=== PATIENT | female | born 1950 | race Caucasian/White ===

== ENCOUNTER 2016-11-24 18:06 | Inpatient (IN) | payer MEDICARE, BC ==
[2016-11-24] MEDS ORDERED: ACETAMINOPHEN IV (For NPO) 1,000 MG in EMPTY BAG 1 BAG IVPB STA (18:59)
[2016-11-24] MEDS ORDERED: IPRATROPIUM-ALBUTEROL 3 ML NEB INHALATION STA (18:59)
--- NOTE | 2016-11-24 19:15 | ED ---
Pediatric SOB HPI - General Source: patient, RN notes reviewed Mode of arrival: wheelchair Limitations: no limitations <Mere Saleem - Last Filed: 11/24/16 22:29> <Holden Gonzalez - Last Filed: 11/24/16 23:02> - General Chief Complaint: Shortness of Breath Stated Complaint: SOB/chest pain/cough Time Seen by Provider: 11/24/16 18:48 - History of Present Illness Initial Comments: Patient is a 66-year-old female since emergency room for evaluation of shortness of breath. Patient has a history of CHF and is currently being treated for CML. Patient states she's had a "cold" for the past 4 days. Patient states she was on her way to urgent care when she suddenly began feeling short of breath so she came to the emergency room instead. Patient states last time she came here for shortness of breath she was diagnosed with CHF. Patient denies chest pain. Patient denies nausea, vomiting, abdominal pain, ear pain, throat pain. Patient does admit having a slight headache. ( Mere Saleem) - Related Data Home Medications Medication Instructions Recorded Confirmed ALPRAZolam [Xanax] 0.25 mg PO BID PRN 10/12/15 11/24/16 Aspirin [Adult Low Dose Aspirin EC] 162 mg PO HS 10/12/15 11/24/16 Calcium Carbonate [Calcium] 600 mg PO DAILY 10/12/15 11/24/16 Cranberry Conc/C/Bacill Coag 1 tab PO DAILY 10/12/15 11/24/16 [Cranberry Tablet] Lisinopril [Zestril] 10 mg PO DAILY 10/12/15 11/24/16 Metoprolol Tartrate [Lopressor] 50 mg PO BID 10/12/15 11/24/16 Multivit with Calcium,Iron,Min 1 tab PO DAILY 10/12/15 11/24/16 [Women's Daily Multivitamin] [place]-3 Fatty Acids/Fish Oil [Fish 1 cap PO DAILY 10/12/15 11/24/16 Oil 1,000 mg Softgel] Oxybutynin Chloride [Ditropan XL] 15 mg PO DAILY 10/12/15 11/24/16 Potassium Chloride [Klor-Con] 20 meq PO Q48H 10/12/15 11/24/16 Zolpidem [Ambien] 10 mg PO HS PRN 10/12/15 11/24/16 amLODIPine [Norvasc] 2.5 mg PO HS 10/12/15 11/24/16 metFORMIN HCL [Glucophage] 1,000 mg PO DAILY 10/12/15 11/24/16 metFORMIN HCL [Glucophage] 500 mg PO HS 10/12/15 11/24/16 Simvastatin [Zocor] 40 mg PO QAM 12/12/15 11/24/16 Citalopram Hydrobromide [CeleXA] 40 mg PO HS 11/24/16 11/24/16 Imatinib Mesylate [Gleevec] 400 mg PO DAILY 11/24/16 11/24/16 Previous Rx's Medication Instructions Recorded Furosemide [Lasix] 40 mg PO DAILY #30 tab 09/08/16 Allergies Allergy/AdvReac Type Severity Reaction Status Date / Time adhesive tape AdvReac Unknown Red , Verified 11/24/16 19:20 Irritated skin Review of Systems ROS Other: All systems not noted in ROS Statement are negative. <Mere Saleem - Last Filed: 11/24/16 22:29> ROS Other: All systems not noted in ROS Statement are negative. <Holden Gonzalez - Last Filed: 11/24/16 23:02> ROS Statement: Those systems with pertinent positive or pertinent negative responses have been documented in the HPI. Past Medical History Past Medical History: Chest Pain / Angina, Diabetes Mellitus, GERD/Reflux, Hyperlipidemia, Hypertension, Myocardial Infarction (non Q-wave) Additional Past Medical History / Comment(s): [place] X4 (LAST 2008), BACK PAIN, URINE INCONTINENCE. leukemia- treated with oral chemo diagnosed around April 2016 Last Myocardial Infarction Date:: 2008 History of Any Multi-Drug Resistant Organisms: None Reported Past Surgical History: Coronary Bypass/CABG, Heart Catheterization With Stent, Hysterectomy Additional Past Surgical History / Comment(s): CATARACT RIGHT EYE ,OVARY TUMOR, ACHILLES TENDON REPAIR. CABG-TRIPLE BYPASS WITH REPAIR OF HOLE IN HEART AND HEART VALVE(2008). Lens implants Past Anesthesia/Blood Transfusion Reactions: No Reported Reaction Date of Last Stent Placement:: 2007 Past Psychological History: Anxiety, Depression Smoking Status: Former smoker Past Alcohol Use History: Occasional Additional Past Alcohol Use History / Comment(s): SMOKED APPROX 1 PPD. SMOKED SINCE AGE 11, APPROX 48 YRS. Past Drug Use History: None Reported - Past Family History Mother Family Medical History: Cancer Additional Family Medical History / Comment(s): colon cancer Father Family Medical History: Congestive Heart Failure (CHF) Brother(s) Family Medical History: Congestive Heart Failure (CHF), Diabetes Mellitus <Mere Saleem L - Last Filed: 11/24/16 22:29> General Exam Limitations: no limitations General appearance: alert, in no apparent distress Head exam: Present: atraumatic, normocephalic, normal inspection Eye exam: Present: normal appearance ENT exam: Present: normal exam Neck exam: Present: normal inspection Respiratory exam: Present: wheezes. Absent: respiratory distress Cardiovascular Exam: Present: regular rate, normal rhythm, normal heart sounds Extremities exam: Present: normal inspection, normal capillary refill Back exam: Present: normal inspection Neurological exam: Present: alert, oriented X3, CN II-XII intact, normal gait Psychiatric exam: Present: normal affect, normal mood Skin exam: Present: warm, dry, intact, normal color. Absent: rash <Mere Saleem L - Last Filed: 11/24/16 22:29> General appearance: alert, in no apparent distress, anxious Head exam: Present: atraumatic, normocephalic, normal inspection Eye exam: Present: normal appearance, PERRL, EOMI. Absent: scleral icterus, conjunctival injection, periorbital swelling ENT exam: Present: normal exam, mucous membranes moist Neck exam: Present: normal inspection. Absent: tenderness, meningismus, lymphadenopathy Respiratory exam: Present: normal lung sounds bilaterally, wheezes, rhonchi, decreased breath sounds, prolonged expiratory. Absent: respiratory distress, rales, stridor Cardiovascular Exam: Present: regular rate, normal rhythm, normal heart sounds. Absent: systolic murmur, diastolic murmur, rubs, gallop, clicks GI/Abdominal exam: Present: soft, normal bowel sounds. Absent: distended, tenderness, guarding, rebound, rigid Extremities exam: Present: normal inspection, full ROM, normal capillary refill. Absent: tenderness, pedal edema, joint swelling, calf tenderness Back exam: Present: normal inspection Neurological exam: Present: alert, oriented X3, CN II-XII intact Psychiatric exam: Present: normal affect, normal mood Skin exam: Present: warm, dry, intact, normal color. Absent: rash <Holden Gonzalez - Last Filed: 11/24/16 23:02> - General Exam Comments Initial Comments: Laying in exam room, in no acute distress. (Mere Saleem) Course <Mere Saleem - Last Filed: 11/24/16 22:29> <Holden Gonzalez - Last Filed: 11/24/16 23:02> Vital Signs 11/24/16 11/24/16 11/24/16 18:08 19:43 20:12 Temperature 98.1 F Pulse Rate 73 65 68 Respiratory 20 18 Rate Blood Pressure 140/63 109/68 O2 Sat by Pulse 98 96 Oximetry 11/24/16 11/24/16 20:30 22:20 Temperature Pulse Rate 72 70 Respiratory 18 Rate Blood Pressure O2 Sat by Pulse 99 Oximetry - Reevaluation(s) Reevaluation #1: 11/24/16 23:02 Patient does have mild improvement with breathing treatments, simple control ( Holden Gonzalez) Medical Decision Making - Lab Data Result diagrams: 11/24/16 19:40 11/24/16 19:40 <Mere Saleem - Last Filed: 11/24/16 22:29> - Lab Data Result diagrams: 11/24/16 19:40 11/24/16 19:40 <Holden Gonzalez - Last Filed: 11/24/16 23:02> - Medical Decision Making 66 female with history of cancer coming in with shortness medical congestion, positive pneumonia, CT negative for PE although elevated d-dimer, patient will be admitted for IV antibiotics and prevention (Holden Gonzalez) - Lab Data Lab Results 11/24/16 11/24/16 11/24/16 Range/Units 19:40 19:40 19:40 WBC 5.1 (3.8-10.6) k/uL RBC 3.74 L (3.80-5.40) m/uL Hgb 11.1 L (11.4-16.0) gm/dL Hct 35.5 (34.0-46.0) % MCV 94.9 (80.0-100.0) fL MCH 29.8 (25.0-35.0) pg MCHC 31.4 (31.0-37.0) g/dL RDW 16.2 H (11.5-15.5) % Plt Count 294 (150-450) k/uL Neutrophils % 62 % Lymphocytes % 21 % Monocytes % 10 % Eosinophils % 4 % Basophils % 1 % Neutrophils # 3.1 (1.3-7.7) k/uL Lymphocytes # 1.1 (1.0-4.8) k/uL Monocytes # 0.5 (0-1.0) k/uL Eosinophils # 0.2 (0-0.7) k/uL Basophils # 0.0 (0-0.2) k/uL Anisocytosis Slight PT (9.0-12.0) sec INR (<1.1) APTT (22.0-30.0) sec D-Dimer (<0.60) mg/L FEU Sodium 139 (137-145) mmol/L Potassium 4.7 (3.5-5.1) mmol/L Chloride 101 (98-107) mmol/L Carbon Dioxide 30 (22-30) mmol/L Anion Gap 8 mmol/L BUN 12 (7-17) mg/dL Creatinine 1.01 (0.52-1.04) mg/dL Est GFR (MDRD) Af Amer >60 (>60 ml/min/1.73 sqM) Est GFR (MDRD) Non-Af 55 (>60 ml/min/1.73 sqM) Glucose 114 H (74-99) mg/dL Calcium 8.8 (8.4-10.2) mg/dL Total Bilirubin 0.5 (0.2-1.3) mg/dL AST 36 (14-36) U/L ALT 35 (9-52) U/L Alkaline Phosphatase 92 (38-126) U/L Total Creatine Kinase 47 (30-135) U/L CK-MB (CK-2) 0.7 (0.0-2.4) ng/mL CK-MB (CK-2) Rel Index 1.5 Troponin I <0.012 (0.000-0.034) ng/mL NT-Pro-B Natriuret Pep pg/mL Total Protein 6.3 (6.3-8.2) g/dL Albumin 3.5 (3.5-5.0) g/dL 11/24/16 11/24/16 Range/Units 19:40 19:40 WBC (3.8-10.6) k/uL RBC (3.80-5.40) m/uL Hgb (11.4-16.0) gm/dL Hct (34.0-46.0) % MCV (80.0-100.0) fL MCH (25.0-35.0) pg MCHC (31.0-37.0) g/dL RDW (11.5-15.5) % Plt Count (150-450) k/uL Neutrophils % % Lymphocytes % % Monocytes % % Eosinophils % % Basophils % % Neutrophils # (1.3-7.7) k/uL Lymphocytes # (1.0-4.8) k/uL Monocytes # (0-1.0) k/uL Eosinophils # (0-0.7) k/uL Basophils # (0-0.2) k/uL Anisocytosis PT 10.0 (9.0-12.0) sec INR 1.0 (<1.1) APTT 24.3 (22.0-30.0) sec D-Dimer 1.03 H (<0.60) mg/L FEU Sodium (137-145) mmol/L Potassium (3.5-5.1) mmol/L Chloride (98-107) mmol/L Carbon Dioxide (22-30) mmol/L Anion Gap mmol/L BUN (7-17) mg/dL Creatinine (0.52-1.04) mg/dL Est GFR (MDRD) Af Amer (>60 ml/min/1.73 sqM) Est GFR (MDRD) Non-Af (>60 ml/min/1.73 sqM) Glucose (74-99) mg/dL Calcium (8.4-10.2) mg/dL Total Bilirubin (0.2-1.3) mg/dL AST (14-36) U/L ALT (9-52) U/L Alkaline Phosphatase (38-126) U/L Total Creatine Kinase (30-135) U/L CK-MB (CK-2) (0.0-2.4) ng/mL CK-MB (CK-2) Rel Index Troponin I (0.000-0.034) ng/mL NT-Pro-B Natriuret Pep 1490 pg/mL Total Protein (6.3-8.2) g/dL Albumin (3.5-5.0) g/dL Disposition Decision Date: 11/24/16 <Mere Saleem - Last Filed: 11/24/16 22:29> <Holden Gonzalez - Last Filed: 11/24/16 23:02> Clinical Impression: Right lower lobe pneumonia Disposition: ADMITTED IP TO THIS HOSP Condition: Stable Referrals: Cristopher Pierre DO [Primary Care Provider] - 1-2 days
[2016-11-24 19:45] VITALS: RESP 18
--- NOTE | 2016-11-24 20:06 | XR ---
EXAMINATION TYPE: XR chest 2V DATE OF EXAM: 11/24/2016 7:58 PM COMPARISON: 09/05/2016 HISTORY: Short of breath TECHNIQUE: Frontal and lateral views of the chest are obtained. FINDINGS: There is no heart failure nor confluent pneumonic infiltrate. There are sternal wires. The re are chest leads. Costophrenic angles are fairly clear. There is very slight blunting on the right side. Bony thorax is intact. IMPRESSION: Minimal pleural reaction at the lateral right lung base. No acute lung disease. No flannery e.
[2016-11-24 20:12] LABS: Anisocytosis Slight; Basophils % (A) 1 %; CH 31.7; CHCM 33.6; Eosinophils # (A) 0.2 k/uL (0-0.7); Eosinophils % (A) 4 %; HCT 35.5 % (34.0-46.0); HDW 2.97; HGB 11.1 gm/dL (11.4-16.0); Luc # (Auto) 0.13; Luc % (Auto) 3; Lymphocytes # (A) 1.1 k/uL (1.0-4.8); Lymphocytes % (A) 21 %; MCH 29.8 pg (25.0-35.0); MCHC 31.4 g/dL (31.0-37.0); MCV 94.9 fL (80.0-100.0); Mean Platelet Volume 7.5; Monocytes # (A) 0.5 k/uL (0-1.0); Monocytes % (A) 10 %; Neutrophils # (A) 3.1 k/uL (1.3-7.7); Neutrophils % (A) 62 %; RBC 3.74 m/uL (3.80-5.40); RDW 16.2 % (11.5-15.5); WBC 5.1 k/uL (3.8-10.6)
[2016-11-24 20:24] LABS: ALT 35 U/L (9-52); AST 36 U/L (14-36); Alkaline Phosphatase 92 U/L (38-126); Anion Gap 8 mmol/L; Blood Urea Nitrogen 12 mg/dL (7-17); Calcium 8.8 mg/dL (8.4-10.2); Carbon Dioxide 30 mmol/L (22-30); Chloride 101 mmol/L (98-107); Glucose 114 mg/dL (74-99); Non-African American GFR(MDRD) 55 (>60 ml/min/1.73 sqM); Potassium 4.7 mmol/L (3.5-5.1); Sodium 139 mmol/L (137-145); Total Bilirubin 0.5 mg/dL (0.2-1.3); Total Protein 6.3 g/dL (6.3-8.2)
[2016-11-24 20:28] LABS: Partial Thromboplastin Time 24.3 sec (22.0-30.0)
[2016-11-24 20:38] LABS: Creatine Kinase 47 U/L (30-135)
[2016-11-24 20:52] LABS: Creatine Kinase MB 0.7 ng/mL (0.0-2.4); Troponin I <0.012 ng/mL (0.000-0.034)
[2016-11-24] MEDS ORDERED: RX INFO: IV CONTRAST WAS GIVEN 1 EACH MISC MISCELLANE PRN (20:59)
--- NOTE | 2016-11-24 22:03 | CT ---
EXAMINATION TYPE: CT angio chest DATE OF EXAM: 11/24/2016 9:44 PM COMPARISON: NONE HISTORY: Chest discomfort and Shortness of breath CT DLP: 354.2 mGycm Automated exposure control for dose reduction was used. CONTRAST: CTA scan of the thorax is performed with IV Contrast, patient injected with 80 mL of Visipaque 320, p ulmonary embolism protocol. . FINDINGS: There is some mild pulmonary emphysema. There is mild groundglass type interstitial density in both l ungs. There is a right pleural effusion with right basilar infiltrate and atelectasis. Heart is enlar ged. Thoracic aorta is atheromatous. I see no filling defect in the pulmonary arteries. There is no e vidence of aortic dissection or aneurysm. There are no hilar masses. There is no mediastinal adenopat hy. There is a small hiatal hernia. IMPRESSION: NO EVIDENCE OF PULMONARY EMBOLISM. RIGHT PLEURAL EFFUSION AND RIGHT LOWER LOBE PNEUMONIC PATCHY CONSO LIDATION AND ATELECTASIS. HIATAL HERNIA. CARDIOMEGALY. EMPHYSEMA AND MILD INTERSTITIAL PULMONARY INFI LTRATES.
[2016-11-24] MEDS ORDERED: PNEUMONIA PROTOCOL UTILIZED 1 EACH MISC PO PRN (22:29)
[2016-11-24] MEDS ORDERED: IPRATROPIUM-ALBUTEROL 3 ML NEB INHALATION PRN (22:29)
[2016-11-24] MEDS ORDERED: SODIUM CHLORIDE 0.9% 1,000 ML IV SCH (22:30)
[2016-11-25 00:50] VITALS: BMI 32.2
[2016-11-25] MEDS: PIPERACILLIN-TAZOBACTAM 3.375 GM in DEXTROSE/WATER 1 50ML.BAG IVPB SCH ×2 (01:31→07:45)
[2016-11-25] MEDS ORDERED: ZOLPIDEM 5 MG TAB PO SCH (02:00)
[2016-11-25 07:01] LABS: Glucose,Whole Blood 136 mg/dL (75-99)
[2016-11-25 08:14] VITALS: BP 136/63; TEMP 98.1
--- NOTE | 2016-11-25 08:41 | XR ---
EXAMINATION TYPE: XR chest 2V DATE OF EXAM: 11/25/2016 7:22 AM COMPARISON: November 24, 2016 chest radiograph and CTA chest. HISTORY: Cough, congestion, and follow-up for pneumonia with history of cardiac surgery. TECHNIQUE: Frontal and lateral views of the chest are obtained. FINDINGS: There is progression of the right lower lobe patchy opacity seen on the CTA chest of [email or web address]. The remainder the lungs are clear. The heart is stable in size. Postsurgical changes ar e seen of the sternum and mediastinum with cardiac valvular replacement. The osseous structures are i ntact. No pleural effusions are seen on this examination. IMPRESSION: 1. Right lower lobe patchy opacity is seen on the prior CTA of 11/24/2016, most likely representing pn eumonia and basilar atelectasis. Previously seen right pleural effusion is not evident on this examin ation.
[2016-11-25 09:00] VITALS: PULSE 66
[2016-11-25] MEDS ORDERED: FUROSEMIDE 10 MG/ML 4 ML VIAL IV STA (10:06)
[2016-11-25] MEDS ORDERED: ZOLPIDEM 10 MG TAB PO PRN (10:06)
[2016-11-25] MEDS ORDERED: ALPRAZolam 0.25 MG TAB PO PRN (10:06)
[2016-11-25] MEDS ORDERED: predniSONE 20 MG TAB PO SCH (11:00)
[2016-11-25] MEDS ORDERED: POTASSIUM CHLORIDE ER 20 MEQ TAB.ER PO SCH (11:00)
--- NOTE | 2016-11-25 11:14 | HP ---
DATE OF ADMISSION: 11/24/2016 HISTORY AND PHYSICAL EXAMINATION/DISCHARGE SUMMARY: Patient is a 66-year-old with leukemia. Patient is on Gleevec. The patient does have a history of congestive heart failure ejection fraction of around 30 to 35%. Came in with complaints of shortness of breath and denied any orthopnea, PND. Patient has flulike symptoms about 3 days ago followed by an episode of bad cough, because of which the patient ( ) and then came to the ER. Patient had a CT angiogram of the chest which was read as that may be a pneumonic process infiltrate in the right lower lobe. I reviewed the CT. The patient has minimal atelectasis in that area and some bilateral pleural effusions and some diffuse interstitial infiltrate, can be either congestive heart failure or atypical pneumonia. Although patient respiratory status and clinically does not look good, patient breath sounds and rhonchus, I will give a dose of Lasix now, ambulate in the hallway and if patient is doing clinically doing well and comfortable, patient will be discharged with levofloxacin as I cannot completely rule out atypical pneumonic process or walking pneumonia at this point of time. Patient denied any fever, chills. Patient does not have any leukocytosis. The patient does not even have clear evidence of clear-cut biochemical symptomatic or radiologically evidence of lobar pneumonia at this point of time, although I cannot rule out from the CT I cannot rule out interstitial pneumonic process or walking pneumonia. ROS: All other systems were reviewed and were negative Home medications include: 1. Xanax. 2. Aspirin. 3. Calcium carbonate. 4. Cranberry juice. 5. Lisinopril. 6. Metoprolol. 7. [place]-3. 8. Fatty acids. 9. Oxybutynin. 10. Potassium chloride. 11. Zolpidem. 12. Amlodipine. 13. Metformin. 14. Simvastatin. 15. Citalopram. 16. ( ). 17. Lasix 40 mg oral daily. ALLERGIES: ALLERGIC TO TAPE. PAST MEDICAL HISTORY: Congestive heart failure, chronic systolic dysfunction; ejection fraction of around 30 to 35%, diabetes mellitus type 2, GERD, hyperlipidemia, hypertension, myocardial infarction and leukemia. Patient had coronary artery bypass grafting and stent placement in the past, hysterectomy, ( ) anxiety, depression. SOCIAL HISTORY: Former smoker, used to smoke 1 pack per day. Quit smoking years ago. Denied any alcohol abuse or any drug abuse. FAMILY HISTORY: Mother had colon cancer and father had congestive heart failure. Brother had congestive heart failure, diabetes mellitus. PHYSICAL EXAMINATION: Temperature 98.1, pulse of 66, respiratory rate of 18, blood pressure is 136/63, saturating at 94% on room air. GENERAL: The patient is alert and oriented x3, not in any acute distress. Well developed, well nourished. HEENT: Pupils are round and equally reacting to light. EOMI. No scleral icterus. No conjunctival pallor. Normocephalic, atraumatic. No pharyngeal erythema. No thyromegaly. CARDIOVASCULAR: Patient has S3 present. Sinus rhythm. Patient has minimally elevated JVD about 2 cm above the clavicle. Patient does not have any pedal edema. Lung examination: Rhonchus breath sounds bilaterally. Fairly good air entry into bilateral lung [place]. No wheezing was appreciated. ABDOMEN: Soft, nontender, nondistended, normoactive bowel sounds. No palpable organomegaly. MUSCULOSKELETAL: No joint swelling or deformity. EXTREMITIES: No cyanosis, clubbing, or pedal edema. NEUROLOGICAL: Gross neurological examination did not reveal any focal deficits. SKIN: No rashes. LABORATORY DATA: CBC, CMP essentially within normal limits patient has minimally elevated BNP of 14,090. ASSESSMENT AND PLAN: 1. Shortness of breath appears to be multifactorial. Patient may have minimal exacerbation of chronic obstructive pulmonary disease, chronic systolic dysfunction with acute exacerbation or atypical pneumonia or bronchitis may be contributing to her symptoms. Patient does have cough with yellowish sputum production. I do not believe patient has any lobar pneumonia. 2. Possible atypical pneumonia versus bronchitis for which patient will be discharged on levofloxacin. 3. Congestive heart failure, chronic systolic dysfunction with acute exacerbation, ejection fraction of 30% to 35% for which I will give her a dose of IV Lasix. 4. Type 2 diabetes mellitus. 5. Hypertension. 6. Hyperlipidemia. 7. 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 8. Chronic obstructive pulmonary disease without any significant exacerbation, but I do suspect because of her bronchitis I believe she will benefit from systemic steroids. Her blood sugars are expected to be higher because of that. 9. The patient will need gastrointestinal prophylaxis because of systemic steroids. DISCHARGE DIET: Cardiac and ADA 1800 calorie diet. Follow with Dr. Cristopher Pierre in 3 days. Follow-up with oncology as scheduled. [facility]
[2016-11-25 11:47] LABS: Glucose,Whole Blood 210 mg/dL (75-99)
[2016-11-25] MEDS ORDERED: METOPROLOL TARTRATE 50 MG TAB PO SCH (21:00)
[2016-11-25] MEDS ORDERED: LEVOFLOXACIN 750MG-D5W PMX 750 MG in DEXTROSE/WATER 1 150ML.BAG IVPB SCH ×2 (21:00→22:30)
[2016-11-25] MEDS ORDERED: metFORMIN 500 MG TAB PO SCH (21:00)
[2016-11-25] MEDS ORDERED: CITALOPRAM HYDROBROMIDE 20 MG TAB PO SCH (21:00)
[2016-11-25] MEDS ORDERED: ASPIRIN 81 MG CHEW PO SCH (21:00)
[2016-11-26] MEDS ORDERED: ATORVASTATIN 20 MG TAB PO SCH (09:00)
[2016-11-26] MEDS ORDERED: LISINOPRIL 10 MG TAB PO SCH (09:00)
[2016-11-26] MEDS ORDERED: metFORMIN 500 MG TAB PO SCH (09:00)
[2016-11-26] MEDS ORDERED: NON-FORMULARY DRUG (Imatinib Mesylate [Gleevec] 400 MG) PO SCH (09:00)
[2016-11-26] MEDS ORDERED: OXYBUTYNIN 15 MG TAB.ER.24 PO SCH (09:00)
[2016-11-26] MEDS ORDERED: MULTIVITAMINS, THERA 1 EACH TAB PO SCH (12:00)
== END 2016-11-25 12:49 | disposition home or self-care (01) | DRG 291 ==
LOC: EC 18:06 → 5ONC 22:29
PROVIDERS: ADMIT Internal Medicine; ATTEND Internal Medicine
DX: I11.0 Hypertensive heart disease with heart failure (principal); J18.9 Pneumonia, unspecified organism; C92.10 Chronic myeloid leukemia, BCR/ABL-positive, not having achieved remission; J44.0 Chronic obstructive pulmonary disease with (acute) lower respiratory infection; J44.1 Chronic obstructive pulmonary disease with (acute) exacerbation; I50.23 Acute on chronic systolic (congestive) heart failure; J40 Bronchitis, not specified as acute or chronic; E11.9 Type 2 diabetes mellitus without complications; E78.5 Hyperlipidemia, unspecified; I25.2 Old myocardial infarction; K21.9 Gastro-esophageal reflux disease without esophagitis; Z79.82 Long term (current) use of aspirin; Z82.49 Family history of ischemic heart disease and other diseases of the circulatory system; Z87.891 Personal history of nicotine dependence; Z95.1 Presence of aortocoronary bypass graft; Z96.1 Presence of intraocular lens; Z79.899 Other long term (current) drug therapy
CPT/HCPCS: 36415; 71020; 71275; 80053; 82550; 82553; 83880; 84484; 85025; 85379; 85610; 85730; 87040; 87070; 87205; 93005; 94640; 96365; 96366; 96367; 99285

== ENCOUNTER 2017-01-29 20:02 | Inpatient (IN) | payer MEDICARE, BC ==
--- NOTE | 2017-01-29 22:14 | ED ---
SOB HPI <Srinath Currie - Last Filed: 01/29/17 23:56> - General Source: patient, RN notes reviewed Mode of arrival: wheelchair Limitations: no limitations <Mere Saleem - Last Filed: 01/30/17 01:58> - General Chief Complaint: Shortness of Breath Stated Complaint: HEIDY Time Seen by Provider: 01/29/17 21:59 - History of Present Illness Initial Comments: Patient is 66-year-old female presents to the emergency room for evaluation of shortness of breath. Patient has a history of CHF, COPD and CML. Patient states that about a month ago she went to her primary care provider for increased cough and shortness of breath. Patient states she was placed on 3 L of nasal cannula at home. Patient states that improved her symptoms. Patient states since Saturday she noticed every time she gets up and moves around she becomes easily winded. Patient states when she is sitting down she feels fine. Patient does state that she has noticed increased swelling in her bilateral legs over the past few days. Patient denies any current cough. Patient denies headache or dizziness. Patient states having slight left-sided chest pain. Patient denies any chest pressure. Patient denies currently smoking. Patient denies fevers or chills. Patient states she is up to date on her immunizations besides influenza vaccine. Patient states she is currently on Gleevec for CML. (Mere Saleem) - Related Data Home Medications Medication Instructions Recorded Confirmed ALPRAZolam [Xanax] 0.25 mg PO BID PRN 10/12/15 01/29/17 Aspirin [Adult Low Dose Aspirin EC] 162 mg PO HS 10/12/15 01/29/17 Calcium Carbonate [Calcium] 600 mg PO DAILY 10/12/15 01/29/17 Cranberry Conc/C/Bacill Coag 1 tab PO DAILY 10/12/15 01/29/17 [Cranberry Tablet] Lisinopril [Zestril] 10 mg PO DAILY 10/12/15 01/29/17 Metoprolol Tartrate [Lopressor] 50 mg PO BID 10/12/15 01/29/17 Multivit with Calcium,Iron,Min 1 tab PO DAILY 10/12/15 01/29/17 [Women's Daily Multivitamin] [place]-3 Fatty Acids/Fish Oil [Fish 1 cap PO DAILY 10/12/15 01/29/17 Oil 1,000 mg Softgel] Oxybutynin Chloride [Ditropan XL] 15 mg PO DAILY 10/12/15 01/29/17 Potassium Chloride [Klor-Con] 20 meq PO Q48H 10/12/15 01/29/17 Zolpidem [Ambien] 10 mg PO HS PRN 10/12/15 01/29/17 amLODIPine [Norvasc] 2.5 mg PO HS 10/12/15 01/29/17 metFORMIN HCL [Glucophage] 1,000 mg PO DAILY 10/12/15 01/29/17 metFORMIN HCL [Glucophage] 500 mg PO HS 10/12/15 01/29/17 Simvastatin [Zocor] 40 mg PO QAM 12/12/15 01/29/17 Citalopram Hydrobromide [CeleXA] 40 mg PO HS 11/24/16 01/29/17 Imatinib Mesylate [Gleevec] 400 mg PO DAILY 11/24/16 01/29/17 Albuterol Nebulized [Ventolin 2.5 mg INHALATION RT-TID 01/29/17 01/29/17 Nebulized] Previous Rx's Medication Instructions Recorded Furosemide [Lasix] 40 mg PO DAILY #30 tab 09/08/16 Allergies Allergy/AdvReac Type Severity Reaction Status Date / Time adhesive tape AdvReac Unknown Red , Verified 01/29/17 21:54 Irritated skin Review of Systems ROS Other: All systems not noted in ROS Statement are negative. <Srinath Currie - Last Filed: 01/29/17 23:56> ROS Other: All systems not noted in ROS Statement are negative. <Mere Saleem - Last Filed: 01/30/17 01:58> ROS Statement: Those systems with pertinent positive or pertinent negative responses have been documented in the HPI. Past Medical History Past Medical History: Chest Pain / Angina, Diabetes Mellitus, GERD/Reflux, Hyperlipidemia, Hypertension, Myocardial Infarction (non Q-wave) Additional Past Medical History / Comment(s): IN X4 (LAST 2008), BACK PAIN, URINE INCONTINENCE. leukemia- treated with oral chemo diagnosed around April 2016 Last Myocardial Infarction Date:: 2008 History of Any Multi-Drug Resistant Organisms: None Reported Past Surgical History: Coronary Bypass/CABG, Heart Catheterization With Stent, Hysterectomy Additional Past Surgical History / Comment(s): CATARACT RIGHT EYE ,OVARY TUMOR, ACHILLES TENDON REPAIR. CABG-TRIPLE BYPASS WITH REPAIR OF HOLE IN HEART AND HEART VALVE(2008). Lens implants Past Anesthesia/Blood Transfusion Reactions: No Reported Reaction Date of Last Stent Placement:: 2007 Past Psychological History: Anxiety, Depression Smoking Status: Former smoker Past Alcohol Use History: Occasional Additional Past Alcohol Use History / Comment(s): SMOKED APPROX 1 PPD. SMOKED SINCE AGE 11, APPROX 48 YRS. Past Drug Use History: None Reported - Past Family History Mother Family Medical History: Cancer Additional Family Medical History / Comment(s): colon cancer Father Family Medical History: Congestive Heart Failure (CHF) Brother(s) Family Medical History: Congestive Heart Failure (CHF), Diabetes Mellitus <Mere Saleem - Last Filed: 01/30/17 01:58> General Exam <Srinath Currie - Last Filed: 01/29/17 23:56> Limitations: no limitations General appearance: alert, in no apparent distress Head exam: Present: atraumatic, normocephalic, normal inspection Eye exam: Present: normal appearance ENT exam: Present: normal exam Neck exam: Present: normal inspection Respiratory exam: Present: decreased breath sounds. Absent: respiratory distress Cardiovascular Exam: Present: regular rate, normal rhythm, normal heart sounds Extremities exam: Present: pedal edema (bilateral mild pitting edema) Back exam: Present: normal inspection Neurological exam: Present: alert, oriented X3, CN II-XII intact, normal gait Psychiatric exam: Present: normal affect, normal mood Skin exam: Present: warm, dry, intact, normal color. Absent: rash <Mere Saleem - Last Filed: 01/30/17 01:58> - General Exam Comments Initial Comments: Sitting in exam room, no acute distress. (Mere Saleem) Medical Decision Making - Lab Data Result diagrams: 01/29/17 22:28 01/29/17 22:28 <Srinath Currie - Last Filed: 01/29/17 23:56> - Lab Data Result diagrams: 01/29/17 22:28 01/29/17 22:28 - Radiology Data Radiology results: report reviewed, image reviewed <Mere Saleem - Last Filed: 01/30/17 01:58> - Medical Decision Making Medical decision-making. The patient's white count 6 hemoglobin 10 hematocrit of 30. INR 1.1 the d-dimer 2.04, potassium is 4.1 BUN 14 creatinine 1.03 to GFR 57. Glucose 114. Pulse ox 94% on 3 L. BNP is 2770. Chest x-ray shows CHF with cardiomegaly etc. Reviewed by radiologistDr. Vizcarra. I examined the patient has decrease air entry both lower lung [place]. Some crepitant rales. Patient is on O2. She is on daily Lasix. The case discussed with Dr. Scott patient be admitted to his service. He requests cardiology consultation. Patient will have a VQ scan to rule out PE. She will be placed on heparin until results return. Dr. Currie (Srinath Currie) Patient is a 66-year-old female presents emergency room for evaluation of shortness of breath. Chest x-ray significant for CHF with cardiomegaly. Case discussed with Dr. Currie. Dr. Currie discussed case with Dr. Scott who agreed to admit patient for CHF exacerbation. D-dimer elevated. Heparin ordered for patient. Patient sent for CTA. CTA: No evidence of pulmonary embolus. Small to moderate-sized bilateral pleural effusions. Moderate underlying pulmonary emphysema. Mother underlying atherosclerotic disease. Prior CABG surgery. Heparin was canceled due to negative PE. (Mere Saleem) - Lab Data Lab Results 01/29/17 01/29/17 01/29/17 Range/Units 22:28 22:28 22:28 WBC 6.0 (3.8-10.6) k/uL RBC 2.98 L (3.80-5.40) m/uL Hgb 10.2 L (11.4-16.0) gm/dL Hct 31.4 L (34.0-46.0) % MCV 105.4 H D (80.0-100.0) fL MCH 34.2 (25.0-35.0) pg MCHC 32.4 (31.0-37.0) g/dL RDW 16.4 H (11.5-15.5) % Plt Count 259 (150-450) k/uL Neutrophils % 77 % Lymphocytes % 13 % Monocytes % 6 % Eosinophils % 2 % Basophils % 0 % Neutrophils # 4.6 (1.3-7.7) k/uL Lymphocytes # 0.8 L (1.0-4.8) k/uL Monocytes # 0.4 (0-1.0) k/uL Eosinophils # 0.1 (0-0.7) k/uL Basophils # 0.0 (0-0.2) k/uL Anisocytosis Slight Macrocytosis Moderate PT (9.0-12.0) sec INR (<1.1) APTT (22.0-30.0) sec D-Dimer (<0.60) mg/L FEU Sodium 139 (137-145) mmol/L Potassium 4.1 (3.5-5.1) mmol/L Chloride 96 L (98-107) mmol/L Carbon Dioxide 34 H (22-30) mmol/L Anion Gap 9 mmol/L BUN 14 (7-17) mg/dL Creatinine 1.03 (0.52-1.04) mg/dL Est GFR (MDRD) Af Amer >60 (>60 ml/min/1.73 sqM) Est GFR (MDRD) Non-Af 53 (>60 ml/min/1.73 sqM) Glucose 114 H (74-99) mg/dL Calcium 9.2 (8.4-10.2) mg/dL Total Bilirubin 1.0 (0.2-1.3) mg/dL AST 42 H (14-36) U/L ALT 41 (9-52) U/L Alkaline Phosphatase 61 (38-126) U/L Total Creatine Kinase 77 (30-135) U/L CK-MB (CK-2) 1.6 (0.0-2.4) ng/mL CK-MB (CK-2) Rel Index 2.1 Troponin I <0.012 (0.000-0.034) ng/mL NT-Pro-B Natriuret Pep pg/mL Total Protein 6.8 (6.3-8.2) g/dL Albumin 4.0 (3.5-5.0) g/dL Influenza Type A RNA (Not Detectd) Influenza Type B (PCR) (Not Detectd) 01/29/17 01/29/17 01/29/17 Range/Units 22:28 22:28 22:44 WBC (3.8-10.6) k/uL RBC (3.80-5.40) m/uL Hgb (11.4-16.0) gm/dL Hct (34.0-46.0) % MCV (80.0-100.0) fL MCH (25.0-35.0) pg MCHC (31.0-37.0) g/dL RDW (11.5-15.5) % Plt Count (150-450) k/uL Neutrophils % % Lymphocytes % % Monocytes % % Eosinophils % % Basophils % % Neutrophils # (1.3-7.7) k/uL Lymphocytes # (1.0-4.8) k/uL Monocytes # (0-1.0) k/uL Eosinophils # (0-0.7) k/uL Basophils # (0-0.2) k/uL Anisocytosis Macrocytosis PT 10.7 (9.0-12.0) sec INR 1.1 (<1.1) APTT 24.9 (22.0-30.0) sec D-Dimer 2.04 H (<0.60) mg/L FEU Sodium (137-145) mmol/L Potassium (3.5-5.1) mmol/L Chloride (98-107) mmol/L Carbon Dioxide (22-30) mmol/L Anion Gap mmol/L BUN (7-17) mg/dL Creatinine (0.52-1.04) mg/dL Est GFR (MDRD) Af Amer (>60 ml/min/1.73 sqM) Est GFR (MDRD) Non-Af (>60 ml/min/1.73 sqM) Glucose (74-99) mg/dL Calcium (8.4-10.2) mg/dL Total Bilirubin (0.2-1.3) mg/dL AST (14-36) U/L ALT (9-52) U/L Alkaline Phosphatase (38-126) U/L Total Creatine Kinase (30-135) U/L CK-MB (CK-2) (0.0-2.4) ng/mL CK-MB (CK-2) Rel Index Troponin I (0.000-0.034) ng/mL NT-Pro-B Natriuret Pep 2780 pg/mL Total Protein (6.3-8.2) g/dL Albumin (3.5-5.0) g/dL Influenza Type A RNA Not Detected (Not Detectd) Influenza Type B (PCR) Not Detected (Not Detectd) 01/29/17 23:41 Sinus rhythm with short WI, ventricular rate 73 bpm, WI interval 108 ms, QRS duration 86, QT/QTC 388/427 ms (Mere Saleem) Disposition <Srinath Currie - Last Filed: 01/29/17 23:56> Decision Date: 01/29/17 <Mere Saleem - Last Filed: 01/30/17 01:58> Clinical Impression: CHF exacerbation Disposition: ADMITTED IP TO THIS HOSP Condition: Stable
[2017-01-29 22:41] LABS: Anisocytosis Slight; Basophils % (A) 0 %; CH 33.9; CHCM 32.4; Eosinophils # (A) 0.1 k/uL (0-0.7); Eosinophils % (A) 2 %; HCT 31.4 % (34.0-46.0); HDW 2.92; HGB 10.2 gm/dL (11.4-16.0); Luc # (Auto) 0.09; Luc % (Auto) 2; Lymphocytes # (A) 0.8 k/uL (1.0-4.8); Lymphocytes % (A) 13 %; MCH 34.2 pg (25.0-35.0); MCHC 32.4 g/dL (31.0-37.0); Macrocytosis Moderate; Mean Platelet Volume 7.9; Monocytes # (A) 0.4 k/uL (0-1.0); Monocytes % (A) 6 %; Neutrophils # (A) 4.6 k/uL (1.3-7.7); Neutrophils % (A) 77 %; RBC 2.98 m/uL (3.80-5.40); RDW 16.4 % (11.5-15.5)
[2017-01-29 22:44] LABS: MCV 105.4 fL (80.0-100.0)
--- NOTE | 2017-01-29 22:45 | XR ---
EXAMINATION TYPE: XR chest 2V DATE OF EXAM: 01/29/2017 10:38 PM COMPARISON: 11/25/2016 HISTORY: Chest pain. Short of breath TECHNIQUE: Frontal and lateral views of the chest are obtained. FINDINGS: There is blunting of costophrenic angles. There is pulmonary vascular congestion. Heart is probably enlarged. There are sternal wires. There are chest leads. IMPRESSION: There is a new congestive heart failure with pleural effusions compared to last exam.
[2017-01-29 22:49] LABS: ALT 41 U/L (9-52); AST 42 U/L (14-36); Alkaline Phosphatase 61 U/L (38-126); Anion Gap 9 mmol/L; Blood Urea Nitrogen 14 mg/dL (7-17); Calcium 9.2 mg/dL (8.4-10.2); Carbon Dioxide 34 mmol/L (22-30); Chloride 96 mmol/L (98-107); Glucose 114 mg/dL (74-99); Non-African American GFR(MDRD) 53 (>60 ml/min/1.73 sqM); Potassium 4.1 mmol/L (3.5-5.1); Sodium 139 mmol/L (137-145); Total Protein 6.8 g/dL (6.3-8.2)
[2017-01-29 22:57] LABS: Creatine Kinase 77 U/L (30-135); INR 1.1 (<1.1); Partial Thromboplastin Time 24.9 sec (22.0-30.0); Prothrombin Time 10.7 sec (9.0-12.0)
[2017-01-29 23:10] LABS: Creatine Kinase MB 1.6 ng/mL (0.0-2.4); Troponin I <0.012 ng/mL (0.000-0.034)
[2017-01-29] MEDS ORDERED: FUROSEMIDE 10 MG/ML 10 ML VIAL IV STA (23:13)
[2017-01-29] MEDS ORDERED: NITROGLYCERIN OINT 1 INCH/GM PACKET TOPICAL STA (23:52)
[2017-01-29] MEDS ORDERED: MORPHINE SULFATE 4 MG/ML SYRINGE IV PRN (23:53)
[2017-01-29] MEDS ORDERED: NALOXONE 0.4 MG/ML 1 ML VIAL IV PRN (23:53)
[2017-01-29] MEDS ORDERED: IPRATROPIUM-ALBUTEROL 3 ML NEB INHALATION STA (23:56)
[2017-01-30] MEDS ORDERED: RX INFO: IV CONTRAST WAS GIVEN 1 EACH MISC MISCELLANE PRN (00:09)
[2017-01-30] MEDS ORDERED: HEPARIN SODIUM,PORCINE/D5W PMX 25,000 UNIT in DEXTROSE/WATER 1 500ML.BAG IV SCH (00:15)
--- NOTE | 2017-01-30 00:50 | CT ---
EXAM: CT Angiography Chest With Intravenous Contrast. CLINICAL HISTORY: Reason: Chest pain short, shortness of breath, elevated d- TECHNIQUE: Axial computed tomographic angiography images of the chest with intravenous contrast using pulmonary embolism protocol. CTDI is 8.9 mGy and DLP is 322.10 mGy-cm This CT exam was performed using one or more of the following dose reduction techniques: automated exposure control, adjustment of the mA and/or kV according to patient size, and/or use of iterative reconstruction technique. MIP reconstructed images were created and reviewed. Coronal and sagittal reformatted images were created and reviewed. COMPARISON: 11/24/16 FINDINGS: Pulmonary arteries: Unremarkable. No pulmonary embolism. Aorta: Moderate underlying atherosclerotic disease. No thoracic aortic aneurysm. Lungs: Bilateral lower lobe dependent atelectasis. Moderate underlying bilateral centrilobular pulmonary emphysema. No mass. Pleural spaces: Small to moderate size bilateral pleural effusions. The left pleural effusion is new from prior study. The right pleural effusion has increased in size. No pneumothorax. Heart: Mild cardiomegaly. Postoperative changes of prior CABG surgery. No significant pericardial effusion. No evidence of RV dysfunction. Bones: Unremarkable. No acute fracture. Lymph nodes: Unremarkable. No enlarged lymph nodes. IMPRESSION: 1. No evidence of pulmonary embolus. 2. Small to moderate size bilateral pleural effusions. 3. Moderate underlying pulmonary emphysema. 4. Moderate underlying atherosclerotic disease. Prior CABG surgery.
[2017-01-30] MEDS ORDERED: ZOLPIDEM 10 MG TAB PO STA (02:04)
[2017-01-30 02:10] LABS: Glucose,Whole Blood 138 mg/dL (75-99)
[2017-01-30 06:36] LABS: Glucose,Whole Blood 149 mg/dL (75-99)
[2017-01-30] MEDS: FUROSEMIDE 10 MG/ML 10 ML VIAL IV SCH ×3 (09:24→22:30)
[2017-01-30] MEDS ORDERED: Potassium Replacement Protocol 1 EACH MISC MISCELLANE PRN (09:33)
[2017-01-30] MEDS ORDERED: ALPRAZolam 0.25 MG TAB PO PRN (11:02)
[2017-01-30] MEDS ORDERED: IPRATROPIUM-ALBUTEROL 3 ML NEB INHALATION PRN (11:04)
[2017-01-30] MEDS ORDERED: ACETAMINOPHEN TAB 500 MG TAB PO PRN (11:56)
[2017-01-30 12:06] LABS: Glucose,Whole Blood 174 mg/dL (75-99)
[2017-01-30] MEDS: metFORMIN 500 MG TAB PO SCH (12:15)
[2017-01-30] MEDS: CALCIUM CARBONATE 500 MG CHEWABLE PO SCH (12:16)
[2017-01-30] MEDS: ATORVASTATIN 20 MG TAB PO SCH (12:16)
[2017-01-30] MEDS: LISINOPRIL 10 MG TAB PO SCH (12:16)
[2017-01-30] MEDS: METOPROLOL TARTRATE 50 MG TAB PO SCH ×2 (12:17→22:26)
[2017-01-30] MEDS: MULTIVITAMINS, THERA 1 EACH TAB PO SCH (12:17)
[2017-01-30] MEDS: INSULIN LISPRO (humaLOG) 300 UNIT/3 ML VIAL SQ SCH ×3 (12:17→21:49)
[2017-01-30] MEDS: OXYBUTYNIN 15 MG TAB.ER.24 PO SCH (12:17)
[2017-01-30] MEDS: IPRATROPIUM-ALBUTEROL 3 ML NEB INHALATION SCH ×3 (12:25→20:29)
[2017-01-30 16:00] LABS: Hemoglobin A1C 5.1 % (4.2-6.1)
[2017-01-30 17:28] LABS: Glucose,Whole Blood 97 mg/dL (75-99)
--- NOTE | 2017-01-30 17:45 | CONS ---
DATE OF CONSULTATION: Patient was admitted to the hospital with increasing shortness of breath. Patient follows with my associate, Dr. Florez, who saw her 2 weeks ago. Patient is known to have atherosclerotic heart disease. Patient is known to have congestive heart failure, COPD, chronic myeloid leukemia, status post aortocoronary bypass x3 done in 2008. Patient has been having increasing shortness of breath with minimal exertion and feeling winded and also having some bilateral leg swelling. Chest x-ray shows moderate congestion and BNP levels 2700, consistent with congestive heart failure. Patient is probably not being helped with CML, either. Patient's medications prior to admission include: 1. Alprazolam 0.25 mg b.i.d. p.r.n. 2. Aspirin 162 mg p.o. daily. 3. Calcium 600 mg p.o. daily. 4. Cranberry 1 tablet daily. 5. Lisinopril 10 mg p.o. daily. 6. Metoprolol 50 mg p.o. b.i.d. 7. [place]-3 fatty acids. 8. Ditropan XL 15 mg p.o. daily. 9. Potassium 20 mEq p.o. q.48 hours. 10. Zolpidem 10 mg p.o. at bedtime. 11. Amlodipine 2.5 p.o. daily. 12. Metformin 1000 mg p.o. daily and 500 mg p.o. at bedtime. 13. Simvastatin 40 mg p.o. daily. 14. Gleevec 400 mg p.o. daily. 15. Celexa 40 mg p.o. daily. 16. Albuterol inhaler p.o. t.i.d. Patient used to be on Lasix 40 mg daily and now she is on IVs. ALLERGIES: ADHESIVE TAPE. PATIENT'S PAST HISTORY AND REVIEW OF SYSTEMS: Patient with diabetes ( ) previous bypass surgery, GERD syndrome. History of non-Q-wave myocardial infarction in the past and also history of urinary incontinence, leukemia treated with chemotherapy. History of hysterectomy, history of stents and bypass. Apparently she also had a heart valve repair, most likely mitral valve. Physical examination revealed a well-developed, well-nourished 66-year-old female not in acute distress, oriented x3 with a pulse rate of 89 beats per minute and regular, blood pressure of 144/70, respirations of 22. HEAD: Normocephalic. JVD is elevated 10 cm above the clavicle. CARDIAC EXAMINATION: S1 and S2. Short systolic murmur noted at the apex. Lungs reveal crackles at bases. Abdomen is soft. No organomegaly. Active bowel sounds. EXTREMITIES: Minimal pedal edema, 1+. Decreased pedal pulses. STAFF NURSE MIDWIFE examination is grossly within normal limits. ASSESSMENT: 1. Acute exacerbation of congestive heart failure, mostly systolic and diastolic. 2. Diabetes mellitus. 3. Hypertension. 4. Hyperlipidemia. 5. BNP levels are elevated. RECOMMENDATIONS: Concur with current therapy. Patient is on furosemide 60 mg IV push every 8 hours. Will continue that. Will add some spironolactone to it. Watch the potassium ( ) and will get an echocardiogram to assess LV function.
[2017-01-30] MEDS ORDERED: metFORMIN 500 MG TAB PO SCH (21:00)
[2017-01-30] MEDS ORDERED: ZOLPIDEM 10 MG TAB PO SCH (21:00)
[2017-01-30] MEDS: ONDANSETRON 4 MG TAB PO SCH (21:06)
[2017-01-30 21:07] LABS: Glucose,Whole Blood 129 mg/dL (75-99)
[2017-01-30] MEDS: Imatinib Mesylate [Gleevec] 400 MG PO SCH (21:48)
[2017-01-30] MEDS: amLODIPine 2.5 MG TAB PO SCH (22:26)
[2017-01-30] MEDS: ZOLPIDEM 10 MG TAB PO PRN (22:26)
[2017-01-30] MEDS: CITALOPRAM HYDROBROMIDE 20 MG TAB PO SCH (22:26)
[2017-01-30] MEDS: ASPIRIN 81 MG CHEW PO SCH (22:27)
[2017-01-31] MEDS: IPRATROPIUM-ALBUTEROL 3 ML NEB INHALATION SCH ×4 (07:10→18:49)
[2017-01-31 07:23] LABS: Glucose,Whole Blood 104 mg/dL (75-99)
--- NOTE | 2017-01-31 08:52 | HP ---
DATE OF ADMISSION: Chief complaint is difficulty breathing. HISTORY OF PRESENTING ILLNESS: Ms. Early is a 66-year-old female with history of pulmonary disease, with history of coronary artery bypass graft and CHF as well as COPD and CML. Came to the hospital with complaints of worsening of short of breath. Apparently, patient has been having this short of breath and has seen her primary care physician and also she was ( ) the home oxygen as well since for about a month. Almost for about a month her symptoms have not been resolved and not back to her baseline. Patient came to the hospital for further evaluation. Patient also will follow with the public accountant as well. Patient, otherwise denied any cough or sputum production and no chest pain. The patient has been having worsening short of breath and bilateral lower extremity swelling. Patient is also getting worse. Denied any headache or dizziness. Currently on Gleevec for CML. Otherwise, no recent illnesses. Her CT angiogram showed no evidence of pulmonary embolism, small to moderate bilateral pleural effusions and moderate underlying pulmonary emphysema. Patient does have previous history of smoking. REVIEW OF SYSTEMS: CONSTITUTIONAL: No fever. No chills with no weakness, malaise, fatigue and no cough or sputum production. Patient does have short of breath. CARDIOVASCULAR: No chest pain, patient has short of breath and leg swelling. ABDOMEN: No nausea, vomiting. GENITOURINARY: Negative. ENDOCRINE: Negative. PSYCHIATRY: Negative. NEUROLOGICAL: Negative. All other 14-point review of systems negative except as above. PAST MEDICAL HISTORY: Diabetes mellitus, GERD, hyperlipidemia, hypertension, history of [place] x4, chronic back pain, urinary incontinence, leukemia treated with oral chemo diagnosed around April 2016. PAST SURGICAL HISTORY: Coronary artery bypass graft, cardiac catheterization stent placement, hysterectomy, cataract right eye, ovary tumor resection, Achilles tendon repair, triple bypass graft, lens implant and valve repair. PSYCHOSOCIAL HISTORY: Anxiety and depression. SOCIAL HISTORY: Patient is a former smoker, smoked approximately 1 pack per day, smoker since age 11 for approximately 48 years. Occasional alcohol use. Denied any drugs or IVDU. FAMILY HISTORY: Mother had colon cancer and father has congestive heart failure, brother has congestive heart failure and diabetes mellitus. Home medication include: 1. Xanax. 2. Aspirin. 3. Calcium. 4. Cranberry tablet. 5. Lisinopril. 6. Lopressor. 7. Multivitamins. 8. [place]-3 fatty acids. 9. Oxybutynin. 10. Ambien. 11. Norvasc. 12. Glucophage. 13. Simvastatin. 14. Citalopram. 15. Gleevec. 16. Ventolin. 17. Lasix. ( ). PHYSICAL EXAMINATION: A 66-year-old female, lying in the bed comfortably, awake, alert, oriented x3. VITALS: Blood pressure is 109/56, pulse is 71, respirations 22, temperature afebrile, pulse ox 92% on 3 L nasal cannula. HEENT: Atraumatic, normocephalic. Neck is supple. No JVD. CVS EXAM: S1, S2 heard. No murmurs, no gallop. LUNGS: Bilateral air entry is present, decreased breath sounds basally and minimal crackles positive. Nonlabored breathing. Abdomen is soft, nontender. Bowel sounds are present. INTERNAL AFFAIRS INVESTIGATOR: Awake, alert, oriented x3. No focal deficit. EXTREMITIES: Bilateral lower extremity 2+ edema, pulses palpable bilaterally. No clubbing or cyanosis. PSYCHIATRIC: Cooperative. LABORATORY DATA: WBC is 6.3, hemoglobin 10.2, platelets 259, the MCV 105.4. INR 1.1. D-dimer is 2.04, sodium 139, potassium 4.1, chloride 96, bicarb is 24. BUN 14, creatinine 1.03. BMP 5.1. AST is 42, ALT is 41. Troponin x1 negative, NT-proBNP is 2780, influenza A and B PCR negative. Chest x-ray, there is new congestive heart failure with pleural effusions, multifactorial last exam. IMPRESSION: 1. Acute on chronic congestive heart failure with a systolic and diastolic dysfunction possible. Today ( ) to assess LV function again, continued on IV diuresis Lasix q.8 hourly. 2. History of coronary artery disease, status post was coronary work-up and cardiac catheterization and stent placement. 3. Hypertension. 4. Diabetes mellitus type 2, [id number]. 5. Chronic myeloid leukemia, currently on Gleevec. 6. Anxiety. 7. Hypertension. 8. Hyperlipidemia. 9. Urinary incontinence. DISCUSSION AND PLAN: Patient will be continued IV diuresis with Lasix and spironolactone has been added. Continue with the current home medications including aspirin and Lipitor as well as Zestril and metoprolol. Cardiology is following this patient. Continue the current management and further recommendations based on clinical course. MTDD
[2017-01-31] MEDS: INSULIN LISPRO (humaLOG) 300 UNIT/3 ML VIAL SQ SCH ×4 (09:04→20:45)
[2017-01-31] MEDS: METOPROLOL TARTRATE 50 MG TAB PO SCH ×2 (09:07→23:46)
[2017-01-31] MEDS: FUROSEMIDE 10 MG/ML 10 ML VIAL IV SCH ×3 (09:07→23:45)
[2017-01-31] MEDS: SPIRONOLACTONE 25 MG TAB PO SCH (09:08)
[2017-01-31] MEDS: OXYBUTYNIN 15 MG TAB.ER.24 PO SCH (09:08)
[2017-01-31] MEDS: metFORMIN 500 MG TAB PO SCH (09:08)
[2017-01-31] MEDS: LISINOPRIL 10 MG TAB PO SCH (09:08)
[2017-01-31] MEDS: MULTIVITAMINS, THERA 1 EACH TAB PO SCH (09:08)
[2017-01-31] MEDS: CALCIUM CARBONATE 500 MG CHEWABLE PO SCH (09:08)
[2017-01-31] MEDS: ATORVASTATIN 20 MG TAB PO SCH (09:08)
[2017-01-31 09:21] LABS: Calcium 8.2 mg/dL (8.4-10.2); Magnesium 1.6 mg/dL (1.6-2.3); Potassium 3.2 mmol/L (3.5-5.1)
[2017-01-31 09:38] LABS: Anisocytosis Slight; Basophils % (A) 0 %; CH 34.5; CHCM 33.4; Eosinophils # (A) 0.1 k/uL (0-0.7); Eosinophils % (A) 4 %; HCT 27.4 % (34.0-46.0); HDW 3.11; HGB 9.1 gm/dL (11.4-16.0); Luc # (Auto) 0.07; Luc % (Auto) 2; Lymphocytes # (A) 0.7 k/uL (1.0-4.8); Lymphocytes % (A) 21 %; MCH 34.7 pg (25.0-35.0); MCHC 33.4 g/dL (31.0-37.0); MCV 103.9 fL (80.0-100.0); Macrocytosis Moderate; Monocytes # (A) 0.2 k/uL (0-1.0); Monocytes % (A) 6 %; Neutrophils # (A) 2.1 k/uL (1.3-7.7); Neutrophils % (A) 66 %; RBC 2.64 m/uL (3.80-5.40); RDW 16.1 % (11.5-15.5); WBC 3.2 k/uL (3.8-10.6); WBC (Perox) 3.24
--- NOTE | 2017-01-31 09:45 | ECHOF ---
Referral Reason:lv function MEASUREMENTS -------- HEIGHT: 157.5 cm WEIGHT: 76.7 kg BP: 144/70 RVIDd: 3.1 cm (< 3.3) IVSd: 1.1 cm (0.6 - 1.1) LVIDd: 4.4 cm (3.9 - 5.3) LVPWd: 1.0 cm (0.6 - 1.1) IVSs: 1.7 cm LVIDs: 2.7 cm LVPWs: 1.3 cm LA Diam: 4.3 cm (2.7 - 3.8) LAESV Index (A-L): 44.90 ml/m Ao Diam: 2.7 cm (2.0 - 3.7) AV Cusp: 1.7 cm (1.5 - 2.6) MV EXCURSION: 17.310 mm (> 18.000) MV EF SLOPE: 39 mm/s (70 - 150) EPSS: 0.6 cm MV E Elmo: 2.16 m/s MV DecT: 425 ms MV A Elmo: 0.79 m/s MV E/A Ratio: 2.72 AV maxP.39 mmHg AV meanP.92 mmHg AR PHT: 271 ms RAP: 5.00 mmHg RVSP: 41.36 mmHg FINDINGS -------- Sinus rhythm. This was a technically good study. The left ventricular size is normal. There is borderline concentric left ventricular hypertrophy. Overall left ventricular systolic function is normal with, an EF between 60 - 65 %. The right ventricle is normal in size. LA is severely dilated >40 ml/m2 The right atrium is normal in size. Aortic valve is trileaflet and is mildly thickened. There is mild aortic valve sclerosis. There is moderate aortic regurgitation. The aortic pressure half-time by doppler is 271ms. There is mild aortic stenosis present. Peak/mean gradient across the Aortic Valve is 20.39mmHg / 7.92mmHg. Moderate mitral annular calcification present. Mild mitral regurgitation is present. The peak and mean MV gradients are 25.61mmHg 8.37mmHg as measured by doppler. MV Repair. Moderate tricuspid regurgitation present. There is mild pulmonary hypertension. The right ventricular systolic pressure, as measured by Doppler, is 41.36mmHg. The pulmonic valve was not well visualized. The aortic root size is normal. Normal inferior vena cava with normal inspiratory collapse consistent with estimated right atrial pressure of 5 mmHg. There is no pericardial effusion. Small Pleural Effusion. CONCLUSIONS -------- 1. Sinus rhythm. 2. There is mild aortic valve sclerosis. 3. There is moderate aortic regurgitation. 4. The aortic pressure half-time by doppler is 271ms. 5. There is mild aortic stenosis present. 6. Peak/mean gradient across the Aortic Valve is 20.39mmHg / 7.92mmHg. 7. Moderate mitral annular calcification present. 8. Mild mitral regurgitation is present. 9. The peak and mean MV gradients are 25.61mmHg 8.37mmHg as measured by doppler. 10. MV Repair. 11. Moderate tricuspid regurgitation present. 12. This was a technically good study. 13. There is mild pulmonary hypertension. 14. The right ventricular systolic pressure, as measured by Doppler, is 41.36mmHg. 15. The pulmonic valve was not well visualized. 16. The aortic root size is normal. 17. Normal inferior vena cava with normal inspiratory collapse consistent with estimated right atrial pressure of 5 mmHg. 18. There is no pericardial effusion. 19. Small Pleural Effusion. 20. The left ventricular size is normal. 21. There is borderline concentric left ventricular hypertrophy. 22. Overall left ventricular systolic function is normal with, an EF between 60 - 65 %. 23. The right ventricle is normal in size. 24. LA is severely dilated >40 ml/m2 25. The right atrium is normal in size. 26. Aortic valve is trileaflet and is mildly thickened. CEMENT PRODUCTION PLANT OPERATOR: Ambika Pittman RDCS
[2017-01-31 10:49] VITALS: BMI 29.5
[2017-01-31] MEDS ORDERED: Magnesium Replacement Protocol 1 EACH MISC MISCELLANE PRN (11:19)
[2017-01-31] MEDS ORDERED: Potassium Replacement Protocol 1 EACH MISC MISCELLANE PRN (11:20)
[2017-01-31] MEDS: MAGNESIUM SULFATE-D5W PMX 1 GM in DEXTROSE/WATER 1 100ML.BAG IVPB SCH ×2 (12:08→15:15)
[2017-01-31] MEDS: POTASSIUM CHLORIDE ER 20 MEQ TAB.ER PO SCH ×2 (12:08→15:15)
[2017-01-31 12:20] LABS: Glucose,Whole Blood 107 mg/dL (75-99)
[2017-01-31 16:46] LABS: Glucose,Whole Blood 117 mg/dL (75-99)
[2017-01-31 20:45] LABS: Glucose,Whole Blood 137 mg/dL (75-99)
[2017-01-31] MEDS: ONDANSETRON 4 MG TAB PO SCH (20:53)
[2017-01-31] MEDS: Imatinib Mesylate [Gleevec] 400 MG PO SCH (21:51)
[2017-01-31] MEDS: ASPIRIN 81 MG CHEW PO SCH (22:27)
[2017-01-31] MEDS: amLODIPine 2.5 MG TAB PO SCH (22:28)
[2017-01-31] MEDS: CITALOPRAM HYDROBROMIDE 20 MG TAB PO SCH (22:28)
[2017-01-31] MEDS: HEPARIN SODIUM,PORCINE 5,000 UNIT/ML 1 ML VIAL SQ SCH (23:45)
[2017-01-31] MEDS: ZOLPIDEM 10 MG TAB PO PRN (23:46)
[2017-02-01] MEDS: IPRATROPIUM-ALBUTEROL 3 ML NEB INHALATION SCH ×4 (07:28→20:46)
[2017-02-01 07:30] LABS: Glucose,Whole Blood 114 mg/dL (75-99)
[2017-02-01 08:53] LABS: Glucose,Whole Blood 204 mg/dL (75-99)
[2017-02-01] MEDS: HEPARIN SODIUM,PORCINE 5,000 UNIT/ML 1 ML VIAL SQ SCH ×2 (09:13→17:37)
[2017-02-01] MEDS: ATORVASTATIN 20 MG TAB PO SCH (09:13)
[2017-02-01] MEDS: SPIRONOLACTONE 25 MG TAB PO SCH (09:14)
[2017-02-01] MEDS: FUROSEMIDE 10 MG/ML 10 ML VIAL IV SCH (09:14)
[2017-02-01] MEDS: INSULIN LISPRO (humaLOG) 300 UNIT/3 ML VIAL SQ SCH ×4 (09:14→23:37)
[2017-02-01] MEDS: LISINOPRIL 10 MG TAB PO SCH (09:14)
[2017-02-01] MEDS: OXYBUTYNIN 15 MG TAB.ER.24 PO SCH (09:14)
[2017-02-01] MEDS: METOPROLOL TARTRATE 50 MG TAB PO SCH ×2 (09:14→23:37)
[2017-02-01] MEDS: CALCIUM CARBONATE 500 MG CHEWABLE PO SCH (09:14)
[2017-02-01] MEDS: MULTIVITAMINS, THERA 1 EACH TAB PO SCH (09:15)
[2017-02-01 09:17] LABS: Anisocytosis Slight; Basophils % (A) 1 %; CH 34.3; CHCM 33.2; Eosinophils # (A) 0.1 k/uL (0-0.7); Eosinophils % (A) 3 %; HCT 26.5 % (34.0-46.0); HDW 3.09; HGB 8.8 gm/dL (11.4-16.0); Luc # (Auto) 0.09; Luc % (Auto) 3; Lymphocytes # (A) 0.5 k/uL (1.0-4.8); Lymphocytes % (A) 17 %; MCH 34.6 pg (25.0-35.0); MCHC 33.3 g/dL (31.0-37.0); MCV 103.9 fL (80.0-100.0); Macrocytosis Moderate; Mean Platelet Volume 7.3; Monocytes # (A) 0.2 k/uL (0-1.0); Monocytes % (A) 8 %; Neutrophils % (A) 68 %; RBC 2.55 m/uL (3.80-5.40); WBC 2.9 k/uL (3.8-10.6); WBC (Perox) 2.96
[2017-02-01 09:27] LABS: Anion Gap 8 mmol/L; Blood Urea Nitrogen 14 mg/dL (7-17); Carbon Dioxide 31 mmol/L (22-30); Chloride 98 mmol/L (98-107); Glucose 176 mg/dL (74-99); Magnesium 1.9 mg/dL (1.6-2.3); Non-African American GFR(MDRD) 53 (>60 ml/min/1.73 sqM); Potassium 3.4 mmol/L (3.5-5.1); Sodium 137 mmol/L (137-145)
--- NOTE | 2017-02-01 10:27 | PN ---
DATE OF SERVICE: 01/31/2017 INTERVAL HISTORY: Ms. Early is a 66-year-old female with a known history of COPD, coronary artery bypass graft and CHF and CML, currently on Gleevec, admitted to the hospital with worsening short of breath. CT of the chest showed moderate bilateral pleural effusion and moderate underlying pulmonary emphysema. Patient is currently being diuresed with IV Lasix. Patient says that her breathing is better today but she complains of short of breath with walking. A 2-D showed normal ejection fraction and moderate tricuspid and aortic regurgitation. Patient says that she is symptomatically improving now. Otherwise, patient denied any fever or chills. No chronic chest pain. No worsening short of breath. No acute overnight issues. Able to tolerate p.o. diet. Review of systems negative except above. CURRENT MEDICATIONS: Reviewed. PHYSICAL EXAMINATION: A 66-year-old female lying in the bed. Awake, alert, oriented x3, appears to be in no apparent distress. VITALS: Blood pressure is 97/48, pulse is 81, respirations 12, temperature afebrile, pulse ox 96% on 3 L nasal cannula. HEENT: Atraumatic, normocephalic. Neck is supple. No JVD. CVS EXAM: S1, S2 heard. No murmurs, no gallop. LUNGS: Bilateral air entry is present. Right basilar crackles positive. Nonlabored breathing. Abdomen is soft, nontender. Bowel sounds are present. CASING GRADER: Awake, alert, oriented x3. No focal deficit. EXTREMITIES: No edema. Pulses palpable bilaterally, no clubbing or cyanosis. PSYCHIATRIC: Cooperative. EXTREMITIES: Bilateral lower extremity edema. LABORATORY DATA: WBC is 3.2, hemoglobin 9.1, platelets 242, MCV 103.9, sodium 138, potassium 3.2, chloride 98, bicarb 32, BUN 15, creatinine 1.1, blood sugar is 155, magnesium 1.6. IMPRESSION: 1. Acute on chronic congestive heart failure with possible diastolic dysfunction, today showed normal ejection fraction, continue with IV diuresis. 2. History of coronary artery disease, status post coronary artery bypass graft and history of stent placement. 3. Macrocytic anemia. 4. Diabetes type 2, insulin-dependent. 5. Chronic myeloid leukemia, currently on Gleevec. 6. Anxiety. 7. Hypertension. 8. Hyperlipidemia. 9. Urinary incontinence. DISCUSSION AND PLAN: Patient is currently on Lasix and monitor renal function. Continue with current management and follow up closely. Cardiology is on board. Further recommendations based on the clinical course. Will monitor renal function.
[2017-02-01] MEDS ORDERED: Potassium Replacement Protocol 1 EACH MISC MISCELLANE PRN (11:32)
[2017-02-01] MEDS ORDERED: Magnesium Replacement Protocol 1 EACH MISC MISCELLANE PRN (11:32)
[2017-02-01 12:04] LABS: Glucose,Whole Blood 149 mg/dL (75-99)
[2017-02-01 12:29] LABS: Vitamin B12 318 pg/mL
[2017-02-01] MEDS: POTASSIUM CHLORIDE ER 20 MEQ TAB.ER PO SCH ×2 (13:43→15:56)
[2017-02-01] MEDS: MAGNESIUM SULFATE-D5W PMX 1 GM in DEXTROSE/WATER 1 100ML.BAG IVPB SCH ×2 (13:43→15:56)
[2017-02-01 17:01] LABS: Glucose,Whole Blood 182 mg/dL (75-99)
--- NOTE | 2017-02-01 18:16 | XR ---
EXAMINATION TYPE: XR chest 2V DATE OF EXAM: 02/01/2017 5:26 PM COMPARISON: 01/29/2017 HISTORY: Heart failure. Short of breath TECHNIQUE: Frontal and lateral views of the chest are obtained. FINDINGS: There is blunting of both costophrenic angles. Heart appears enlarged. There is mild pulmo nary vascular congestion. There are sternal wires. There are chest leads. IMPRESSION: Congestive heart failure with pleural effusions. No significant change compared to last exam.
[2017-02-01 20:40] LABS: Glucose,Whole Blood 133 mg/dL (75-99)
[2017-02-01] MEDS ORDERED: FUROSEMIDE 10 MG/ML 10 ML VIAL IV SCH (21:00)
[2017-02-01] MEDS: ONDANSETRON 4 MG TAB PO SCH (21:00)
[2017-02-01] MEDS: FUROSEMIDE 10 MG/ML 2 ML VIAL IV SCH (21:41)
[2017-02-01] MEDS: Imatinib Mesylate [Gleevec] 400 MG PO SCH (21:50)
[2017-02-01] MEDS: amLODIPine 2.5 MG TAB PO SCH (23:35)
[2017-02-01] MEDS: ASPIRIN 81 MG CHEW PO SCH (23:35)
[2017-02-01] MEDS: CITALOPRAM HYDROBROMIDE 20 MG TAB PO SCH (23:36)
[2017-02-01] MEDS: ZOLPIDEM 10 MG TAB PO PRN (23:43)
[2017-02-02] MEDS: HEPARIN SODIUM,PORCINE 5,000 UNIT/ML 1 ML VIAL SQ SCH ×2 (01:58→08:07)
[2017-02-02 07:08] LABS: Glucose,Whole Blood 137 mg/dL (75-99)
[2017-02-02 07:26] VITALS: TEMP 98.2
[2017-02-02] MEDS: MULTIVITAMINS, THERA 1 EACH TAB PO SCH (08:06)
[2017-02-02] MEDS: METOPROLOL TARTRATE 50 MG TAB PO SCH (08:06)
[2017-02-02] MEDS: FUROSEMIDE 10 MG/ML 2 ML VIAL IV SCH (08:07)
[2017-02-02] MEDS: LISINOPRIL 10 MG TAB PO SCH (08:07)
[2017-02-02] MEDS: ATORVASTATIN 20 MG TAB PO SCH (08:07)
[2017-02-02] MEDS: SPIRONOLACTONE 25 MG TAB PO SCH (08:07)
[2017-02-02] MEDS: OXYBUTYNIN 15 MG TAB.ER.24 PO SCH (08:07)
[2017-02-02] MEDS: CALCIUM CARBONATE 500 MG CHEWABLE PO SCH (08:07)
[2017-02-02] MEDS: INSULIN LISPRO (humaLOG) 300 UNIT/3 ML VIAL SQ SCH ×2 (08:08→12:49)
[2017-02-02] MEDS: IPRATROPIUM-ALBUTEROL 3 ML NEB INHALATION SCH ×3 (08:45→17:18)
[2017-02-02 08:57] LABS: Anisocytosis Slight; Basophils % (A) 1 %; CH 34.1; CHCM 32.7; Eosinophils # (A) 0.2 k/uL (0-0.7); Eosinophils % (A) 6 %; HCT 29.6 % (34.0-46.0); HDW 3.14; HGB 9.8 gm/dL (11.4-16.0); Luc # (Auto) 0.08; Luc % (Auto) 2; Lymphocytes # (A) 0.7 k/uL (1.0-4.8); Lymphocytes % (A) 21 %; MCH 34.7 pg (25.0-35.0); MCV 105.2 fL (80.0-100.0); Macrocytosis Moderate; Mean Platelet Volume 6.9; Monocytes # (A) 0.3 k/uL (0-1.0); Monocytes % (A) 8 %; Neutrophils # (A) 2.1 k/uL (1.3-7.7); Neutrophils % (A) 62 %; RBC 2.81 m/uL (3.80-5.40); RDW 16.1 % (11.5-15.5); WBC 3.4 k/uL (3.8-10.6); WBC (Perox) 3.37
[2017-02-02 08:58] LABS: Anion Gap 6 mmol/L; Blood Urea Nitrogen 12 mg/dL (7-17); Calcium 8.5 mg/dL (8.4-10.2); Carbon Dioxide 34 mmol/L (22-30); Chloride 100 mmol/L (98-107); Glucose 126 mg/dL (74-99); Magnesium 2.2 mg/dL (1.6-2.3); Non-African American GFR(MDRD) 58 (>60 ml/min/1.73 sqM); Potassium 4.2 mmol/L (3.5-5.1); Sodium 140 mmol/L (137-145)
--- NOTE | 2017-02-02 11:38 | PN ---
DATE OF SERVICE: 02/01/2107 INTERVAL HISTORY: Ms. Early is a 66-year-old female with known history of COPD and coronary artery disease with bypass graft and CHF and CML currently on Gleevec, admitted to the hospital with worsening short of breath. CT of the chest showed moderate pleural effusion and underlying pulmonary emphysema, currently being diuresed with IV Lasix. Patient says that her is breathing is much better now and otherwise patient was tachycardic at this time and beta george dose has been increased and patient had a repeat chest x-ray done today, showed no significant improvement in pleural effusions. Otherwise, patient is symptomatically much improved now. No fever. No chills. No acute overnight issues. Able to walk to the bathroom, still having short of breath with ambulation. REVIEW OF SYSTEMS: CONSTITUTIONAL: No fever. No chills. RESPIRATORY: No cough or sputum production. CARDIOVASCULAR: No chest pain. No worsening short of breath. Leg swelling is present. NEUROLOGIC: Negative. ENDOCRINE: Negative. PSYCHIATRY: Negative. All other 14-point review of systems negative except as above. CURRENT MEDICATIONS: Reviewed. PHYSICAL EXAMINATION: A 66-year-old female sitting on the bed comfortably, awake, alert, oriented x3, appears to be in no apparent distress. VITALS: Blood pressure is 107/56, pulse is 82, respirations 16, temperature afebrile, pulse ox is 93% on 3 L nasal cannula. HEENT: Atraumatic, normocephalic. Neck is supple. No JVD. CVS EXAM: S1, S2 heard. No murmurs, no gallop. LUNGS: Basilar crackles positive. Nonlabored breathing, no wheezing. Abdomen is soft, nontender. Bowel sounds are present. GLASS ETCHER HELPER: Awake, alert, oriented, x3. No focal deficits. EXTREMITIES: No edema. Pulses palpable bilaterally. No clubbing or cyanosis. PSYCHIATRIC: Cooperative. LABORATORY DATA: WBC 2.9, hemoglobin 8.8, MCV is 103.9, platelets 218, sodium 137, potassium 3.4, chloride 98, bicarb is 31, BUN 14, creatinine 1.03, blood sugar is 204, and vitamin B12 level is 318. IMPRESSION: 1. Acute on chronic congestive heart failure with possible diastolic dysfunction, ejection fraction is normal during the admission. Continue with IV diuresis and decrease it to 20 mg b.i.d. 2. History of coronary artery disease, status post coronary artery bypass graft and history of stent placement. 3. Macrocytic anemia with low normal vitamin B12 level. 4. Diabetes mellitus type, insulin dependent. 5. Chronic myeloid leukemia, currently on Gleevec. 6. Anxiety. 7. Hypertension. 8. Hyperlipidemia. 9. Urinary incontinence. DISCUSSION AND PLAN: Patient will continue on Lasix, dose has been decreased and continue with the telemonitoring and follow the renal function. Further recommendations based on the clinical course.
[2017-02-02] MEDS ORDERED: CYANOCOBALAMIN 500 MCG TAB PO SCH (12:00)
[2017-02-02 12:18] LABS: Glucose,Whole Blood 133 mg/dL (75-99)
[2017-02-02 14:49] VITALS: BP 104/44; PULSE 78; RESP 18
--- NOTE | 2017-02-05 12:50 | DS ---
DATE OF ADMISSION: 01/30/2017 DATE OF DISCHARGE: 02/02/2017 DISCHARGE DIAGNOSES: 1. Acute on chronic congestive heart failure with possible diastolic dysfunction, ejection fraction is normal during this admission. Patient was continued on IV diuresis with 60 mg q.8 hourly initially and had changed it to 20 mg p.o. b.i.d. now. Patient did improve symptomatically with short of breath. 2. History of coronary artery disease, status post coronary artery bypass graft and history of stent placement. 3. Macrocytic anemia with low normal vitamin B12 level. 4. Diabetes type 2 insulin dependent. 5. Chronic myeloid leukemia, currently on Gleevec. 6. Anxiety. 7. Hypertension. 8. Hyperlipidemia. 9. Urinary incontinence. 10. Pleural effusion moderate size. HOSPITAL COURSE: Mrs. Early is a 66-year-old female with known history of multiple medical problems including CML currently on treatment with Gleevec admitted to the hospital with complaints of worsening short of breath and unable to ambulate without short of breath. A CT of the chest showed moderate pleural effusion and pulmonary emphysema. Patient was treated with IV Lasix and changed to p.o. now. Patient also a home oxygen requirement for her underlying emphysema. Otherwise, the patient was found to be tachycardic and beta george dose has been increased. Repeat chest x-ray showed CHF without significant change, but patient is symptomatically much improved now. Able to ambulate to the bathroom ( ) support. Otherwise, the patient is anxious to be discharged home. Patient is cleared by cardiology and will be discharged home in stable condition and follow up with the primary care physician and cardiology as an outpatient. DISCHARGE PHYSICAL EXAMINATION: A 66-year-old female, lying in bed comfortably, awake, alert, oriented x3. Appears to be in no apparent distress. VITALS: Blood pressure 104/44, pulse is 78, respiration 18, temperature afebrile, pulse ox 96% on 3 L nasal cannula. Laboratory data reviewed. Discharge physical examination done. DISCHARGE PHYSICAL EXAMINATION: A 66-year-old female, lying in bed, comfortably, awake, alert, oriented x3. Appears to be in no apparent distress. HEENT: Atraumatic, normocephalic. Neck is supple. No JVD. CVS EXAM: S1, S2 heard. No murmurs or gallop. LUNGS: Bilateral air entry is present. Decreased breath sounds basally, minimal crackles at the bases. Nonlabored breathing. ABDOMEN: Soft, nontender. Bowel sounds present. SALES AND MARKETING VICE PRESIDENT: Awake, alert, oriented x3. No focal deficits. LABORATORY DATA: WBC 3.4, hemoglobin 9.8, platelets 278. Sodium 140, potassium 4.2, chloride 100, bicarb is 34. BUN 12, creatinine 0.95. Magnesium is 2.2. Discharge medications include: 1. Xanax 0.25 mg p.o. b.i.d. p.r.n. for anxiety. 2. Aspirin 162 mg p.o. at bedtime. 3. Calcium carbonate 600 mg p.o. daily. 4. Cranberry tablet 1 tablet p.o. daily. 5. Zestril 10 mg p.o. daily. 6. Multivitamin with calcium, iron. Women's daily, 1 tablet p.o. daily. 7. Ryan 3 fatty acids 1000 mg softgel 1 capsule p.o. daily. 8. Oxybutynin, Ditropan XL, 15 mg p.o. daily. 9. Potassium chloride 20 mEq p.o. q.48 hours. 10. Zolpidem 10 mg p.o. at bedtime. 11. Amlodipine 2.5 mg. 12. Metformin 1000 mg p.o. daily. 13. Metformin 500 mg at bedtime. 14. Zocor 40 mg p.o. q.a.m. 15. Citalopram 40 mg p.o. at bedtime. 16. Gleevec 400 mg p.o. daily. 17. Ventolin nebulization 2.5 mg inhalation RT t.i.d. as needed. 18. Cyanocobalamin 1000 mcg p.o. daily. 19. Lasix 20 mg p.o. b.i.d. 20. Metoprolol tartrate 75 mg p.o. b.i.d. 21. Spironolactone 25 mg p.o. daily. Patient will be discharged home in stable condition. Activity as tolerated. Heart healthy diet. Follow with Dr. Cristopher Pierre in 3 days. Home with self care. Time taken more than 35 minute including 18 minutes counseling the patient and coordinating care.
== END 2017-02-02 17:37 | disposition home or self-care (01) | DRG 292 ==
LOC: EC 20:02 → 6SEL 01-30 00:07 → 4MS4W 01-30 10:29
PROVIDERS: ADMIT Hospitalist; ATTEND Hospitalist
DX: I11.0 Hypertensive heart disease with heart failure (principal); C92.10 Chronic myeloid leukemia, BCR/ABL-positive, not having achieved remission; Z99.81 Dependence on supplemental oxygen; D53.9 Nutritional anemia, unspecified; E11.9 Type 2 diabetes mellitus without complications; F32.9 Major depressive disorder, single episode, unspecified; J44.9 Chronic obstructive pulmonary disease, unspecified; E78.5 Hyperlipidemia, unspecified; Z79.82 Long term (current) use of aspirin; I50.43 Acute on chronic combined systolic (congestive) and diastolic (congestive) heart failure; Z79.84 Long term (current) use of oral hypoglycemic drugs; Z79.899 Other long term (current) drug therapy; F41.9 Anxiety disorder, unspecified; I25.10 Atherosclerotic heart disease of native coronary artery without angina pectoris; I25.2 Old myocardial infarction; I35.1 Nonrheumatic aortic (valve) insufficiency; K21.9 Gastro-esophageal reflux disease without esophagitis; R32 Unspecified urinary incontinence; Z79.4 Long term (current) use of insulin; Z80.0 Family history of malignant neoplasm of digestive organs; Z82.49 Family history of ischemic heart disease and other diseases of the circulatory system; Z87.891 Personal history of nicotine dependence; Z95.1 Presence of aortocoronary bypass graft; Z95.5 Presence of coronary angioplasty implant and graft; Z96.1 Presence of intraocular lens
CPT/HCPCS: 36415; 71020; 71275; 80048; 80053; 82550; 82553; 82607; 82747; 83036; 83735; 83880; 84484; 85025; 85379; 85610; 85730; 87502; 93005; 93306; 94640; 94760; 96374; 99285

== ENCOUNTER 2017-02-21 11:05 | Inpatient (IN) | payer MEDICARE, BC ==
[2017-02-21] MEDS ORDERED: DEXTROSE 50%-WATER 50 ML SYRINGE IVP STA (11:15)
[2017-02-21] MEDS ORDERED: ONDANSETRON 4 MG/2 ML VIAL IVP STA (11:35)
[2017-02-21] MEDS ORDERED: SODIUM CHLORIDE 0.9% 1,000 ML IV STA (11:35)
[2017-02-21 11:57] LABS: Basophils % (A) 1 %; CH 34.7; CHCM 32.6; Eosinophils % (A) 1 %; HCT 31.9 % (34.0-46.0); HDW 2.64; HGB 10.4 gm/dL (11.4-16.0); Luc # (Auto) 0.14; Luc % (Auto) 2; Lymphocytes % (A) 16 %; MCH 34.9 pg (25.0-35.0); MCHC 32.7 g/dL (31.0-37.0); MCV 106.9 fL (80.0-100.0); Macrocytosis Moderate; Mean Platelet Volume 7.4; Monocytes # (A) 0.3 k/uL (0-1.0); Monocytes % (A) 5 %; Neutrophils # (A) 4.8 k/uL (1.3-7.7); Neutrophils % (A) 77 %; RBC 2.98 m/uL (3.80-5.40); RDW 14.8 % (11.5-15.5); WBC 6.3 k/uL (3.8-10.6)
[2017-02-21 12:05] LABS: Calcium 8.6 mg/dL (8.4-10.2); Total Bilirubin 0.8 mg/dL (0.2-1.3); Total Protein 6.1 g/dL (6.3-8.2)
--- NOTE | 2017-02-21 12:08 | XR ---
EXAMINATION TYPE: XR chest 2V DATE OF EXAM: 02/21/2017 11:59 AM COMPARISON: 02/01/2017 HISTORY: Shortness of breath TECHNIQUE: Frontal and lateral views of the chest are obtained. FINDINGS: Scattered senescent parenchymal changes noted. Hyperinflation compatible with COPD. Mild pulmonary venous congestion. Persistent but smaller right-sided pleural effusion. Much smaller l eft-sided effusion. Improved aeration at the lung bases. Mild cardiomegaly. Sternotomy wires mediasti nal clips are in place. Mediastinal structures are stable and grossly unremarkable. No evidence for hilar prominence. Degenerative changes dorsal spine. IMPRESSION: 1. Mild pulmonary venous congestion. Persistent but smaller pleural effusions and improved basilar ae ration.
--- NOTE | 2017-02-21 12:09 | XR ---
EXAMINATION TYPE: XR KUB DATE OF EXAM: 02/21/2017 11:59 AM COMPARISON: NONE HISTORY: Pain TECHNIQUE: Single supine KUB image of the abdomen is obtained FINDINGS: Small bowel demonstrates no evidence for dilatation or air fluid levels. Gas and fecal material is seen in non-distended colon. No convincing evidence for pneumoperitoneum. Radiopaque densities overlying the kidneys may reflect intraluminal bowel content versus nephrolithia sis. The lung bases are clear. The osseous structures are intact. IMPRESSION: 1. Overall nonobstructive bowel gas pattern.
[2017-02-21 12:12] LABS: Potassium 6.2 mmol/L (3.5-5.1)
--- NOTE | 2017-02-21 12:19 | CT ---
EXAMINATION TYPE: CT brain wo con DATE OF EXAM: 02/21/2017 12:14 PM COMPARISON: NONE HISTORY: Weakness, dizziness and faical swelling CT DLP: [address] of the brain was performed. The ventricles, basal cisterns and sulci overlying the cerebral convexities demonstrate mild enlargem ent. There is no evidence for intracranial hemorrhage or sulcal effacement. There is decreased attenuation about the periventricular white matter and deep white matter of both c erebral hemispheres, compatible with chronic small vessel ischemia. Differential diagnosis does inclu de demyelination. No mass effects are seen.No midline shift. Osseous calvarium is intact. If symptoms persist consider MRI. IMPRESSION: 1. Age related atrophic and chronic small vessel ischemic change without acute intracranial process s een at this time.
[2017-02-21 12:37] LABS: Glucose,Whole Blood 127 mg/dL (75-99)
[2017-02-21 13:28] LABS: Glucose,Whole Blood 57 mg/dL (75-99)
--- NOTE | 2017-02-21 13:42 | ED ---
Nausea/Vomiting/Diarrhea HPI - General Chief complaint: Nausea/Vomiting/Diarrhea Stated complaint: Hypoglycemia Time Seen by Provider: 02/21/17 11:28 Source: patient Mode of arrival: EMS Limitations: no limitations - History of Present Illness Initial comments: preseteded with the nausea, is ongoing for about 4 days now she feels weak and shaky loss of appetite does complain about some headache and some unsteady gait at times. Denies any chest pain or shortness of breath no abdominal pain no pleuritic chest pain no abdominal pain no frequency urgency dysuria no sinus symptoms of CVA at this point - Related Data Home Medications Medication Instructions Recorded Confirmed ALPRAZolam [Xanax] 0.25 mg PO BID PRN 10/12/15 02/21/17 Aspirin [Adult Low Dose Aspirin EC] 162 mg PO HS 10/12/15 02/21/17 Calcium Carbonate [Calcium] 600 mg PO DAILY 10/12/15 02/21/17 Cranberry Conc/C/Bacill Coag 1 tab PO DAILY 10/12/15 02/21/17 [Cranberry Tablet] Lisinopril [Zestril] 10 mg PO DAILY 10/12/15 02/21/17 Multivit with Calcium,Iron,Min 1 tab PO DAILY 10/12/15 02/21/17 [Women's Daily Multivitamin] [place]-3 Fatty Acids/Fish Oil [Fish 1 cap PO DAILY 10/12/15 02/21/17 Oil 1,000 mg Softgel] Oxybutynin Chloride [Ditropan XL] 15 mg PO DAILY 10/12/15 02/21/17 Potassium Chloride [Klor-Con] 20 meq PO Q48H 10/12/15 02/21/17 Zolpidem [Ambien] 10 mg PO HS PRN 10/12/15 02/21/17 amLODIPine [Norvasc] 2.5 mg PO HS 10/12/15 02/21/17 metFORMIN HCL [Glucophage] 1,000 mg PO DAILY 10/12/15 02/21/17 metFORMIN HCL [Glucophage] 500 mg PO HS 10/12/15 02/21/17 Simvastatin [Zocor] 40 mg PO QAM 12/12/15 02/21/17 Citalopram Hydrobromide [CeleXA] 40 mg PO HS 11/24/16 02/21/17 Imatinib Mesylate [Gleevec] 400 mg PO DAILY 11/24/16 02/21/17 Albuterol Nebulized [Ventolin 2.5 mg INHALATION RT-TID 01/29/17 02/21/17 Nebulized] Previous Rx's Medication Instructions Recorded Cyanocobalamin [Vitamin B-12] 1,000 mcg PO DAILY@1200 #30 tab 02/02/17 Furosemide [Lasix] 20 mg PO BID #60 tab 02/02/17 Metoprolol Tartrate [Lopressor] 75 mg PO BID #60 tab 02/02/17 Spironolactone [Aldactone] 25 mg PO DAILY #30 tab 02/02/17 Allergies Allergy/AdvReac Type Severity Reaction Status Date / Time adhesive tape AdvReac Unknown Red , Verified 02/21/17 11:31 Irritated skin Review of Systems ROS Statement: Those systems with pertinent positive or pertinent negative responses have been documented in the HPI. ROS Other: All systems not noted in ROS Statement are negative. Past Medical History Past Medical History: Chest Pain / Angina, Diabetes Mellitus, GERD/Reflux, Hyperlipidemia, Hypertension, Myocardial Infarction (non Q-wave) Additional Past Medical History / Comment(s): MS X4 (LAST 2008), BACK PAIN, URINE INCONTINENCE. leukemia- treated with oral chemo diagnosed around April 2016 Last Myocardial Infarction Date:: 2008 History of Any Multi-Drug Resistant Organisms: None Reported Past Surgical History: Coronary Bypass/CABG, Heart Catheterization With Stent, Hysterectomy Additional Past Surgical History / Comment(s): CATARACT RIGHT EYE ,OVARY TUMOR, ACHILLES TENDON REPAIR. CABG-TRIPLE BYPASS WITH REPAIR OF HOLE IN HEART AND HEART VALVE(2008). Lens implants Past Anesthesia/Blood Transfusion Reactions: No Reported Reaction Date of Last Stent Placement:: 2007 Past Psychological History: Anxiety, Depression Smoking Status: Former smoker Past Alcohol Use History: Occasional Additional Past Alcohol Use History / Comment(s): SMOKED APPROX 1 PPD. SMOKED SINCE AGE 11, APPROX 48 YRS. Past Drug Use History: None Reported - Past Family History Mother Family Medical History: Cancer Additional Family Medical History / Comment(s): colon cancer Father Family Medical History: Congestive Heart Failure (CHF) Brother(s) Family Medical History: Congestive Heart Failure (CHF), Diabetes Mellitus General Exam - General Exam Comments Initial Comments: General: The patient is awake and alert, in no distress, does look pale and tired Skin: Skin is warm and dry and no rashes or lesions are noted. Eye: Pupils are equal, round and reactive to light, extra-ocular movements are intact; there is normal conjunctiva bilaterally. Ears, nose, mouth and throat: There are moist mucous membranes and no oral lesions. Neck: The neck is supple, there is no tenderness or JVD. Cardiovascular: There is a regular rate and rhythm. No murmur, rub or gallop is appreciated. Respiratory: To auscultation bilateral, no wheezing no rhonchi no distress respiratory shah noticed Gastrointestinal: Soft, non-distended, non-tender abdomen without masses or organomegaly noted. There is no rebound or guarding present. Bowel sounds are unremarkable. Back: There is no tenderness to palpation in the midline. There is no obvious deformity. Musculoskeletal: Normal ROM, no tenderness, There is no pedal edema. There is no calf tenderness or swelling. No cords were appreciated. Neurological: CN II-XII intact, Cranial nerves III through XII are intact. There are no obvious motor or sensory deficits. Coordination appears grossly intact. Speech is normal. Psychiatric: Cooperative, appropriate mood & affect, normal judgment. Limitations: no limitations Course Vital Signs 02/21/17 02/21/17 02/21/17 11:10 12:45 13:15 Temperature 97.0 F L 97.2 F L 98.2 F Pulse Rate 69 68 66 Respiratory 18 16 16 Rate Blood Pressure 143/75 122/56 161/68 O2 Sat by Pulse 100 93 L Oximetry EKG is normal sinus rhythm with ventricular rate is 66 SD interval is 126 QRS duration is 84 QT/QTc is 454/475 of this EKG shows some flattening of the T- wave noticed some T-wave inversion in lead V2 no ST elevation or ST depression noticed this EKG Medical Decision Making - Medical Decision Making , And labs are reviewed noticed some deep preliminary potassium is bit up he was 6.2 was repeated a repeat was a 5.6 CBC is unremarkable she does have an anemia most significant finding is a creatinine of 3.25, creatinine was normal 0.[address] was normal abdominal and chest x-rays are normal his acute renal failure explains her nausea and vomiting she'll be admitted under Dr. Scott service and Dr. Akhtar be consulted - Lab Data Result diagrams: 02/21/17 11:05 02/21/17 12:35 Lab Results 02/21/17 02/21/17 02/21/17 Range/Units 11:05 11:05 11:05 WBC 6.3 (3.8-10.6) k/uL RBC 2.98 L (3.80-5.40) m/uL Hgb 10.4 L (11.4-16.0) gm/dL Hct 31.9 L (34.0-46.0) % MCV 106.9 H (80.0-100.0) fL MCH 34.9 (25.0-35.0) pg MCHC 32.7 (31.0-37.0) g/dL RDW 14.8 (11.5-15.5) % Plt Count 309 (150-450) k/uL Neutrophils % 77 % Lymphocytes % 16 % Monocytes % 5 % Eosinophils % 1 % Basophils % 1 % Neutrophils # 4.8 (1.3-7.7) k/uL Lymphocytes # 1.0 (1.0-4.8) k/uL Monocytes # 0.3 (0-1.0) k/uL Eosinophils # 0.0 (0-0.7) k/uL Basophils # 0.0 (0-0.2) k/uL Macrocytosis Moderate Sodium 138 (137-145) mmol/L Potassium 6.2 H* (3.5-5.1) mmol/L Chloride 100 (98-107) mmol/L Carbon Dioxide 21 L (22-30) mmol/L Anion Gap 17 mmol/L BUN 55 H (7-17) mg/dL Creatinine 3.25 H (0.52-1.04) mg/dL Est GFR (MDRD) Af Amer 17 (>60 ml/min/1.73 sqM) Est GFR (MDRD) Non-Af 14 (>60 ml/min/1.73 sqM) Glucose 55 L (74-99) mg/dL POC Glucose (mg/dL) (75-99) mg/dL POC Glu Farmworker Poultry ID Calcium 8.6 (8.4-10.2) mg/dL Total Bilirubin 0.8 (0.2-1.3) mg/dL AST 69 H (14-36) U/L ALT 51 (9-52) U/L Alkaline Phosphatase 48 (38-126) U/L Troponin I <0.012 (0.000-0.034) ng/mL Total Protein 6.1 L (6.3-8.2) g/dL Albumin 3.8 (3.5-5.0) g/dL Amylase 42 (30-110) U/L Lipase 120 (23-300) U/L 02/21/17 02/21/17 02/21/17 Range/Units 11:09 12:35 12:36 WBC (3.8-10.6) k/uL RBC (3.80-5.40) m/uL Hgb (11.4-16.0) gm/dL Hct (34.0-46.0) % MCV (80.0-100.0) fL MCH (25.0-35.0) pg MCHC (31.0-37.0) g/dL RDW (11.5-15.5) % Plt Count (150-450) k/uL Neutrophils % % Lymphocytes % % Monocytes % % Eosinophils % % Basophils % % Neutrophils # (1.3-7.7) k/uL Lymphocytes # (1.0-4.8) k/uL Monocytes # (0-1.0) k/uL Eosinophils # (0-0.7) k/uL Basophils # (0-0.2) k/uL Macrocytosis Sodium (137-145) mmol/L Potassium 5.6 H (3.5-5.1) mmol/L Chloride (98-107) mmol/L Carbon Dioxide (22-30) mmol/L Anion Gap mmol/L BUN (7-17) mg/dL Creatinine (0.52-1.04) mg/dL Est GFR (MDRD) Af Amer (>60 ml/min/1.73 sqM) Est GFR (MDRD) Non-Af (>60 ml/min/1.73 sqM) Glucose (74-99) mg/dL POC Glucose (mg/dL) 57 L 127 H (75-99) mg/dL POC Glu Farmworker Poultry ID Christie, Deacon Shaun, Lesley Calcium (8.4-10.2) mg/dL Total Bilirubin (0.2-1.3) mg/dL AST (14-36) U/L ALT (9-52) U/L Alkaline Phosphatase (38-126) U/L Troponin I (0.000-0.034) ng/mL Total Protein (6.3-8.2) g/dL Albumin (3.5-5.0) g/dL Amylase (30-110) U/L Lipase (23-300) U/L Disposition Clinical Impression: Hyperkalemia, Acute renal failure, Intractable nausea and vomiting Disposition: ADMITTED IP TO THIS HOSP
[2017-02-21] MEDS ORDERED: ONDANSETRON 4 MG/2 ML VIAL IVP PRN (13:43)
[2017-02-21] MEDS ORDERED: NALOXONE 0.4 MG/ML 1 ML VIAL IV PRN (13:43)
[2017-02-21] MEDS ORDERED: ALPRAZolam 0.25 MG TAB PO PRN (13:51)
[2017-02-21] MEDS ORDERED: SODIUM POLYSTYRENE SULFONATE 15 GM/60 ML BOTTLE PO ONE (16:51)
[2017-02-21 17:01] LABS: Glucose,Whole Blood 73 mg/dL (75-99)
[2017-02-21] MEDS ORDERED: HYDROcodone/APAP 5-325MG 1 EACH TAB PO PRN (17:13)
[2017-02-21] MEDS ORDERED: TEMAZEPAM 15 MG CAP PO PRN (17:13)
--- NOTE | 2017-02-21 20:32 | HP ---
DATE OF ADMISSION: 02/21/2017 CHIEF COMPLAINT: Intractable nausea, vomiting, weakness. HISTORY OF PRESENT ILLNESS: This 66-year-old woman with a past medical history of multiple medical problems, including chest pain, history of diabetes mellitus, type 2, history of GERD, hypertension, hyperlipidemia, history of myocardial infarction, history of back pain, history of chronic hypoxic respiratory failure, history of anxiety, depression not otherwise specified, being followed by Dr. Pierre in the outpatient setting, was complaining of incessant vomiting for the last 4 or 5 days; patient unable to keep anything down. The patient complained of tiredness and weakness. She came to [facility] today, and the patient was found to have a creatinine of 3.25 and hyperkalemia with potassium of 6.2. Patient was admitted for further evaluation. Blood sugars are also low. The creatinine was found to have 0.95 on February 02 and 1.20 on February 06. There is no history of any fever, rigor, or chills. No history of any headache, loss of consciousness, seizures at this time. PAST MEDICAL HISTORY: 1. History of diabetes mellitus. 2. GERD. 3. Hypertension. 4. Hyperlipidemia. 5. History of myocardial infarction. 6. History of CAD, CABG, stent. 7. History of anxiety, depression not otherwise specified. HOME MEDICATIONS: 1. Glucophage 500 mg at bedtime. 2. Norvasc 2.5 mg at bedtime. 3. Zocor 40 mg each morning. 4. Ditropan XL 15 mg p.o. daily. 5. Lasix 20 mg p.o. b.i.d. 6. Xanax 0.25 b.i.d. p.r.n. 7. Glucophage 1000 mg daily. 8. Ambien 10 mg at bedtime p.r.n. 9. Aldactone 25 mg p.o. daily. 10. Klor-Con 20 mEq p.o. q.48 hours. 11. Fish oil 1 p.o. daily. 12. Women's Multivitamins 1 p.o. daily. 13. Lopressor 75 mg p.o. b.i.d. 14. Zestril 10 mg p.o. daily. 15. Gleevec 400 mg p.o. daily. 16. Vitamin B12 1000 mcg p.o. daily. 17. Cranberry 1 tablet p.o. daily. 18. Celexa 40 mg at bedtime. 19. Calcium 600 mg p.o. daily. 20. Ecotrin 160 mg p.o. at bedtime. 21. Ventolin 2.5 t.i.d. ALLERGIES: ADHESIVE TAPES. FAMILY HISTORY: History of colon cancer. SOCIAL HISTORY: Previous history of smoking. Occasional alcohol intake. REVIEW OF SYSTEMS: ENT: No diminished hearing. No diminished vision. CARDIOVASCULAR SYSTEM: No angina, palpitations. RESPIRATORY SYSTEM: No cough, hemoptysis. GI: As mentioned earlier. : As mentioned earlier. NERVOUS SYSTEM: No numbness, weakness. ALLERGY/IMMUNOLOGY: No asthma, hayfever. MUSCULOSKELETAL: As mentioned earlier. HEMATOLOGY/ONCOLOGY: No history of anemia. ENDOCRINE: Diabetes mellitus. CONSTITUTIONAL: As mentioned earlier. DERMATOLOGY: Negative. RHEUMATOLOGY: Negative. PSYCHIATRY: As mentioned earlier. PHYSICAL EXAMINATION: Patient is alert and oriented x3. Pulse is 68, blood pressure 108/49, respiration 16, temperature 98.2, pulse ox 94% on 3 L. HEENT: Conjunctivae normal. Oral mucosa moist. NECK: No jugular venous distention. No carotid bruit. No lymph node enlargement. CARDIOVASCULAR SYSTEM: S1, S2 muffled. No S3. No S4. RESPIRATORY SYSTEM: Breath sounds diminished at the bases. A few scattered rhonchi. No crackles. ABDOMEN: Soft, nontender. No mass palpable. Minimal discomfort in the epigastrium. LEGS: No edema. No swelling. NERVOUS SYSTEM: Higher functions as mentioned earlier. Moves all 4 limbs. No focal motor or sensory deficit. Cranial nerves 2 to 12 grossly intact. SKIN: No ulcer, rash, bleeding. Minimal facial puffiness present. LYMPHATICS: No lymph node palpable in neck, axillae or groin. JOINTS: No active deforming arthropathy. LAB INVESTIGATIONS: WBC 6.3, hemoglobin 10.5, MCV 106.9. Potassium 6.2. Creatinine is 3.25. Accu-Cheks are 57, 127, 73. AST 69. Total protein 6.1. ASSESSMENT: 1. Acute renal failure, possibly secondary to acute tubular necrosis with prerenal factors from dehydration. 2. Severe hyperkalemia secondary to acute renal failure. 3. Hypoglycemia and diabetes mellitus, type 2, fluctuating. 4. Anemia, macrocytic. 5. Increased AST. 6. History of gastroesophageal reflux disease. 7. Hypertension, essential. 8. Hyperlipidemia. 9. History of myocardial infarction. 10. History of urinary incontinence. 11. History of chronic myeloid leukemia, on Gleevec. 12. Chronic hypoxic respiratory failure, on home oxygen at 3 liters nasal cannula. 13. History of pleural effusions. 14. History of coronary artery disease, coronary artery bypass grafting and stent. 15. History of hysterectomy. 16. History of cataracts. 17. History of anxiety, depression not otherwise specified. 18. Remote history of nicotine dependence. 19. History of congestive heart failure with chronic diastolic dysfunction. 20. Normal vitamin B12 levels. 21. History of anxiety not otherwise specified. 22. FULL CODE. RECOMMENDATIONS AND DISCUSSION: In this 66-year-old woman who presented with multiple complex medical issues, we will monitor the patient closely, continue the current medications, continue symptomatic treatment. I would recommend holding the diuretics and IV hydration. I also recommend nephrology consultation and evaluation. The patient has received a treatment for hyperkalemia. Patient improved to 5.6. I recommend repeat Kayexalate. Otherwise, continue to monitor. Monitor blood pressure closely. Monitor blood sugars also closely. Will hold metformin. Continue with insulin scale. Further recommendations to follow. A copy of this dictation is being forwarded to Dr. Pierre, who is the primary physician.
[2017-02-21] MEDS: ALBUTEROL NEBULIZED 2.5 MG/3 ML INHALATION SCH (20:58)
[2017-02-21] MEDS ORDERED: ASPIRIN 81 MG CHEW PO SCH (21:00)
[2017-02-21] MEDS ORDERED: amLODIPine 2.5 MG TAB PO SCH (21:00)
[2017-02-21 21:36] LABS: Glucose,Whole Blood 95 mg/dL (75-99)
[2017-02-21] MEDS: METOPROLOL TARTRATE 50 MG TAB PO SCH (21:52)
[2017-02-21] MEDS: PANTOPRAZOLE 40 MG/10 ML VIAL IVP SCH (21:53)
[2017-02-21] MEDS: HEPARIN SODIUM,PORCINE 5,000 UNIT/ML 1 ML VIAL SQ SCH (21:54)
[2017-02-21] MEDS: ZOLPIDEM 10 MG TAB PO PRN (22:29)
[2017-02-21] MEDS: CITALOPRAM HYDROBROMIDE 20 MG TAB PO SCH (22:29)
[2017-02-22 05:12] LABS: Glucose,Whole Blood 92 mg/dL (75-99)
[2017-02-22 08:16] LABS: Basophils % (A) 1 %; CHCM 33.2; Calcium 7.3 mg/dL (8.4-10.2); Eosinophils # (A) 0.1 k/uL (0-0.7); Eosinophils % (A) 2 %; HCT 24.5 % (34.0-46.0); HDW 2.58; Luc # (Auto) 0.11; Luc % (Auto) 3; Lymphocytes # (A) 0.8 k/uL (1.0-4.8); Lymphocytes % (A) 21 %; MCH 35.3 pg (25.0-35.0); MCHC 33.3 g/dL (31.0-37.0); Macrocytosis Moderate; Mean Platelet Volume 7.2; Monocytes # (A) 0.3 k/uL (0-1.0); Monocytes % (A) 6 %; Neutrophils # (A) 2.6 k/uL (1.3-7.7); Neutrophils % (A) 68 %; Potassium 4.6 mmol/L (3.5-5.1); RBC 2.31 m/uL (3.80-5.40); RDW 14.4 % (11.5-15.5); WBC 3.9 k/uL (3.8-10.6); WBC (Perox) 3.85
[2017-02-22 08:19] LABS: HGB 8.1 gm/dL (11.4-16.0)
[2017-02-22] MEDS ORDERED: metFORMIN 500 MG TAB PO SCH (09:00)
[2017-02-22] MEDS ORDERED: NON-FORMULARY DRUG (Omega-3 Fatty Acids/Fish Oil [Fish Oil 1,000 Mg Softgel] 1 CAP) PO SCH (09:00)
[2017-02-22] MEDS ORDERED: ATORVASTATIN 20 MG TAB PO SCH (09:00)
[2017-02-22] MEDS ORDERED: NON-FORMULARY DRUG (Cranberry Conc/C/Bacill Coag [Cranberry Tablet] 1 TAB) PO SCH (09:00)
[2017-02-22] MEDS ORDERED: NON-FORMULARY DRUG (Imatinib Mesylate [Gleevec] 400 MG) PO SCH (09:00)
[2017-02-22] MEDS: ALBUTEROL NEBULIZED 2.5 MG/3 ML INHALATION SCH ×3 (09:22→20:58)
[2017-02-22] MEDS: HEPARIN SODIUM,PORCINE 5,000 UNIT/ML 1 ML VIAL SQ SCH ×2 (09:23→20:41)
[2017-02-22] MEDS: CALCIUM CARBONATE 500 MG CHEWABLE PO SCH (09:23)
[2017-02-22] MEDS: OXYBUTYNIN 15 MG TAB.ER.24 PO SCH (09:24)
[2017-02-22] MEDS: METOPROLOL TARTRATE 50 MG TAB PO SCH ×2 (09:24→20:40)
[2017-02-22] MEDS: ALPRAZolam 0.25 MG TAB PO PRN (09:36)
[2017-02-22] MEDS: PANTOPRAZOLE 40 MG/10 ML VIAL IVP SCH ×2 (10:54→20:42)
[2017-02-22 11:58] LABS: Glucose,Whole Blood 131 mg/dL (75-99)
[2017-02-22] MEDS: SODIUM CHLORIDE 0.9% 1,000 ML IV SCH ×2 (12:31→20:45)
[2017-02-22] MEDS: MULTIVITAMINS, THERA 1 EACH TAB PO SCH (12:32)
[2017-02-22] MEDS: FOLIC ACID 1 MG TAB PO SCH (12:32)
[2017-02-22] MEDS: CYANOCOBALAMIN 500 MCG TAB PO SCH (12:32)
[2017-02-22] MEDS: THIAMINE 100 MG TAB PO SCH (13:05)
[2017-02-22 17:21] LABS: Glucose,Whole Blood 182 mg/dL (75-99)
--- NOTE | 2017-02-22 17:46 | PN ---
DATE OF SERVICE: 02/22/2017 This 66-year-old woman was admitted with acute intractable nausea and vomiting and weakness. She also had features of acute renal failure and hyperkalemia. The patient is being closely monitored at this time. Patient is on IV fluids. Creatinine is 2.89. Potassium is 4.6. Hemoglobin is 8.1. Past medical history reviewed. REVIEW OF SYSTEMS: CARDIOVASCULAR SYSTEM: No angina, palpitations. RESPIRATORY SYSTEM: As mentioned earlier. GI: As mentioned earlier. : As mentioned earlier. NERVOUS SYSTEM: No numbness or weakness. Current medications are reviewed and include: 1. Tylenol 650 q.6 p.r.n. 2. [place] 5 mg q.6 p.r.n. 3. Ventolin 2.5 t.i.d. 4. Xanax 0.25 t.i.d. 5. Norvasc 2.5 mg at bedtime. 6. Calcium carbonate. 7. Celexa 40 mg at bedtime. 8. Vitamin B12 1000 mcg p.o. daily. 9. Folic acid 1 mg daily. 10. Heparin 5000 units subcutaneously b.i.d. 11. Lopressor 75 mg p.o. b.i.d. 12. Multivitamins 1 p.o. daily. 13. Narcan 0.2 q.2 p.r.n. 14. Zofran q.8 p.r.n. 15. Ditropan 15 mg p.o. daily. 16. Protonix 40 mg b.i.d. 17. Ambien 10 mg p.o. at bedtime p.r.n. PHYSICAL EXAMINATION: Patient is alert and oriented x3. Pulse 71, blood pressure 102/42, respiration 20, temperature 97.8, pulse ox 99% on 3 L. HEENT: Conjunctivae normal. NECK: No jugular venous distention. CARDIOVASCULAR SYSTEM: S1, S2 muffled. RESPIRATORY SYSTEM: Breath sounds diminished at the bases. A few scattered rhonchi and crackles. ABDOMEN: Soft, non-tender. No mass palpable. LEGS: No edema. No swelling. NERVOUS SYSTEM: Higher functions as mentioned earlier. Moves all 4 limbs. No focal motor or sensory deficit. LYMPHATICS: No lymph node palpable in neck, axillae or groin. SKIN: No ulcer, rash, bleeding. LABS: WBC 3.9, hemoglobin 8.1, MCV 106. Creatinine is 2.89. ASSESSMENT: 1. Acute renal failure, possibly secondary to acute tubular necrosis from dehydration with prerenal factors. 2. Severe hyperkalemia secondary to acute renal failure. 3. Hypoglycemia and diabetes mellitus, type 2, fluctuating because of the renal failure. 4. Anemia, macrocytic. 5. Increased AST. 6. History of gastroesophageal reflux disease. 7. Hypertension, essential. 8. Hyperlipidemia. 9. History of myocardial infarction. 10. Urinary incontinence. 11. History of chronic myeloid leukemia, on Gleevec. 12. Chronic hypoxic respiratory failure, on home oxygen at 3 liters nasal cannula. 13. History of pleural effusions. 14. History of coronary artery disease, coronary artery bypass grafting and stents. 15. History of hysterectomy. 16. History of cataracts. 17. History of anxiety, depression not otherwise specified. 18. Remote history of nicotine dependence. 19. History of congestive heart failure with chronic diastolic dysfunction. 20. History of anxiety not otherwise specified. 21. Normal vitamin B12 levels previously. 22. FULL CODE. RECOMMENDATIONS AND DISCUSSION: I recommend to continue with the current medications, continue with IV fluids. Monitor creatinine closely. Avoid JESSICA inhibitors, ARBs, and monitor potassium closely. Repeat labs. Hemoglobin is 8.1. Guarded prognosis because of multiple complex medical issues. Further recommendations to follow.
--- NOTE | 2017-02-22 18:17 | P.CONS ---
History of Present Illness - Reason for Consult Consult date: 02/22/17 On treatment for CML - Chief Complaint Intractable Nausea and vomiting - History of Present Illness Danica is a very pleasant female patient of Dr. Montanez's who was first seen by him in early 2015. The patient had a slightly elevated white blood cell count since at least November 2014. In July 2015 she had some urinary tract infections but no other chronic infections so the persistently elevated white blood cell count was concerning and she was referred to Dr. Montanez for evaluation. 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 Patient was started on Gleevec in December 2015. Patient did have some difficulties with swelling in the face in the ankles, medication was held, her symptoms resolved and she was rechallenged but her symptoms returned so this was discontinued February 2016. Patient was started on to Tasigna. Patient was able to stay on to Tasigna for about 5 months, did require 2 dose interruptions due to bronchitis and rash. It was decided to change to Sprycel in Aug 2016 because of recurrent rash. Patient was having some mild nausea but, otherwise tolerating Sprycel well. Patient had an episode of congestive heart failure in September 2016, echo showed increased right-sided pressures so, Sprycel was discontinued. Patient decided to try Gleevec again and was resumed on it October 2016, she did well, with an episode of congestive heart failure in January 2017 that was treated with all of her symptoms resolved. Pt was seen in the office about 2-3 weeks ago-I do not have the results of her Providence chromosome- her hemoglobin was 9.5, platelets 319,000 and white blood cell count was 4.4 with a normal differential. Patient was told to continue on Gleevec. Patient states that for about the last week she has progressively felt unwell, she was having intractable vomiting, she admits that she was not eating or drinking, she states that on reflection she was not urinating much. Patient denied having any fevers or chills, sore throat , congested cough or shortness of breath, dysuria or hematuria, diarrhea or constipation. Patient came to the hospital. She was found to be in acute renal failure. When seen today the patient states feeling better than on admission, she had some mild nausea last night but has not vomited since admission, no nausea or vomiting today, she did eat a really big lunch. Review of Systems All systems: negative Constitutional: Reports as per HPI Past Medical History Past Medical History: Chest Pain / Angina, Diabetes Mellitus, GERD/Reflux, Hyperlipidemia, Hypertension, Myocardial Infarction (non Q-wave) Additional Past Medical History / Comment(s): ID [id number] (LAST 2008), BACK PAIN, URINE INCONTINENCE. leukemia- treated with oral chemo GLEEVAC diagnosed around April 2016, HOME 02 3 LITERS N/C, PLEURL EFFUSIONS. Last Myocardial Infarction Date:: 2008 History of Any Multi-Drug Resistant Organisms: None Reported Past Surgical History: Coronary Bypass/CABG, Heart Catheterization With Stent, Hysterectomy Additional Past Surgical History / Comment(s): CONNOR CATARACT SX -LENS IMPLANTS , OVARY TUMOR, ACHILLES TENDON REPAIR. CABG-TRIPLE BYPASS WITH REPAIR OF HOLE IN HEART AND HEART VALVE(2008). Past Anesthesia/Blood Transfusion Reactions: No Reported Reaction Date of Last Stent Placement:: 2007 Past Psychological History: Anxiety, Depression Additional Psychological History / Comment(s): PT IS A . LIVES IN A HOME THAT HAS 2 STEPS TO ENTER HOME. 1 PET DOG. HAS HOME 02, NEBULIZER. NO OUTSIDE SERVICES RECEIVED. Smoking Status: Former smoker Past Alcohol Use History: Occasional Additional Past Alcohol Use History / Comment(s): SMOKED APPROX 1 PPD. SMOKED SINCE AGE 11,( 1960) SMOKED 1 PPD, QUIT 2008 Past Drug Use History: None Reported - Past Family History Mother Family Medical History: Cancer Additional Family Medical History / Comment(s): colon cancer Father Family Medical History: Congestive Heart Failure (CHF) Brother(s) Family Medical History: Congestive Heart Failure (CHF), Diabetes Mellitus Medications and Allergies Home Medications Medication Instructions Recorded Confirmed Type ALPRAZolam [Xanax] 0.25 mg PO BID PRN 10/12/15 02/21/17 History Aspirin [Adult Low Dose Aspirin EC] 162 mg PO HS 10/12/15 02/21/17 History Calcium Carbonate [Calcium] 600 mg PO DAILY 10/12/15 02/21/17 History Cranberry Conc/C/Bacill Coag 1 tab PO DAILY 10/12/15 02/21/17 History [Cranberry Tablet] Lisinopril [Zestril] 10 mg PO DAILY 10/12/15 02/21/17 History Multivit with Calcium,Iron,Min 1 tab PO DAILY 10/12/15 02/21/17 History [Women's Daily Multivitamin] [place]-3 Fatty Acids/Fish Oil [Fish 1 cap PO DAILY 10/12/15 02/21/17 History Oil 1,000 mg Softgel] Oxybutynin Chloride [Ditropan XL] 15 mg PO DAILY 10/12/15 02/21/17 History Potassium Chloride [Klor-Con] 20 meq PO Q48H 10/12/15 02/21/17 History Zolpidem [Ambien] 10 mg PO HS PRN 10/12/15 02/21/17 History amLODIPine [Norvasc] 2.5 mg PO HS 10/12/15 02/21/17 History metFORMIN HCL [Glucophage] 1,000 mg PO DAILY 10/12/15 02/21/17 History metFORMIN HCL [Glucophage] 500 mg PO HS 10/12/15 02/21/17 History Simvastatin [Zocor] 40 mg PO QAM 12/12/15 02/21/17 History Citalopram Hydrobromide [CeleXA] 40 mg PO HS 11/24/16 02/21/17 History Imatinib Mesylate [Gleevec] 400 mg PO DAILY 11/24/16 02/21/17 History Albuterol Nebulized [Ventolin 2.5 mg INHALATION RT-TID 01/29/17 02/21/17 History Nebulized] Allergies Allergy/AdvReac Type Severity Reaction Status Date / Time adhesive tape AdvReac Unknown Red , Verified 02/21/17 11:31 Irritated skin Physical Exam Vitals: Vital Signs Temp Pulse Pulse Resp BP Pulse Ox 02/22/17 15:00 98.2 F 67 20 101/54 97 02/22/17 14:11 60 02/22/17 14:00 64 02/22/17 09:37 88 02/22/17 09:22 88 02/22/17 07:00 97.8 F 71 20 102/42 99 02/21/17 23:00 98.2 F 70 16 112/46 98 02/21/17 21:51 76 112/46 Intake and Output 02/22/17 02/22/17 02/22/17 06:59 14:59 22:59 Intake Total 500 Balance 500 Intake: IV 500 Sodium Chloride 0.9% 1, 500 000 ml @ 100 mls/hr IV . Q10H STA Rx#:[id number] - Constitutional General appearance: average body habitus, cooperative, no acute distress - EENT Eyes: anicteric sclerae, EOMI, PERRLA, normal appearance ENT: hearing grossly normal, normal oropharynx - Neck Neck: no lymphadenopathy - Respiratory Respiratory: bilateral: diminished (LLL), rales (scattered, soft) - Cardiovascular Rhythm: regular Heart sounds: normal: S1, S2 Abnormal Heart Sounds: no systolic murmur, no diastolic murmur, no rub, no S3 Gallop, no S4 Gallop, no click, no other leg Peripheral Edema: bilateral: None - Gastrointestinal General gastrointestinal: no absent bowel sounds, no decreased bowel sounds, no distended, no hepatomegaly, no hyperactive bowel sounds, normal bowel sounds, no organomegaly, no rigid, no scaphoid, soft, no splenomegaly, no tenderness, no umbilical hernia, no ventral hernia - Integumentary Integumentary: normal - Neurologic Neurologic: CNII-XII intact - Musculoskeletal Musculoskeletal: strength equal bilaterally - Psychiatric Psychiatric: A&O x's 3, appropriate affect, intact judgment & insight Results CBC & Chem 7: 02/22/17 07:43 02/22/17 07:43 Labs: Abnormal Lab Results - Last 24 Hours (Table) 02/21/17 02/22/17 02/22/17 Range/Units 16:47 07:43 07:43 RBC 2.31 L (3.80-5.40) m/uL Hgb 8.1 L D (11.4-16.0) gm/dL Hct 24.5 L (34.0-46.0) % MCV 106.0 H (80.0-100.0) fL MCH 35.3 H (25.0-35.0) pg Lymphocytes # 0.8 L (1.0-4.8) k/uL BUN 64 H (7-17) mg/dL Creatinine 2.89 H (0.52-1.04) mg/dL POC Glucose (mg/dL) 73 L (75-99) mg/dL Calcium 7.3 L (8.4-10.2) mg/dL 02/22/17 Range/Units 11:53 RBC (3.80-5.40) m/uL Hgb (11.4-16.0) gm/dL Hct (34.0-46.0) % MCV (80.0-100.0) fL MCH (25.0-35.0) pg Lymphocytes # (1.0-4.8) k/uL BUN (7-17) mg/dL Creatinine (0.52-1.04) mg/dL POC Glucose (mg/dL) 131 H (75-99) mg/dL Calcium (8.4-10.2) mg/dL Microbiology - Last 24 Hours (Table) 02/21/17 16:30 Urine Culture - Preliminary Urine,Voided Chest x-ray: report reviewed Abdominal x-ray: report reviewed CT Scan - head: report reviewed Assessment and Plan (1) Anemia aplastic aregenerative Narrative/Plan: Patient Baseline is typically between 9 and 10, need for blood transfusion at this time, CBC will be monitored, Anemia workup ordered. Status: Chronic (2) CML (chronic myelocytic leukemia) Narrative/Plan: Gleevec will be on hold right now. Dr. Montanez does want patient to continue to hold Gleevec until she is reevaluated by him in the office. Status: Chronic
[2017-02-22 19:08] LABS: % Iron Saturation 27.9 % (20-50)
[2017-02-22 19:16] LABS: Reticulocyte % 1.6 % (0.5-2.0)
--- NOTE | 2017-02-22 19:33 | CONS ---
DATE OF CONSULTATION: REASON FOR CONSULTATION: Renal failure. HISTORY OF PRESENT ILLNESS: Patient is a 66-year-old female who was admitted to the hospital with complaints of nausea, vomiting and diarrhea which had been going on for about 4 to 5 days prior to admission. Patient also felt weak. She denies any prior history of kidney diseases. Patient was maintained on JESSIAC inhibitors at the time of admission. She was not significantly hypotensive. Serum creatinine was 3.25 mg/dL on initial admission. It is down to 2.89 now. Previous creatinine was 1.2 on 02/06/2017. Currently patient is maintained on IV fluids with saline at 100 mL/hour. PAST MEDICAL HISTORY: 1. Hypertension. 2. Type 2 diabetes. 3. Hyperlipidemia. 4. History of IA. 5. Coronary artery disease. 6. Gastroesophageal reflux disease. 7. Chronic back pain. 8. History of leukemia. PAST SURGICAL HISTORY: 1. Coronary artery bypass surgery. 2. Hysterectomy. 3. Cardiac catheterization. 4. Cataract surgery. 5. Surgery for an ovarian tumor. SOCIAL HISTORY: Patient is an ex-smoker. No history of drug abuse or alcohol abuse. Medications prior to admission included: 1. Xanax. 2. Calcium. 3. Zestril. 4. Multivitamins. 5. Potassium. 6. Ditropan. 7. Ambien. 8. Norvasc. 9. Glucophage. 10. Zocor. 11. Celexa. 12. Gleevec. 13. Lasix. 14. Lopressor. 15. Aldactone ALLERGIES include TAPE. On examination, patient is comfortable, awake, alert, oriented x3, not in any acute distress. Blood pressure was 101/54, heart rate 67 per minute. Patient is afebrile. EXAMINATION OF THE HEART: S1 and S2. EXAMINATION OF THE LUNGS: Bilateral breath sounds are heard. ABDOMEN: Soft, nontender. Examination of lower extremities shows no evidence of edema. BL[employer] exam is grossly intact. Patient is moving all 4 extremities. Labs show sodium 137, potassium 4.6, chloride 105; hemoglobin 8.1; serum creatinine 2.89. Calcium 7.3. Urine culture is in progress. I do not see a UA. ASSESSMENT: 1. Acute kidney injury, most likely prerenal associated with hypovolemia. Continue with IV fluids. Continue to hold off on JESSICA inhibitors. Check urinalysis. Renal function has been improving. Previous creatinine was 1.1 mg/dL. 2. Anemia with no active bleeding noted. Check iron studies if not done recently. 3. Hypertension. Blood pressure is currently controlled, and in fact on the lower side. Will discontinue the Norvasc. Metoprolol will likely need to be decreased. Current heart rate is ranging between 60 and 80 beats per minute. PLAN: Continue IV fluids. Discontinue Norvasc. Decrease metoprolol. Repeat labs in a.m. Check urinalysis. Continue off of JESSICA inhibitors. Thank you for this consultation. Will continue to follow the patient with you during her hospitalization.
[2017-02-22] MEDS: CITALOPRAM HYDROBROMIDE 20 MG TAB PO SCH (20:41)
[2017-02-22] MEDS ORDERED: Imatinib Mesylate [Gleevec] 400 MG PO SCH (22:00)
[2017-02-22] MEDS: ZOLPIDEM 10 MG TAB PO PRN (22:24)
[2017-02-23 00:02] LABS: Glucose,Whole Blood 229 mg/dL (75-99)
[2017-02-23] MEDS: SODIUM CHLORIDE 0.9% 1,000 ML IV SCH (06:13)
[2017-02-23 06:16] LABS: Glucose,Whole Blood 190 mg/dL (75-99)
[2017-02-23 07:38] LABS: Basophils % (A) 0 %; CH 34.8; CHCM 32.5; Eosinophils # (A) 0.1 k/uL (0-0.7); Eosinophils % (A) 2 %; HCT 23.6 % (34.0-46.0); HDW 2.61; HGB 7.7 gm/dL (11.4-16.0); Luc # (Auto) 0.07; Luc % (Auto) 2; Lymphocytes # (A) 0.6 k/uL (1.0-4.8); Lymphocytes % (A) 14 %; MCH 35.1 pg (25.0-35.0); MCHC 32.6 g/dL (31.0-37.0); MCV 107.5 fL (80.0-100.0); Macrocytosis Moderate; Mean Platelet Volume 7.6; Monocytes # (A) 0.3 k/uL (0-1.0); Monocytes % (A) 6 %; Neutrophils # (A) 3.3 k/uL (1.3-7.7); Neutrophils % (A) 76 %; RBC 2.19 m/uL (3.80-5.40); RDW 14.5 % (11.5-15.5); WBC 4.4 k/uL (3.8-10.6); WBC (Perox) 4.39
[2017-02-23 07:40] LABS: Calcium 7.4 mg/dL (8.4-10.2); Potassium 4.2 mmol/L (3.5-5.1)
[2017-02-23] MEDS: ALPRAZolam 0.25 MG TAB PO PRN ×2 (08:47→15:46)
[2017-02-23] MEDS: HEPARIN SODIUM,PORCINE 5,000 UNIT/ML 1 ML VIAL SQ SCH ×2 (08:52→20:39)
[2017-02-23] MEDS: PANTOPRAZOLE 40 MG/10 ML VIAL IVP SCH ×2 (08:52→20:38)
[2017-02-23] MEDS: CALCIUM CARBONATE 500 MG CHEWABLE PO SCH (08:52)
[2017-02-23] MEDS: METOPROLOL TARTRATE 50 MG TAB PO SCH (08:52)
[2017-02-23] MEDS: OXYBUTYNIN 15 MG TAB.ER.24 PO SCH (08:52)
--- NOTE | 2017-02-23 09:22 | XR ---
EXAMINATION TYPE: XR chest 1V portable DATE OF EXAM: 02/23/2017 9:13 AM HISTORY: Shortness of breath. COMPARISON: 02/21/2017 TECHNIQUE: Single view of the chest is submitted. FINDINGS: Demonstrated are scattered senescent parenchymal change. Small right greater than left pleural effusions. Suspect right basilar atelectasis or infiltrate. The heart is stable. Pulmonary venous congestion is slightly improved. Hilar and mediastinal structures are within normal limits. Degenerative changes are seen of the dorsal spine. IMPRESSION: 1. Small right greater than left pleural effusions. Suspect right basilar atelectasis or infiltrate.
[2017-02-23] MEDS: ALBUTEROL NEBULIZED 2.5 MG/3 ML INHALATION SCH ×3 (10:00→18:44)
[2017-02-23] MEDS ORDERED: FUROSEMIDE 10 MG/ML 4 ML VIAL IV STA (10:54)
[2017-02-23] MEDS: MULTIVITAMINS, THERA 1 EACH TAB PO SCH (11:33)
[2017-02-23] MEDS: FOLIC ACID 1 MG TAB PO SCH (11:33)
[2017-02-23] MEDS: CYANOCOBALAMIN 500 MCG TAB PO SCH (11:33)
[2017-02-23] MEDS: THIAMINE 100 MG TAB PO SCH (11:33)
[2017-02-23 12:15] LABS: Glucose,Whole Blood 198 mg/dL (75-99)
--- NOTE | 2017-02-23 15:27 | PN ---
The patient is seen for follow-up for acute kidney injury. Patient was admitted to the hospital with complaints of nausea, vomiting, diarrhea, and not feeling well. She was on JESSICA inhibitors prior to admission. Her serum creatinine has been slowly improving and it is down to 2.4 from 3.25 mg/dL on initial admission. She is complaining of some shortness of breath. IV fluids have been discontinued. Patient states she is voiding fairly well. Blood pressure has been slightly on the lower side. Systolic was at 113/58, heart rate 80 per minute. The patient is afebrile. Examination of the heart: S1 and S2. Examination of the lungs: Bilateral breath sounds are heard and bilateral crackles are heard in the bases as well. Abdomen is soft, nontender. Examination of the lower extremities shows no evidence of edema. Labs show serum creatinine 2.4, sodium 140, potassium 4.2. Hemoglobin 7.7 g/dL. ASSESSMENT: 1. Acute kidney injury, most likely acute tubular necrosis associated with hypovolemia as well status post IV fluids. IV fluids have been discontinued as the patient is mildly hypervolemic. I will order a urinalysis. She also received one dose of IV Lasix. 2. Nausea and vomiting, currently improved. Tolerating oral intake. 3. CML being followed by Heme/Onc, fairly stable currently. Gleevec is on hold. 4. Coronary artery disease with history of [id number] myocardial infarction. 5. Type 2 diabetes. 6. Gastroesophageal reflux disease. 7. Hypertension. Blood pressure is currently low. PLAN: Continue off of IV fluids. Encourage increased oral intake. Decrease Lopressor to 25 mg b.i.d. Repeat labs in a.m. and check urinalysis.
[2017-02-23 16:45] LABS: Glucose,Whole Blood 203 mg/dL (75-99)
[2017-02-23] MEDS: INSULIN LISPRO (humaLOG) 300 UNIT/3 ML VIAL SQ SCH ×2 (17:53→20:39)
[2017-02-23 18:15] LABS: Appearance,Urine Clear (Clear); Bacteria,Urine Rare /hpf; Bilirubin,Urine Negative (Negative); Glucose,Urine (UA) Negative (Negative); Ketones,Urine Negative (Negative); Leukocyte Esterase,Urine Trace (Negative); Mucus,Urine Rare /hpf; Nitrite,Urine Negative (Negative); PH, Urine 5.5 (5.0-8.0); Particle Count 1547; Protein,Urine Negative (Negative); RBC,Urine 1 /hpf (0-5); Specific Gravity,Urine 1.008 (1.001-1.035); Squamous Epithelial Cell,Urine <1 /hpf (0-4); UA Billing (MACRO vs. MICRO) MICRO; Urobilinogen,Urine <2.0 mg/dL (<2.0); WBC,Urine 8 /hpf (0-5)
[2017-02-23 20:09] LABS: Glucose,Whole Blood 228 mg/dL (75-99)
[2017-02-23] MEDS: CITALOPRAM HYDROBROMIDE 20 MG TAB PO SCH (20:38)
[2017-02-23] MEDS ORDERED: ALPRAZolam 0.25 MG TAB ONE (20:47)
[2017-02-23] MEDS ORDERED: METOPROLOL TARTRATE 25 MG TAB ONE (20:47)
[2017-02-24] MEDS ORDERED: ZOLPIDEM 10 MG TAB ONE (01:30)
[2017-02-24 07:16] LABS: Glucose,Whole Blood 166 mg/dL (75-99)
[2017-02-24 07:38] LABS: Basophils % (A) 0 %; CH 34.9; CHCM 33.2; Eosinophils # (A) 0.2 k/uL (0-0.7); Eosinophils % (A) 6 %; HCT 23.3 % (34.0-46.0); HDW 2.72; HGB 7.7 gm/dL (11.4-16.0); Luc # (Auto) 0.08; Luc % (Auto) 2; Lymphocytes # (A) 0.6 k/uL (1.0-4.8); Lymphocytes % (A) 15 %; MCH 35.1 pg (25.0-35.0); MCHC 33.2 g/dL (31.0-37.0); MCV 105.7 fL (80.0-100.0); Macrocytosis Moderate; Monocytes # (A) 0.4 k/uL (0-1.0); Monocytes % (A) 9 %; Neutrophils # (A) 2.7 k/uL (1.3-7.7); Neutrophils % (A) 68 %; RDW 14.6 % (11.5-15.5); WBC 3.9 k/uL (3.8-10.6); WBC (Perox) 3.98
[2017-02-24] MEDS: METOPROLOL TARTRATE 25 MG TAB PO SCH ×3 (08:20→20:09)
[2017-02-24] MEDS: ALPRAZolam 0.25 MG TAB PO PRN ×2 (08:31→20:18)
[2017-02-24] MEDS: ALBUTEROL NEBULIZED 2.5 MG/3 ML INHALATION SCH ×3 (08:32→22:40)
[2017-02-24] MEDS: PANTOPRAZOLE 40 MG/10 ML VIAL IVP SCH ×2 (08:34→20:10)
[2017-02-24 08:35] LABS: Calcium 7.8 mg/dL (8.4-10.2); Potassium 3.6 mmol/L (3.5-5.1)
[2017-02-24] MEDS: OXYBUTYNIN 15 MG TAB.ER.24 PO SCH (08:35)
[2017-02-24] MEDS: CALCIUM CARBONATE 500 MG CHEWABLE PO SCH (08:36)
[2017-02-24] MEDS: HEPARIN SODIUM,PORCINE 5,000 UNIT/ML 1 ML VIAL SQ SCH ×2 (08:37→20:10)
[2017-02-24] MEDS: INSULIN LISPRO (humaLOG) 300 UNIT/3 ML VIAL SQ SCH ×4 (08:37→22:16)
[2017-02-24] MEDS ORDERED: FUROSEMIDE 10 MG/ML 2 ML VIAL IV SCH (11:30)
[2017-02-24 12:03] LABS: Glucose,Whole Blood 180 mg/dL (75-99)
[2017-02-24] MEDS: MULTIVITAMINS, THERA 1 EACH TAB PO SCH (12:11)
[2017-02-24] MEDS: FOLIC ACID 1 MG TAB PO SCH (12:11)
[2017-02-24] MEDS: THIAMINE 100 MG TAB PO SCH (12:11)
[2017-02-24] MEDS: CYANOCOBALAMIN 500 MCG TAB PO SCH (12:11)
--- NOTE | 2017-02-24 13:21 | PN ---
DATE OF SERVICE: 02/23/2017 This 66-year-old woman was admitted with significant vomiting, prerenal and acute tubular necrosis, has been closely monitored. Patient has received IV fluids. The creatinine improved to 2.4. Currently the patient is complaining of shortness of breath and some wheezing also. The patient has been closely monitored. The chest x-ray done today showed right-sided pleural effusion as well as bilateral pulmonary congestion. IV fluids were stopped. Patient is on Lasix at this time. Dr. Akhtar is following the patient closely. PAST MEDICAL HISTORY: Reviewed. REVIEW OF SYSTEMS: CARDIOVASCULAR: No angina. RESPIRATORY: As mentioned earlier. GI: As mentioned earlier. : No dysuria. NERVOUS SYSTEM: No numbness or weakness. Current medications are reviewed and include: 1. Tylenol 650 q.8. 2. [place] 5 mg. 3. Ventolin inhaler. 4. TUMs. 5. Celexa. 6. Vitamin B 7. Folic acid 1 mg 8. Heparin 5000 subcu b.i.d. 9. Lopressor 25 mg p.o. b.i.d. 10. Multivitamins 1 p.o. daily. 11. Narcan 0.2 q.2 p.r.n. 12. Zofran. 13. Ditropan. 14. Protonix 40 mg daily. 15. Vitamin B 100 mg p.o. b.i.d. 16. Ambien at bedtime p.r.n. PHYSICAL EXAMINATION: Patient is alert and oriented x3. Pulse 79, blood pressure 106/67, respirations 16, temperature 97.8, pulse ox 90% on 3-L. HEENT: Conjunctivae normal. NECK: No jugular venous distention. CARDIOVASCULAR: S1 and S2, muffled. RESPIRATORY: Breath sounds diminished at the bases. Bilateral scattered rhonchi and crackles. Expiratory wheezing also present. ABDOMEN: Soft, nontender. No mass palpable. LEGS: No edema, no swelling. NERVOUS SYSTEM: Higher function as mentioned. Moves all four limbs. No focal motor deficits. LYMPHATIC: No lymphadenopathy in the neck, axillae or groin. SKIN: No ulcer, rash or bleeding. LABS: WBC 4.5, hemoglobin 11.6, sodium 140, potassium 4.2, glucose 169. Calcium 7.4. ASSESSMENT: 1. Acute renal failure, possibly secondary to acute tubular necrosis with dehydration and prerenal factors. 2. Severe hyperkalemia secondary to acute renal failure, present on admission. 3. Hypoglycemia and diabetes mellitus type 2 because of renal failure. 4. Congestive heart failure acute exacerbation, with acute on chronic diastolic dysfunction. 5. Right pleural effusion. 6. Anemia, macrocytic. 7. Increased AST. 8. History of gastroesophageal reflux disease. 9. Hypertension, essential. 10. Hyperlipidemia. 11. History of myocardial infarction. 12. Urinary incontinence. 13. History of chronic myeloid leukemia on Gleevec. 14. Chronic hypoxic respiratory failure on home oxygen 3 liters nasal cannula. 15. History of pleural effusions. 16. History of coronary artery disease, coronary artery bypass grafting and stent. 17. History of hysterectomy. 18. History of cataracts. 19. Anxiety, depression, not otherwise specified. 20. Remote history of nicotine dependence. 21. History of congestive heart failure with chronic diastolic dysfunction. 22. History of anxiety, not otherwise specified. 23. Normal Vitamin B12 perviously. 24. FULL CODE. RECOMMENDATIONS AND DISCUSSION: In this 66-year-old woman who presented with multiple complex medical issues, will monitor the patient closely. Continue the current medications, symptomatic treatment. I agree with the diuretics. Stop IV fluids. I also recommend consult with Dr. Mcadams for the right pleural effusion. Continue to monitor. Continue the rest of the medications. Guarded prognosis. Further recommendations to follow. MTDD
[2017-02-24 17:45] LABS: Glucose,Whole Blood 223 mg/dL (75-99)
--- NOTE | 2017-02-24 18:03 | PN ---
Danica Early patient is seen for follow-up for acute kidney injury. Her renal function has improved; however, she has been volume overloaded. I did give her a dose of Lasix yesterday; however, she states she is still short of breath. On examination, blood pressure is 96/56, heart rate 80 per minute. The patient is afebrile. HEART: S1 and S2. LUNGS: Bilateral breath sounds are heard. Decreased breath sounds in bases with basal crackles heard bilaterally. ABDOMEN: Soft, nontender. Lower extremities showed no significant edema. MANDREL PULLER: Grossly intact. Labs show sodium 141, potassium 3.6, serum creatinine 1.45, BUN 29. Hemoglobin 7.7 g/dL. ASSESSMENT: 1. Acute kidney injury, currently improved, mostly acute tubular necrosis. Patient was hypovolemic initially; however, she received IV fluids. Currently she hypervolemic and is being diuresed. 2. Volume overload. Increase Lasix to 40 IV q.12h. for at least 24 hours. 3. Nausea and vomiting, currently improved. 4. Chronic myelogenous leukemia being followed by Hematology/Oncology. Gleevec is on hold. 5. Coronary artery disease with history of myocardial infarction. 6. Type 2 diabetes. PLAN: Increased diuresis. Repeat labs in the a.m. Continue to avoid nephrotoxic agents.
[2017-02-24] MEDS: CITALOPRAM HYDROBROMIDE 20 MG TAB PO SCH (20:11)
[2017-02-24] MEDS: ACETAMINOPHEN TAB 325 MG TAB PO PRN (20:18)
[2017-02-24 20:54] LABS: Glucose,Whole Blood 222 mg/dL (75-99)
[2017-02-24] MEDS: ZOLPIDEM 10 MG TAB PO PRN (22:14)
[2017-02-24] MEDS: FUROSEMIDE 10 MG/ML 4 ML VIAL IV SCH (22:15)
[2017-02-25 00:38] LABS: Hemoglobin A1C 4.9 % (4.2-6.1)
[2017-02-25] MEDS: ALPRAZolam 0.25 MG TAB PO PRN ×2 (02:35→21:46)
--- NOTE | 2017-02-25 03:14 | XR ---
EXAM: XR Chest, 1 View CLINICAL HISTORY: new onset left sided chest pain, posterior and side TECHNIQUE: Frontal view of the chest. COMPARISON: Chest x-ray 02/23/17 FINDINGS: Lungs: Similar right basilar atelectasis or infiltrate. Similar mild left lung base atelectasis. Pleural space: Similar appearance of bilateral pleural effusion, right greater than left. No pneumothorax. Heart: Stable cardiomegaly. Mediastinum: Unremarkable. Bones/joints: Median sternotomy. Vasculature: Slight increased vascular congestion. IMPRESSION: Slight increased vascular congestion. Similar bilateral pleural effusions and right basilar atelectasis/infiltrate.
--- NOTE | 2017-02-25 05:57 | CONS ---
DATE OF CONSULTATION: This is a 66-year-old female who is admitted on February 21. I am asked to see her today. She apparently presented with nausea for about 4 days as well as weakness and shaking sensation. She had decreased appetite and had some headache and she was unsteady on her feet. She apparently denied any chest pain or shortness of breath. I believe I was asked to see her for pleural effusion. Anyway, the patient states that she is feeling a bit short of breath and was prescribed oxygen by her primary doctor, Dr. Pierre in [place]. Does not use it all the time. Does not think she needs to use it. The patient denies any cough. No phlegm production. No fever, no chills. No nausea, vomiting, or diarrhea. Her home medications include Xanax low dose aspirin, calcium, cranberry tablets, lisinopril, multiple vitamins, omega-3 fatty acids, oxybutynin, which is Ditropan, potassium chloride, Ambien, Norvasc, Glucophage, Zocor, Celexa, Gleevec and albuterol updrafts. She also previously was on B12, Lasix, metoprolol and Aldactone. Allergies are ADHESIVE TAPE. Medical history includes angina pectoris, diabetes mellitus, GERD, hyperlipidemia, hypertension, myocardial infarction, aplastic anemia, chronic myelocytic leukemia, [place] x4, chronic back pain, urinary incontinence, bypass grafting, heart catheterization with stent, hysterectomy, right eye cataract Achilles tendon repair, heart valve replacement and lens implants. Social history is positive for previous tobacco use. Does not smoke currently. Smoked about 48 years at 1 pack a day. Denies any illicit drug use. No alcohol use. Family history is positive for cancer and heart failure and diabetes. She currently is feeling reasonably well. REVIEW OF SYSTEMS: CONSTITUTIONAL: Weakness. NEUROLOGIC: Negative. HEENT: Negative. CARDIOVASCULAR: Negative. PULMONARY: Mild shortness of breath. GI: Nausea, vomiting. : Negative. RHEUMATOLOGICAL/IMMUNOLOGIC: Negative. ENDOCRINOLOGIC: Negative. Current vital signs include a temperature 98, heart rate 75, respiratory rate 16, blood pressure 93/52, mean 65, three liter saturation 97%. Appears in no acute distress. HEENT examination is grossly unremarkable. Mucous membranes are moist. No oral lesions. Neck is supple. Full range of motion. No adenopathy or thyromegaly. Cardiovascular examination reveals regular rhythm and rate. S1, S2 normal. No S3, S4 or murmur. Lungs revealed dullness at the right lung base. No crackles. No wheezes. Breath sounds are equal bilaterally. ABDOMEN: Soft. Bowel sounds are heard. Extremities are intact. Minimal edema. Skin is without rash. Neurological examination is nonfocal. Chest x-ray shows bilateral pleural effusions with the right-sided effusion larger than the left. Labs are reviewed. White count 3.9, hemoglobin 7.7, hematocrit 23.3, platelet count 144,000. Sodium 141, potassium 3.6, chloride 109, CO2 of 25, BUN and creatinine were 29 and 1.45. Medications are reviewed. The patient is on some Lasix at 20 mg IV push daily. I will order a chest x-ray for tomorrow and ultrasound of the right chest for tomorrow. ASSESSMENT: 1. Right pleural effusion which causes some shortness of breath in this patient with multiple medical problems. 2. History of aplastic anemia. 3. History of chronic myelocytic leukemia. 4. History of multiple medical problems as listed above. PLAN: A chest x-ray and ultrasound will be ordered for tomorrow. Will continue to follow. She may benefit from a thoracentesis, but the right-sided pleural effusion is relatively small.
[2017-02-25 07:15] LABS: Glucose,Whole Blood 147 mg/dL (75-99)
[2017-02-25] MEDS: PANTOPRAZOLE 40 MG/10 ML VIAL IVP SCH (07:23)
[2017-02-25] MEDS: CALCIUM CARBONATE 500 MG CHEWABLE PO SCH (07:23)
[2017-02-25] MEDS: HEPARIN SODIUM,PORCINE 5,000 UNIT/ML 1 ML VIAL SQ SCH ×2 (07:23→20:02)
[2017-02-25] MEDS: FUROSEMIDE 10 MG/ML 4 ML VIAL IV SCH ×2 (07:23→20:02)
[2017-02-25] MEDS: METOPROLOL TARTRATE 25 MG TAB PO SCH ×2 (07:24→20:05)
[2017-02-25] MEDS: OXYBUTYNIN 15 MG TAB.ER.24 PO SCH (07:24)
[2017-02-25] MEDS: INSULIN LISPRO (humaLOG) 300 UNIT/3 ML VIAL SQ SCH ×4 (07:25→21:45)
[2017-02-25] MEDS: ALBUTEROL NEBULIZED 2.5 MG/3 ML INHALATION SCH ×3 (08:26→20:20)
[2017-02-25 08:38] LABS: Basophils % (A) 0 %; CH 34.9; CHCM 32.8; Eosinophils # (A) 0.2 k/uL (0-0.7); Eosinophils % (A) 5 %; HDW 2.73; HGB 7.9 gm/dL (11.4-16.0); Luc # (Auto) 0.05; Luc % (Auto) 2; Lymphocytes # (A) 0.6 k/uL (1.0-4.8); Lymphocytes % (A) 16 %; MCH 35.1 pg (25.0-35.0); MCHC 32.9 g/dL (31.0-37.0); MCV 106.9 fL (80.0-100.0); Macrocytosis Moderate; Mean Platelet Volume 7.6; Monocytes # (A) 0.3 k/uL (0-1.0); Monocytes % (A) 7 %; Neutrophils # (A) 2.4 k/uL (1.3-7.7); Neutrophils % (A) 69 %; RBC 2.24 m/uL (3.80-5.40); RDW 14.4 % (11.5-15.5); WBC 3.4 k/uL (3.8-10.6); WBC (Perox) 3.57
[2017-02-25 09:15] LABS: Calcium 8.1 mg/dL (8.4-10.2); Potassium 3.8 mmol/L (3.5-5.1)
--- NOTE | 2017-02-25 11:34 | PN ---
66-year-old woman who was admitted with acute renal failure, possible acute tubular necrosis being closely monitored and creatinine is improving and stabilized. No chest pain or palpitation. No fever. On exam, alert and oriented times three . Pulse is 131, blood pressure 95/56, respiratory rate 16. Temperature 97.8. Pulse ox 97% on 3 liters. HEENT: Conjunctivae normal. Oral mucosa moist. NECK: No jugular venous distention. No carotid bruit. No lymph node enlargement. CARDIOVASCULAR: S1, S2 muffled. RESPIRATORY: Breath sounds diminished at the bases. ABDOMEN: Soft. Nontender. Nervous system: No focal deficits. LEGS: No edema. No swelling. LABS: WBC 3.3, hemoglobin 7.7 and creatinine is 1.45. Accu-Cheks are noted. Calcium 7.8. ASSESSMENT: 1. Acute renal failure, possibly secondary to acute tubular necrosis with dehydration and prerenal factors. 2. Severe hyperkalemia secondary to acute renal failure, present on admission, improving. 3. Hypoglycemic with diabetes type 2 because of renal failure. 4. Congestive heart failure acute exacerbation, with acute on chronic diastolic dysfunction. 5. Tachycardia, rule out atrial fibrillation. 6. Right pleural effusion. 7. Anemia, macrocytic. 8. Increased AST. 9. History of gastroesophageal reflux disease. 10. Hypertension, essential. 11. Hyperlipidemia. 12. History of myocardial infarction. 13. History of urinary incontinence. 14. History of chronic mild leukemia on Gleevec. 15. Chronic, hypoxic respiratory failure on home oxygen 3 liters nasal cannula. 16. History of pleural effusion. 17. History of coronary artery disease, coronary artery bypass grafting and stent. 18. History of hysterectomy. 19. History of cataracts. 20. Anxiety, depression, not otherwise specified. 21. Remote history of nicotine dependence. 22. History of congestive heart failure with chronic diastolic dysfunction. 23. History of anxiety, not otherwise specified. 24. Normal vitamin B12 previously. 25. FULL CODE. RECOMMENDATIONS AND DISCUSSION: In this 66-year-old woman who presented with multiple complex medical issues, we will monitor the patient closely. Continue the current medications. Continue symptomatic treatment. Continue a small dose of diuretics. Otherwise EKG. Cardiac evaluation. Further recommendations to follow.
[2017-02-25 11:40] LABS: Glucose,Whole Blood 153 mg/dL (75-99)
--- NOTE | 2017-02-25 11:45 | US ---
EXAMINATION TYPE: US chest DATE OF EXAM: 02/25/2017 10:03 AM COMPARISON: NONE CLINICAL HISTORY: Markings for thoracentesis by pulmonary staff. Pleural effusion EXAM MEASUREMENTS: Right Pleural Effusion fluid pocket: 11.0 cm Right skin to fluid thickness: 3.3 cm Left Pleural Effusion fluid pocket: 8.8 cm Left skin to fluid thickness: 3.1 cm Right side marked for possible thoracentesis outside the dept. Left side marked for possible thoracentesis outside the dept. Pulmonologists are able to review the images in the patient?s EMR. IMPRESSIONS: 1. Bilateral pleural effusions
[2017-02-25] MEDS: FOLIC ACID 1 MG TAB PO SCH (12:29)
[2017-02-25] MEDS: MULTIVITAMINS, THERA 1 EACH TAB PO SCH (12:29)
[2017-02-25] MEDS: THIAMINE 100 MG TAB PO SCH (12:29)
[2017-02-25] MEDS: CYANOCOBALAMIN 500 MCG TAB PO SCH (12:29)
--- NOTE | 2017-02-25 14:37 | PN ---
Patient is seen for followup for acute kidney injury. Patient was initially admitted to the hospital with complaints of nausea and vomiting and decreased intake for a few days prior to admission. She had been on JESSICA inhibitors which have now been on hold. Her serum creatinine was 3.25 mg/dL on admission. She improved with IV hydration. However, currently patient is volume overloaded. She is maintained on Lasix. She states she is feeling less short of breath, but had a hard time last night. There is evidence of pleural effusion and chest ultrasound was done, which shows right effusion pocket to be 11 cm, left about 8.8 cm. Her creatinine is down to 1.1 mg/dL today. On examination, blood pressure 112/56, heart rate 82 per minute. She is afebrile. Examination of the heart S1 and S2. Examination of the lungs bilateral breath sounds are heard, bilateral crackles are heard at the bases as well. Abdomen is soft, nontender. Examination of lower extremities shows no significant edema. Labs show sodium 142, potassium 3.8, BUN 18, serum creatinine 1.1. Hemoglobin of 7.9 g/dL. ASSESSMENT: 1. Acute kidney injury, acute tubular necrosis, currently significantly improved. 2. Volume overload, maintained on Lasix 40 mg q.12 hours, which was increased yesterday. Will continue current dose. 3. Anemia with no evidence of iron deficiency. Iron saturation was at 27.9%. There is no active bleeding noted. 4. Bilateral pleural effusions. 5. Hypertension, currently controlled. PLAN: Check RBC, folate and vitamin B12 levels. Continue current dose of Lasix and repeat labs in a.m.
--- NOTE | 2017-02-25 16:25 | P.PN ---
Subjective It [id number] female patient and I'm seeing this patient in follow-up regarding better pleural effusion. The patient was seen by my partner yesterday and ultrasound marking of the pleural effusion was done. The patient has an 11 cm pocket in the right lung. The patient is experiencing some degree of shortness of breath. No chest pain. No pleurisy. No hemoptysis. The pleural effusions are chronic and they date back to previous x-rays and CAT scan of the chest that was done on this patient. Note that the patient has history of coronary artery disease and he has undergone previous bypass surgery and she has undergone previous coronary intervention and stenting and valve replacement. The patient also has history of CML and she was receiving treatment through hematology oncology. She has history of diabetes mellitus and GE reflux. No aspiration. The echocardiogram from last month showed evidence of normal LV function with an ejection fraction of 60-65%. No pericardial effusion. No significant valvular abnormalities. The patient had mild to moderate mitral regurgitation and mild aortic stenosis and moderate regurgitation. Objective - Vital Signs Vital signs: Vital Signs Temp 97.9 F 02/25/17 07:00 Pulse 80 02/25/17 16:00 Resp 16 02/25/17 16:00 BP 112/56 02/25/17 07:00 Pulse Ox 97 02/25/17 07:00 Intake & Output 02/24/17 02/25/17 02/25/17 18:59 06:59 18:59 Intake Total 200 Output Total 1200 1600 1400 Balance -1200 -1400 -1400 Weight 71.668 kg Intake: Oral 200 Output: Urine 1200 1600 1400 Other: Voiding Method Toilet Toilet Toilet # Voids 3 - Exam The patient appeared well nourished and normally developed. Vital signs as documented. Head exam is unremarkable. No scleral icterus or corneal arcus noted. Neck is without jugular venous distension, thyromegaly, or carotid bruits. Carotid upstrokes are brisk bilaterally. Lungs sounds are diminished bilaterally especially in the lung bases and the patient has some dullness to percussion the right lung base. Ultrasound markings were done and the pleural effusion was marked.. Cardiac exam reveals the PMI to be normally sized and situated. Rhythm is regular. First and second heart sounds normal. No murmurs, rubs or gallops. Abdominal exam reveals normal bowel sounds, no masses, no organomegaly and no aortic enlargement. Extremities are nonedematous and both femoral and pedal pulses are normal. - Labs CBC & Chem 7: 02/25/17 08:20 02/25/17 08:20 Labs: Abnormal Lab Results - Last 24 Hours (Table) 02/24/17 02/24/17 02/25/17 Range/Units 17:07 20:50 07:13 WBC (3.8-10.6) k/uL RBC (3.80-5.40) m/uL Hgb (11.4-16.0) gm/dL Hct (34.0-46.0) % MCV (80.0-100.0) fL MCH (25.0-35.0) pg Plt Count (150-450) k/uL Lymphocytes # (1.0-4.8) k/uL BUN (7-17) mg/dL Creatinine (0.52-1.04) mg/dL Glucose (74-99) mg/dL POC Glucose (mg/dL) 223 H 222 H 147 H (75-99) mg/dL Calcium (8.4-10.2) mg/dL 02/25/17 02/25/17 02/25/17 Range/Units 08:20 08:20 11:37 WBC 3.4 L (3.8-10.6) k/uL RBC 2.24 L (3.80-5.40) m/uL Hgb 7.9 L (11.4-16.0) gm/dL Hct 24.0 L (34.0-46.0) % MCV 106.9 H (80.0-100.0) fL MCH 35.1 H (25.0-35.0) pg Plt Count 144 L (150-450) k/uL Lymphocytes # 0.6 L (1.0-4.8) k/uL BUN 18 H (7-17) mg/dL Creatinine 1.11 H (0.52-1.04) mg/dL Glucose 124 H (74-99) mg/dL POC Glucose (mg/dL) 153 H (75-99) mg/dL Calcium 8.1 L (8.4-10.2) mg/dL Assessment and Plan Plan: Assessment 1 chronic pleural effusion more so on the right 2 chronic dyspnea with some contribution from the pleural effusions. The patient is oxygen dependent at 3 L/m nasal cannula 3 valvular heart disease with moderate degree of aortic regurgitation and mild aortic stenosis, LV function is preserved 4 chronic myelogenous leukemia/CMML 5 chronic anemia 6 coronary artery disease with previous coronary intervention, stenting, coronary artery bypass surgery 7 hypertension 8 hyperlipidemia 9 diabetes mellitus Plan I had a length discussion with the patient. I think it's worthwhile to proceed with a diagnostic and therapeutic thoracentesis of the right lung. The thoracentesis should be able to narrow down as far as the causes of the pleural effusion and based on that'll may make further recommendations. The consent was signed and the procedure will be done either today or tomorrow. She was agreeable. We'll continue to follow.
[2017-02-25 16:53] LABS: Glucose,Whole Blood 183 mg/dL (75-99)
[2017-02-25] MEDS: PANTOPRAZOLE 40 MG TABLET PO SCH (18:12)
[2017-02-25] MEDS: ACETAMINOPHEN TAB 325 MG TAB PO PRN (19:53)
[2017-02-25] MEDS: CITALOPRAM HYDROBROMIDE 20 MG TAB PO SCH (20:03)
[2017-02-25 20:42] LABS: Glucose,Whole Blood 222 mg/dL (75-99)
[2017-02-25] MEDS: ZOLPIDEM 10 MG TAB PO PRN (23:38)
[2017-02-26] MEDS ORDERED: FUROSEMIDE 10 MG/ML 4 ML VIAL IV STA (01:21)
[2017-02-26] MEDS ORDERED: METOPROLOL TARTRATE 50 MG TAB PO STA (05:13)
--- NOTE | 2017-02-26 07:08 | PN ---
DATE OF SERVICE: 02/25/2017 This 66-year-old woman who was admitted with acute renal failure also had severe hyperkalemia. She also had features of fluid overload and as well as bilateral pleural effusion, right more than the left. Also, ultrasound has been done. Patient also has hemoglobin 7.9, dropped from 12 . No chest pain or palpitations. No fever. On exam, alert and oriented x3. Pulse 80, blood pressure 112/56, respirations 16, temperature 97.9, pulse ox 97% on 3 L. HEENT: Conjunctivae pale. NECK: No jugular venous distention. CARDIOVASCULAR: S1 and S2, muffled. RESPIRATORY: Breath sounds diminished at the bases. A few scattered rhonchi and crackles. ABDOMEN: Soft. LEGS: No edema, no swelling. NERVOUS SYSTEM: No focal deficits. Labs are 3.4, hemoglobin 7.9, MCV 106. Creatinine is 1.11. ASSESSMENT: 1. Acute renal failure, possibly secondary to acute tubular necrosis, dehydration, prerenal factors. 2. Severe hyperkalemia secondary to acute renal failure, present on admission, improving. 3. Hypoglycemia with diabetes type 2 because of renal failure. 4. Congestive heart failure acute exacerbation with acute on chronic diastolic dysfunction. 5. Tachycardia, rule out tachycardia sinus probably. 6. Bilateral pleural effusion, right more than left. 7. Anemia, macrocytic. 8. Increased AST. 9. History of gastroesophageal reflux disease. 10. Hypertension, essential. 11. Hyperlipidemia. 12. Symptomatic anemia. 13. History of myocardial infarction. 14. Urinary incontinence. 15. History of chronic myeloid leukemia on Gleevec. 16. Chronic hypoxic respiratory failure on home oxygen 3 L nasal cannula. 17. History of pleural effusion. 18. History of coronary artery disease, coronary artery bypass grafting and stent. 19. History of hysterectomy. 20. History of cataracts. 21. Anxiety and depression, not otherwise specified. 22. Remote history of nicotine dependence. 23. History of congestive heart failure with chronic diastolic dysfunction. 24. Anxiety, not otherwise specified. 25. Normal vitamin B12 previously. 26. FULL CODE. RECOMMENDATIONS AND DISCUSSION: Continue current medications, continue with monitoring and symptomatic treatment. Otherwise, at this I recommend continuing with fluid electrolyte balance. Will need transfusion for symptomatic anemia followed by [facility]. Monitor closely. Closely follow with Pulmonary for possible thoracocentesis. Prognosis guarded because of multiple complex medical issues. Further recommendations to follow. MTDD
[2017-02-26 07:30] LABS: Glucose,Whole Blood 146 mg/dL (75-99)
[2017-02-26] MEDS: INSULIN LISPRO (humaLOG) 300 UNIT/3 ML VIAL SQ SCH ×4 (07:41→22:11)
[2017-02-26] MEDS: PANTOPRAZOLE 40 MG TABLET PO SCH ×2 (07:41→16:58)
[2017-02-26] MEDS: CALCIUM CARBONATE 500 MG CHEWABLE PO SCH (07:43)
[2017-02-26] MEDS: FUROSEMIDE 10 MG/ML 4 ML VIAL IV SCH ×2 (07:45→22:03)
[2017-02-26] MEDS: OXYBUTYNIN 15 MG TAB.ER.24 PO SCH (07:45)
[2017-02-26] MEDS: HEPARIN SODIUM,PORCINE 5,000 UNIT/ML 1 ML VIAL SQ SCH (07:45)
[2017-02-26] MEDS: ALPRAZolam 0.25 MG TAB PO PRN ×3 (07:54→22:28)
[2017-02-26] MEDS: ALBUTEROL NEBULIZED 2.5 MG/3 ML INHALATION SCH ×3 (09:16→21:20)
[2017-02-26 09:17] LABS: Anion Gap 9 mmol/L; Blood Urea Nitrogen 14 mg/dL (7-17); Calcium 8.1 mg/dL (8.4-10.2); Carbon Dioxide 30 mmol/L (22-30); Chloride 101 mmol/L (98-107); Glucose 139 mg/dL (74-99); Non-African American GFR(MDRD) 54 (>60 ml/min/1.73 sqM); Potassium 3.7 mmol/L (3.5-5.1); Sodium 140 mmol/L (137-145)
[2017-02-26 09:32] LABS: Anisocytosis Slight; Basophils % (A) 1 %; CH 33.9; CHCM 32.9; Eosinophils # (A) 0.2 k/uL (0-0.7); Eosinophils % (A) 4 %; HCT 27.3 % (34.0-46.0); HDW 2.99; HGB 8.9 gm/dL (11.4-16.0); Luc # (Auto) 0.06; Luc % (Auto) 1; Lymphocytes # (A) 0.5 k/uL (1.0-4.8); Lymphocytes % (A) 12 %; MCH 33.9 pg (25.0-35.0); MCHC 32.6 g/dL (31.0-37.0); MCV 103.9 fL (80.0-100.0); Macrocytosis Moderate; Monocytes # (A) 0.3 k/uL (0-1.0); Monocytes % (A) 7 %; Neutrophils # (A) 3.2 k/uL (1.3-7.7); Neutrophils % (A) 75 %; RBC 2.63 m/uL (3.80-5.40); RDW 16.2 % (11.5-15.5); WBC 4.2 k/uL (3.8-10.6); WBC (Perox) 4.39
--- NOTE | 2017-02-26 10:30 | XR ---
EXAMINATION TYPE: XR chest 2V DATE OF EXAM: 02/26/2017 10:23 AM COMPARISON: 02/25/2017 TECHNIQUE: PA and lateral views submitted. HISTORY: Shortness of breath, FINDINGS: Diffuse interstitial pattern with bilateral pleural effusion and consolidation. Postoperative changes . Arthropathy of the shoulders. IMPRESSION: 1. CHF with bilateral effusions. The amount of pleural fluid on the right appears reduced from the pr evious exam..
--- NOTE | 2017-02-26 10:45 | P.PN ---
Subjective Patient is seen in follow-up for acute kidney injury. Her creatinine was 3.29 on admission and is down to 1.02 today. She is currently maintained on Lasix 40 mg IV twice daily and is diuresing well. Her dyspnea is improved. Denies chest pain. Appetite is fair. No vomiting or diarrhea. Vital signs are stable. General: The patient appeared well nourished and normally developed. HEENT: Head exam is unremarkable. Neck is without jugular venous distension. LUNGS: Lungs are clear to auscultation and percussion. Breath sounds decreased. HEART: Rate and Rhythm are regular. First and second heart sounds normal. No murmurs, rubs or gallops. ABDOMEN: Abdominal exam reveals normal bowel sounds. Non-tender and non- distended. No evidence of peritonitis. EXTREMITITES: No clubbing, cyanosis, or edema. Objective - Vital Signs Vital signs: Vital Signs Temp 98.0 F 02/26/17 07:00 Pulse 80 02/26/17 09:34 Resp 16 02/26/17 09:17 BP 103/51 02/26/17 07:00 Pulse Ox 98 02/26/17 07:00 Intake & Output 02/25/17 02/26/17 02/26/17 18:59 06:59 18:59 Intake Total 510 Output Total 1400 2900 Balance -1400 -2390 Weight 71.668 kg Intake: Oral 200 Blood Product 310 Rc As-1 Unit 310 [id number] Output: Urine 1400 2900 Other: Voiding Method Toilet Toilet # Voids 3 - Labs CBC & Chem 7: 02/26/17 08:23 02/26/17 08:23 Labs: Abnormal Lab Results - Last 24 Hours (Table) 02/22/17 02/25/17 02/25/17 Range/Units 07:30 11:37 16:51 RBC (3.80-5.40) m/uL Hgb (11.4-16.0) gm/dL Hct (34.0-46.0) % MCV (80.0-100.0) fL RDW (11.5-15.5) % Lymphocytes # (1.0-4.8) k/uL Glucose (74-99) mg/dL POC Glucose (mg/dL) 153 H 183 H (75-99) mg/dL Calcium (8.4-10.2) mg/dL RBC Folate 1,082 H (280 - 791) ng/mL Crossmatch 02/25/17 02/25/17 02/26/17 Range/Units 19:54 20:36 07:10 RBC (3.80-5.40) m/uL Hgb (11.4-16.0) gm/dL Hct (34.0-46.0) % MCV (80.0-100.0) fL RDW (11.5-15.5) % Lymphocytes # (1.0-4.8) k/uL Glucose (74-99) mg/dL POC Glucose (mg/dL) 222 H 146 H (75-99) mg/dL Calcium (8.4-10.2) mg/dL RBC Folate (280 - 791) ng/mL Crossmatch See Detail 02/26/17 02/26/17 Range/Units 08:23 08:23 RBC 2.63 L (3.80-5.40) m/uL Hgb 8.9 L (11.4-16.0) gm/dL Hct 27.3 L (34.0-46.0) % MCV 103.9 H (80.0-100.0) fL RDW 16.2 H (11.5-15.5) % Lymphocytes # 0.5 L (1.0-4.8) k/uL Glucose 139 H (74-99) mg/dL POC Glucose (mg/dL) (75-99) mg/dL Calcium 8.1 L (8.4-10.2) mg/dL RBC Folate (280 - 791) ng/mL Crossmatch Assessment and Plan Plan: Assessment: #1. Nonoliguric acute kidney injury mostly prerenal in nature. Improving. Creatinine down to 1.02 today. #2. Volume overload. Improving. #3. Right-sided pleural effusion. Improving. No plans for thoracentesis at this time per pulmonology. #4. Anemia. Hemoglobin 8.9 today. No evidence of iron deficiency. B12 and folate levels normal. #5. Diastolic CHF with moderate tricuspid regurgitation. Plan: Continue Lasix 40 mg IV twice daily. Avoid nephrotoxic agents. Repeat electrolytes in the morning.
--- NOTE | 2017-02-26 11:05 | P.PN ---
Subjective 66-year-old female patient and I'm seeing this patient in follow-up regarding better pleural effusion. The patient was seen by my partner yesterday and ultrasound marking of the pleural effusion was done. The patient has an 11 cm pocket in the right lung. The patient is experiencing some degree of shortness of breath. No chest pain. No pleurisy. No hemoptysis. The pleural effusions are chronic and they date back to previous x-rays and CAT scan of the chest that was done on this patient. Note that the patient has history of coronary artery disease and he has undergone previous bypass surgery and she has undergone previous coronary intervention and stenting and valve replacement. The patient also has history of CML and she was receiving treatment through hematology oncology. She has history of diabetes mellitus and GE reflux. No aspiration. The echocardiogram from last month showed evidence of normal LV function with an ejection fraction of 60-65%. No pericardial effusion. No significant valvular abnormalities. The patient had mild to moderate mitral regurgitation and mild aortic stenosis and moderate regurgitation. On 02/26/2017, the patient is being seen in follow-up. She is less short of breath compared to yesterday. The pleural effusions are smaller on physical examination of the chest x-ray also shows some interval improvement in the lateral pleural effusions. I was supposed to do a thoracentesis on this patient however I backed up on the procedure knowing that the patient is not having any significant shortness of breath and the pleural effusions on today's chest x-ray were rather small. I thought the procedure itself would be risky and subject this patient for pneumothorax. I recommended outpatient follow-up on this pleural effusions and thoracentesis later stage especially of the pleural fluid size gets worse. Objective - Vital Signs Vital signs: Vital Signs Temp 98.0 F 02/26/17 07:00 Pulse 80 02/26/17 09:34 Resp 16 02/26/17 09:17 BP 103/51 02/26/17 07:00 Pulse Ox 98 02/26/17 07:00 Intake & Output 02/25/17 02/26/17 02/26/17 18:59 06:59 18:59 Intake Total 510 Output Total 1400 2900 Balance -1400 -2390 Weight 71.668 kg Intake: Oral 200 Blood Product 310 Rc As-1 Unit 310 [id number] Output: Urine 1400 2900 Other: Voiding Method Toilet Toilet # Voids 3 - Exam The patient appeared well nourished and normally developed. Vital signs as documented. Head exam is unremarkable. No scleral icterus or corneal arcus noted. Neck is without jugular venous distension, thyromegaly, or carotid bruits. Carotid upstrokes are brisk bilaterally. Lungs sounds are diminished bilaterally especially in the lung bases and the patient has some dullness to percussion the right lung base. Ultrasound markings were done and the pleural effusion was marked.. Cardiac exam reveals the PMI to be normally sized and situated. Rhythm is regular. First and second heart sounds normal. No murmurs, rubs or gallops. Abdominal exam reveals normal bowel sounds, no masses, no organomegaly and no aortic enlargement. Extremities are nonedematous and both femoral and pedal pulses are normal. - Labs CBC & Chem 7: 02/26/17 08:23 02/26/17 08:23 Labs: Abnormal Lab Results - Last 24 Hours (Table) 02/22/17 02/25/17 02/25/17 Range/Units 07:30 11:37 16:51 RBC (3.80-5.40) m/uL Hgb (11.4-16.0) gm/dL Hct (34.0-46.0) % MCV (80.0-100.0) fL RDW (11.5-15.5) % Lymphocytes # (1.0-4.8) k/uL Glucose (74-99) mg/dL POC Glucose (mg/dL) 153 H 183 H (75-99) mg/dL Calcium (8.4-10.2) mg/dL RBC Folate 1,082 H (280 - 791) ng/mL Crossmatch 02/25/17 02/25/17 02/26/17 Range/Units 19:54 20:36 07:10 RBC (3.80-5.40) m/uL Hgb (11.4-16.0) gm/dL Hct (34.0-46.0) % MCV (80.0-100.0) fL RDW (11.5-15.5) % Lymphocytes # (1.0-4.8) k/uL Glucose (74-99) mg/dL POC Glucose (mg/dL) 222 H 146 H (75-99) mg/dL Calcium (8.4-10.2) mg/dL RBC Folate (280 - 791) ng/mL Crossmatch See Detail 02/26/17 02/26/17 Range/Units 08:23 08:23 RBC 2.63 L (3.80-5.40) m/uL Hgb 8.9 L (11.4-16.0) gm/dL Hct 27.3 L (34.0-46.0) % MCV 103.9 H (80.0-100.0) fL RDW 16.2 H (11.5-15.5) % Lymphocytes # 0.5 L (1.0-4.8) k/uL Glucose 139 H (74-99) mg/dL POC Glucose (mg/dL) (75-99) mg/dL Calcium 8.1 L (8.4-10.2) mg/dL RBC Folate (280 - 791) ng/mL Crossmatch Assessment and Plan Plan: Assessment 1 chronic pleural effusion more so on the right 2 chronic dyspnea with some contribution from the pleural effusions. The patient is oxygen dependent at 3 L/m nasal cannula 3 valvular heart disease with moderate degree of aortic regurgitation and mild aortic stenosis, LV function is preserved 4 chronic myelogenous leukemia/CMML 5 chronic anemia 6 coronary artery disease with previous coronary intervention, stenting, coronary artery bypass surgery 7 hypertension 8 hyperlipidemia 9 diabetes mellitus Plan I had a length discussion with the patient. The patient will be followed up on outpatient basis in regards to the pleural effusions. The effusions are small and does not causing much of symptoms for now and this most likely fill congestion heart failure. Consider a thoracentesis and there is increase in the size of the pleural effusions. On today's evaluation, the amount of fluid a small and performing thoracentesis we'll subject this patient to possible pneumothorax although her low-risk yet not sufficient enough to justify the procedure. Based on that, the patient was asked to be discharged to be followed up on outpatient basis regarding pleural effusion with a repeat chest x -ray.
[2017-02-26 11:23] LABS: Glucose,Whole Blood 150 mg/dL (75-99)
[2017-02-26] MEDS: CYANOCOBALAMIN 500 MCG TAB PO SCH (11:29)
[2017-02-26] MEDS: FOLIC ACID 1 MG TAB PO SCH (11:30)
[2017-02-26] MEDS: MULTIVITAMINS, THERA 1 EACH TAB PO SCH (11:31)
[2017-02-26] MEDS: THIAMINE 100 MG TAB PO SCH (11:33)
[2017-02-26] MEDS ORDERED: HEPARIN SODIUM,PORCINE 5,000 UNIT/ML 1 ML VIAL IV PRN (15:34)
[2017-02-26 15:55] LABS: Anisocytosis Slight; Basophils % (A) 0 %; CH 34.5; CHCM 33.1; Eosinophils # (A) 0.1 k/uL (0-0.7); Eosinophils % (A) 4 %; HCT 24.5 % (34.0-46.0); HDW 3.04; Luc # (Auto) 0.06; Luc % (Auto) 2; Lymphocytes # (A) 0.7 k/uL (1.0-4.8); Lymphocytes % (A) 21 %; MCH 34.1 pg (25.0-35.0); MCHC 32.5 g/dL (31.0-37.0); MCV 105.1 fL (80.0-100.0); Macrocytosis Moderate; Monocytes # (A) 0.3 k/uL (0-1.0); Monocytes % (A) 9 %; Neutrophils # (A) 2.2 k/uL (1.3-7.7); Neutrophils % (A) 65 %; RBC 2.34 m/uL (3.80-5.40); RDW 16.2 % (11.5-15.5); WBC 3.3 k/uL (3.8-10.6); WBC (Perox) 3.58
[2017-02-26] MEDS: HEPARIN SODIUM,PORCINE/D5W PMX 25,000 UNIT in DEXTROSE/WATER 1 500ML.BAG IV SCH (15:57)
[2017-02-26 16:05] LABS: Partial Thromboplastin Time 26.9 sec (22.0-30.0); Prothrombin Time 10.2 sec (9.0-12.0)
[2017-02-26 16:27] LABS: Glucose,Whole Blood 201 mg/dL (75-99)
[2017-02-26] MEDS: DILTIAZEM 125 MG in SODIUM CHLORIDE 0.9% 100 ML IV SCH (16:31)
[2017-02-26 18:42] LABS: Magnesium 1.4 mg/dL (1.6-2.3); Potassium 3.2 mmol/L (3.5-5.1)
--- NOTE | 2017-02-26 20:35 | PN ---
DATE OF SERVICE: 02/26/2017 This 66-year-old woman who was admitted with acute renal failure, possibly secondary to acute tubular necrosis and dehydration, is being closely monitored. The patient has improved significantly from the renal point of view; however, the patient developed atrial fibrillation with rapid ventricular rate and the patient is being transferred to Telemetry at this time. Cardiology has been consulted. No chest pain. No palpitation. Past medical history reviewed. REVIEW OF SYSTEMS: CARDIOVASCULAR SYSTEM: As mentioned earlier. RESPIRATORY SYSTEM: As mentioned earlier. GI: As mentioned earlier. : As mentioned earlier. NERVOUS SYSTEM: No numbness or weakness. Current medications are reviewed and include: 1. Tylenol 650 q.6 p.r.n. 2. [place] 5 mg q.6 p.r.n. 3. Ventolin 2.5 t.i.d. 4. Xanax 0.25. 5. Celexa. 6. Vitamin B12. 7. Folic acid. 8. Lasix. 9. Heparin. 10. Humalog. 11. Lopressor. 12. Narcan. 13. Zofran. 14. Ditropan. 15. Protonix. 16. Vitamin B1. 17. Ambien. PHYSICAL EXAMINATION: Patient is alert and oriented x3. Pulse is 135, regular. Blood pressure 139/60, respiration 17, temperature 96.8, pulse ox 96% on 3 L. HEENT: Conjunctivae normal. NECK: No jugular venous distention. CARDIOVASCULAR SYSTEM: S1, S2 muffled. Tachycardia. RESPIRATORY SYSTEM: Breath sounds diminished at the bases. A few scattered rhonchi. No crackles. ABDOMEN: Soft, non-tender. No mass palpable. LEGS: No edema. No swelling. NERVOUS SYSTEM: No focal deficit. Labs at this time show WBC 4.2, hemoglobin 8.9. Glucose 139. ASSESSMENT: 1. Acute renal failure, possibly secondary to acute tubular necrosis and dehydration, prerenal factor, present on admission, improved. 2. Severe hyperkalemia secondary to acute renal failure, present on admission, improved. 3. Atrial fibrillation, new onset, with fast ventricular rate. 4. Hypoglycemia with diabetes mellitus, type 2, because of the renal failure. 5. Congestive heart failure, acute exacerbation, with acute on chronic diastolic dysfunction. 6. Tachycardia. 7. Bilateral pleural effusions, right more than the left. 8. Anemia, macrocytic. 9. Increased AST. 10. History of gastroesophageal reflux disease. 11. Hypertension, essential. 12. Hyperlipidemia. 13. Symptomatic anemia. 14. History of myocardial infarction. 15. History of urinary incontinence. 16. History of chronic myeloid leukemia, on Gleevec. 17. History of chronic hypoxic respiratory failure, on home oxygen at 3 liters nasal cannula. 18. History of pleural effusion on the right, which is improving. 19. History of coronary artery disease, coronary artery bypass grafting and stent. 20. History of hysterectomy. 21. History of cataracts. 22. Anxiety, depression not otherwise specified. 23. History of nicotine dependence. 24. History of congestive heart failure with chronic diastolic dysfunction. 25. Anxiety not otherwise specified. 26. Normal vitamin B12 previously. 27. FULL CODE. RECOMMENDATIONS AND DISCUSSION: I recommend to continue with the current medications, continue with the monitoring, symptomatic treatment. I recommend Cardizem drip. Otherwise, follow closely with Cardiology. Continue the rest of the medications. Please note that the patient is back on diuretics. The renal function is significantly better. Monitor closely. Further recommendations to follow.
[2017-02-26 20:45] LABS: Glucose,Whole Blood 200 mg/dL (75-99)
[2017-02-26] MEDS ORDERED: Potassium Replacement Protocol 1 EACH MISC MISCELLANE PRN (21:42)
[2017-02-26] MEDS ORDERED: Magnesium Replacement Protocol 1 EACH MISC MISCELLANE PRN (21:42)
[2017-02-26] MEDS: CITALOPRAM HYDROBROMIDE 20 MG TAB PO SCH (22:04)
[2017-02-26] MEDS: POTASSIUM CHLORIDE ER 20 MEQ TAB.ER PO SCH ×2 (22:12→23:31)
[2017-02-26] MEDS: METOPROLOL TARTRATE 50 MG TAB PO SCH (22:13)
[2017-02-26] MEDS ORDERED: SPIRONOLACTONE 25 MG TAB PO STA (22:13)
[2017-02-26] MEDS: MAGNESIUM SULFATE-D5W PMX 1 GM in DEXTROSE/WATER 1 100ML.BAG IVPB SCH ×2 (22:30→23:35)
[2017-02-26] MEDS: ZOLPIDEM 10 MG TAB PO PRN (23:31)
[2017-02-27] MEDS: MAGNESIUM SULFATE-D5W PMX 1 GM in DEXTROSE/WATER 1 100ML.BAG IVPB SCH (01:00)
[2017-02-27] MEDS: DILTIAZEM 125 MG in SODIUM CHLORIDE 0.9% 100 ML IV SCH (01:00)
[2017-02-27 06:06] LABS: Basophils % (A) 0 %; CH 34.4; CHCM 33.8; Eosinophils # (A) 0.2 k/uL (0-0.7); Eosinophils % (A) 5 %; HCT 24.5 % (34.0-46.0); HDW 3.01; Luc # (Auto) 0.13; Luc % (Auto) 3; Lymphocytes # (A) 0.9 k/uL (1.0-4.8); Lymphocytes % (A) 22 %; MCH 33.6 pg (25.0-35.0); MCHC 32.8 g/dL (31.0-37.0); MCV 102.5 fL (80.0-100.0); Macrocytosis Slight; Mean Platelet Volume 7.5; Monocytes # (A) 0.4 k/uL (0-1.0); Monocytes % (A) 10 %; Neutrophils # (A) 2.5 k/uL (1.3-7.7); Neutrophils % (A) 60 %; RBC 2.39 m/uL (3.80-5.40); RDW 15.7 % (11.5-15.5); WBC 4.2 k/uL (3.8-10.6)
[2017-02-27 06:35] LABS: Glucose,Whole Blood 166 mg/dL (75-99)
[2017-02-27] MEDS: INSULIN LISPRO (humaLOG) 300 UNIT/3 ML VIAL SQ SCH ×4 (06:37→21:17)
[2017-02-27] MEDS: PANTOPRAZOLE 40 MG TABLET PO SCH ×2 (06:37→17:42)
[2017-02-27 07:10] LABS: Anion Gap 9 mmol/L; Blood Urea Nitrogen 15 mg/dL (7-17); Calcium 8.1 mg/dL (8.4-10.2); Carbon Dioxide 27 mmol/L (22-30); Chloride 103 mmol/L (98-107); Glucose 151 mg/dL (74-99); Magnesium 2.2 mg/dL (1.6-2.3); Non-African American GFR(MDRD) 53 (>60 ml/min/1.73 sqM); Potassium 3.7 mmol/L (3.5-5.1); Sodium 139 mmol/L (137-145)
[2017-02-27] MEDS: CALCIUM CARBONATE 500 MG CHEWABLE PO SCH (08:42)
[2017-02-27] MEDS: METOPROLOL TARTRATE 50 MG TAB PO SCH ×2 (08:42→21:15)
[2017-02-27] MEDS: OXYBUTYNIN 15 MG TAB.ER.24 PO SCH (08:42)
[2017-02-27] MEDS: FUROSEMIDE 10 MG/ML 4 ML VIAL IV SCH ×2 (08:42→21:16)
[2017-02-27] MEDS: ALBUTEROL NEBULIZED 2.5 MG/3 ML INHALATION SCH ×3 (09:05→21:53)
--- NOTE | 2017-02-27 10:09 | CONS ---
DATE OF CONSULTATION: 02/27/2017 Ms. Early is a known case of ischemic heart disease with previous bypass surgery and also mitral valve repair, who was in this hospital in August of 2016 with findings of congestive heart failure. At that time her echocardiogram showed an ejection fraction of 30% to 35%. However, in January of this year, patient had a repeat echocardiogram which showed an ejection fraction of 60% to 65% with moderate tricuspid regurgitation and mild gradient across the aortic valve, moderate mitral annular calcification and a peak gradient across the mitral valve of 25 with a mean of about 8.37. At this time the patient is admitted to the hospital with increasing weakness. Patient apparently has been treated with a different kind of medication for CML. The last medication was Gleevec. The patient came with complaints of intractable vomiting with not thinking properly. Patient was found to be in acute renal failure and is admitted to the hospital for further evaluation. Last night patient converted into atrial fibrillation. A cardiology consult is requested. Her creatinine was 3.25 on admission, which improved to 1.02 at this time. Her hemoglobin is only 8 grams. Her potassium level today is 3.2. The patient continued to be in atrial fibrillation with fast ventricular response. The patient was transferred to selective care from the fifth floor. The patient is being treated with IV Cardizem. Chest x-ray showed bilateral pleural effusions. Patient is getting IV Lasix also. She denied any chest pain. She does not seem to be in acute distress at this time. Past medical history is significant for CML for which she has been on treatment for more than one year. History of ischemic heart disease with previous bypass surgery. She had a cardiac catheterization in August of this year, which showed a patent bypass grafts with hypokinesis of the anteroapical wall. There was a lesion in the diagonal branch at that time. LV function seemed to be fluctuating. She has a history of GERD, hypertension, hyperlipidemia, previous myocardial infarction, and also mitral valve repair and anxiety. Her medications prior to admission include: 1. Glucophage. 2. Norvasc. 3. Zocor. 4. Ditropan. 5. Lasix. 6. Xanax. 7. Glucophage. 8. Aldactone. 9. Klor-Con. 10. Fish oil. 11. Lopressor. 12. Zestril. 13. Celexa. 14. Calcium. 15. Ecotrin. 16. Ventolin. The rest of the information is as per the chart. Physical examination at this time reveals a 66-year-old female who is alert, oriented, does not appear to be in acute distress. Blood pressure is 131/63, pulse rate is about 120 to 130. Pupils are equal. Neck is supple. Mild JVD. Heart, S1 and S2 heard. Systolic murmur heard in the aortic area. Lungs show diminished breath sounds. Abdomen is soft. Extremities have no significant edema. FINAL IMPRESSION: 1. Atrial fibrillation with rapid ventricular response. 2. Severe anemia. 3. Chronic myelogenous leukemia. 4. History of ischemic heart disease and previous myocardial infarction, status post aortocoronary bypass surgery. 5. History of stent placement. 6. Mitral valve repair. PLAN: At this point, we will continue with IV Cardizem and also beta george to control the heart rate. The patient will be considered for anticoagulation if she is cleared by hematology/oncology. Continue with the diuretics. She should be on Aldactone also. Other recommendations will depend upon the clinical course. May consider adding Lanoxin if necessary.
--- NOTE | 2017-02-27 10:31 | P.PN ---
Subjective Patient is seen in follow-up for acute kidney injury. Her creatinine was 3.29 on admission and is down to 1.03 today. She is currently maintained on Lasix 40 mg IV twice daily and is diuresing well. Her dyspnea is improved. Denies chest pain. Appetite is fair. No vomiting or diarrhea. Edema is improving. She did go into atrial fibrillation with RVR last night and is currently maintained on a Cardizem drip. Vital signs are stable. General: The patient appeared well nourished and normally developed. HEENT: Head exam is unremarkable. Neck is without jugular venous distension. LUNGS: Lungs are clear to auscultation and percussion. Breath sounds decreased. HEART: Rate and Rhythm are regular. First and second heart sounds normal. No murmurs, rubs or gallops. ABDOMEN: Abdominal exam reveals normal bowel sounds. Non-tender and non- distended. No evidence of peritonitis. EXTREMITITES: Trace edema. Objective - Vital Signs Vital signs: Vital Signs Temp 98.5 F 02/27/17 08:00 Pulse 70 02/27/17 09:16 Resp 18 02/27/17 08:00 BP 107/54 02/27/17 08:00 Pulse Ox 97 02/27/17 09:05 Intake & Output 02/26/17 02/27/17 02/27/17 18:59 06:59 18:59 Intake Total 360 711.688 120 Output Total 850 400 Balance -490 311.688 120 Weight 74.3 kg Intake: Intake, IV Titration 711.688 Amount Diltiazem 125 mg In 140.500 Sodium Chloride 0.9% 100 ml @ 10 MG/HR 10 mls/hr IV .[id number] ISAIAS Rx#: [id number] Heparin Sodium,Porcine/ 271.188 D5w Pmx 25,000 unit In Dextrose/Water 1 500ml. bag @ 12 UNITS/KG/HR 17.2 mls/hr IV .Q24H ISAIAS Rx#: [id number] Magnesium Sulfate-D5w Pmx 300 1 gm In Dextrose/Water 1 100ml.bag @ 100 mls/hr IVPB Q1H ISAIAS Rx#: [id number] Oral 360 120 Output: Urine 850 400 Other: Voiding Method Toilet Toilet # Voids 0 0 - Labs CBC & Chem 7: 02/27/17 05:22 02/27/17 05:22 Labs: Abnormal Lab Results - Last 24 Hours (Table) 02/26/17 02/26/17 02/26/17 Range/Units 11:18 15:43 15:43 WBC 3.3 L (3.8-10.6) k/uL RBC 2.34 L (3.80-5.40) m/uL Hgb 8.0 L (11.4-16.0) gm/dL Hct 24.5 L (34.0-46.0) % MCV 105.1 H (80.0-100.0) fL RDW 16.2 H (11.5-15.5) % Plt Count 130 L (150-450) k/uL Lymphocytes # 0.7 L (1.0-4.8) k/uL APTT (22.0-30.0) sec Potassium 3.2 L (3.5-5.1) mmol/L Glucose (74-99) mg/dL POC Glucose (mg/dL) 150 H (75-99) mg/dL Calcium (8.4-10.2) mg/dL Magnesium 1.4 L (1.6-2.3) mg/dL 02/26/17 02/26/17 02/26/17 Range/Units 16:25 20:41 22:21 WBC (3.8-10.6) k/uL RBC (3.80-5.40) m/uL Hgb (11.4-16.0) gm/dL Hct (34.0-46.0) % MCV (80.0-100.0) fL RDW (11.5-15.5) % Plt Count (150-450) k/uL Lymphocytes # (1.0-4.8) k/uL APTT 40.8 H (22.0-30.0) sec Potassium (3.5-5.1) mmol/L Glucose (74-99) mg/dL POC Glucose (mg/dL) 201 H 200 H (75-99) mg/dL Calcium (8.4-10.2) mg/dL Magnesium (1.6-2.3) mg/dL 02/27/17 02/27/17 02/27/17 Range/Units 05:22 05:22 05:22 WBC (3.8-10.6) k/uL RBC 2.39 L (3.80-5.40) m/uL Hgb 8.0 L (11.4-16.0) gm/dL Hct 24.5 L (34.0-46.0) % MCV 102.5 H (80.0-100.0) fL RDW 15.7 H (11.5-15.5) % Plt Count (150-450) k/uL Lymphocytes # 0.9 L (1.0-4.8) k/uL APTT 79.6 H (22.0-30.0) sec Potassium (3.5-5.1) mmol/L Glucose 151 H (74-99) mg/dL POC Glucose (mg/dL) (75-99) mg/dL Calcium 8.1 L (8.4-10.2) mg/dL Magnesium (1.6-2.3) mg/dL 02/27/17 Range/Units 06:24 WBC (3.8-10.6) k/uL RBC (3.80-5.40) m/uL Hgb (11.4-16.0) gm/dL Hct (34.0-46.0) % MCV (80.0-100.0) fL RDW (11.5-15.5) % Plt Count (150-450) k/uL Lymphocytes # (1.0-4.8) k/uL APTT (22.0-30.0) sec Potassium (3.5-5.1) mmol/L Glucose (74-99) mg/dL POC Glucose (mg/dL) 166 H (75-99) mg/dL Calcium (8.4-10.2) mg/dL Magnesium (1.6-2.3) mg/dL Assessment and Plan Plan: Assessment: #1. Nonoliguric acute kidney injury mostly prerenal in nature. Improving. Creatinine stable at 1.03 today. #2. Volume overload. Improving. #3. Right-sided pleural effusion. Improving. No plans for thoracentesis at this time per pulmonology. #4. Anemia. Hemoglobin 8.0 today. No evidence of iron deficiency. B12 and folate levels normal. #5. Diastolic CHF with moderate tricuspid regurgitation. #6. Atrial fibrillation with RVR pain on Cardizem as well as heparin drip. Plan: Continue Lasix 40 mg IV twice daily. Avoid nephrotoxic agents. Repeat electrolytes in the morning. Cardiology following.
[2017-02-27] MEDS: CYANOCOBALAMIN 500 MCG TAB PO SCH (11:44)
[2017-02-27] MEDS: FOLIC ACID 1 MG TAB PO SCH (11:44)
[2017-02-27] MEDS: MULTIVITAMINS, THERA 1 EACH TAB PO SCH (11:44)
[2017-02-27] MEDS: THIAMINE 100 MG TAB PO SCH (11:44)
[2017-02-27 12:13] LABS: Glucose,Whole Blood 170 mg/dL (75-99)
[2017-02-27 15:06] VITALS: BMI 29.9
[2017-02-27] MEDS: DILTIAZEM ORAL 60 MG TAB PO SCH ×2 (15:27→21:15)
--- NOTE | 2017-02-27 16:39 | P.PN ---
Subjective 66-year-old female patient and I'm seeing this patient in follow-up regarding better pleural effusion. The patient was seen by my partner yesterday and ultrasound marking of the pleural effusion was done. The patient has an 11 cm pocket in the right lung. The patient is experiencing some degree of shortness of breath. No chest pain. No pleurisy. No hemoptysis. The pleural effusions are chronic and they date back to previous x-rays and CAT scan of the chest that was done on this patient. Note that the patient has history of coronary artery disease and he has undergone previous bypass surgery and she has undergone previous coronary intervention and stenting and valve replacement. The patient also has history of CML and she was receiving treatment through hematology oncology. She has history of diabetes mellitus and GE reflux. No aspiration. The echocardiogram from last month showed evidence of normal LV function with an ejection fraction of 60-65%. No pericardial effusion. No significant valvular abnormalities. The patient had mild to moderate mitral regurgitation and mild aortic stenosis and moderate regurgitation. On 02/26/2017, the patient is being seen in follow-up. She is less short of breath compared to yesterday. The pleural effusions are smaller on physical examination of the chest x-ray also shows some interval improvement in the lateral pleural effusions. I was supposed to do a thoracentesis on this patient however I backed up on the procedure knowing that the patient is not having any significant shortness of breath and the pleural effusions on today's chest x-ray were rather small. I thought the procedure itself would be risky and subject this patient for pneumothorax. I recommended outpatient follow-up on this pleural effusions and thoracentesis later stage especially of the pleural fluid size gets worse. On 02/27/2017, the patient is being seen in follow-up. As mentioned earlier, I do not see a significant evaluation performing a thoracentesis on this patient. The patient was supposed to get discharged home. She developed a new onset atrial fibrillation with rapid ventricular response pH got moved to telemetry unit. She was raised on IV Cardizem and currently she is back to normal sinus rhythm. The patient is also on IV heparin. The patient is doing well. She is not having any significant shortness of breath. She is on IV Lasix 40 mg every 12 hours. Renal function is normalized. Note that her echocardiogram shows an ejection fraction of 30-35%. However in January of this year the patient that repeat echo cardiac on that showed an ejection fraction of 60-65% with moderate tricuspid regurgitation and mild aortic stenosis and moderate mitral annular calcification with a peak a across the valve of 25 mmHg. Objective - Vital Signs Vital signs: Vital Signs Temp 98.2 F 02/27/17 12:00 Pulse 76 02/27/17 13:28 Resp 18 02/27/17 12:00 BP 101/53 02/27/17 12:00 Pulse Ox 93 L 02/27/17 12:00 Intake & Output 02/26/17 02/27/17 02/27/17 18:59 06:59 18:59 Intake Total 360 711.688 240 Output Total 850 400 Balance -490 311.688 240 Weight 74.3 kg 74.3 kg Intake: Intake, IV Titration 711.688 Amount Diltiazem 125 mg In 140.500 Sodium Chloride 0.9% 100 ml @ 10 MG/HR 10 mls/hr IV .[id number] [facility]AIAS Rx#: [id number] Heparin Sodium,Porcine/ 271.188 D5w Pmx 25,000 unit In Dextrose/Water 1 500ml. bag @ 12 UNITS/KG/HR 17.2 mls/hr IV .Q24H ISAIAS Rx#: [id number] Magnesium Sulfate-D5w Pmx 300 1 gm In Dextrose/Water 1 100ml.bag @ 100 mls/hr IVPB Q1H ISAIAS Rx#: [id number] Oral 360 240 Output: Urine 850 400 Other: Voiding Method Toilet Toilet # Voids 0 1 - Exam The patient appeared well nourished and normally developed. Vital signs as documented. Head exam is unremarkable. No scleral icterus or corneal arcus noted. Neck is without jugular venous distension, thyromegaly, or carotid bruits. Carotid upstrokes are brisk bilaterally. Lungs sounds are diminished bilaterally especially in the lung bases and the patient has some dullness to percussion the right lung base. Ultrasound markings were done and the pleural effusion was marked.. Cardiac exam reveals the PMI to be normally sized and situated. Rhythm is regular. First and second heart sounds normal. No murmurs, rubs or gallops. Abdominal exam reveals normal bowel sounds, no masses, no organomegaly and no aortic enlargement. Extremities are nonedematous and both femoral and pedal pulses are normal. - Labs CBC & Chem 7: 02/27/17 05:22 02/27/17 05:22 Labs: Abnormal Lab Results - Last 24 Hours (Table) 02/26/17 02/26/17 02/26/17 Range/Units 15:43 20:41 22:21 RBC (3.80-5.40) m/uL Hgb (11.4-16.0) gm/dL Hct (34.0-46.0) % MCV (80.0-100.0) fL RDW (11.5-15.5) % Lymphocytes # (1.0-4.8) k/uL APTT 40.8 H (22.0-30.0) sec Potassium 3.2 L (3.5-5.1) mmol/L Glucose (74-99) mg/dL POC Glucose (mg/dL) 200 H (75-99) mg/dL Calcium (8.4-10.2) mg/dL Magnesium 1.4 L (1.6-2.3) mg/dL 02/27/17 02/27/17 02/27/17 Range/Units 05:22 05:22 05:22 RBC 2.39 L (3.80-5.40) m/uL Hgb 8.0 L (11.4-16.0) gm/dL Hct 24.5 L (34.0-46.0) % MCV 102.5 H (80.0-100.0) fL RDW 15.7 H (11.5-15.5) % Lymphocytes # 0.9 L (1.0-4.8) k/uL APTT 79.6 H (22.0-30.0) sec Potassium (3.5-5.1) mmol/L Glucose 151 H (74-99) mg/dL POC Glucose (mg/dL) (75-99) mg/dL Calcium 8.1 L (8.4-10.2) mg/dL Magnesium (1.6-2.3) mg/dL 02/27/17 02/27/17 02/27/17 Range/Units 06:24 11:43 12:11 RBC (3.80-5.40) m/uL Hgb (11.4-16.0) gm/dL Hct (34.0-46.0) % MCV (80.0-100.0) fL RDW (11.5-15.5) % Lymphocytes # (1.0-4.8) k/uL APTT 50.0 H (22.0-30.0) sec Potassium (3.5-5.1) mmol/L Glucose (74-99) mg/dL POC Glucose (mg/dL) 166 H 170 H (75-99) mg/dL Calcium (8.4-10.2) mg/dL Magnesium (1.6-2.3) mg/dL Assessment and Plan Plan: Assessment 1 chronic pleural effusion more so on the right, rule out secondary to congestion heart failure 2 chronic dyspnea with some contribution from the pleural effusions. The patient is oxygen dependent at 3 L/m nasal cannula 3 valvular heart disease with moderate degree of aortic regurgitation and mild aortic stenosis, LV function is preserved 4 chronic myelogenous leukemia/CMML 5 chronic anemia 6 coronary artery disease with previous coronary intervention, stenting, coronary artery bypass surgery 7 hypertension 8 hyperlipidemia 9 diabetes mellitus Plan Management of atrial fibrillation. The patient is back to normal sinus rhythm. The patient articulation with IV heparin and she would likely transition to long acting oral anticoagulation of director of recreation therapy choice. Meanwhile continue IV Lasix. Echocardiogram from January 2017 had shown reserved LV function with an ejection fraction of 60 percent. The patient is doing well. She is still on oxygen at 2 L per minute nasal cannula. She is ambulating. No significant respiratory distress. Repeat chest x-ray we'll obtain for tomorrow.
[2017-02-27 17:08] LABS: Glucose,Whole Blood 211 mg/dL (75-99)
--- NOTE | 2017-02-27 17:15 | P.PN ---
Subjective This is a 66-year-old female that is admitted to the hospital with an acute kidney injury. Patient was also noted to have a pleural effusion on the right side which appears to be chronic. Patient was noted to have an elevated creatinine of around 3.12 which is improved significantly. Patient was noted to have an ejection fraction of about 60-65%. Patient is improved over the last 3 days patient has been receiving diuretic therapy. Patient's renal functions improved up taken over care on 02/27/2017 Today patient appears to be doing well is on 3 L of supplemental oxygen denies having any chest pain dizziness nausea vomiting or diarrhea. 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 Objective - Vital Signs Vital signs: Vital Signs Temp 98 F 02/27/17 16:00 Pulse 73 02/27/17 16:00 Resp 18 02/27/17 16:00 BP 97/53 02/27/17 16:00 Pulse Ox 97 02/27/17 16:00 Intake & Output 02/26/17 02/27/17 02/27/17 18:59 06:59 18:59 Intake Total 360 711.688 240 Output Total 850 400 Balance -490 311.688 240 Weight 74.3 kg 74.3 kg Intake: Intake, IV Titration 711.688 Amount Diltiazem 125 mg In 140.500 Sodium Chloride 0.9% 100 ml @ 10 MG/HR 10 mls/hr IV .[id number] ISAIAS Rx#: [id number] Heparin Sodium,Porcine/ 271.188 D5w Pmx 25,000 unit In Dextrose/Water 1 500ml. bag @ 12 UNITS/KG/HR 17.2 mls/hr IV .Q24H ISAIAS Rx#: [id number] Magnesium Sulfate-D5w Pmx 300 1 gm In Dextrose/Water 1 100ml.bag @ 100 mls/hr IVPB Q1H ISAIAS Rx#: [id number] Oral 360 240 Output: Urine 850 400 Other: Voiding Method Toilet Toilet Toilet # Voids 0 1 - Exam Physical exam Gen. appearance oriented 3 in no distress Neck is supple no JVD Lungs air movement is appreciated crackles at the bases. Heart S1-S2 heard regular rate and rhythm no murmurs appreciated Abdomen is soft nontender no organomegaly bowel sounds are intact Neurologically cranial nerves II-12 grossly intact no focal motor or sensory deficits noted Skin no abnormalities appreciated - Labs CBC & Chem 7: 02/27/17 05:22 02/27/17 05:22 Labs: Abnormal Lab Results - Last 24 Hours (Table) 02/26/17 02/26/17 02/26/17 Range/Units 15:43 20:41 22:21 RBC (3.80-5.40) m/uL Hgb (11.4-16.0) gm/dL Hct (34.0-46.0) % MCV (80.0-100.0) fL RDW (11.5-15.5) % Lymphocytes # (1.0-4.8) k/uL APTT 40.8 H (22.0-30.0) sec Potassium 3.2 L (3.5-5.1) mmol/L Glucose (74-99) mg/dL POC Glucose (mg/dL) 200 H (75-99) mg/dL Calcium (8.4-10.2) mg/dL Magnesium 1.4 L (1.6-2.3) mg/dL 02/27/17 02/27/17 02/27/17 Range/Units 05:22 05:22 05:22 RBC 2.39 L (3.80-5.40) m/uL Hgb 8.0 L (11.4-16.0) gm/dL Hct 24.5 L (34.0-46.0) % MCV 102.5 H (80.0-100.0) fL RDW 15.7 H (11.5-15.5) % Lymphocytes # 0.9 L (1.0-4.8) k/uL APTT 79.6 H (22.0-30.0) sec Potassium (3.5-5.1) mmol/L Glucose 151 H (74-99) mg/dL POC Glucose (mg/dL) (75-99) mg/dL Calcium 8.1 L (8.4-10.2) mg/dL Magnesium (1.6-2.3) mg/dL 02/27/17 02/27/17 02/27/17 Range/Units 06:24 11:43 12:11 RBC (3.80-5.40) m/uL Hgb (11.4-16.0) gm/dL Hct (34.0-46.0) % MCV (80.0-100.0) fL RDW (11.5-15.5) % Lymphocytes # (1.0-4.8) k/uL APTT 50.0 H (22.0-30.0) sec Potassium (3.5-5.1) mmol/L Glucose (74-99) mg/dL POC Glucose (mg/dL) 166 H 170 H (75-99) mg/dL Calcium (8.4-10.2) mg/dL Magnesium (1.6-2.3) mg/dL 02/27/17 Range/Units 17:03 RBC (3.80-5.40) m/uL Hgb (11.4-16.0) gm/dL Hct (34.0-46.0) % MCV (80.0-100.0) fL RDW (11.5-15.5) % Lymphocytes # (1.0-4.8) k/uL APTT (22.0-30.0) sec Potassium (3.5-5.1) mmol/L Glucose (74-99) mg/dL POC Glucose (mg/dL) 211 H (75-99) mg/dL Calcium (8.4-10.2) mg/dL Magnesium (1.6-2.3) mg/dL Assessment and Plan Plan: #1 chronic hypoxic respiratory failure #2 atrial fibrillation with rapid ventricular rate currently in sinus rhythm #3 history of valve replacement #4 acute kidney injury due to hypovolemic state this could be diastolic in nature is status post improvement #5 CML #6 chronic anemia #7 CAD #8 diabetes mellitus #9 dyslipidemia #10 essential hypertension plan Patient is doing well. Patient is approved for a novel anticoagulant Continue with the current dose of Lasix will convert to an oral dose of Lasix and likely discharge the patient home in the next 24 hours and continue telemetry monitoring at this time.
[2017-02-27 20:39] LABS: Glucose,Whole Blood 174 mg/dL (75-99)
[2017-02-27] MEDS: ALPRAZolam 0.25 MG TAB PO PRN (21:15)
[2017-02-27] MEDS: CITALOPRAM HYDROBROMIDE 20 MG TAB PO SCH (21:16)
[2017-02-27] MEDS: HEPARIN SODIUM,PORCINE/D5W PMX 25,000 UNIT in DEXTROSE/WATER 1 500ML.BAG IV SCH (21:26)
[2017-02-27] MEDS: ZOLPIDEM 10 MG TAB PO PRN (23:24)
[2017-02-28 05:58] LABS: Glucose,Whole Blood 161 mg/dL (75-99)
[2017-02-28] MEDS: ALPRAZolam 0.25 MG TAB PO PRN (06:19)
[2017-02-28] MEDS: PANTOPRAZOLE 40 MG TABLET PO SCH (06:20)
[2017-02-28] MEDS: INSULIN LISPRO (humaLOG) 300 UNIT/3 ML VIAL SQ SCH ×2 (06:21→12:14)
[2017-02-28 06:26] LABS: Basophils % (A) 0 %; CHCM 33.7; Eosinophils # (A) 0.2 k/uL (0-0.7); Eosinophils % (A) 5 %; HCT 21.9 % (34.0-46.0); HDW 2.91; HGB 7.7 gm/dL (11.4-16.0); Luc # (Auto) 0.12; Luc % (Auto) 3; Lymphocytes # (A) 0.8 k/uL (1.0-4.8); Lymphocytes % (A) 17 %; MCH 35.6 pg (25.0-35.0); MCV 101.7 fL (80.0-100.0); Macrocytosis Slight; Mean Platelet Volume 8.7; Monocytes # (A) 0.4 k/uL (0-1.0); Monocytes % (A) 10 %; Neutrophils # (A) 2.9 k/uL (1.3-7.7); Neutrophils % (A) 65 %; RBC 2.15 m/uL (3.80-5.40); RDW 15.5 % (11.5-15.5); WBC 4.4 k/uL (3.8-10.6); WBC (Perox) 4.25
[2017-02-28 06:58] LABS: Anion Gap 9 mmol/L; Blood Urea Nitrogen 15 mg/dL (7-17); Calcium 8.4 mg/dL (8.4-10.2); Carbon Dioxide 27 mmol/L (22-30); Chloride 102 mmol/L (98-107); Glucose 149 mg/dL (74-99); Non-African American GFR(MDRD) >60 (>60 ml/min/1.73 sqM); Potassium 3.6 mmol/L (3.5-5.1); Sodium 138 mmol/L (137-145)
[2017-02-28 08:13] VITALS: RESP 16; TEMP 97.3
[2017-02-28] MEDS: ALBUTEROL NEBULIZED 2.5 MG/3 ML INHALATION SCH ×3 (08:13→12:54)
[2017-02-28] MEDS: MULTIVITAMINS, THERA 1 EACH TAB PO SCH (08:15)
[2017-02-28] MEDS: FOLIC ACID 1 MG TAB PO SCH (08:15)
[2017-02-28] MEDS: THIAMINE 100 MG TAB PO SCH (08:15)
[2017-02-28] MEDS: OXYBUTYNIN 15 MG TAB.ER.24 PO SCH (08:15)
[2017-02-28] MEDS: FUROSEMIDE 10 MG/ML 4 ML VIAL IV SCH (08:15)
[2017-02-28] MEDS: CALCIUM CARBONATE 500 MG CHEWABLE PO SCH (08:15)
[2017-02-28] MEDS: DILTIAZEM ORAL 60 MG TAB PO SCH (08:15)
[2017-02-28] MEDS: CYANOCOBALAMIN 500 MCG TAB PO SCH (08:16)
[2017-02-28] MEDS: METOPROLOL TARTRATE 50 MG TAB PO SCH (08:16)
[2017-02-28] MEDS ORDERED: POTASSIUM CHLORIDE ER 20 MEQ TAB.ER PO ONE (09:00)
--- NOTE | 2017-02-28 09:29 | XR ---
EXAMINATION TYPE: XR chest 2V DATE OF EXAM: 02/28/2017 6:31 AM COMPARISON: EXAMINATION TYPE: XR chest 2V DATE OF EXAM: 02/28/2017 6:31 AM COMPARISON: 02/26/2017 HISTORY: Shortness of breath FINDINGS: There are bilateral pleural effusions with cardiomegaly and bibasilar infiltrate. There is a diffuse interstitial pattern. Postoperative change noted. Heart size stable. Arthropathy of the shoulders. IMPRESSION: 1. Stable appearance of the chest most typical of CHF with bilateral infiltrate and small effusions. .
[2017-02-28 11:28] VITALS: BP 123/58; PULSE 66
[2017-02-28 11:30] LABS: Glucose,Whole Blood 150 mg/dL (75-99)
[2017-02-28] MEDS ORDERED: APIXABAN 5 MG TAB PO SCH (12:00)
[2017-02-28] MEDS ORDERED: FUROSEMIDE 10 MG/ML 4 ML VIAL IV STA (12:20)
--- NOTE | 2017-02-28 14:44 | P.PN ---
Subjective Principal diagnosis: N,V,D Pt seen today in follow up, she is anxious to go home, all of her presenting symptoms have resolved, she is tolerating diet and she has been ambulating. Objective - Vital Signs Vital signs: Vital Signs Temp 97.3 F L 02/28/17 08:00 Pulse 66 02/28/17 11:21 Resp 16 02/28/17 11:21 BP 123/58 02/28/17 11:21 Pulse Ox 99 02/28/17 11:21 Intake & Output 02/27/17 02/28/17 02/28/17 18:59 06:59 18:59 Intake Total 240 588.812 750.347 Balance 240 588.812 750.347 Weight 74.3 kg 74.3 kg Intake: IV 120 NS 120 Intake, IV Titration 228.812 190.347 Amount Heparin Sodium,Porcine/ 228.812 190.347 D5w Pmx 25,000 unit In Dextrose/Water 1 500ml. bag @ 12 UNITS/KG/HR 17.2 mls/hr IV .Q24H ISAIAS Rx#: [id number] Magnesium Sulfate-D5w Pmx 0 1 gm In Dextrose/Water 1 100ml.bag @ 100 mls/hr IVPB Q1H ISAIAS Rx#: [id number] Oral 240 240 560 Other: Voiding Method Toilet # Voids 1 1 # Bowel Movements 0 - Constitutional General appearance: Present: average body habitus, cooperative, no acute distress - EENT Eyes: Present: EOMI, PERRLA, normal appearance - Neck Neck: Absent: lymphadenopathy, normal ROM, other, rigidity, stridor, thyromegaly - Respiratory Respiratory: bilateral: CTA - Cardiovascular Heart sounds: normal: S1, S2 - Peripheral edema leg Peripheral Edema: bilateral: None - Gastrointestinal General gastrointestinal: Present: normal bowel sounds, soft - Integumentary Integumentary: Present: normal turgor, pale - Neurologic Neurologic: Present: CNII-XII intact - Musculoskeletal Musculoskeletal: Present: strength equal bilaterally - Psychiatric Psychiatric: Present: A&O x's 3, appropriate affect, intact judgment & insight - Labs CBC & Chem 7: 02/28/17 06:14 02/28/17 06:14 Labs: Abnormal Lab Results - Last 24 Hours (Table) 02/27/17 02/27/17 02/28/17 Range/Units 17:03 20:37 05:57 RBC (3.80-5.40) m/uL Hgb (11.4-16.0) gm/dL Hct (34.0-46.0) % MCV (80.0-100.0) fL MCH (25.0-35.0) pg Lymphocytes # (1.0-4.8) k/uL APTT (22.0-30.0) sec Glucose (74-99) mg/dL POC Glucose (mg/dL) 211 H 174 H 161 H (75-99) mg/dL 02/28/17 02/28/17 02/28/17 Range/Units 06:14 06:14 06:14 RBC 2.15 L (3.80-5.40) m/uL Hgb 7.7 L (11.4-16.0) gm/dL Hct 21.9 L (34.0-46.0) % MCV 101.7 H (80.0-100.0) fL MCH 35.6 H (25.0-35.0) pg Lymphocytes # 0.8 L (1.0-4.8) k/uL APTT 35.2 H (22.0-30.0) sec Glucose 149 H (74-99) mg/dL POC Glucose (mg/dL) (75-99) mg/dL 02/28/17 Range/Units 11:17 RBC (3.80-5.40) m/uL Hgb (11.4-16.0) gm/dL Hct (34.0-46.0) % MCV (80.0-100.0) fL MCH (25.0-35.0) pg Lymphocytes # (1.0-4.8) k/uL APTT (22.0-30.0) sec Glucose (74-99) mg/dL POC Glucose (mg/dL) 150 H (75-99) mg/dL Assessment and Plan (1) Anemia aplastic aregenerative Narrative/Plan: Iron studies reviewed, pt is not a candidate for parenteral iron at this time based on her iron saturation. No transfusion for now, her CBC will be monitored in the outpatient setting. Status: Chronic (2) CML (chronic myelocytic leukemia) Narrative/Plan: Pt is going to be referred to Dr. Arreguin for second opinion as pt has had numerous challenges/side effects with kinase inhibitor therapy for her CML. Pt will stop Gleevec. She is aware, she will be contacted with appt date and time by [facility]. Status: Chronic Plan: Pt is being started on eliquis for a-fib.
--- NOTE | 2017-02-28 15:35 | P.DS ---
Providers Date of admission: 02/21/17 13:43 Attending physician: Mickey Scott Consults: 02/21/17 13:43 Consult Physician Stat Consulting Provider: Estelle Akhtar Consult Reason/Comments: Acute renal failure Do you want consulting provider notified?: Yes 02/21/17 20:48 Consult Physician Routine Consulting Provider: Kal Montanez Consult Reason/Comments: leukemia Do you want consulting provider notified?: Yes, Notify in am 02/23/17 16:44 Consult Physician Routine Consulting Provider: Dusty Mcadams Consult Reason/Comments: rt pl effusion Do you want consulting provider notified?: Yes 02/26/17 05:15 Consult Physician Routine Consulting Provider: Festus Morris Consult Reason/Comments: new onset conversion from sinus rhythme to a fib. Do you want consulting provider notified?: Yes [facility] Course: This is a 66-year-old female that is admitted to the hospital with an acute kidney injury. Patient was also noted to have a pleural effusion on the right side which appears to be chronic. Patient was noted to have an elevated creatinine of around 3.12 which is improved significantly. Patient was noted to have an ejection fraction of about 60-65%. Patient is improved over the last 3 days patient has been receiving diuretic therapy. Patient's renal functions improved up taken over care on 02/27/2017 Today patient appears to be doing well is on 3 L of supplemental oxygen denies having any chest pain dizziness nausea vomiting or diarrhea. 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 02/28/17 ambulating well no overnight events continues to be in NSR - Exam Physical exam Gen. appearance oriented 3 in no distress Neck is supple no JVD Lungs air movement is appreciated crackles at the bases. Heart S1-S2 heard regular rate and rhythm no murmurs appreciated Abdomen is soft nontender no organomegaly bowel sounds are intact Neurologically cranial nerves II-12 grossly intact no focal motor or sensory deficits noted Skin no abnormalities appreciated Assessment and Plan Plan: #1 chronic hypoxic respiratory failure #2 atrial fibrillation with rapid ventricular rate currently in sinus rhythm and rate controlled dual rate control medications. #3 history of valve replacement #4 acute kidney injury due to hypervolemic state this could be diastolic in nature is status post improvement. lasix 40mg bid follow up with cardiology #5 CML #6 chronic anemia #7 CAD #8 diabetes mellitus #9 dyslipidemia #10 essential hypertension Acute exacerbation of HFpEF Plan - Discharge Summary New Discharge Prescriptions: Apixaban [Eliquis] 5 mg PO BID #60 tab Diltiazem Cd [Cardizem Cd] 180 mg PO DAILY #30 cap.er.24h Folic Acid 1 mg PO DAILY@1200 #30 tab Furosemide [Lasix] 40 mg PO BID #30 tablet Potassium Chloride ER [K-Dur 20] 20 meq PO DAILY #30 tab Thiamine [Vitamin B-1] 100 mg PO DAILY@1200 #30 tab Zolpidem [Ambien] 5 mg PO HS PRN #30 tab PRN Reason: Insomnia Discharge Medication List ALPRAZolam [Xanax] 0.25 mg PO BID PRN 10/12/15 [History] Aspirin [Adult Low Dose Aspirin EC] 162 mg PO HS 10/12/15 [History] Calcium Carbonate [Calcium] 600 mg PO DAILY 10/12/15 [History] Cranberry Conc/C/Bacill Coag [Cranberry Tablet] 1 tab PO DAILY 10/12/15 [History ] Multivit with Calcium,Iron,Min [Women's Daily Multivitamin] 1 tab PO DAILY 10/12 [History] [place]-3 Fatty Acids/Fish Oil [Fish Oil 1,000 mg Softgel] 1 cap PO DAILY [History] Oxybutynin Chloride [Ditropan XL] 15 mg PO DAILY 10/12/15 [History] Zolpidem [Ambien] 10 mg PO HS PRN 10/12/15 [History] Simvastatin [Zocor] 40 mg PO QAM 12/12/15 [History] Citalopram Hydrobromide [CeleXA] 40 mg PO HS 11/24/16 [History] Imatinib Mesylate [Gleevec] 400 mg PO DAILY 11/24/16 [History] Albuterol Nebulized [Ventolin Nebulized] 2.5 mg INHALATION RT-TID 01/29/17 [ History] Cyanocobalamin [Vitamin B-12] 1,000 mcg PO DAILY@1200 #30 tab 02/02/17 [Rx] Folic Acid 1 mg PO DAILY@1200 #30 tab 02/26/17 [Rx] Metoprolol Tartrate [Lopressor] 50 mg PO BID #60 tab 02/26/17 [Rx] Thiamine [Vitamin B-1] 100 mg PO DAILY@1200 #30 tab 02/26/17 [Rx] Apixaban [Eliquis] 5 mg PO BID #60 tab 02/28/17 [Rx] Diltiazem Cd [Cardizem Cd] 180 mg PO DAILY #30 cap.er.24h 02/28/17 [Rx] Furosemide [Lasix] 40 mg PO BID #30 tablet 02/28/17 [Rx] Potassium Chloride ER [K-Dur 20] 20 meq PO DAILY #30 tab 02/28/17 [Rx] Zolpidem [Ambien] 5 mg PO HS PRN #30 tab 02/28/17 [Rx] Follow up Appointment(s)/Referral(s): Kal Montanez MD [STAFF PHYSICIAN] - 03/13/17 2:00 pm (THIS APPT IS AT [address] [place] [address] [facility]ICE [facility]) Meaghan Aquino MD [STAFF PHYSICIAN] - 3 Days (please schedule prior to dc) Cristopher Pierre DO [Primary Care Provider] - 03/05/17 9:20 am Ambulatory/Diagnostic Orders: Basic Metabolic Panel [LAB.AMB] Time Frame: 3 Days, Location: Determined By Patient Patient Instructions/Handouts: Atrial Fibrillation (DC) Activity/Diet/Wound Care/Special Instructions: Please dont forget chemo medication patient takes from home it is in med box. HOLD GLEEVEC UNTIL SEEN BY DR. MONTANEZ Diet: COnsist. Carb Accu CHeks AChs, maintain log, take to F/U visit with PCP for further rec. Activity: l;imited TIll F/U Discharge Disposition: HOME SELF-CARE
== END 2017-02-28 14:38 | disposition home or self-care (01) | DRG 682 ==
LOC: EC 11:05 → 5MS5E 13:43 → 5ONC 14:57 → 6SEL 02-26 14:01
PROVIDERS: ADMIT Hospitalist; ATTEND Hospitalist
DX: N17.0 Acute kidney failure with tubular necrosis (principal); I50.33 Acute on chronic diastolic (congestive) heart failure; J96.11 Chronic respiratory failure with hypoxia; C92.10 Chronic myeloid leukemia, BCR/ABL-positive, not having achieved remission; E11.649 Type 2 diabetes mellitus with hypoglycemia without coma; I48.91 Unspecified atrial fibrillation; Z99.81 Dependence on supplemental oxygen; E87.5 Hyperkalemia; E86.1 Hypovolemia; F32.9 Major depressive disorder, single episode, unspecified; I08.3 Combined rheumatic disorders of mitral, aortic and tricuspid valves; I11.0 Hypertensive heart disease with heart failure; E78.5 Hyperlipidemia, unspecified; F41.9 Anxiety disorder, unspecified; I25.10 Atherosclerotic heart disease of native coronary artery without angina pectoris; I25.2 Old myocardial infarction; D53.9 Nutritional anemia, unspecified; K21.9 Gastro-esophageal reflux disease without esophagitis; R32 Unspecified urinary incontinence; Z79.82 Long term (current) use of aspirin; Z79.84 Long term (current) use of oral hypoglycemic drugs; Z79.899 Other long term (current) drug therapy; Z80.0 Family history of malignant neoplasm of digestive organs; Z82.49 Family history of ischemic heart disease and other diseases of the circulatory system; Z87.891 Personal history of nicotine dependence; Z95.1 Presence of aortocoronary bypass graft; Z95.2 Presence of prosthetic heart valve; Z95.5 Presence of coronary angioplasty implant and graft; Z96.1 Presence of intraocular lens
CPT/HCPCS: 36415; 70450; 71010; 71020; 74000; 76604; 80048; 80053; 81001; 82150; 82607; 82728; 82747; 83036; 83540; 83550; 83690; 83735; 84132; 84443; 84484; 85025; 85045; 85610; 85730; 86850; 86900; 86901; 86920; 87086; 93005; 94640; 94760

== ENCOUNTER 2017-04-27 03:29 | Inpatient (IN) | payer MEDICARE, BC ==
[2017-04-27] MEDS ORDERED: SODIUM CHLORIDE 0.9% 1,000 ML IV STA (04:02)
[2017-04-27] MEDS ORDERED: KETOROLAC 30 MG/ML 1 ML VIAL IVP STA (04:02)
[2017-04-27] MEDS ORDERED: HYDROmorphone 1 MG/ML 1 ML SYRINGE IVP STA (04:02)
[2017-04-27] MEDS ORDERED: ONDANSETRON 4 MG/2 ML VIAL IVP STA (04:02)
--- NOTE | 2017-04-27 04:07 | ED ---
General Adult HPI - General Chief complaint: Urogenital Stated complaint: Back Pain Time Seen by Provider: 04/27/17 03:54 Source: patient, EMS Mode of arrival: EMS - History of Present Illness Initial comments: This 66-year-old white female presents complaining of some right flank and right abdominal pain which started shortly prior to arrival. She states that she was sleeping when it woke her up from sleep. She rates the pain is very severe in nature. She received some fentanyl by EMS with significant improvement. She was nauseated and vomited. She states that she was previously diagnosed with a stone in her kidney upon her most recent hospitalization. She was not having any pain like this at that time however. She denies any frequency urgency dysuria or hematuria. No fevers or chills. No other complaints or modifying factors. - Related Data Home Medications Medication Instructions Recorded Confirmed ALPRAZolam [Xanax] 0.25 mg PO BID PRN 10/12/15 04/27/17 Aspirin [Adult Low Dose Aspirin EC] 162 mg PO HS 10/12/15 04/27/17 Calcium Carbonate [Calcium] 600 mg PO DAILY 10/12/15 04/27/17 Cranberry Conc/C/Bacill Coag 1 tab PO DAILY 10/12/15 04/27/17 [Cranberry Tablet] Multivit with Calcium,Iron,Min 1 tab PO DAILY 10/12/15 04/27/17 [Women's Daily Multivitamin] [place]-3 Fatty Acids/Fish Oil [Fish 1 cap PO DAILY 10/12/15 04/27/17 Oil 1,000 mg Softgel] Oxybutynin Chloride [Ditropan XL] 15 mg PO DAILY 10/12/15 04/27/17 Zolpidem [Ambien] 10 mg PO HS PRN 10/12/15 04/27/17 Simvastatin [Zocor] 40 mg PO QAM 12/12/15 04/27/17 Citalopram Hydrobromide [CeleXA] 40 mg PO HS 11/24/16 04/27/17 Imatinib Mesylate [Gleevec] 400 mg PO DAILY 11/24/16 04/27/17 Albuterol Nebulized [Ventolin 2.5 mg INHALATION RT-TID 01/29/17 04/27/17 Nebulized] Previous Rx's Medication Instructions Recorded Cyanocobalamin [Vitamin B-12] 1,000 mcg PO DAILY@1200 #30 tab 02/02/17 Folic Acid 1 mg PO DAILY@1200 #30 tab 02/26/17 Metoprolol Tartrate [Lopressor] 50 mg PO BID #60 tab 02/26/17 Thiamine [Vitamin B-1] 100 mg PO DAILY@1200 #30 tab 02/26/17 Apixaban [Eliquis] 5 mg PO BID #60 tab 02/28/17 Diltiazem Cd [Cardizem Cd] 180 mg PO DAILY #30 cap.er.24h 02/28/17 Furosemide [Lasix] 40 mg PO BID #30 tablet 02/28/17 Potassium Chloride ER [K-Dur 20] 20 meq PO DAILY #30 tab 02/28/17 Zolpidem [Ambien] 5 mg PO HS PRN #30 tab 02/28/17 Allergies Allergy/AdvReac Type Severity Reaction Status Date / Time adhesive tape AdvReac Unknown Red , Verified 04/27/17 03:42 Irritated skin Review of Systems ROS Statement: Those systems with pertinent positive or pertinent negative responses have been documented in the HPI. ROS Other: All systems not noted in ROS Statement are negative. Past Medical History Past Medical History: Chest Pain / Angina, Diabetes Mellitus, GERD/Reflux, Hyperlipidemia, Hypertension, Myocardial Infarction (non Q-wave) Additional Past Medical History / Comment(s): [place] X4 (LAST 2008), BACK PAIN, URINE INCONTINENCE. leukemia- treated with oral chemo GLEEVAC diagnosed around April 2016, HOME 02 3 LITERS N/C, PLEURL EFFUSIONS. Last Myocardial Infarction Date:: 2008 History of Any Multi-Drug Resistant Organisms: None Reported Past Surgical History: Coronary Bypass/CABG, Heart Catheterization With Stent, Hysterectomy Additional Past Surgical History / Comment(s): CONNOR CATARACT SX -LENS IMPLANTS , OVARY TUMOR, ACHILLES TENDON REPAIR. CABG-TRIPLE BYPASS WITH REPAIR OF HOLE IN HEART AND HEART VALVE(2008). Past Anesthesia/Blood Transfusion Reactions: No Reported Reaction Date of Last Stent Placement:: 2007 Past Psychological History: Anxiety, Depression Smoking Status: Former smoker Past Alcohol Use History: Occasional Past Drug Use History: None Reported - Past Family History Mother Family Medical History: Cancer Additional Family Medical History / Comment(s): colon cancer Father Family Medical History: Congestive Heart Failure (CHF) Brother(s) Family Medical History: Congestive Heart Failure (CHF), Diabetes Mellitus General Exam - General Exam Comments Initial Comments: GENERAL: The patient is well nourished and well hydrated. VITAL SIGNS: Heart rate, blood pressure, respiratory rate reviewed as recorded in nurse's notes. EYES: Pupils are round and reactive. Extraocular movements are intact. No conjunctival / lid redness or swelling. ENT: No external evidence of injury, swelling, or ecchymosis. Airway is patent. Throat is clear. NECK: Nontender. No swelling or evidence of injury. No subcutaneous emphysema. Trachea is midline. No thyroid mass. HEART: Regular rate and rhythm. Good peripheral pulses. LUNGS/CHEST: Breath sounds clear and equal bilaterally. No rales, rhonchi, or wheezes. No ecchymosis, subcutaneous emphysema, or tenderness. ABDOMEN: There is tenderness to the right flank and right upper quadrant of the abdomen. No palpable masses or organomegaly. No peritoneal signs. No abdominal wall swelling or ecchymosis. EXTREMITIES: No extremity tenderness. Normal muscle tone and function. No thoracolumbar tenderness. NEUROLOGIC: Sensation is grossly intact. Cranial nerve exam reveals face is symmetrical, tongue is midline, speech is clear. SKIN: No abrasions or ecchymosis is noted. No induration or masses noted. PSYCHIATRIC: Alert and oriented. Appropriate behavior and judgment. Course Vital Signs 04/27/17 04/27/17 04/27/17 03:36 05:12 05:28 Temperature 97.8 F Pulse Rate 52 L 54 L 53 L Respiratory 20 16 18 Rate Blood Pressure 100/44 99/59 116/57 O2 Sat by Pulse 99 96 95 Oximetry 04/27/17 07:00 Temperature 97.6 F Pulse Rate 56 L Respiratory 18 Rate Blood Pressure 107/53 O2 Sat by Pulse 94 L Oximetry Medical Decision Making - Medical Decision Making The patient was seen and examined. All diagnostics were reviewed. An IV is established and she received some Toradol, Zofran, and Dilaudid intravenously. She is feeling much improved on recheck. Laboratory is reviewed. It does appear that she has a leukocytosis. She also has a urinary tract infection. The computed tomography scan showed a 11 mm stone in the right kidney. It does not appear to be obstructing. It is felt that her pain likely is more related to the pyelonephritis. Rocephin is started. It is felt as though she would benefit from admission to the hospital and further treatment. She does see Dr. Montanez from oncology as well as Dr. Grider from urology. The case is discussed with internal medicine and they would like urology to consult. The patient has questions as to her chemotherapy. She is supposed to started yesterday. She is told to hold off on taking it for right now and will consult Dr. Montanez for his opinion in this regard. - Lab Data Result diagrams: 04/27/17 03:45 04/27/17 03:45 Lab Results 04/27/17 04/27/17 04/27/17 Range/Units 03:45 03:45 05:45 WBC 14.2 H (3.8-10.6) k/uL RBC 3.78 L (3.80-5.40) m/uL Hgb 11.8 D (11.4-16.0) gm/dL Hct 35.5 (34.0-46.0) % MCV 93.9 D (80.0-100.0) fL MCH 31.2 (25.0-35.0) pg MCHC 33.2 (31.0-37.0) g/dL RDW 14.1 (11.5-15.5) % Plt Count 237 (150-450) k/uL Neutrophils % 82 % Lymphocytes % 11 % Monocytes % 3 % Eosinophils % 2 % Basophils % 1 % Neutrophils # 11.7 H (1.3-7.7) k/uL Lymphocytes # 1.5 (1.0-4.8) k/uL Monocytes # 0.4 (0-1.0) k/uL Eosinophils # 0.3 (0-0.7) k/uL Basophils # 0.1 (0-0.2) k/uL PT 10.8 (9.0-12.0) sec INR 1.1 (<1.2) APTT 24.8 (22.0-30.0) sec Sodium 138 (137-145) mmol/L Potassium 4.4 (3.5-5.1) mmol/L Chloride 98 (98-107) mmol/L Carbon Dioxide 28 (22-30) mmol/L Anion Gap 12 mmol/L BUN 26 H (7-17) mg/dL Creatinine 1.10 H (0.52-1.04) mg/dL Est GFR (MDRD) Af Amer 60 (>60 ml/min/1.73 sqM) Est GFR (MDRD) Non-Af 49 (>60 ml/min/1.73 sqM) Glucose 154 H (74-99) mg/dL Calcium 9.2 (8.4-10.2) mg/dL Total Bilirubin 0.3 (0.2-1.3) mg/dL AST 38 H (14-36) U/L ALT 42 (9-52) U/L Alkaline Phosphatase 142 H (38-126) U/L Total Protein 6.6 (6.3-8.2) g/dL Albumin 4.0 (3.5-5.0) g/dL Amylase 32 (30-110) U/L Lipase 153 (23-300) U/L Urine Color Urine Appearance (Clear) Urine pH (5.0-8.0) Ur Specific [place] (1.001-1.035) Urine Protein (Negative) Urine Glucose (UA) (Negative) Urine Ketones (Negative) Urine Blood (Negative) Urine Nitrite (Negative) Urine Bilirubin (Negative) Urine Urobilinogen (<2.0) mg/dL Ur Leukocyte Esterase (Negative) Urine RBC (0-5) /hpf Urine WBC (0-5) /hpf Urine WBC Clumps (None) /hpf Ur Squamous Epith Cells (0-4) /hpf Calcium Oxalate Crystal (None) /hpf Urine Bacteria (None) /hpf Hyaline Casts (0-2) /lpf Urine Mucus (None) /hpf 04/27/17 Range/Units 06:40 WBC (3.8-10.6) k/uL RBC (3.80-5.40) m/uL Hgb (11.4-16.0) gm/dL Hct (34.0-46.0) % MCV (80.0-100.0) fL MCH (25.0-35.0) pg MCHC (31.0-37.0) g/dL RDW (11.5-15.5) % Plt Count (150-450) k/uL Neutrophils % % Lymphocytes % % Monocytes % % Eosinophils % % Basophils % % Neutrophils # (1.3-7.7) k/uL Lymphocytes # (1.0-4.8) k/uL Monocytes # (0-1.0) k/uL Eosinophils # (0-0.7) k/uL Basophils # (0-0.2) k/uL PT (9.0-12.0) sec INR (<1.2) APTT (22.0-30.0) sec Sodium (137-145) mmol/L Potassium (3.5-5.1) mmol/L Chloride (98-107) mmol/L Carbon Dioxide (22-30) mmol/L Anion Gap mmol/L BUN (7-17) mg/dL Creatinine (0.52-1.04) mg/dL Est GFR (MDRD) Af Amer (>60 ml/min/1.73 sqM) Est GFR (MDRD) Non-Af (>60 ml/min/1.73 sqM) Glucose (74-99) mg/dL Calcium (8.4-10.2) mg/dL Total Bilirubin (0.2-1.3) mg/dL AST (14-36) U/L ALT (9-52) U/L Alkaline Phosphatase (38-126) U/L Total Protein (6.3-8.2) g/dL Albumin (3.5-5.0) g/dL Amylase (30-110) U/L Lipase (23-300) U/L Urine Color Yellow Urine Appearance Cloudy H (Clear) Urine pH 5.5 (5.0-8.0) Ur Specific [place] 1.013 (1.001-1.035) Urine Protein 1+ H (Negative) Urine Glucose (UA) Negative (Negative) Urine Ketones Negative (Negative) Urine Blood Moderate H (Negative) Urine Nitrite Negative (Negative) Urine Bilirubin Negative (Negative) Urine Urobilinogen <2.0 (<2.0) mg/dL Ur Leukocyte Esterase Large H (Negative) Urine RBC 29 H (0-5) /hpf Urine WBC >182 H (0-5) /hpf Urine WBC Clumps Many H (None) /hpf Ur Squamous Epith Cells 3 (0-4) /hpf Calcium Oxalate Crystal Moderate H (None) /hpf Urine Bacteria Rare H (None) /hpf Hyaline Casts 12 H (0-2) /lpf Urine Mucus Rare H (None) /hpf Disposition Clinical Impression: Nausea and vomiting, Right flank pain, Abdominal pain, Nephrolithiasis, Pyelonephritis, UTI (urinary tract infection), CML (chronic myelocytic leukemia) Disposition: ADMITTED IP TO THIS HOSP Condition: Fair Time of Disposition: 07:36 Decision Date: 04/27/17 Decision Time: 07:36
[2017-04-27 04:35] LABS: Basophils # (A) 0.1 k/uL (0-0.2); Basophils % (A) 1 %; CH 31.1; CHCM 33.2; Eosinophils # (A) 0.3 k/uL (0-0.7); Eosinophils % (A) 2 %; HCT 35.5 % (34.0-46.0); HDW 2.95; Luc # (Auto) 0.19; Luc % (Auto) 1; Lymphocytes # (A) 1.5 k/uL (1.0-4.8); Lymphocytes % (A) 11 %; MCH 31.2 pg (25.0-35.0); MCHC 33.2 g/dL (31.0-37.0); Monocytes # (A) 0.4 k/uL (0-1.0); Monocytes % (A) 3 %; Neutrophils # (A) 11.7 k/uL (1.3-7.7); Neutrophils % (A) 82 %; RBC 3.78 m/uL (3.80-5.40); RDW 14.1 % (11.5-15.5); WBC 14.2 k/uL (3.8-10.6); WBC (Perox) 14.62
[2017-04-27 04:38] LABS: HGB 11.8 gm/dL (11.4-16.0)
[2017-04-27 04:39] LABS: MCV 93.9 fL (80.0-100.0)
[2017-04-27 04:44] LABS: Calcium 9.2 mg/dL (8.4-10.2); Potassium 4.4 mmol/L (3.5-5.1); Total Bilirubin 0.3 mg/dL (0.2-1.3); Total Protein 6.6 g/dL (6.3-8.2)
--- NOTE | 2017-04-27 04:57 | CT ---
EXAM: CT Abdomen and Pelvis Without Intravenous Contrast CLINICAL HISTORY: Reason: right abd/flank pain TECHNIQUE: Axial computed tomography images of the abdomen and pelvis without intravenous contrast. CTDI is 10.3 mGy and DLP is 506.8 mGy-cm. This CT exam was performed using one or more of the following dose reduction techniques: automated exposure control, adjustment of the mA and/or kV according to patient size, and/or use of iterative reconstruction technique. Coronal and sagittal reformatted images were created and reviewed. COMPARISON: CTA chest 01/30/17 FINDINGS: Lower thorax: Postoperative changes to the heart and sternum. ABDOMEN: Liver: Unremarkable. Gallbladder and bile ducts: Unremarkable. No calcified stones. No ductal dilation. Pancreas: Unremarkable. No ductal dilation. Spleen: Unremarkable. No splenomegaly. Adrenals: Unremarkable. No mass. Kidneys and ureters: 11 x 5 mm right renal lower pole stone, nonobstructing at this time. Stomach and bowel: Moderate colonic stool burden. Appendix is normal. No obstruction. No mucosal thickening. Appendix: See above. PELVIS: Bladder: Unremarkable. No stones. Reproductive: Unremarkable as visualized. ABDOMEN and PELVIS: Intraperitoneal space: Unremarkable. No free air. No significant fluid collection. Bones/joints: Multilevel degenerative disc disease change with reactive endplate changes and osteophytosis. No acute fracture. No dislocation. Soft tissues: Unremarkable. Vasculature: Atherosclerotic disease of the aorta. No abdominal aortic aneurysm. Lymph nodes: Unremarkable. No enlarged lymph nodes. IMPRESSION: 11 x 5 mm nonobstructing right lower pole renal stone. Degenerative disc changes. Severe atherosclerosis.
[2017-04-27 06:15] LABS: INR 1.1 (<1.2); Partial Thromboplastin Time 24.8 sec (22.0-30.0); Prothrombin Time 10.8 sec (9.0-12.0)
[2017-04-27 07:14] LABS: Appearance,Urine Cloudy (Clear); Bacteria,Urine Rare /hpf; Bilirubin,Urine Negative (Negative); Calcium Oxalate Crystals,Urine Moderate /hpf; Glucose,Urine (UA) Negative (Negative); Ketones,Urine Negative (Negative); Leukocyte Esterase,Urine Large (Negative); Mucus,Urine Rare /hpf; Nitrite,Urine Negative (Negative); PH, Urine 5.5 (5.0-8.0); Particle Count 14813; Protein,Urine 1+ (Negative); RBC,Urine 29 /hpf (0-5); Specific Gravity,Urine 1.013 (1.001-1.035); Squamous Epithelial Cell,Urine 3 /hpf (0-4); UA Billing (MACRO vs. MICRO) MICRO; Urobilinogen,Urine <2.0 mg/dL (<2.0); WBC,Urine >182 /hpf (0-5)
[2017-04-27] MEDS ORDERED: HYDROcodone/APAP 5-325MG 1 EACH TAB PO PRN (07:39)
[2017-04-27] MEDS ORDERED: HYDROmorphone 1 MG/ML 1 ML SYRINGE IV PRN (07:39)
[2017-04-27] MEDS ORDERED: ACETAMINOPHEN TAB 325 MG TAB PO PRN (07:39)
[2017-04-27] MEDS ORDERED: NALOXONE 0.4 MG/ML 1 ML VIAL IV PRN (07:39)
[2017-04-27] MEDS ORDERED: ONDANSETRON 4 MG/2 ML VIAL IVP PRN (07:39)
[2017-04-27] MEDS ORDERED: ZOLPIDEM 10 MG TAB PO PRN (07:42)
[2017-04-27] MEDS ORDERED: ALPRAZolam 0.25 MG TAB PO PRN (07:42)
[2017-04-27] MEDS ORDERED: NON-FORMULARY DRUG (Cranberry Conc/C/Bacill Coag [Cranberry Tablet] 1 TAB) PO SCH (09:00)
[2017-04-27] MEDS ORDERED: NON-FORMULARY DRUG (Omega-3 Fatty Acids/Fish Oil [Fish Oil 1,000 Mg Softgel] 1 CAP) PO SCH (09:00)
[2017-04-27] MEDS ORDERED: NON-FORMULARY DRUG (Imatinib Mesylate [Gleevec] 400 MG) PO SCH (09:00)
[2017-04-27] MEDS ORDERED: FUROSEMIDE 40 MG TAB PO SCH (09:00)
[2017-04-27 09:03] VITALS: BMI 29.2
--- NOTE | 2017-04-27 10:18 | XR ---
EXAMINATION TYPE: XR chest 1V DATE OF EXAM: 04/27/2017 CLINICAL HISTORY: Difficulty breathing rule out CHF. Admitted with pyelonephritis per order. TECHNIQUE: Single AP portable upright view of the chest is obtained. COMPARISON: Chest x-ray from February 28, 2017 FINDINGS: Post CABG changes with mediastinal clips and sternal wires is redemonstrated. There is per sistent cardiomegaly. There is some chronic parenchymal change without suspicious focal airspace opac ity, pleural effusion, or pneumothorax seen bilaterally on current study. Osseous structures are some what demineralized. IMPRESSION: Cardiomegaly without acute pulmonary process currently.
--- NOTE | 2017-04-27 10:35 | P.HPIM ---
History of Present Illness 66-year-old white female presents complaining of some right flank and right abdominal pain which started shortly prior to arrival. His 10 x 10 sharp in nature radiating from right flank area into the right groin area. Is better now after IV opiate medications for pain. Patient denied any dysuria denied any fever chills denied any nausea vomiting although patient [facility] significant for significantly elevated liver WBC count and leukocyte esterase because of which patient was started on Rocephin patient on CT of the abdomen is found to have 11 mm right nephrolithiasis. She was nauseated and vomited. She states that she was previously diagnosed with a stone in her kidney upon her most recent hospitalization. She was not having any pain like this at that time however. She denies any frequency urgency dysuria or hematuria. No fevers or chills. No other complaints or modifying factors. Review of Systems REVIEW OF SYSTEMS: CONSTITUTIONAL: No fever, no malaise, no fatigue. HEENT: No recent visual problems or hearing problems. Denied any sore throat. CARDIOVASCULAR: No chest pain, orthopnea, PND, no palpitations, no syncope. PULMONARY: No shortness of breath, no cough, no hemoptysis. GASTROINTESTINAL: No diarrhea, . Normoactive bowel sounds. NEUROLOGICAL: No headaches, no weakness, no numbness. HEMATOLOGICAL: Denies any bleeding or petechiae. GENITOURINARY: Denies any burning micturition, frequency, or urgency. MUSCULOSKELETAL/RHEUMATOLOGICAL: Denies any joint pain, swelling, or any muscle pain. ENDOCRINE: Denies any polyuria or polydipsia. The rest of the 14-point review of systems is negative. Past Medical History Past Medical History: Chest Pain / Angina, Diabetes Mellitus, GERD/Reflux, Hyperlipidemia, Hypertension, Myocardial Infarction (non Q-wave) Additional Past Medical History / Comment(s): [place] X4 (LAST 2008), BACK PAIN, URINE INCONTINENCE. leukemia- treated with oral chemo GLEEVAC diagnosed around April 2016, PLEURL EFFUSIONS. Last Myocardial Infarction Date:: 2008 History of Any Multi-Drug Resistant Organisms: None Reported Past Surgical History: Coronary Bypass/CABG, Heart Catheterization With Stent, Hysterectomy Additional Past Surgical History / Comment(s): CONNOR CATARACT SX -LENS IMPLANTS , OVARY TUMOR, ACHILLES TENDON REPAIR. CABG-TRIPLE BYPASS WITH REPAIR OF HOLE IN HEART AND HEART VALVE(2008). Past Anesthesia/Blood Transfusion Reactions: No Reported Reaction Date of Last Stent Placement:: 2007 Past Psychological History: Anxiety, Depression Additional Psychological History / Comment(s): PT IS A . LIVES IN A HOME THAT HAS 2 STEPS TO ENTER HOME. 1 PET DOG. NEBULIZER. NO OUTSIDE SERVICES RECEIVED. Smoking Status: Former smoker Past Alcohol Use History: Occasional Past Drug Use History: None Reported - Past Family History Mother Family Medical History: Cancer Additional Family Medical History / Comment(s): colon cancer Father Family Medical History: Congestive Heart Failure (CHF) Brother(s) Family Medical History: Congestive Heart Failure (CHF), Diabetes Mellitus Medications and Allergies Home Medications Medication Instructions Recorded Confirmed Type ALPRAZolam [Xanax] 0.25 mg PO BID PRN 10/12/15 04/27/17 History Aspirin [Adult Low Dose Aspirin EC] 162 mg PO HS 10/12/15 04/27/17 History Calcium Carbonate [Calcium] 600 mg PO DAILY 10/12/15 04/27/17 History Cranberry Conc/C/Bacill Coag 1 tab PO DAILY 10/12/15 04/27/17 History [Cranberry Tablet] Multivit with Calcium,Iron,Min 1 tab PO DAILY 10/12/15 04/27/17 History [Women's Daily Multivitamin] [place]-3 Fatty Acids/Fish Oil [Fish 1 cap PO DAILY 10/12/15 04/27/17 History Oil 1,000 mg Softgel] Oxybutynin Chloride [Ditropan XL] 15 mg PO DAILY 10/12/15 04/27/17 History Zolpidem [Ambien] 10 mg PO HS PRN 10/12/15 04/27/17 History Simvastatin [Zocor] 40 mg PO QAM 12/12/15 04/27/17 History Citalopram Hydrobromide [CeleXA] 40 mg PO HS 11/24/16 04/27/17 History Imatinib Mesylate [Gleevec] 400 mg PO DAILY 11/24/16 04/27/17 History Albuterol Nebulized [Ventolin 2.5 mg INHALATION RT-TID 01/29/17 04/27/17 History Nebulized] Allergies Allergy/AdvReac Type Severity Reaction Status Date / Time adhesive tape AdvReac Unknown Red , Verified 04/27/17 03:42 Irritated skin Physical Exam Vitals: Vital Signs Temp Pulse Resp BP Pulse Ox 04/27/17 08:10 98.6 F 56 L 17 100/50 92 L 04/27/17 07:00 97.6 F 56 L 18 107/53 94 L 04/27/17 05:28 53 L 18 116/57 95 04/27/17 05:12 54 L 16 99/59 96 04/27/17 03:36 97.8 F 52 L 20 100/44 99 Intake and Output 04/26/17 04/27/17 04/27/17 22:59 06:59 14:59 Other: Weight 71.214 kg 72.575 kg Patient Weight 04/28/17 06:59 Weight 72.575 kg PHYSICAL EXAMINATION: GENERAL: The patient is alert and oriented x3, not in any acute distress. Well developed, well nourished. HEENT: Pupils are round and equally reacting to light. EOMI. No scleral icterus. No conjunctival pallor. Normocephalic, atraumatic. No pharyngeal erythema. No thyromegaly. CARDIOVASCULAR: S1 and S2 present. No murmurs, rubs, or gallops. PULMONARY: Chest is clear to auscultation, no wheezing , patient does have crackles in bilateral lower lung bases ABDOMEN: Soft,, nondistended, normoactive bowel sounds. No palpable organomegaly patient does have minimal right course notable angle tenderness. MUSCULOSKELETAL: No joint swelling or deformity. EXTREMITIES: No cyanosis, clubbing, or pedal edema. NEUROLOGICAL: Gross neurological examination did not reveal any focal deficits. SKIN: No rashes. Results CBC & Chem 7: 04/27/17 03:45 04/27/17 03:45 Labs: Abnormal Lab Results - Last 24 Hours (Table) 04/27/17 04/27/17 04/27/17 Range/Units 03:45 03:45 06:40 WBC 14.2 H (3.8-10.6) k/uL RBC 3.78 L (3.80-5.40) m/uL Neutrophils # 11.7 H (1.3-7.7) k/uL BUN 26 H (7-17) mg/dL Creatinine 1.10 H (0.52-1.04) mg/dL Glucose 154 H (74-99) mg/dL AST 38 H (14-36) U/L Alkaline Phosphatase 142 H (38-126) U/L Urine Appearance Cloudy H (Clear) Urine Protein 1+ H (Negative) Urine Blood Moderate H (Negative) Ur Leukocyte Esterase Large H (Negative) Urine RBC 29 H (0-5) /hpf Urine WBC >182 H (0-5) /hpf Urine WBC Clumps Many H (None) /hpf Calcium Oxalate Crystal Moderate H (None) /hpf Urine Bacteria Rare H (None) /hpf Hyaline Casts 12 H (0-2) /lpf Urine Mucus Rare H (None) /hpf Thrombosis Risk Factor Assmnt - Choose All That Apply Any of the Below Risk Factors Present?: Yes Each Factor Represents 1 point: Obesity (BMI >25) Other Risk Factors: Yes Each Risk Factor Represents 2 Points: Age 61-74 years Thrombosis Risk Factor Assessment Total Risk Factor Score: 3 Thrombosis Risk Factor Assessment Level: Moderate Risk Assessment and Plan Plan: #1 abdominal pain: Secondary to obstructive right-sided nephrolithiasis. Patient is in IV fluids are to be continued. IV Lasix will be discussed or patient does have history of condition or failure, diastolic dysfunction or heart failure with preserved ejection fraction because of which we need to monitor her respiratory status. Knowledge was consulted because of the size of the renal stone. #2 possible urinary tract infection and pyelonephritis which cannot be ruled out because of which are everted and continue Rocephin. #3 congestive heart failure with preserved ejection fraction: Patient is not in acute exacerbation patient is fairly euvolemic because of the kidney stone and possible sepsis secondary to urinary tract infection patient is in IV fluids and Lasix is on hold. Lateral crackles secondary to possible atelectasis #4 atrial fibrillation: Fairly rate controlled continue with the Paxil brand diltiazem and metoprolol. #5 chronic myeloid leukemia 6 type 2 diabetes mellitus 7 hyperlipidemia #8 coronary artery disease #9 hypertension Above-mentioned chronic medical problems we wouldn't continue her home medications except those mentioned in the HPI
[2017-04-27 11:10] LABS: Glucose,Whole Blood 208 mg/dL (75-99)
[2017-04-27] MEDS: ALBUTEROL NEBULIZED 2.5 MG/3 ML INHALATION SCH ×3 (11:19→21:06)
--- NOTE | 2017-04-27 11:56 | P.GSCN ---
History of Present Illness Consult date: 04/27/17 History of present illness: Patient is a pleasant 66-year-old female with multiple medical problems including congestive heart failure and anemia. She developed acute onset of mid abdominal pain that eventually went into her right flank. She presented the emergency room because of the persistent pain. She was evaluated and found to have infected looking urine and a computed tomography scan showed a non- obstructing 11 x 5 right lower pole calyceal stone. She is admitted for IV fluids IV antibiotics and parenteral narcotics. She has a History of of this right lower pole calyceal stone but this has not been needed to be treated and has been asymptomatic for some time. She has not had a lot of urine infection. She has had no fever. She has had no GI problems. There is no obstruction of the collecting system on the right side based on computed tomography scan. Review of Systems - Constitutional Reports anorexia, Reports lethargy - Gastrointestinal Reports abdominal pain - Genitourinary Genitourinary: Reports kidney stones - Hematologic/Lymphatic Hematologic/Lymphatic Comment(s): Leukemia Past Medical History Past Medical History: Chest Pain / Angina, Diabetes Mellitus, GERD/Reflux, Hyperlipidemia, Hypertension, Myocardial Infarction (non Q-wave) Additional Past Medical History / Comment(s): [place] X4 (LAST 2008), BACK PAIN, URINE INCONTINENCE. leukemia- treated with oral chemo GLEEVAC diagnosed around April 2016, PLEURL EFFUSIONS. Last Myocardial Infarction Date:: 2008 History of Any Multi-Drug Resistant Organisms: None Reported Past Surgical History: Coronary Bypass/CABG, Heart Catheterization With Stent, Hysterectomy Additional Past Surgical History / Comment(s): CONNOR CATARACT SX -LENS IMPLANTS , OVARY TUMOR, ACHILLES TENDON REPAIR. CABG-TRIPLE BYPASS WITH REPAIR OF HOLE IN HEART AND HEART VALVE(2008). Past Anesthesia/Blood Transfusion Reactions: No Reported Reaction Date of Last Stent Placement:: 2007 Past Psychological History: Anxiety, Depression Additional Psychological History / Comment(s): PT IS A . LIVES IN A HOME THAT HAS 2 STEPS TO ENTER HOME. 1 PET DOG. NEBULIZER. NO OUTSIDE SERVICES RECEIVED. Smoking Status: Former smoker Past Alcohol Use History: Occasional Past Drug Use History: None Reported - Past Family History Mother Family Medical History: Cancer Additional Family Medical History / Comment(s): colon cancer Father Family Medical History: Congestive Heart Failure (CHF) Brother(s) Family Medical History: Congestive Heart Failure (CHF), Diabetes Mellitus Medications and Allergies Home Medications Medication Instructions Recorded Confirmed Type ALPRAZolam [Xanax] 0.25 mg PO BID PRN 10/12/15 04/27/17 History Aspirin [Adult Low Dose Aspirin EC] 162 mg PO HS 10/12/15 04/27/17 History Calcium Carbonate [Calcium] 600 mg PO DAILY 10/12/15 04/27/17 History Cranberry Conc/C/Bacill Coag 1 tab PO DAILY 10/12/15 04/27/17 History [Cranberry Tablet] Multivit with Calcium,Iron,Min 1 tab PO DAILY 10/12/15 04/27/17 History [Women's Daily Multivitamin] [place]-3 Fatty Acids/Fish Oil [Fish 1 cap PO DAILY 10/12/15 04/27/17 History Oil 1,000 mg Softgel] Oxybutynin Chloride [Ditropan XL] 15 mg PO DAILY 10/12/15 04/27/17 History Zolpidem [Ambien] 10 mg PO HS PRN 10/12/15 04/27/17 History Simvastatin [Zocor] 40 mg PO QAM 12/12/15 04/27/17 History Citalopram Hydrobromide [CeleXA] 40 mg PO HS 11/24/16 04/27/17 History Imatinib Mesylate [Gleevec] 400 mg PO DAILY 11/24/16 04/27/17 History Albuterol Nebulized [Ventolin 2.5 mg INHALATION RT-TID 01/29/17 04/27/17 History Nebulized] Allergies Allergy/AdvReac Type Severity Reaction Status Date / Time adhesive tape AdvReac Unknown Red , Verified 04/27/17 10:50 Irritated skin Surgical - Exam Vital Signs Temp Pulse Resp BP Pulse Ox 97.8 F 52 L 20 100/44 99 04/27/17 03:36 04/27/17 03:36 04/27/17 03:36 04/27/17 03:36 04/27/17 03:36 - General well developed, well nourished, moderate distress - Eyes PERRL - ENT no hearing loss - Respiratory normal expansion, normal respiratory effort - Cardiovascular Rhythm: regular - Abdomen Abdomen: soft, tender - Neurologic normal coordination, normal sensation - Musculoskeletal normal posture - Psychiatric oriented to time, oriented to person, oriented to place, speech is normal, memory intact Results - Labs 04/27/17 03:45 04/27/17 03:45 Abnormal Lab Results - Last 24 Hours (Table) 04/27/17 04/27/17 04/27/17 Range/Units 03:45 03:45 06:40 WBC 14.2 H (3.8-10.6) k/uL RBC 3.78 L (3.80-5.40) m/uL Neutrophils # 11.7 H (1.3-7.7) k/uL BUN 26 H (7-17) mg/dL Creatinine 1.10 H (0.52-1.04) mg/dL Glucose 154 H (74-99) mg/dL POC Glucose (mg/dL) (75-99) mg/dL AST 38 H (14-36) U/L Alkaline Phosphatase 142 H (38-126) U/L Urine Appearance Cloudy H (Clear) Urine Protein 1+ H (Negative) Urine Blood Moderate H (Negative) Ur Leukocyte Esterase Large H (Negative) Urine RBC 29 H (0-5) /hpf Urine WBC >182 H (0-5) /hpf Urine WBC Clumps Many H (None) /hpf Calcium Oxalate Crystal Moderate H (None) /hpf Urine Bacteria Rare H (None) /hpf Hyaline Casts 12 H (0-2) /lpf Urine Mucus Rare H (None) /hpf 04/27/17 Range/Units 11:09 WBC (3.8-10.6) k/uL RBC (3.80-5.40) m/uL Neutrophils # (1.3-7.7) k/uL BUN (7-17) mg/dL Creatinine (0.52-1.04) mg/dL Glucose (74-99) mg/dL POC Glucose (mg/dL) 208 H (75-99) mg/dL AST (14-36) U/L Alkaline Phosphatase (38-126) U/L Urine Appearance (Clear) Urine Protein (Negative) Urine Blood (Negative) Ur Leukocyte Esterase (Negative) Urine RBC (0-5) /hpf Urine WBC (0-5) /hpf Urine WBC Clumps (None) /hpf Calcium Oxalate Crystal (None) /hpf Urine Bacteria (None) /hpf Hyaline Casts (0-2) /lpf Urine Mucus (None) /hpf Diabetes panel 04/27/17 Range/Units 03:45 Sodium 138 (137-145) mmol/L Potassium 4.4 (3.5-5.1) mmol/L Chloride 98 (98-107) mmol/L Carbon Dioxide 28 (22-30) mmol/L BUN 26 H (7-17) mg/dL Creatinine 1.10 H (0.52-1.04) mg/dL Glucose 154 H (74-99) mg/dL Calcium 9.2 (8.4-10.2) mg/dL AST 38 H (14-36) U/L ALT 42 (9-52) U/L Alkaline Phosphatase 142 H (38-126) U/L Total Protein 6.6 (6.3-8.2) g/dL Albumin 4.0 (3.5-5.0) g/dL Calcium panel 04/27/17 Range/Units 03:45 Calcium 9.2 (8.4-10.2) mg/dL Albumin 4.0 (3.5-5.0) g/dL Pituitary panel 04/27/17 Range/Units 03:45 Sodium 138 (137-145) mmol/L Potassium 4.4 (3.5-5.1) mmol/L Chloride 98 (98-107) mmol/L Carbon Dioxide 28 (22-30) mmol/L BUN 26 H (7-17) mg/dL Creatinine 1.10 H (0.52-1.04) mg/dL Glucose 154 H (74-99) mg/dL Calcium 9.2 (8.4-10.2) mg/dL Adrenal panel 04/27/17 Range/Units 03:45 Sodium 138 (137-145) mmol/L Potassium 4.4 (3.5-5.1) mmol/L Chloride 98 (98-107) mmol/L Carbon Dioxide 28 (22-30) mmol/L BUN 26 H (7-17) mg/dL Creatinine 1.10 H (0.52-1.04) mg/dL Glucose 154 H (74-99) mg/dL Calcium 9.2 (8.4-10.2) mg/dL Total Bilirubin 0.3 (0.2-1.3) mg/dL AST 38 H (14-36) U/L ALT 42 (9-52) U/L Alkaline Phosphatase 142 H (38-126) U/L Total Protein 6.6 (6.3-8.2) g/dL Albumin 4.0 (3.5-5.0) g/dL Assessment and Plan Plan: Impression: Acute abdominal pain, acute right flank pain. Abnormal urinalysis consistent with urine infection, probable pyelonephritis. Chronic right lower pole calyceal stone without obstruction. Coronary artery disease with congestive heart failure, leukemia Recommendations: IV fluids, IV antibiotics cultures have been obtained. I do not think the stone is the primary cause of this patient's problem is she has had this chronically and it is not consistent with the pain pattern that she describes. I suspect she has a pyelonephritis and antibiotics will be the treatment of choice.
[2017-04-27] MEDS ORDERED: CYANOCOBALAMIN 500 MCG TAB PO SCH (12:00)
[2017-04-27] MEDS ORDERED: THIAMINE 100 MG TAB PO SCH (12:00)
[2017-04-27] MEDS ORDERED: FOLIC ACID 1 MG TAB PO SCH (12:00)
[2017-04-27] MEDS ORDERED: CALCIUM CARBONATE 500 MG CHEWABLE PO SCH (12:00)
[2017-04-27] MEDS ORDERED: MULTIVITAMINS, THERA 1 EACH TAB PO SCH (12:00)
[2017-04-27] MEDS: OXYBUTYNIN 15 MG TAB.ER.24 PO SCH (14:35)
[2017-04-27] MEDS: PANTOPRAZOLE 40 MG TABLET PO SCH (14:36)
[2017-04-27] MEDS: METOPROLOL TARTRATE 50 MG TAB PO SCH ×2 (14:37→21:07)
[2017-04-27] MEDS: DILTIAZEM CD 180 MG CAP.ER.24H PO SCH (14:37)
[2017-04-27] MEDS: POTASSIUM CHLORIDE ER 20 MEQ TAB.ER PO SCH (14:37)
[2017-04-27] MEDS: ATORVASTATIN 20 MG TAB PO SCH (14:38)
[2017-04-27] MEDS: APIXABAN 5 MG TAB PO SCH ×2 (14:38→21:07)
[2017-04-27 17:12] LABS: Glucose,Whole Blood 139 mg/dL (75-99)
[2017-04-27] MEDS ORDERED: cefTRIAXone 2,000 MG in SODIUM CHLORIDE 0.9% 100 ML IVPB SCH (21:00)
[2017-04-27] MEDS ORDERED: ASPIRIN 81 MG CHEW PO SCH (21:00)
[2017-04-27] MEDS ORDERED: CITALOPRAM HYDROBROMIDE 20 MG TAB PO SCH (21:00)
[2017-04-28 08:06] VITALS: BP 115/56; RESP 18; TEMP 99.3
[2017-04-28] MEDS: ATORVASTATIN 20 MG TAB PO SCH (08:11)
[2017-04-28] MEDS: METOPROLOL TARTRATE 50 MG TAB PO SCH (08:11)
[2017-04-28] MEDS: PANTOPRAZOLE 40 MG TABLET PO SCH (08:11)
[2017-04-28] MEDS: POTASSIUM CHLORIDE ER 20 MEQ TAB.ER PO SCH (08:11)
[2017-04-28] MEDS: APIXABAN 5 MG TAB PO SCH (08:11)
[2017-04-28] MEDS: OXYBUTYNIN 15 MG TAB.ER.24 PO SCH (08:11)
[2017-04-28] MEDS: DILTIAZEM CD 180 MG CAP.ER.24H PO SCH (08:11)
[2017-04-28 08:16] LABS: CH 30.7; CHCM 31.4; HCT 31.6 % (34.0-46.0); HDW 2.75; Hypochromasia Slight; MCHC 31.6 g/dL (31.0-37.0); MCV 98.3 fL (80.0-100.0); Mean Platelet Volume 8.2; RBC 3.21 m/uL (3.80-5.40); RDW 14.2 % (11.5-15.5)
[2017-04-28 08:23] LABS: Anion Gap 6 mmol/L; Blood Urea Nitrogen 26 mg/dL (7-17); Calcium 8.5 mg/dL (8.4-10.2); Carbon Dioxide 29 mmol/L (22-30); Chloride 103 mmol/L (98-107); Glucose 126 mg/dL (74-99); Non-African American GFR(MDRD) 52 (>60 ml/min/1.73 sqM); Potassium 4.7 mmol/L (3.5-5.1); Sodium 138 mmol/L (137-145)
[2017-04-28] MEDS: ALBUTEROL NEBULIZED 2.5 MG/3 ML INHALATION SCH (08:42)
[2017-04-28 08:56] VITALS: PULSE 62
--- NOTE | 2017-04-28 09:03 | P.PN ---
Subjective The patient is in the hospital for abdominal pain kidney stone and infected looking urine. She had an elevated white count of 14,000 that is down to 10, 000 today. Her pain is better. The stone was not obstructing and chronic on computed tomography scan. I believe she has had a pyelonephritis rather than a stone passage. I would continue with antibiotics until the cultures back. The stone will not need to be addressed until later. Since she has had a stone for some time she probably will opt to do nothing which is reasonable since it is a nonobstructing lower pole stone. Objective - Vital Signs Vital signs: Vital Signs Temp 99.3 F 04/28/17 07:00 Pulse 62 04/28/17 08:55 Resp 18 04/28/17 07:00 BP 115/56 04/28/17 07:00 Pulse Ox 96 04/28/17 07:00 Intake & Output 04/27/17 04/28/17 04/28/17 18:59 06:59 18:59 Intake Total 800 910 Balance 800 910 Weight 72.575 kg Intake: IV 320 [id number] 2,000 mg In 100 Sodium Chloride 0.9% 100 ml @ 100 mls/hr IVPB Q24H ISAIAS Rx#:[id number] ns@20 220 Intake, IV Titration 800 Amount Sodium Chloride 0.9% 1, 800 000 ml @ 100 mls/hr IV . Q10H STA Rx#:[id number] Oral 590 Other: # Voids 1 3 - Labs CBC & Chem 7: 04/28/17 07:38 04/28/17 07:38 Labs: Abnormal Lab Results - Last 24 Hours (Table) 04/27/17 04/27/17 04/28/17 Range/Units 11:09 17:10 07:38 RBC 3.21 L (3.80-5.40) m/uL Hgb 10.0 L D (11.4-16.0) gm/dL Hct 31.6 L (34.0-46.0) % Plt Count 132 L (150-450) k/uL BUN (7-17) mg/dL Creatinine (0.52-1.04) mg/dL Glucose (74-99) mg/dL POC Glucose (mg/dL) 208 H 139 H (75-99) mg/dL 04/28/17 Range/Units 07:38 RBC (3.80-5.40) m/uL Hgb (11.4-16.0) gm/dL Hct (34.0-46.0) % Plt Count (150-450) k/uL BUN 26 H (7-17) mg/dL Creatinine 1.05 H (0.52-1.04) mg/dL Glucose 126 H (74-99) mg/dL POC Glucose (mg/dL) (75-99) mg/dL Microbiology - Last 24 Hours (Table) 04/27/17 02:40 Urine Culture - Preliminary Urine,Voided
--- NOTE | 2017-04-28 16:11 | P.DS ---
Providers Date of admission: 04/27/17 07:39 Attending physician: Rosa Maria Rodriguez Consults: 04/27/17 07:40 Consult Physician Urgent Consulting Provider: Yasmani Ovalle Consult Reason/Comments: nephrolithiasis Do you want consulting provider notified?: Yes Consult Physician Urgent Consulting Provider: Kal Montanez Consult Reason/Comments: cmf, infection Do you want consulting provider notified?: Yes [facility] Course: Patient is admitted for nephrolithiasis on the right side and patient was evaluated in urology. Patient was also treated for sepsis secondary to pyelonephritis or urinary tract infection patient is significant improvement in pain and other symptoms patient is being discharged on empiric antibodies that his Cipro Floxin 500 twice a day for about a week and had urine cultures will be followed here. #1 abdominal pain: Secondary to obstructive right-sided nephrolithiasis. #2 urinary tract infection and pyelonephritis #3 congestive heart failure with preserved ejection fraction: P #4 atrial fibrillation: Fairly rate controlled continue with the Paxil brand diltiazem and metoprolol. #5 chronic myeloid leukemia 6 type 2 diabetes mellitus 7 hyperlipidemia #8 coronary artery disease #9 hypertension Patient Condition at Discharge: Fair Plan - Discharge Summary New Discharge Prescriptions: New Ciprofloxacin HCl [Cipro] 500 mg PO Q12HR #14 tablet HYDROcodone/APAP 5-325MG [[place] 5-325] 1 tab PO Q4HR PRN #20 tab PRN Reason: Pain No Action Zolpidem [Ambien] 10 mg PO HS PRN PRN Reason: sleep ALPRAZolam [Xanax] 0.25 mg PO BID PRN PRN Reason: Anxiety Oxybutynin Chloride [Ditropan XL] 15 mg PO DAILY [place]-3 Fatty Acids/Fish Oil [Fish Oil 1,000 mg Softgel] 1 cap PO DAILY Multivit with Calcium,Iron,Min [Women's Daily Multivitamin] 1 tab PO DAILY Cranberry Conc/C/Bacill Coag [Cranberry Tablet] 1 tab PO DAILY Calcium Carbonate [Calcium] 600 mg PO DAILY Aspirin [Adult Low Dose Aspirin EC] 162 mg PO HS Simvastatin [Zocor] 40 mg PO QAM Citalopram Hydrobromide [CeleXA] 40 mg PO HS Imatinib Mesylate [Gleevec] 400 mg PO DAILY Albuterol Nebulized [Ventolin Nebulized] 2.5 mg INHALATION RT-TID Cyanocobalamin [Vitamin B-12] 1,000 mcg PO DAILY@1200 #30 tab Folic Acid 1 mg PO DAILY@1200 #30 tab Thiamine [Vitamin B-1] 100 mg PO DAILY@1200 #30 tab Metoprolol Tartrate [Lopressor] 50 mg PO BID #60 tab Apixaban [Eliquis] 5 mg PO BID #60 tab Diltiazem Cd [Cardizem Cd] 180 mg PO DAILY #30 cap.er.24h Furosemide [Lasix] 40 mg PO BID #30 tablet Zolpidem [Ambien] 5 mg PO HS PRN #30 tab PRN Reason: Insomnia Potassium Chloride ER [K-Dur 20] 20 meq PO DAILY #30 tab Discharge Medication List ALPRAZolam [Xanax] 0.25 mg PO BID PRN 10/12/15 [History] Aspirin [Adult Low Dose Aspirin EC] 162 mg PO HS 10/12/15 [History] Calcium Carbonate [Calcium] 600 mg PO DAILY 10/12/15 [History] Cranberry Conc/C/Bacill Coag [Cranberry Tablet] 1 tab PO DAILY 10/12/15 [History ] Multivit with Calcium,Iron,Min [Women's Daily Multivitamin] 1 tab PO DAILY 10/12 [History] [place]-3 Fatty Acids/Fish Oil [Fish Oil 1,000 mg Softgel] 1 cap PO DAILY [History] Oxybutynin Chloride [Ditropan XL] 15 mg PO DAILY 10/12/15 [History] Zolpidem [Ambien] 10 mg PO HS PRN 10/12/15 [History] Simvastatin [Zocor] 40 mg PO QAM 12/12/15 [History] Citalopram Hydrobromide [CeleXA] 40 mg PO HS 11/24/16 [History] Imatinib Mesylate [Gleevec] 400 mg PO DAILY 11/24/16 [History] Albuterol Nebulized [Ventolin Nebulized] 2.5 mg INHALATION RT-TID 01/29/17 [ History] Cyanocobalamin [Vitamin B-12] 1,000 mcg PO DAILY@1200 #30 tab 02/02/17 [Rx] Folic Acid 1 mg PO DAILY@1200 #30 tab 02/26/17 [Rx] Metoprolol Tartrate [Lopressor] 50 mg PO BID #60 tab 02/26/17 [Rx] Thiamine [Vitamin B-1] 100 mg PO DAILY@1200 #30 tab 02/26/17 [Rx] Apixaban [Eliquis] 5 mg PO BID #60 tab 02/28/17 [Rx] Diltiazem Cd [Cardizem Cd] 180 mg PO DAILY #30 cap.er.24h 02/28/17 [Rx] Furosemide [Lasix] 40 mg PO BID #30 tablet 02/28/17 [Rx] Potassium Chloride ER [K-Dur 20] 20 meq PO DAILY #30 tab 02/28/17 [Rx] Zolpidem [Ambien] 5 mg PO HS PRN #30 tab 02/28/17 [Rx] Ciprofloxacin HCl [Cipro] 500 mg PO Q12HR #14 tablet 04/28/17 [Rx] HYDROcodone/APAP 5-325MG [[place] 5-325] 1 tab PO Q4HR PRN #20 tab 04/28/17 [Rx] Follow up Appointment(s)/Referral(s): Kal Montanez MD [STAFF PHYSICIAN] - 2 Weeks (As previously scheduled.) Cristopher Pierre DO [Primary Care Provider] - 3 Days Patient Instructions/Handouts: Ciprofloxacin (By mouth), Hydrocodone/ Acetaminophen (By mouth), Urinary Tract Infection in Women (DC) Activity/Diet/Wound Care/Special Instructions: Activity as tolerated. Regular Diet. Discharge Disposition: HOME SELF-CARE
== END 2017-04-28 11:49 | disposition home or self-care (01) | DRG 690 ==
LOC: EC 03:29 → 5ONC 07:39
PROVIDERS: ADMIT Internal Medicine; ATTEND Internal Medicine
DX: N12 Tubulo-interstitial nephritis, not specified as acute or chronic (principal); C92.10 Chronic myeloid leukemia, BCR/ABL-positive, not having achieved remission; I50.32 Chronic diastolic (congestive) heart failure; I11.0 Hypertensive heart disease with heart failure; D64.9 Anemia, unspecified; F32.9 Major depressive disorder, single episode, unspecified; E11.9 Type 2 diabetes mellitus without complications; N20.0 Calculus of kidney; I48.91 Unspecified atrial fibrillation; K21.9 Gastro-esophageal reflux disease without esophagitis; I25.10 Atherosclerotic heart disease of native coronary artery without angina pectoris; F41.9 Anxiety disorder, unspecified; E78.5 Hyperlipidemia, unspecified; I25.2 Old myocardial infarction; R32 Unspecified urinary incontinence; Z92.21 Personal history of antineoplastic chemotherapy; Z87.891 Personal history of nicotine dependence; Z95.1 Presence of aortocoronary bypass graft; Z95.5 Presence of coronary angioplasty implant and graft; Z90.710 Acquired absence of both cervix and uterus; Z98.42 Cataract extraction status, left eye; Z98.41 Cataract extraction status, right eye; Z79.01 Long term (current) use of anticoagulants; Z96.1 Presence of intraocular lens; Z79.82 Long term (current) use of aspirin; Z79.899 Other long term (current) drug therapy; Z88.9 Allergy status to unspecified drugs, medicaments and biological substances
CPT/HCPCS: 36415; 71010; 74176; 80048; 80053; 81001; 82150; 83690; 85025; 85027; 85610; 85730; 87040; 87086; 94640

== ENCOUNTER → 2017-05-02 | Outpatient (CLI) | payer MEDICARE, BC ==
--- NOTE | 2017-05-02 09:56 | XR ---
EXAMINATION TYPE: XR abdomen 1V DATE OF EXAM: 05/02/2017 COMPARISON: NONE HISTORY: CT 04/27/2017 TECHNIQUE: One view abdominal series FINDINGS: The osseous structures are intact. The bowel gas pattern is nonspecific. Extensive retained fecal de bris throughout the colon. Calcification pelvis is nonspecific. Degenerative changes spine and arthri tic change of the hips. There is a right renal calcification measuring approximately 10 mm.. IMPRESSION: 1. Nonspecific abdomen. Extensive retained fecal debris correlate for constipation. 2. There is a 10 mm right renal calculus.
== END | disposition home or self-care (01) ==
LOC: RADXRMAIN 08:56
PROVIDERS: ATTEND Urology
DX: N20.0 Calculus of kidney (principal)
CPT/HCPCS: 74000

== ENCOUNTER 2017-05-15 13:05 | Inpatient (IN) | payer MEDICARE, BC ==
[2017-05-15] MEDS ORDERED: SODIUM CHLORIDE 0.9% 500 ML IV STA (13:56)
--- NOTE | 2017-05-15 13:58 | ED ---
General Adult HPI - General Chief complaint: GI Bleed Stated complaint: Dr Sent/Blood In stool Time Seen by Provider: 05/15/17 13:15 Source: patient, RN notes reviewed Mode of arrival: ambulatory Limitations: no limitations - History of Present Illness Initial comments: This is a 66-year-old female presents emergency Department complaining that she has bright red blood per rectum. Patient denies any shortness of breath or difficulty breathing. Patient denies chest pain or palpitations. Patient states she is mildly lightheaded. Patient denies any headache patient denies numbness weakness. Patient denies abdominal pain patient denies any nausea vomiting or diarrhea. She states she is on eliquis for atrial fibrillation. Patient denies any recent injury or trauma. - Related Data Home Medications Medication Instructions Recorded Confirmed ALPRAZolam [Xanax] 0.25 mg PO BID PRN 10/12/15 05/15/17 Aspirin [Adult Low Dose Aspirin EC] 162 mg PO HS 10/12/15 05/15/17 Calcium Carbonate [Calcium] 600 mg PO DAILY 10/12/15 05/15/17 Cranberry Conc/C/Bacill Coag 1 tab PO DAILY 10/12/15 05/15/17 [Cranberry Tablet] Multivit with Calcium,Iron,Min 1 tab PO DAILY 10/12/15 05/15/17 [Women's Daily Multivitamin] [place]-3 Fatty Acids/Fish Oil [Fish 1 cap PO DAILY 10/12/15 05/15/17 Oil 1,000 mg Softgel] Oxybutynin Chloride [Ditropan XL] 15 mg PO DAILY 10/12/15 05/15/17 Zolpidem [Ambien] 10 mg PO HS PRN 10/12/15 05/15/17 Citalopram Hydrobromide [CeleXA] 40 mg PO HS 11/24/16 05/15/17 Albuterol Nebulized [Ventolin 2.5 mg INHALATION RT-TID PRN 01/29/17 05/15/17 Nebulized] Atorvastatin [Lipitor] 20 mg PO HS 05/15/17 05/15/17 Bosutinib [Bosulif] 100 mg PO DAILY@1500 05/15/17 05/15/17 Ipratropium/Albuterol Sulfate 1 - 2 puff INHALATION RT-QID PRN 05/15/17 05/15/17 [Combivent Respimat Inhaler] L.acidoph,Paracasei, B.lactis 1 cap PO DAILY 05/15/17 05/15/17 [Probiotic] Previous Rx's Medication Instructions Recorded Cyanocobalamin [Vitamin B-12] 1,000 mcg PO DAILY@1200 #30 tab 02/02/17 Folic Acid 1 mg PO DAILY@1200 #30 tab 02/26/17 Metoprolol Tartrate [Lopressor] 50 mg PO BID #60 tab 02/26/17 Thiamine [Vitamin B-1] 100 mg PO DAILY@1200 #30 tab 02/26/17 Apixaban [Eliquis] 5 mg PO BID #60 tab 02/28/17 Diltiazem Cd [Cardizem Cd] 180 mg PO DAILY #30 cap.er.24h 02/28/17 Furosemide [Lasix] 40 mg PO BID #30 tablet 02/28/17 Potassium Chloride ER [K-Dur 20] 20 meq PO DAILY #30 tab 02/28/17 Allergies Allergy/AdvReac Type Severity Reaction Status Date / Time adhesive tape AdvReac Unknown Red , Verified 05/15/17 13:49 Irritated skin Review of Systems ROS Statement: Those systems with pertinent positive or pertinent negative responses have been documented in the HPI. ROS Other: All systems not noted in ROS Statement are negative. Past Medical History Past Medical History: Chest Pain / Angina, Diabetes Mellitus, GERD/Reflux, Hyperlipidemia, Hypertension, Myocardial Infarction (non Q-wave) Additional Past Medical History / Comment(s): [place] X4 (LAST 2008), BACK PAIN, URINE INCONTINENCE. leukemia- treated with oral chemo GLEEVAC diagnosed around April 2016, PLEURL EFFUSIONS. Last Myocardial Infarction Date:: 2008 History of Any Multi-Drug Resistant Organisms: None Reported Past Surgical History: Coronary Bypass/CABG, Heart Catheterization With Stent, Hysterectomy Additional Past Surgical History / Comment(s): CONNOR CATARACT SX -LENS IMPLANTS , OVARY TUMOR, ACHILLES TENDON REPAIR. CABG-TRIPLE BYPASS WITH REPAIR OF HOLE IN HEART AND HEART VALVE(2008). Past Anesthesia/Blood Transfusion Reactions: No Reported Reaction Date of Last Stent Placement:: 2007 Past Psychological History: Anxiety, Depression Smoking Status: Former smoker Past Alcohol Use History: Occasional Past Drug Use History: None Reported - Past Family History Mother Family Medical History: Cancer Additional Family Medical History / Comment(s): colon cancer Father Family Medical History: Congestive Heart Failure (CHF) Brother(s) Family Medical History: Congestive Heart Failure (CHF), Diabetes Mellitus General Exam - General Exam Comments Initial Comments: GENERAL: Patient is well-developed and well-nourished. Patient is nontoxic and well- hydrated and is in mild distress. ENT: Neck is soft and supple. No significant lymphadenopathy is noted. Oropharynx is clear. Moist mucous membranes. Neck has full range of motion without eliciting any pain. EYES: The sclera were anicteric and conjunctiva were pink and moist. Extraocular movements were intact and pupils were equal round and reactive to light. Eyelids were unremarkable. PULMONARY: Unlabored respirations. Good breath sounds bilaterally. No audible rales rhonchi or wheezing was noted. CARDIOVASCULAR: There is a regular rate and rhythm without any murmurs gallops or rubs. ABDOMEN: Soft and nontender with normal bowel sounds. No palpable organomegaly was noted. There is no palpable pulsatile mass. SKIN: Patient's skin is pale. NEUROLOGIC: Patient is alert and oriented x3. Cranial nerves II through XII are grossly intact. Motor and sensory are also intact. Normal speech, volume and content. Symmetrical smile. MUSCULOSKELETAL: Normal extremities with adequate strength and full range of motion. No lower extremity swelling or edema. No calf tenderness. LYMPHATICS: No significant lymphadenopathy is noted PSYCHIATRIC: Normal psychiatric evaluation. Limitations: no limitations Course Vital Signs 05/15/17 05/15/17 05/15/17 13:10 14:08 14:49 Temperature 99.2 F Pulse Rate 53 L 53 L 55 L Respiratory 18 18 18 Rate Blood Pressure 137/62 171/74 174/74 O2 Sat by Pulse 98 97 100 Oximetry Medical Decision Making - Medical Decision Making EKG shows sinus bradycardia 52 bpm WI interval 132 QRS is 82 QT interval 552 QTC is 513 per patient's EKG shows some T-wave abdomen is in V1 and V2 and V3. Patient had a hemoglobin at 10 and so the patient is going to stay because of the active bleeding per rectum. I spoke with Dr. Scott he agreed to accept the patient admitted the patient I consult to GI - Lab Data Result diagrams: 05/15/17 13:35 05/15/17 13:35 Lab Results 08/02/17 08/02/17 08/02/17 Range/Units 13:35 13:35 13:35 WBC 3.0 L (3.8-10.6) k/uL RBC 3.19 L (3.80-5.40) m/uL Hgb 10.0 L (11.4-16.0) gm/dL Hct 29.8 L (34.0-46.0) % MCV 93.5 (80.0-100.0) fL MCH 31.3 (25.0-35.0) pg MCHC 33.5 (31.0-37.0) g/dL RDW 15.7 H (11.5-15.5) % Plt Count 258 (150-450) k/uL Neutrophils % 73 % Lymphocytes % 21 % Monocytes % 3 % Eosinophils % 2 % Basophils % 0 % Neutrophils # 2.2 (1.3-7.7) k/uL Lymphocytes # 0.6 L (1.0-4.8) k/uL Monocytes # 0.1 (0-1.0) k/uL Eosinophils # 0.1 (0-0.7) k/uL Basophils # 0.0 (0-0.2) k/uL PT (9.0-12.0) sec INR (<1.2) APTT (22.0-30.0) sec Sodium 139 (137-145) mmol/L Potassium 4.1 (3.5-5.1) mmol/L Chloride 102 (98-107) mmol/L Carbon Dioxide 28 (22-30) mmol/L Anion Gap 9 mmol/L BUN 20 H (7-17) mg/dL Creatinine 1.06 H (0.52-1.04) mg/dL Est GFR (MDRD) Af Amer >60 (>60 ml/min/1.73 sqM) Est GFR (MDRD) Non-Af 52 (>60 ml/min/1.73 sqM) Glucose 124 H (74-99) mg/dL Calcium 9.5 (8.4-10.2) mg/dL Magnesium 1.8 (1.6-2.3) mg/dL Total Bilirubin 0.6 (0.2-1.3) mg/dL AST 31 (14-36) U/L ALT 51 (9-52) U/L Alkaline Phosphatase 112 (38-126) U/L Total Creatine Kinase 25 L (30-135) U/L CK-MB (CK-2) 0.5 (0.0-2.4) ng/mL CK-MB (CK-2) Rel Index 2.0 Troponin I <0.012 (0.000-0.034) ng/mL Total Protein 7.2 (6.3-8.2) g/dL Albumin 4.2 (3.5-5.0) g/dL Blood Type Blood Type Recheck Antibody Screen Spec Expiration Date 05/15/17 05/15/17 Range/Units 13:35 13:35 WBC (3.8-10.6) k/uL RBC (3.80-5.40) m/uL Hgb (11.4-16.0) gm/dL Hct (34.0-46.0) % MCV (80.0-100.0) fL MCH (25.0-35.0) pg MCHC (31.0-37.0) g/dL RDW (11.5-15.5) % Plt Count (150-450) k/uL Neutrophils % % Lymphocytes % % Monocytes % % Eosinophils % % Basophils % % Neutrophils # (1.3-7.7) k/uL Lymphocytes # (1.0-4.8) k/uL Monocytes # (0-1.0) k/uL Eosinophils # (0-0.7) k/uL Basophils # (0-0.2) k/uL PT 10.7 (9.0-12.0) sec INR 1.1 (<1.2) APTT 24.9 (22.0-30.0) sec Sodium (137-145) mmol/L Potassium (3.5-5.1) mmol/L Chloride (98-107) mmol/L Carbon Dioxide (22-30) mmol/L Anion Gap mmol/L BUN (7-17) mg/dL Creatinine (0.52-1.04) mg/dL Est GFR (MDRD) Af Amer (>60 ml/min/1.73 sqM) Est GFR (MDRD) Non-Af (>60 ml/min/1.73 sqM) Glucose (74-99) mg/dL Calcium (8.4-10.2) mg/dL Magnesium (1.6-2.3) mg/dL Total Bilirubin (0.2-1.3) mg/dL AST (14-36) U/L ALT (9-52) U/L Alkaline Phosphatase (38-126) U/L Total Creatine Kinase (30-135) U/L CK-MB (CK-2) (0.0-2.4) ng/mL CK-MB (CK-2) Rel Index Troponin I (0.000-0.034) ng/mL Total Protein (6.3-8.2) g/dL Albumin (3.5-5.0) g/dL Blood Type O Positive Blood Type Recheck No Antibody Screen NEGATIVE Spec Expiration Date 05/18/20171 Disposition Clinical Impression: Gastrointestinal hemorrhage Disposition: ADMITTED IP TO THIS HOSP Referrals: Cristopher Pierre DO [Primary Care Provider] - 1-2 days Time of Disposition: 15:27
[2017-05-15 14:14] LABS: Basophils % (A) 0 %; CH 31.3; CHCM 33.7; Eosinophils # (A) 0.1 k/uL (0-0.7); Eosinophils % (A) 2 %; HCT 29.8 % (34.0-46.0); HDW 3.22; Luc # (Auto) 0.05; Luc % (Auto) 2; Lymphocytes # (A) 0.6 k/uL (1.0-4.8); Lymphocytes % (A) 21 %; MCH 31.3 pg (25.0-35.0); MCHC 33.5 g/dL (31.0-37.0); MCV 93.5 fL (80.0-100.0); Mean Platelet Volume 8.4; Monocytes # (A) 0.1 k/uL (0-1.0); Monocytes % (A) 3 %; Neutrophils # (A) 2.2 k/uL (1.3-7.7); Neutrophils % (A) 73 %; RBC 3.19 m/uL (3.80-5.40); RDW 15.7 % (11.5-15.5); WBC (Perox) 3.26
[2017-05-15 14:23] LABS: INR 1.1 (<1.2); Partial Thromboplastin Time 24.9 sec (22.0-30.0); Prothrombin Time 10.7 sec (9.0-12.0)
[2017-05-15 14:27] LABS: ALT 51 U/L (9-52); AST 31 U/L (14-36); Alkaline Phosphatase 112 U/L (38-126); Anion Gap 9 mmol/L; Blood Urea Nitrogen 20 mg/dL (7-17); Calcium 9.5 mg/dL (8.4-10.2); Carbon Dioxide 28 mmol/L (22-30); Chloride 102 mmol/L (98-107); Glucose 124 mg/dL (74-99); Magnesium 1.8 mg/dL (1.6-2.3); Non-African American GFR(MDRD) 52 (>60 ml/min/1.73 sqM); Potassium 4.1 mmol/L (3.5-5.1); Sodium 139 mmol/L (137-145); Total Bilirubin 0.6 mg/dL (0.2-1.3); Total Protein 7.2 g/dL (6.3-8.2)
[2017-05-15 14:40] LABS: Creatine Kinase 25 U/L (30-135)
[2017-05-15 14:53] LABS: Creatine Kinase MB 0.5 ng/mL (0.0-2.4); Troponin I <0.012 ng/mL (0.000-0.034)
[2017-05-15] MEDS ORDERED: SODIUM CHLORIDE 0.9% 1,000 ML IV ONE (15:27)
[2017-05-15 20:38] LABS: Glucose,Whole Blood 92 mg/dL (75-99)
[2017-05-15] MEDS ORDERED: ALPRAZolam 0.25 MG TAB PO PRN (21:20)
[2017-05-15] MEDS ORDERED: ALBUTEROL NEBULIZED 2.5 MG/3 ML INHALATION PRN (21:20)
[2017-05-15] MEDS: ATORVASTATIN 20 MG TAB PO SCH (22:01)
[2017-05-15] MEDS: ZOLPIDEM 10 MG TAB PO PRN (22:01)
[2017-05-15 22:04] LABS: Basophils % (A) 0 %; CHCM 33.3; Eosinophils # (A) 0.1 k/uL (0-0.7); Eosinophils % (A) 5 %; HCT 25.5 % (34.0-46.0); HDW 3.26; Luc # (Auto) 0.03; Luc % (Auto) 1; Lymphocytes % (A) 37 %; MCH 30.9 pg (25.0-35.0); MCV 93.8 fL (80.0-100.0); Mean Platelet Volume 9.4; Monocytes # (A) 0.1 k/uL (0-1.0); Monocytes % (A) 5 %; Neutrophils # (A) 1.4 k/uL (1.3-7.7); Neutrophils % (A) 52 %; RBC 2.72 m/uL (3.80-5.40); RDW 15.5 % (11.5-15.5); WBC 2.6 k/uL (3.8-10.6); WBC (Perox) 2.85
[2017-05-15 22:10] LABS: HGB 8.4 gm/dL (11.4-16.0)
[2017-05-16 05:41] LABS: Basophils % (A) 0 %; CH 30.9; CHCM 32.9; Eosinophils # (A) 0.1 k/uL (0-0.7); Eosinophils % (A) 5 %; HCT 24.8 % (34.0-46.0); HGB 8.1 gm/dL (11.4-16.0); Luc # (Auto) 0.05; Luc % (Auto) 2; Lymphocytes # (A) 0.9 k/uL (1.0-4.8); Lymphocytes % (A) 33 %; MCH 30.9 pg (25.0-35.0); MCHC 32.8 g/dL (31.0-37.0); MCV 94.4 fL (80.0-100.0); Mean Platelet Volume 8.5; Monocytes # (A) 0.1 k/uL (0-1.0); Monocytes % (A) 3 %; Neutrophils # (A) 1.5 k/uL (1.3-7.7); Neutrophils % (A) 57 %; RBC 2.63 m/uL (3.80-5.40); RDW 15.3 % (11.5-15.5); WBC 2.6 k/uL (3.8-10.6); WBC (Perox) 2.71
[2017-05-16 05:53] LABS: Glucose,Whole Blood 88 mg/dL (75-99)
[2017-05-16 06:05] LABS: Anion Gap 7 mmol/L; Blood Urea Nitrogen 14 mg/dL (7-17); Calcium 8.5 mg/dL (8.4-10.2); Carbon Dioxide 25 mmol/L (22-30); Chloride 107 mmol/L (98-107); Glucose 78 mg/dL (74-99); Non-African American GFR(MDRD) >60 (>60 ml/min/1.73 sqM); Potassium 3.6 mmol/L (3.5-5.1); Sodium 139 mmol/L (137-145)
[2017-05-16] MEDS: PANTOPRAZOLE 40 MG TABLET PO SCH (06:38)
[2017-05-16] MEDS: DILTIAZEM CD 180 MG CAP.ER.24H PO SCH (08:27)
[2017-05-16] MEDS: METOPROLOL TARTRATE 50 MG TAB PO SCH ×2 (08:27→20:19)
[2017-05-16] MEDS: CALCIUM CARBONATE 500 MG CHEWABLE PO SCH (08:27)
[2017-05-16] MEDS: FUROSEMIDE 40 MG TAB PO SCH ×2 (08:27→20:19)
[2017-05-16] MEDS: POTASSIUM CHLORIDE ER 20 MEQ TAB.ER PO SCH (08:28)
[2017-05-16] MEDS: OXYBUTYNIN 15 MG TAB.ER.24 PO SCH (08:28)
[2017-05-16] MEDS ORDERED: NON-FORMULARY DRUG (Omega-3 Fatty Acids/Fish Oil [Fish Oil 1,000 Mg Softgel] 1 CAP) PO SCH (09:00)
--- NOTE | 2017-05-16 09:38 | CONS ---
DATE OF SERVICE: 05/15/2017 Chief complaint is GI bleed. HISTORY OF PRESENT ILLNESS: This 66-year-old woman with a past medical history of diabetes mellitus, GERD, hypertension, history of myocardial infarction being followed by Dr. Pierre in the outpatient setting was recently admitted with nephrolithiasis and abdominal pain, came to [facility]. Currently , the patient is noticing a significant amount of bleeding last night and because of multiple episodes of upper GI bleeding, the patient came to [facility] and admitted for further evaluation and treatment. There is no history of fever, chills or rigors. No history of headache or loss of consciousness at this time. The patient has minimal lower abdominal pain also. The patient had colonoscopy several days ago. The results are not available at this time. Gastroenterology has been consulted. PAST MEDICAL HISTORY: History of GERD, history of diabetes, hypertension, hyperlipidemia, myocardial infarction, CAD, CABG, anxiety, depression. Medications prior to admission include, home medications are: 1. Ambien 10 mg q.h.s. p.r.n. 2. Combivent 1 to 2 puffs q.i.d. p.r.n. 3. Celexa 40 mg. 4. Lipitor 20 mg q.h.s. 5. Aspirin 162 mg q.h.s. 6. Vitamin B1 one hundred mg p.o. daily. 7. K-Dur 20 mEq p.o. daily. 8. Topamax 50 mg p.o. daily. 9. [place] 3 fatty acid 1 daily. 10. Multivitamin 1 p.o. daily. 11. Lopressor 50 mg p.o. b.i.d. 12. Probiotic 1 capsule daily. 13. Lasix 40 mg p.o. b.i.d. 14. Folic acid 1 mg. 15. Cardizem CD 180 mg. 16. Vitamin B-12 one thousand mcg p.o. daily. 17. Cranberry 1 tablet p.o. daily. 18. Calcium 600 mg p.o. daily. 19. Bosulif 100 mg p.o. daily. 20. Eliquis 5 mg p.o. b.i.d. 21. Ventolin 2.5 t.i.d. 22. Xanax 0.5 b.i.d. p.r.n. Allergies are ADHESIVE TAPE. FAMILY HISTORY: History of colon cancer in the family. SOCIAL HISTORY: Previous smoker, occasional alcohol. REVIEW OF SYSTEMS: ENT: No diminished hearing or diminished vision. CARDIOVASCULAR SYSTEM: No angina, palpitation. RESPIRATORY SYSTEM: No cough. GI: No nausea. : No dysuria. NERVOUS SYSTEM: No numbness or weakness. ALLERGY/IMMUNOLOGY: No asthma or hayfever. MUSCULOSKELETAL: As mentioned earlier. HEMATOLOGY: Negative. ENDOCRINE: No history of diabetes mellitus or hypothyroidism. CONSTITUTIONAL: As mentioned earlier. DERMATOLOGY: Negative. RHEUMATOLOGY: Negative. PSYCHIATRY: As mentioned earlier. PHYSICAL EXAM: Patient is alert and oriented x3. Pulse 51, blood pressure 160/71, respirations 18, temperature is 97.6, pulse ox 100% on 2 L. HEENT: Conjunctivae are pale, oral mucosa moist. NECK: No jugular venous distension. CARDIOVASCULAR SYSTEM: S1, S2, muffled. RESPIRATORY: Breath sounds diminished at the bases, no rhonchi, no crackles. ABDOMEN: Soft, nontender, no mass palpable. No guarding, no rigidity. LEGS: No edema, no swelling. NERVOUS SYSTEM: Higher function as mentioned earlier, moves all 4 limbs, no focal deficits. LYMPHATICS: No lymph node enlargement in the neck, axilla or groin. SKIN: No ulcer, rash, bleeding. LABS: WBC is 3, hemoglobin is 10, creatinine is 1.06. ASSESSMENT: 1. Lower gastrointestinal bleeding for evaluation, possibly diverticular bleed. 2. Acute blood loss anemia. 3. On Eliquis. 4. Diabetes mellitus type 2. 5. Gastroesophageal reflux disease. 6. Hypertension. 7. Hyperlipidemia. 8. History of myocardial infarction. 9. History of leukemia. 10. History of coronary artery disease, coronary artery bypass grafting, stent. 11. History of anxiety, depression. 12. Chronic myeloid leukemia. RECOMMENDATION: This is a 66-year-old woman who presented with multiple complex medical issues. Will monitor the patient closely. Continue with the current medication. Stop the Eliquis and Gastroenterology consultation and Cardiology consultation. Guarded prognosis because of multiple complex medical issues. Will check and if hemoglobin less than 7, will transfuse with. Further recommendations to follow. MTDD
--- NOTE | 2017-05-16 10:27 | P.CONS ---
History of Present Illness - Reason for Consult Consult date: 05/16/17 GI bleed Requesting physician: Mickey Scott - History of Present Illness 66-year-old female with a history of CML, recent hospitalization for suspected pyelonephritis, ischemic heart disease on ELIQUIS with mitral valve repair and coronary bypass, CHF, GERD, hyperlipidemia. Presents with acute onset of burgundy-colored bowel movements that started the night before last. Patient had 3 BMs last one about 24 hours ago. Initially she had some lower abdominal cramping but resolved. Denies epigastric pain. No fever, chills, melena, or hematemesis. Last dose of ELIQUIS yesterday morning. No history GI bleeding. Last colonoscopy several years ago. No recent EGD. Admission hemoglobin 10.0 presently 8.1. White count 2.6. Platelet 196. BUN 20 creatinine 1.0. INR 1.1. No alcohol, NSAIDs, excessive aspirin usage. Review of Systems Constitutional: Denies fever, chills, sweats, weight gain, or loss. HEENT: Negative for migraines, blurred vision or loss, earaches, drainage, tinnitus, oral mucosal lesions, dysphagia, or odynophagia. CARDIAC: CAD. NC. CABG. Mitral valve repair. Ischemic heart disease. CHF. Negative for chest pain, arrhythmias, or palpitation. RESPIRATORY: Negative for shortness of breath, hemoptysis, cough, or sputum production. GI: See HPI for pertinent findings. : Negative for hematuria, urgency, frequency, polyuria, or dysuria. GYNc: Denies possibility of . Negative vaginal discharge. MUSCULOSKELETAL: Negative for muscle aches, swelling, arthritis, and arthralgias. NEUROLOGIC: Negative for stroke or TIA. ENDOCRINE: Negative for thyroid problems. SKIN: Negative for rash or itching. PSYCHIATRIC: Negative history for depression and anxiety All systems: negative (See HPI) Past Medical History Past Medical History: Chest Pain / Angina, Diabetes Mellitus, GERD/Reflux, Hyperlipidemia, Hypertension, Myocardial Infarction (non Q-wave) Additional Past Medical History / Comment(s): NC X4 (LAST 2008), BACK PAIN, URINE INCONTINENCE. leukemia- treated with oral chemo GLEEVAC diagnosed around April 2016, PLEURL EFFUSIONS. Last Myocardial Infarction Date:: 2008 History of Any Multi-Drug Resistant Organisms: None Reported Past Surgical History: Coronary Bypass/CABG, Heart Catheterization With Stent, Hysterectomy Additional Past Surgical History / Comment(s): CONNOR CATARACT SX -LENS IMPLANTS , OVARY TUMOR, ACHILLES TENDON REPAIR. CABG-TRIPLE BYPASS WITH REPAIR OF HOLE IN HEART AND HEART VALVE(2008). Past Anesthesia/Blood Transfusion Reactions: No Reported Reaction Date of Last Stent Placement:: 2007 Smoking Status: Former smoker - Past Family History Mother Family Medical History: Cancer Additional Family Medical History / Comment(s): colon cancer Father Family Medical History: Congestive Heart Failure (CHF) Brother(s) Family Medical History: Congestive Heart Failure (CHF), Diabetes Mellitus Medications and Allergies Home Medications Medication Instructions Recorded Confirmed Type ALPRAZolam [Xanax] 0.25 mg PO BID PRN 10/12/15 05/15/17 History Aspirin [Adult Low Dose Aspirin EC] 162 mg PO HS 10/12/15 05/15/17 History Calcium Carbonate [Calcium] 600 mg PO DAILY 10/12/15 05/15/17 History Cranberry Conc/C/Bacill Coag 1 tab PO DAILY 10/12/15 05/15/17 History [Cranberry Tablet] Multivit with Calcium,Iron,Min 1 tab PO DAILY 10/12/15 05/15/17 History [Women's Daily Multivitamin] [place]-3 Fatty Acids/Fish Oil [Fish 1 cap PO DAILY 10/12/15 05/15/17 History Oil 1,000 mg Softgel] Oxybutynin Chloride [Ditropan XL] 15 mg PO DAILY 10/12/15 05/15/17 History Zolpidem [Ambien] 10 mg PO HS PRN 10/12/15 05/15/17 History Citalopram Hydrobromide [CeleXA] 40 mg PO HS 11/24/16 05/15/17 History Albuterol Nebulized [Ventolin 2.5 mg INHALATION RT-TID PRN 01/29/17 05/15/17 History Nebulized] Atorvastatin [Lipitor] 20 mg PO HS 05/15/17 05/15/17 History Bosutinib [Bosulif] 100 mg PO DAILY@1500 05/15/17 05/15/17 History Ipratropium/Albuterol Sulfate 1 - 2 puff INHALATION RT-QID PRN 05/15/17 History [Combivent Respimat Inhaler] L.acidoph,Paracasei, B.lactis 1 cap PO DAILY 05/15/17 05/15/17 History [Probiotic] Allergies Allergy/AdvReac Type Severity Reaction Status Date / Time adhesive tape AdvReac Unknown Red , Verified 05/15/17 13:49 Irritated skin Physical Exam Vitals: Vital Signs Temp Pulse Pulse Resp BP BP Pulse Ox 05/16/17 08:24 98 05/16/17 04:00 60 16 141/57 99 05/16/17 00:00 97.1 F L 59 L 16 137/58 97 05/15/17 20:00 97.8 F 61 18 161/67 98 05/15/17 18:55 56 L 196/81 05/15/17 18:26 16 05/15/17 18:17 97.7 F 51 L 18 167/71 100 05/15/17 17:33 97.7 F 51 L 18 167/71 100 05/15/17 16:00 52 L 18 151/68 99 05/15/17 14:49 55 L 18 174/74 100 05/15/17 14:08 53 L 18 171/74 97 05/15/17 13:10 99.2 F 53 L 18 137/62 98 Intake and Output 05/15/17 05/16/17 05/16/17 22:59 06:59 14:59 Intake Total 120 700 Balance 120 700 Intake: IV 700 Sodium Chloride 0.9% 1, 700 000 ml @ 100 mls/hr IV . Q10H ONE Rx#:[id number] Oral 120 Other: # Voids 1 3 1 # Bowel Movements 0 Weight 69.2 kg General appearance: The patient is alert, oriented, in no acute distress. HET: Head is normocephalic and atraumatic. Pupils are equal and reactive. Oropharynx is clear without lesions. Neck: Supple without lymphadenopathy. Trachea midline. Heart: S1 S2. Regular rate and rhythm. Lungs: No crackles or wheezes are heard. Abdomen: Soft, nontender, nondistended with bowel sounds. No peritoneal signs. No palpable organomegaly or masses. Extremities: Normal skin color and turgor. No cyanosis, rash, ulceration, clubbing, or edema. Radial and pedal pulses are 2/4 bilaterally. Neurological: No focal deficits. Strength and sensation are grossly intact. Results CBC & Chem 7: 05/16/17 05:22 05/16/17 05:22 Labs: Abnormal Lab Results - Last 24 Hours (Table) 05/15/17 05/15/17 05/15/17 Range/Units 13:35 13:35 13:35 WBC 3.0 L (3.8-10.6) k/uL RBC 3.19 L (3.80-5.40) m/uL Hgb 10.0 L (11.4-16.0) gm/dL Hct 29.8 L (34.0-46.0) % RDW 15.7 H (11.5-15.5) % Lymphocytes # 0.6 L (1.0-4.8) k/uL BUN 20 H (7-17) mg/dL Creatinine 1.06 H (0.52-1.04) mg/dL Glucose 124 H (74-99) mg/dL Total Creatine Kinase 25 L (30-135) U/L 05/15/17 05/16/17 Range/Units 21:55 05:22 WBC 2.6 L 2.6 L (3.8-10.6) k/uL RBC 2.72 L 2.63 L (3.80-5.40) m/uL Hgb 8.4 L D 8.1 L (11.4-16.0) gm/dL Hct 25.5 L 24.8 L (34.0-46.0) % RDW (11.5-15.5) % Lymphocytes # 0.9 L (1.0-4.8) k/uL BUN (7-17) mg/dL Creatinine (0.52-1.04) mg/dL Glucose (74-99) mg/dL Total Creatine Kinase (30-135) U/L Assessment and Plan (1) Gastrointestinal hemorrhage Narrative/Plan: Colored bowel movements with mild lower abdominal cramping possible diverticular possible ischemic in nature exacerbated by antiplatelet medications with history of ischemic heart disease Status: Acute (2) Acute blood loss anemia Status: Acute (3) CML (chronic myelocytic leukemia) Status: Chronic Plan: 1. Clear liquid diet. Hold antiplatelet medications. We'll proceed with EGD colonoscopy tomorrow. CBC monitoring. GI prophylaxis. Protonix 40 mg daily. The oyster washer has discussed the risks, benefits and alternative therapies for the above-mentioned procedure and for both sedation/analgesia as well as necessary blood product administration, if indicated, as they pertain to this patient. The patient has indicated understanding and acceptance of the risks and procedures discussed. Thank you for this kind referral and the opportunity to participate in the care of your patient. This consultation was discussed with Dr. Florez. The impression and plan of care have been directed as dictated.
[2017-05-16] MEDS: LACTOBACILLUS ACIDOPH & BULGAR 1 EACH PACKET PO SCH (10:56)
[2017-05-16] MEDS: THIAMINE 100 MG TAB PO SCH (11:45)
[2017-05-16] MEDS: MULTIVITAMINS, THERA 1 EACH TAB PO SCH (11:45)
[2017-05-16] MEDS: FOLIC ACID 1 MG TAB PO SCH (11:45)
[2017-05-16] MEDS: CYANOCOBALAMIN 500 MCG TAB PO SCH (11:45)
[2017-05-16] MEDS: SODIUM CHLORIDE 0.9% 1,000 ML IV SCH (11:45)
--- NOTE | 2017-05-16 11:49 | XR ---
EXAMINATION TYPE: XR chest 1V portable DATE OF EXAM: 05/16/2017 COMPARISON: Prior chest x-ray 04/27/2017 HISTORY: Congestive heart failure TECHNIQUE: Single frontal view of the chest is obtained. FINDINGS: Patient is post median sternotomy and the heart remains enlarged. There is no evident pneu monia, pneumothorax, or pleural effusion. There are overlying cardiac leads. Pulmonary vascularity an d monserrat are stable. IMPRESSION: Stable cardiomegaly, postop change
[2017-05-16 11:58] LABS: Basophils % (A) 0 %; CH 30.7; CHCM 32.7; Eosinophils # (A) 0.1 k/uL (0-0.7); Eosinophils % (A) 3 %; HCT 26.6 % (34.0-46.0); HDW 3.37; HGB 8.6 gm/dL (11.4-16.0); Hypochromasia Slight; Luc # (Auto) 0.03; Luc % (Auto) 1; Lymphocytes # (A) 0.6 k/uL (1.0-4.8); Lymphocytes % (A) 19 %; MCH 30.7 pg (25.0-35.0); MCHC 32.4 g/dL (31.0-37.0); MCV 94.6 fL (80.0-100.0); Mean Platelet Volume 8.8; Monocytes # (A) 0.1 k/uL (0-1.0); Monocytes % (A) 4 %; Neutrophils # (A) 2.1 k/uL (1.3-7.7); Neutrophils % (A) 73 %; RBC 2.82 m/uL (3.80-5.40); RDW 15.4 % (11.5-15.5); WBC 2.8 k/uL (3.8-10.6); WBC (Perox) 2.89
[2017-05-16] MEDS ORDERED: BOSUTINIB 100 MG PO SCH (15:00)
[2017-05-16] MEDS ORDERED: PEG 3350-NA SULF,BICARB,CL/KCL 4,000 ML BOTTLE PO ONE (15:00)
[2017-05-16] MEDS: CITALOPRAM HYDROBROMIDE 20 MG TAB PO SCH (20:19)
[2017-05-16] MEDS: ATORVASTATIN 20 MG TAB PO SCH (20:19)
[2017-05-16] MEDS ORDERED: LIDOCAINE 1% 20 ML VIAL (10MG/ML) FOR IV START INTRADERMA PRN (21:27)
[2017-05-16 21:51] LABS: Basophils % (A) 0 %; CH 30.9; CHCM 33.3; Eosinophils # (A) 0.1 k/uL (0-0.7); Eosinophils % (A) 4 %; HCT 29.2 % (34.0-46.0); HDW 3.41; HGB 9.9 gm/dL (11.4-16.0); Luc # (Auto) 0.06; Luc % (Auto) 2; Lymphocytes # (A) 0.9 k/uL (1.0-4.8); Lymphocytes % (A) 26 %; MCH 31.6 pg (25.0-35.0); MCHC 33.8 g/dL (31.0-37.0); MCV 93.4 fL (80.0-100.0); Mean Platelet Volume 8.4; Monocytes # (A) 0.2 k/uL (0-1.0); Monocytes % (A) 4 %; Neutrophils # (A) 2.2 k/uL (1.3-7.7); Neutrophils % (A) 64 %; Poikilocytosis Slight; RBC 3.12 m/uL (3.80-5.40); RDW 15.6 % (11.5-15.5); WBC 3.4 k/uL (3.8-10.6)
[2017-05-16] MEDS: LACTATED RINGERS 1,000 ML IV SCH (21:55)
[2017-05-16] MEDS: ZOLPIDEM 10 MG TAB PO PRN (22:06)
[2017-05-17 06:08] LABS: Basophils % (A) 0 %; CHCM 33.4; Eosinophils # (A) 0.1 k/uL (0-0.7); Eosinophils % (A) 4 %; HCT 25.8 % (34.0-46.0); HDW 3.45; HGB 8.7 gm/dL (11.4-16.0); Luc # (Auto) 0.04; Luc % (Auto) 1; Lymphocytes # (A) 0.8 k/uL (1.0-4.8); Lymphocytes % (A) 28 %; MCH 31.4 pg (25.0-35.0); MCHC 33.7 g/dL (31.0-37.0); MCV 93.2 fL (80.0-100.0); Mean Platelet Volume 8.8; Monocytes # (A) 0.1 k/uL (0-1.0); Monocytes % (A) 4 %; Neutrophils # (A) 1.7 k/uL (1.3-7.7); Neutrophils % (A) 62 %; Poikilocytosis Slight; RBC 2.77 m/uL (3.80-5.40); RDW 15.4 % (11.5-15.5); WBC 2.7 k/uL (3.8-10.6); WBC (Perox) 2.74
[2017-05-17 06:19] LABS: Anion Gap 10 mmol/L; Blood Urea Nitrogen 11 mg/dL (7-17); Calcium 8.8 mg/dL (8.4-10.2); Carbon Dioxide 27 mmol/L (22-30); Chloride 104 mmol/L (98-107); Non-African American GFR(MDRD) >60 (>60 ml/min/1.73 sqM); Potassium 3.3 mmol/L (3.5-5.1); Sodium 141 mmol/L (137-145)
[2017-05-17 06:21] LABS: Glucose 77 mg/dL (74-99)
[2017-05-17] MEDS: PANTOPRAZOLE 40 MG TABLET PO SCH (06:36)
--- NOTE | 2017-05-17 08:05 | PN ---
DATE OF SERVICE: 05/16/2017 This 66-year-old woman who was admitted with diabetes mellitus and multiple other medical problems had GI bleed. Yesterday on admission, the hemoglobin was monitored. It was 8.4. This morning it is 8.1. Patient being closely monitored. Gastroenterology saw the patient and recommended colonoscopy. Patient also had history of CML also. Clear liquid diet has been recommended. A chest x-ray was done which showed no acute features of CHF. Patient is on IV fluids at 20 mL per hour. PAST MEDICAL HISTORY: Reviewed. REVIEW OF SYSTEMS: CARDIOVASCULAR: No angina. RESPIRATORY: As mentioned earlier. GI: As mentioned. : No dysuria. NERVOUS SYSTEM: No numbness or weakness. MUSCULOSKELETAL: As mentioned. HEMATOLOGY: As mentioned. Current medications are: 1. Ventolin 2.5 t.i.d. p.r.n. 2. Xanax 0.5 b.i.d p.r.n. 3. Lipitor 20 mg q.h.s 4. TUMS 500 mg p.o. daily. 5. Celexa 40 mg p.o. q.h.s. 6. Vitamin B12 1000 mg p.o. daily. 7. Cardizem CD 180 mg p.o daily. 8. Folic acid 1 mg p.o daily. 9. Lasix 40 mg p.o b.i.d. 10. Lactinex. 11. Lopressor. 12. Multivitamins. 14. Ditropan XL. 15. Protonix. 16. K-Dur 20. 17. Vitamin B1. PHYSICAL EXAMINATION: The patient is alert and oriented x3. Pulse is 65, blood pressure 111/59, respirations 18, temperature 96.5, pulse ox 90% on room air. HEENT: Conjunctivae normal. NECK: No jugular venous distention. CARDIOVASCULAR: S1, S2 muffled. RESPIRATORY: Breath sounds diminished at the bases. A few scattered rhonchi, no crackles. ABDOMEN: Soft, nontender, no mass palpable. LEGS: No edema, no swelling. NERVOUS SYSTEM: Higher function as mentioned. Moves all four limbs. No focal motor deficits. LYMPHATICS: No lymphadenopathy in the neck, axillae or groin. SKIN: No rash, ulcer or bleeding. LABS: WBC 2.8, hemoglobin 8.6. ASSESSMENT: 1. Gastrointestinal bleed acute on chronic possibly with acute blood loss anemia, diverticular bleed. 2. On Eliquis. 3. Diabetes mellitus type 2. 4. Gastroesophageal reflux disease. 5. Hypertension. 6. Hyperlipidemia. 7. History of chronic myeloid leukemia. 8. History of coronary artery disease, CABG and stent. RECOMMENDATIONS AND DISCUSSION: In this 66-year-old woman who presented with multiple complex medical issues, we will monitor the patient closely. Continue the current medications, continue symptomatic treatment. Otherwise monitor closely, possible colonoscopy, repeat labs. Guarded prognosis. Further recommendations to follow. See orders. Will increase the fluid and also continue to monitor. MTDD
[2017-05-17] MEDS: OXYBUTYNIN 15 MG TAB.ER.24 PO SCH (08:10)
[2017-05-17] MEDS: POTASSIUM CHLORIDE ER 20 MEQ TAB.ER PO SCH (08:10)
[2017-05-17] MEDS: DILTIAZEM CD 180 MG CAP.ER.24H PO SCH (08:10)
[2017-05-17] MEDS: FUROSEMIDE 40 MG TAB PO SCH ×2 (08:10→20:01)
[2017-05-17] MEDS: CALCIUM CARBONATE 500 MG CHEWABLE PO SCH (08:10)
[2017-05-17] MEDS: METOPROLOL TARTRATE 50 MG TAB PO SCH ×2 (08:10→20:01)
[2017-05-17] MEDS: LACTOBACILLUS ACIDOPH & BULGAR 1 EACH PACKET PO SCH (08:14)
[2017-05-17] MEDS: MULTIVITAMINS, THERA 1 EACH TAB PO SCH (12:03)
[2017-05-17] MEDS: CYANOCOBALAMIN 500 MCG TAB PO SCH (12:03)
[2017-05-17] MEDS: FOLIC ACID 1 MG TAB PO SCH (12:03)
[2017-05-17] MEDS: THIAMINE 100 MG TAB PO SCH (12:03)
[2017-05-17] MEDS ORDERED: PROPOFOL 10 MG/ML 20 ML VIAL IV ONE (13:26)
[2017-05-17] MEDS ORDERED: IV FLUID CONTINUATION 1,000 ML IV ONE (13:36)
--- NOTE | 2017-05-17 14:06 | P.PCN ---
Date of Procedure: 05/17/17 Preoperative Diagnosis: Postoperative Diagnosis: Procedure(s) Performed: Brief history: Patient is a pleasant 66-year-old white female, admitted to the hospital with acute GI bleed. She had 3 episodes of maroon colored stools. Hemoglobin to 8.1 g/dL. She has history of A. fib and has been on and eliquis which is on hold for the last 2 days. She is scheduled for an upper endoscopy as well as colonoscopy as a part of evaluation of Procedure performed: Esophagogastroduodenoscopy Colonoscopy Preoperative diagnosis: Acute GI bleed Anesthesia: MAC Procedure: After informed consent was obtained from the patient was brought into the endoscopy unit and IV sedation was administered by anesthesia under continuous monitoring. Initially upper endoscopy was done. The Olympus GF 160 video endoscope was inserted inserted into the mouth and esophagus intubated without any difficulty and was gradually advanced into the stomach and duodenum and carefully examined. The bulb and second part of the duodenum appeared normal. The scope was then withdrawn into the stomach adequately insufflated with air and upon careful examination the antrum and body, cardia and fundus appeared normal. The scope was then withdrawn into the esophagus. The GE junction was located at 40 cm to the incisors. Small hiatal hernia noted. It appeared regular with superficial erosions consistent with LA grade B reflux esophagitis Rest of the esophagus appeared normal. Patient tolerated the procedure well. At this time the patient continued to remain sedation. Initial digital rectal examination was normal. Olympus CF 160 video colonoscope was then inserted into the rectum and could not be advanced beyond the sigmoid colon because of acute angle duration. The scope was removed and a pediatric colonoscopy was introduced into the rectum and gradually advanced to the cecum mild to moderate difficulty. Careful examination was performed as the scope was gradually being withdrawn. The prep was excellent. The cecum, ascending colon, transverse colon, descending colon, sigmoid colon and rectum appeared normal. Retroflexion was performed in the rectum and no lesions were noted. Patient tolerated the procedure well. Impression: 1. Upper endoscopy revealed small hiatal hernia and LA grade B reflux esophagitis. 2. Colonoscopy revealed scattered sigmoid diverticulosis but no evidence of colitis or colorectal neoplasia. No evidence of active bleeding. Recommendations: Findings of this examination were discussed with the patient as well as her family. Recent episode of acute GI bleed possibly diverticular in nature which has spontaneously resolved. She was advised to be on a high-fiber diet. Implants: Indications for Procedure: Operative Findings: Description of Procedure:
[2017-05-17] MEDS: SODIUM CHLORIDE 0.9% 1,000 ML IV SCH (14:40)
[2017-05-17 16:18] VITALS: RESP 16
[2017-05-17 16:57] LABS: Glucose,Whole Blood 133 mg/dL (75-99)
[2017-05-17] MEDS: ATORVASTATIN 20 MG TAB PO SCH (20:01)
[2017-05-17] MEDS: CITALOPRAM HYDROBROMIDE 20 MG TAB PO SCH (20:01)
[2017-05-17 20:30] LABS: Glucose,Whole Blood 134 mg/dL (75-99)
[2017-05-17] MEDS: ZOLPIDEM 10 MG TAB PO PRN (23:05)
[2017-05-18] MEDS: LACTATED RINGERS 1,000 ML IV SCH (01:16)
[2017-05-18 08:01] VITALS: BP 134/61; PULSE 66; TEMP 98.4
[2017-05-18] MEDS: LACTOBACILLUS ACIDOPH & BULGAR 1 EACH PACKET PO SCH (08:30)
[2017-05-18] MEDS: FUROSEMIDE 40 MG TAB PO SCH (08:31)
[2017-05-18] MEDS: METOPROLOL TARTRATE 50 MG TAB PO SCH (08:31)
[2017-05-18] MEDS: PANTOPRAZOLE 40 MG TABLET PO SCH (08:31)
[2017-05-18] MEDS: CALCIUM CARBONATE 500 MG CHEWABLE PO SCH (08:31)
[2017-05-18] MEDS: POTASSIUM CHLORIDE ER 20 MEQ TAB.ER PO SCH (08:31)
[2017-05-18] MEDS: DILTIAZEM CD 180 MG CAP.ER.24H PO SCH (08:31)
[2017-05-18] MEDS: OXYBUTYNIN 15 MG TAB.ER.24 PO SCH (08:31)
--- NOTE | 2017-05-18 11:21 | PN ---
DATE OF SERVICE: 05/17/17 This 66-year-old woman who was admitted with GI bleed, had blood loss anemia. The patient had a EGD and colonoscopy done by Dr. Florez. showed small hiatal hernia and Grade esophagitis. Colonoscopy showed scattered sigmoid diverticulosis but no evidence of colitis neoplasia. The patient is being closely monitored. No fever. No cough. On exam, alert and oriented times three. Pulse 65, blood pressure 130/63. Respiratory rate 16. Temperature 98.1 degrees. Pulse ox 98% on room air. HEENT: Conjunctivae normal. Oral mucosa moist. NECK: no JVD. CARDIOVASCULAR: S1, S2 muffled. RESPIRATORY: Breath sounds diminished at the bases. A few rhonchi and no crackles. Abdomen is soft. Nontender. No mass palpable. LEGS: No edema. No swelling. Nervous system: No focal deficits. LABS: At this time shows WBC 2.6, hemoglobin 8.7. ASSESSMENT: 1. Acute lower gastrointestinal bleeding with diverticulosis with acute blood loss anemia status post colonoscopy. 2. Was on Eliquis. 3. Diabetes mellitus type 2. 4. Gastroesophageal reflux disease. 5. Hypertension, essential. 6. Hyperlipidemia. 7. History of chronic CML. 8. History of coronary artery disease/coronary artery bypass grafting/stent. RECOMMENDATIONS AND DISCUSSION: Continue the current medications. Continue with monitoring and symptomatic treatment. Otherwise, at this time, I recommend hold Eliquis and antiplatelet agents also. Continue to monitor hemoglobin closely. Continue proton pump inhibitors. Prognosis guarded. Further recommendations to follow. MTDD
[2017-05-18 11:55] LABS: Basophils % (A) 0 %; CH 30.6; CHCM 33.4; Eosinophils # (A) 0.1 k/uL (0-0.7); Eosinophils % (A) 4 %; HCT 28.5 % (34.0-46.0); HDW 3.66; HGB 9.3 gm/dL (11.4-16.0); Hypochromasia Slight; Luc # (Auto) 0.07; Luc % (Auto) 3; Lymphocytes # (A) 0.7 k/uL (1.0-4.8); Lymphocytes % (A) 29 %; MCH 29.9 pg (25.0-35.0); MCHC 32.5 g/dL (31.0-37.0); Monocytes # (A) 0.1 k/uL (0-1.0); Monocytes % (A) 5 %; Neutrophils # (A) 1.4 k/uL (1.3-7.7); Neutrophils % (A) 59 %; Poikilocytosis Slight; RDW 15.2 % (11.5-15.5); WBC 2.4 k/uL (3.8-10.6); WBC (Perox) 2.63
[2017-05-18] MEDS: MULTIVITAMINS, THERA 1 EACH TAB PO SCH (13:31)
[2017-05-18] MEDS: FOLIC ACID 1 MG TAB PO SCH (13:31)
[2017-05-18] MEDS: CYANOCOBALAMIN 500 MCG TAB PO SCH (13:31)
[2017-05-18] MEDS: THIAMINE 100 MG TAB PO SCH (13:31)
[2017-05-18] MEDS: SODIUM CHLORIDE 0.9% 1,000 ML IV SCH (13:31)
--- NOTE | 2017-05-18 16:28 | P.DS ---
Providers Date of admission: 05/15/17 15:28 Attending physician: Mickey Scott Consults: 05/15/17 15:27 Consult Physician Urgent Consulting Provider: Chaitanya Sanders Consult Reason/Comments: GI bleed Do you want consulting provider notified?: Yes Primary care physician: Cristopher Pierre Pertinent Studies: This 66-year-old woman was admitted with GI bleed. The patient underwent a colonoscopy by Dr. Dr. Christensen which showed diverticulosis without any active bleeding. Elaquis was held. Patient improved significantly. Hemoglobin is stable. On exam vitals stable. S1-S2 normal. Breath sounds normal. Abdomen soft nontender. Final diagnosis 1. Acute lower GI bleeding with the diverticulosis with acute blood loss anemia status post colonoscopy. 2. Was on elequis 3. Diabetes mellitus type 2 Patient be discharged in a stable condition with guarded prognosis. Follow-up with primary physician and to monitor the patient closely. Plan - Discharge Summary New Discharge Prescriptions: Continue Zolpidem [Ambien] 10 mg PO HS PRN PRN Reason: sleep ALPRAZolam [Xanax] 0.25 mg PO BID PRN PRN Reason: Anxiety Oxybutynin Chloride [Ditropan XL] 15 mg PO DAILY [place]-3 Fatty Acids/Fish Oil [Fish Oil 1,000 mg Softgel] 1 cap PO DAILY Multivit with Calcium,Iron,Min [Women's Daily Multivitamin] 1 tab PO DAILY Cranberry Conc/C/Bacill Coag [Cranberry Tablet] 1 tab PO DAILY Calcium Carbonate [Calcium] 600 mg PO DAILY Citalopram Hydrobromide [CeleXA] 40 mg PO HS Albuterol Nebulized [Ventolin Nebulized] 2.5 mg INHALATION RT-TID PRN PRN Reason: Shortness Of Breath Cyanocobalamin [Vitamin B-12] 1,000 mcg PO DAILY@1200 #30 tab Folic Acid 1 mg PO DAILY@1200 #30 tab Thiamine [Vitamin B-1] 100 mg PO DAILY@1200 #30 tab Metoprolol Tartrate [Lopressor] 50 mg PO BID #60 tab Diltiazem Cd [Cardizem CD] 180 mg PO DAILY #30 cap.er.24h Furosemide [Lasix] 40 mg PO BID #30 tablet Potassium Chloride ER [K-Dur 20] 20 meq PO DAILY #30 tab L.acidoph,Paracasei, B.lactis [Probiotic] 1 cap PO DAILY Ipratropium/Albuterol Sulfate [Combivent Respimat Inhaler] 1 - 2 puff INHALATION RT-QID PRN PRN Reason: sob Atorvastatin [Lipitor] 20 mg PO HS Bosutinib [Bosulif] 100 mg PO DAILY@1500 Discontinued Aspirin [Adult Low Dose Aspirin EC] 162 mg PO HS Apixaban [Eliquis] 5 mg PO BID #60 tab Discharge Medication List ALPRAZolam [Xanax] 0.25 mg PO BID PRN 10/12/15 [History] Calcium Carbonate [Calcium] 600 mg PO DAILY 10/12/15 [History] Cranberry Conc/C/Bacill Coag [Cranberry Tablet] 1 tab PO DAILY 10/12/15 [History ] Multivit with Calcium,Iron,Min [Women's Daily Multivitamin] 1 tab PO DAILY 10/12 [History] [place]-3 Fatty Acids/Fish Oil [Fish Oil 1,000 mg Softgel] 1 cap PO DAILY [History] Oxybutynin Chloride [Ditropan XL] 15 mg PO DAILY 10/12/15 [History] Zolpidem [Ambien] 10 mg PO HS PRN 10/12/15 [History] Citalopram Hydrobromide [CeleXA] 40 mg PO HS 11/24/16 [History] Albuterol Nebulized [Ventolin Nebulized] 2.5 mg INHALATION RT-TID PRN 01/29/17 [ History] Cyanocobalamin [Vitamin B-12] 1,000 mcg PO DAILY@1200 #30 tab 02/02/17 [Rx] Folic Acid 1 mg PO DAILY@1200 #30 tab 02/26/17 [Rx] Metoprolol Tartrate [Lopressor] 50 mg PO BID #60 tab 02/26/17 [Rx] Thiamine [Vitamin B-1] 100 mg PO DAILY@1200 #30 tab 02/26/17 [Rx] Diltiazem Cd [Cardizem CD] 180 mg PO DAILY #30 cap.er.24h 02/28/17 [Rx] Furosemide [Lasix] 40 mg PO BID #30 tablet 02/28/17 [Rx] Potassium Chloride ER [K-Dur 20] 20 meq PO DAILY #30 tab 05/18/17 [Rx] Atorvastatin [Lipitor] 20 mg PO HS 05/15/17 [History] Bosutinib [Bosulif] 100 mg PO DAILY@1500 05/15/17 [History] Ipratropium/Albuterol Sulfate [Combivent Respimat Inhaler] 1 - 2 puff INHALATION RT-QID PRN 05/15/17 [History] L.acidoph,Paracasei, B.lactis [Probiotic] 1 cap PO DAILY 05/15/17 [History] Follow up Appointment(s)/Referral(s): Cristopher Pierre DO [Primary Care Provider] - 1-2 days Ambulatory/Diagnostic Orders: Complete Blood Count w/diff [LAB.AMB] Location: Determined By Patient Patient Instructions/Handouts: Gastrointestinal Bleeding (DC), Anemia (DC) Activity/Diet/Wound Care/Special Instructions: Soft, bland diet. Hold anticoagulants and aspirin for now. Begin Eliquis in 4 days and begin Aspirin in one week. Activity limited till follow up appointment. Discharge Disposition: HOME SELF-CARE
--- NOTE | 2017-05-18 16:37 | PN ---
DATE OF SERVICE: 05/18/2017 The patient is a 66-year-old pleasant white female admitted to the hospital with acute GI bleeding. She has been on Eliquis which has been on hold for three days. She underwent an upper endoscopy as well as colonoscopy that showed small hiatal hernia, mild esophagitis and sigmoid diverticulosis. The patient had no bleeding since being in the hospital. On physical examination appears comfortable, no apparent distress. Vital signs are stable. Blood pressure is 135/64, pulse rate 77, temperature 98. HEENT: Unremarkable. Conjunctivae pink. Sclerae anicteric. Oral cavity, no lesions. NECK: No JVD or lymph node enlargement. CHEST: Clear to auscultation. HEART: Regular rate and rhythm. ABDOMEN: Soft. Bowel sounds are positive. No organomegaly. EXTREMITIES: No pedal edema. SKIN: No rashes. NEURO: Alert and oriented x3. No focal deficits. Labs done yesterday, hemoglobin 8.7. IMPRESSION: Acute gastrointestinal bleed, possibly diverticular in nature. She was scheduled for EGD and colonoscopy done yesterday that showed sigmoid diverticulosis but no active bleeding. Clinically stable. Hemoglobin stable at 8.7 gm/dl. Eliquis has been held for the last three days and she has no further episodes of bleeding. RECOMMENDATIONS: 1. Advance to a soft diet. 2. She can be discharged home today. 3. She was advised to hold off on Eliquis for 2 or 3 more days before resuming. Thank you for this consultation. [facility]
== END 2017-05-18 13:55 | disposition home health service (06) | DRG 378 ==
LOC: EC 13:05 → 6SEL 15:28 → 5ONC 05-17 14:22
PROVIDERS: ADMIT Hospitalist; ATTEND Hospitalist
PROC: 0DJD8ZZ Inspection of Lower Intestinal Tract, Via Natural or Artificial Opening Endoscopic (ICD-10-PCS; principal; 2017-05-17 15:00)
PROC: 0DJ08ZZ Inspection of Upper Intestinal Tract, Via Natural or Artificial Opening Endoscopic (ICD-10-PCS; 2017-05-17 15:00)
DX: K57.31 Diverticulosis of large intestine without perforation or abscess with bleeding (principal); C92.10 Chronic myeloid leukemia, BCR/ABL-positive, not having achieved remission; D62 Acute posthemorrhagic anemia; I48.91 Unspecified atrial fibrillation; E11.9 Type 2 diabetes mellitus without complications; E78.5 Hyperlipidemia, unspecified; I10 Essential (primary) hypertension; I25.10 Atherosclerotic heart disease of native coronary artery without angina pectoris; I25.2 Old myocardial infarction; K21.0 Gastro-esophageal reflux disease with esophagitis; K44.9 Diaphragmatic hernia without obstruction or gangrene; F32.9 Major depressive disorder, single episode, unspecified; F41.9 Anxiety disorder, unspecified; Z79.01 Long term (current) use of anticoagulants; Z79.82 Long term (current) use of aspirin; Z79.899 Other long term (current) drug therapy; Z87.891 Personal history of nicotine dependence; Z95.1 Presence of aortocoronary bypass graft; Z95.5 Presence of coronary angioplasty implant and graft; Z82.49 Family history of ischemic heart disease and other diseases of the circulatory system; Z80.0 Family history of malignant neoplasm of digestive organs
CPT/HCPCS: 36415; 43235; 45378; 71010; 80048; 80053; 82550; 82553; 83735; 84484; 85025; 85610; 85730; 86850; 86900; 86901; 93005; 96360; 96361; 99285

== ENCOUNTER 2017-10-16 16:59 | Observation (INO) | payer BC, MEDICARE ==
[2017-10-16 17:48] LABS: Anisocytosis Slight; MCH 30.7 pg (25.0-35.0); MCHC 32.3 g/dL (31.0-37.0); MCV 95.1 fL (80.0-100.0); Macrocytosis Slight; Mean Platelet Volume 9.7; Poikilocytosis Slight; RBC 2.06 m/uL (3.80-5.40); RDW 19.5 % (11.5-15.5)
[2017-10-16 17:50] LABS: HCT 19.6 % (34.0-46.0)
[2017-10-16 17:51] LABS: HGB 6.3 gm/dL (11.4-16.0); WBC 27.8 k/uL (3.8-10.6)
--- NOTE | 2017-10-16 17:51 | ED ---
General Adult HPI - General Chief complaint: Recheck/Abnormal Lab/Rx Stated complaint: Low Hemoglobin Time Seen by Provider: 10/16/17 17:34 Source: patient, family, RN notes reviewed Mode of arrival: EMS Limitations: no limitations - History of Present Illness Initial comments: Patient is a pleasant 67-year-old female presenting to the emergency department with complaints of fatigue. 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 Patient had blood levels drawn today with hemoglobin of 6.3. Patient does have some dyspnea as well. No isolated area of weakness. - Related Data Home Medications Medication Instructions Recorded Confirmed Cranberry Conc/C/Bacill Coag 1 tab PO DAILY@169910/12/15 10/16/17 [Cranberry Tablet] [place]-3 Fatty Acids/Fish Oil [Fish 1 cap PO DAILY@169910/12/15 10/16/17 Oil 1,000 mg Softgel] Oxybutynin Chloride [Ditropan XL] 15 mg PO DAILY 10/12/15 10/16/17 Citalopram Hydrobromide [CeleXA] 40 mg PO HS@209911/24/16 10/16/17 Atorvastatin [Lipitor] 20 mg PO DAILY 05/15/17 10/16/17 L.acidoph,Paracasei, B.lactis 1 cap PO DAILY@169905/15/17 10/16/17 [Probiotic] Aspirin EC [Ecotrin Low Dose] 81 mg PO HS@209909/06/17 10/16/17 Calcitriol 0.5 mcg PO MO@169909/06/17 10/16/17 Folic Acid 1 mg PO DAILY@169909/06/17 10/16/17 Thiamine [Vitamin B-1] 100 mg PO DAILY@169909/06/17 10/16/17 Cyanocobalamin (Vitamin B-12) 1,000 mcg PO DAILY@169909/19/17 10/16/17 [Vitamin B-12] Nitroglycerin Sl Tabs [Nitrostat] 0.4 mg SUBLINGUAL Q5M PRN 09/19/17 10/16/17 Apixaban [Eliquis] 5 mg PO BID@0800,1700 10/05/17 10/16/17 Bisacodyl [Dulcolax] 10 mg RECTAL Q24H PRN 10/16/17 10/16/17 Bosutinib [Bosulif] 300 mg PO DAILY@1500 10/16/17 10/16/17 Lactose-Reduced Food [Ensure Plus] 1 can PO TID 10/16/17 10/16/17 Magnesium Hydroxide [Milk of 2,400 mg PO DAILY PRN 10/16/17 10/16/17 Magnesia] Metoprolol Tartrate [Lopressor] 50 mg PO BID@0800,1700 10/16/17 10/16/17 Na Phos,M-B/Na Phos,Di-Ba [Fleet 133 ml RECTAL DAILY PRN 10/16/17 10/16/17 Adult] Potassium Chloride ER [K-Dur 20] 20 meq PO DAILY@1700 10/16/17 10/16/17 Zolpidem [Ambien] 5 mg PO HS PRN 10/16/17 10/16/17 Previous Rx's Medication Instructions Recorded Diltiazem Cd [Cardizem CD] 180 mg PO DAILY #30 cap.er.24h 02/28/17 Isosorbide Mononitrate ER [Imdur] 30 mg PO DAILY #30 tab.er.24h 09/07/17 Furosemide [Lasix] 40 mg PO DAILY #30 tablet 09/21/17 Omeprazole [PriLOSEC] 40 mg PO DAILY #14 capsule. 09/21/17 ALPRAZolam [Xanax] 0.25 mg PO BID PRN #20 tab 10/11/17 Allergies Allergy/AdvReac Type Severity Reaction Status Date / Time adhesive tape AdvReac Unknown Red , Verified 10/16/17 17:06 Irritated skin Review of Systems ROS Statement: Those systems with pertinent positive or pertinent negative responses have been documented in the HPI. ROS Other: All systems not noted in ROS Statement are negative. Constitutional: Denies: fever Eyes: Denies: eye pain ENT: Denies: ear pain Respiratory: Reports: dyspnea. Denies: cough Cardiovascular: Denies: chest pain Endocrine: Reports: fatigue Gastrointestinal: Denies: abdominal pain, hematemesis Genitourinary: Denies: dysuria Musculoskeletal: Denies: back pain Skin: Denies: rash Neurological: Denies: headache Past Medical History Past Medical History: Atrial Fibrillation, Coronary Artery Disease (CAD), Cancer , Chest Pain / Angina, COPD, Diabetes Mellitus, GERD/Reflux, GI Bleed, Hyperlipidemia, Hypertension, Myocardial Infarction (non Q-wave) Additional Past Medical History / Comment(s): hiatal hernia, esophagitis, diverticulosis, hemorrhoids, leukemia- being treated with oral targeted therapy - Bosutinib, diagnosed around April 2016, PLEURAL EFFUSIONS-resolved on their own, iron deficiency anemia,past iron infusions and blood transfusions. MIs x 4 , chronic thoracic and lower back pain.uti/kidney infection. c-diff 09-26-17 and pt stated was' told not to eat any other dairy product other than yogurt for now". Last Myocardial Infarction Date:: 2008 History of Any Multi-Drug Resistant Organisms: C-DIFF Date of last positivie culture/infection: 09/26/17 MDRO Source:: stool Past Surgical History: Coronary Bypass/CABG, Heart Catheterization, Heart Catheterization With Stent, Hysterectomy, Orthopedic Surgery Additional Past Surgical History / Comment(s): 05/17/17 EGD/COLONOSCOPY WITH PREVIOUS COLONOSCOPY, CONNOR CATARACT SX -LENS IMPLANTS, OOPHORECTOMY D/T OVARY TUMOR, R ACHILLES TENDON REPAIR. CABG-TRIPLE BYPASS WITH REPAIR OF HOLE IN HEART AND HEART VALVE(2008). Past Anesthesia/Blood Transfusion Reactions: No Reported Reaction Date of Last Stent Placement:: 2007 Past Psychological History: Anxiety, Depression Smoking Status: Former smoker Past Alcohol Use History: Occasional Past Drug Use History: None Reported - Past Family History Mother Family Medical History: Cancer Additional Family Medical History / Comment(s): colon cancer Father Family Medical History: Congestive Heart Failure (CHF) Brother(s) Family Medical History: Congestive Heart Failure (CHF), Diabetes Mellitus General Exam Limitations: no limitations General appearance: alert, in no apparent distress Head exam: Present: atraumatic Eye exam: Present: normal appearance, PERRL ENT exam: Present: normal oropharynx Neck exam: Present: normal inspection Respiratory exam: Present: normal lung sounds bilaterally Cardiovascular Exam: Present: irregular rhythm GI/Abdominal exam: Present: soft. Absent: tenderness Extremities exam: Present: normal inspection Neurological exam: Present: alert Psychiatric exam: Present: normal affect, normal mood Skin exam: Present: petechiae (Mild petechial rash of the chest and right arm and legs.) Course Vital Signs 10/16/17 10/16/17 10/16/17 17:00 18:03 19:00 Temperature 98.1 F Pulse Rate 86 65 67 Respiratory 16 16 18 Rate Blood Pressure 139/62 84/54 117/51 O2 Sat by Pulse 93 L 94 L 98 Oximetry Medical Decision Making - Medical Decision Making He should reevaluated and resting comfortably in bed. Case was discussed in detail with Dr. Peñaloza, who will consult for Dr. Montanez. He does recommend 2 units PRBCs and one unit of platelets. Hold eloquent requests. Case was also discussed in detail with practitioner Ros, who will admit for Dr. Scott, covering for Dr. Ayala Santana. - Lab Data Result diagrams: 10/16/17 17:07 10/16/17 17:07 Lab Results 10/16/17 10/16/17 10/16/17 Range/Units 17:07 17:07 17:07 WBC 27.8 H* (3.8-10.6) k/uL RBC 2.06 L (3.80-5.40) m/uL Hgb 6.3 L* (11.4-16.0) gm/dL Hct 19.6 L* (34.0-46.0) % MCV 95.1 (80.0-100.0) fL MCH 30.7 (25.0-35.0) pg MCHC 32.3 (31.0-37.0) g/dL RDW 19.5 H (11.5-15.5) % Plt Count 17 L* (150-450) k/uL Neutrophils % (Manual) 9 % Band Neutrophils % 4 % Lymphocytes % (Manual) 28 % Monocytes % (Manual) 1 % Metamyelocytes % 1 % Myelocytes % 2 % Blast Cells % 57 % Neutrophils # (Manual) 3.60 (1.3-7.7) k/uL Lymphocytes # (Manual) 7.78 H (1.0-4.8) k/uL Monocytes # (Manual) 0.28 (0-1.0) k/uL Metamyelocytes # (Man) 0.28 H (0) k/uL Myelocytes # (Manual) 0.56 H (0) k/uL Blast Cells # (Man) 15.85 H (0) k/uL Plasma Cell # (Manual) 0.28 H (0) k/uL Nucleated RBCs 0 (0-0) /100 WBC Manual Slide Review Performed Poikilocytosis Slight Anisocytosis Slight Macrocytosis Slight Ovalocytes Present PT (9.0-12.0) sec INR (<1.2) APTT (22.0-30.0) sec Sodium 143 (137-145) mmol/L Potassium 3.7 (3.5-5.1) mmol/L Chloride 110 H (98-107) mmol/L Carbon Dioxide 23 (22-30) mmol/L Anion Gap 10 mmol/L BUN 14 (7-17) mg/dL Creatinine 0.90 (0.52-1.04) mg/dL Est GFR (MDRD) Af Amer >60 (>60 ml/min/1.73 sqM) Est GFR (MDRD) Non-Af >60 (>60 ml/min/1.73 sqM) Glucose 196 H (74-99) mg/dL Calcium 7.9 L (8.4-10.2) mg/dL Total Bilirubin 0.4 (0.2-1.3) mg/dL AST 58 H (14-36) U/L ALT 37 (9-52) U/L Alkaline Phosphatase 114 (38-126) U/L Total Creatine Kinase 44 (30-135) U/L CK-MB (CK-2) 0.5 (0.0-2.4) ng/mL CK-MB (CK-2) Rel Index 1.1 Troponin I 0.016 (0.000-0.034) ng/mL Total Protein 5.0 L (6.3-8.2) g/dL Albumin 2.7 L (3.5-5.0) g/dL Stool Occult Blood (Negative) 10/16/17 10/16/17 Range/Units 17:07 17:58 WBC (3.8-10.6) k/uL RBC (3.80-5.40) m/uL Hgb (11.4-16.0) gm/dL Hct (34.0-46.0) % MCV (80.0-100.0) fL MCH (25.0-35.0) pg MCHC (31.0-37.0) g/dL RDW (11.5-15.5) % Plt Count (150-450) k/uL Neutrophils % (Manual) % Band Neutrophils % % Lymphocytes % (Manual) % Monocytes % (Manual) % Metamyelocytes % % Myelocytes % % Blast Cells % % Neutrophils # (Manual) (1.3-7.7) k/uL Lymphocytes # (Manual) (1.0-4.8) k/uL Monocytes # (Manual) (0-1.0) k/uL Metamyelocytes # (Man) (0) k/uL Myelocytes # (Manual) (0) k/uL Blast Cells # (Man) (0) k/uL Plasma Cell # (Manual) (0) k/uL Nucleated RBCs (0-0) /100 WBC Manual Slide Review Poikilocytosis Anisocytosis Macrocytosis Ovalocytes PT 12.2 H (9.0-12.0) sec INR 1.3 H (<1.2) APTT 24.2 (22.0-30.0) sec Sodium (137-145) mmol/L Potassium (3.5-5.1) mmol/L Chloride (98-107) mmol/L Carbon Dioxide (22-30) mmol/L Anion Gap mmol/L BUN (7-17) mg/dL Creatinine (0.52-1.04) mg/dL Est GFR (MDRD) Af Amer (>60 ml/min/1.73 sqM) Est GFR (MDRD) Non-Af (>60 ml/min/1.73 sqM) Glucose (74-99) mg/dL Calcium (8.4-10.2) mg/dL Total Bilirubin (0.2-1.3) mg/dL AST (14-36) U/L ALT (9-52) U/L Alkaline Phosphatase (38-126) U/L Total Creatine Kinase (30-135) U/L CK-MB (CK-2) (0.0-2.4) ng/mL CK-MB (CK-2) Rel Index Troponin I (0.000-0.034) ng/mL Total Protein (6.3-8.2) g/dL Albumin (3.5-5.0) g/dL Stool Occult Blood Positive H (Negative) - Radiology Data Radiology results: image reviewed (Chest x-ray shows mild congestion.) Disposition Clinical Impression: Anemia, Thrombocytopenia Disposition: ADMITTED IP TO THIS [facility] Referrals: Cristopher Pierre DO [Primary Care Provider] - 1-2 days Decision Time: 19:43
[2017-10-16 17:55] LABS: ALT 37 U/L (9-52); AST 58 U/L (14-36); Albumin 2.7 g/dL (3.5-5.0); Alkaline Phosphatase 114 U/L (38-126); Anion Gap 10 mmol/L; Blood Urea Nitrogen 14 mg/dL (7-17); Calcium 7.9 mg/dL (8.4-10.2); Carbon Dioxide 23 mmol/L (22-30); Chloride 110 mmol/L (98-107); Glucose 196 mg/dL (74-99); Potassium 3.7 mmol/L (3.5-5.1); Sodium 143 mmol/L (137-145); Total Bilirubin 0.4 mg/dL (0.2-1.3)
[2017-10-16 18:07] LABS: INR 1.3 (<1.2); Partial Thromboplastin Time 24.2 sec (22.0-30.0); Prothrombin Time 12.2 sec (9.0-12.0)
[2017-10-16 18:13] LABS: Creatine Kinase MB 0.5 ng/mL (0.0-2.4); Troponin I 0.016 ng/mL (0.000-0.034)
--- NOTE | 2017-10-16 18:16 | XR ---
EXAMINATION TYPE: XR chest 2V DATE OF EXAM: 10/16/2017 COMPARISON: 10/09/2017 HISTORY: Fever TECHNIQUE: Frontal and lateral views of the chest are obtained. FINDINGS: Heart is enlarged. There is some pulmonary vascular congestion. There is blunting of costo phrenic angles and more on the left side. There are sternal wires. Thoracic aorta is atheromatous. Th ere are chest leads. IMPRESSION: There is mild congestive heart failure with increased congestion and pleural fluid kiara red to last exam.
[2017-10-16 19:22] LABS: Band Neutrophils % 4 %; Blast Cells # (M) 15.85 k/uL (0); Lymphocytes # (M) 7.78 k/uL (1.0-4.8); Metamyelocytes # (M) 0.28 k/uL (0); Metamyelocytes % 1 %; Monocytes # (M) 0.28 k/uL (0-1.0); Myelocytes # (M) 0.56 k/uL (0); Myelocytes % 2 %; Neutrophils % (M) 9 %; Nucleated Red Blood Cells 0 /100 WBC (0-0); Total Cells Counted 200
[2017-10-16 19:23] LABS: Ovalocytes Present
[2017-10-16 19:24] LABS: Platelet Count 17 k/uL (150-450)
[2017-10-16] MEDS ORDERED: NALOXONE 0.4 MG/ML 1 ML VIAL IV PRN (19:43)
[2017-10-16] MEDS ORDERED: ZOLPIDEM 5 MG TAB PO PRN (22:44)
[2017-10-16] MEDS ORDERED: NITROGLYCERIN SL TABS 0.4 MG TAB SUBLINGUAL PRN (22:44)
[2017-10-16] MEDS ORDERED: ALPRAZolam 0.25 MG TAB PO PRN (22:44)
[2017-10-16] MEDS ORDERED: MAGNESIUM HYDROXIDE 2,400 MG/10 ML CUP PO PRN (22:44)
[2017-10-16] MEDS ORDERED: BISACODYL 10 MG SUPP RECTAL PRN (22:44)
[2017-10-16] MEDS ORDERED: NA PHOS,M-B/NA PHOS,DI-BA 133 ML ENEMA RECTAL PRN (22:44)
[2017-10-16] MEDS ORDERED: CITALOPRAM HYDROBROMIDE 20 MG TAB PO SCH (22:45)
[2017-10-16] MEDS ORDERED: FUROSEMIDE 10 MG/ML 2 ML VIAL IV ONE (22:47)
[2017-10-16] MEDS: SODIUM CHLORIDE 0.9% 1,000 ML IV SCH (23:24)
[2017-10-16] MEDS: PANTOPRAZOLE 40 MG/10 ML VIAL IV SCH (23:24)
[2017-10-16 23:38] VITALS: BMI 27.8
[2017-10-16 23:59] VITALS: RESP 18
--- NOTE | 2017-10-17 05:11 | HP ---
HISTORY AND PHYSICAL DATE OF SERVICE: 10/16/2017 CHIEF COMPLAINTS: Low hemoglobin and weakness. HISTORY OF PRESENT ILLNESS: This 67-year-old woman with a past medical history of multiple medical problems including chronic leukemia, history of CAD, history of COPD, diabetes mellitus, GERD, hypertension, hyperlipidemia, myocardial infarction being followed by Dr. Pierre in the outpatient setting. The patient is admitted to [facility]. Subsequently, patient sent to rehab in [facility]. In [facility], the patient is complaining of tiredness and weakness and the patient was found to have hemoglobin 6.2, white count 27.2, platelets 17. The patient the patient was admitted for further evaluation and treatment at this time. There is no history of any fever, rigors or chills. No history of any headache, loss of consciousness, chest pain, palpitation at this time. The patient noted some minimal bleeding per rectum apparently. PAST MEDICAL HISTORY: History of atrial fibrillation, CAD, COPD, GERD, history of leukemia treated with oral targeted therapy, history of CAD, CABG. MEDICATIONS: Medications prior to admission home medications are: 1. Ambien 5 mg q.h.s. p.r.n. 2. Vitamin B1, 100 mg p.o. daily. 3. K-Dur 20 mEq daily. 4. Ditropan XL 15 mg daily. 5. Prilosec 40 mg p.o. daily. 6. [place]-3 fatty acids 1 p.o. daily. 7. Nitrostat 0.4 sublingual p.r.n. 8. Fleets enema. 9. Lopressor 50 mg p.o. b.i.d. 10.Milk of Magnesia. 11.Ensure. 12.Probiotic 1 p.o. daily. 13.Imdur 30 mg daily. 14.Lasix 40 mg daily. 15.Folic acid 1 mg daily. 16.Cardizem CD 180 mg daily. 17.Cranberry daily. 18.Celexa 40 mg q.h.s. 19.Calcitriol 0.5 mcg on Mondays. 20.Bosutinib 300 mg daily. 21.Dulcolax 10 mg daily p.r.n. 22.Lipitor 20 mg daily. 23.Ecotrin 81 mg daily. 24.Eliquis 5 mg p.o. b.i.d. 25.Xanax 0.25 mg b.i.d. p.r.n. ALLERGIES: Allergies are ADHESIVE TAPES. FAMILY HISTORY: History of colon cancer in the family. SOCIAL HISTORY: Previous history of smoking. No history of alcohol intake. REVIEW OF SYSTEMS: ENT: No diminished hearing or diminished vision. CARDIOVASCULAR: As mentioned earlier. RESPIRATORY: As mentioned earlier. GI: No nausea. : No dysuria. NERVOUS SYSTEM: No numbness or weakness. ALLERGY/IMMUNOLOGY: No asthma or hayfever. MUSCULOSKELETAL: As mentioned earlier. HEMATOLOGY/ONCOLOGY: As mentioned earlier. ENDOCRINE: As mentioned earlier. CONSTITUTIONAL: As mentioned earlier. DERMATOLOGY: Negative. RHEUMATOLOGY: As mentioned earlier. PSYCHIATRY: As mentioned earlier. PHYSICAL EXAMINATION: The patient is alert and oriented x3. Pulse is 56, blood pressure 135/63, respirations 20, temperature 97.9, pulse ox 96% on 2 L. HEENT: Conjunctivae pale. Oral mucosa moist. NECK: No jugular venous distention or carotid bruit. No lymph node enlargement. CARDIOVASCULAR: S1 and S2 muffled. No S3 or S4. RESPIRATORY: Breath sounds diminished at the bases. No rhonchi, no crackles. ABDOMEN: Soft, nontender. No mass. LEGS: No edema or swelling. NERVOUS SYSTEM: Higher function as mentioned earlier. Moves all 4 limbs. No focal deficits. LYMPHATICS: No lymphadenopathy of the neck, axillae or groin. SKIN: No ulcer, rash or bleeding. LABS: Labs are at this time: WBC 27.8, hemoglobin 6.3, platelets 17. Other labs are noted. ASSESSMENT: 1. Pancytopenia, possibly secondary to chemotherapy. 2. Severe anemia, symptomatic. 3. Chronic leukemia. 4. Atrial fibrillation. 5. History of coronary artery disease. 6. History of chronic obstructive pulmonary disease. 7. Diabetes mellitus. 8. History of gastrointestinal bleed. 9. Hypertension. 10.Hyperlipidemia. 11.History of coronary artery disease, CABG, stent. RECOMMENDATIONS AND DISCUSSION: This 67-year-old woman who presented with multiple complex medical issues, will monitor the patient closely. Continue the current medications. I recommend 2 units of transfusion and Lasix 20 after that. Otherwise resume the home medications. Repeat labs in the morning. I would also recommend a GI consultation. Hold apixaban at this time. Otherwise, guarded prognosis because of multiple complex medical issues. Further recommendations to follow. A copy of dictation forwarded to Dr. Pierre who is the primary physician. MMODL / IJN: [id number] / SIDNEY
[2017-10-17 06:41] LABS: Anisocytosis Slight; HCT 25.5 % (34.0-46.0); HGB 8.3 gm/dL (11.4-16.0); MCH 30.6 pg (25.0-35.0); MCHC 32.5 g/dL (31.0-37.0); MCV 94.2 fL (80.0-100.0); Mean Platelet Volume 7.7; RDW 17.2 % (11.5-15.5); WBC 18.2 k/uL (3.8-10.6)
[2017-10-17 06:48] LABS: Platelet Count 36 k/uL (150-450)
[2017-10-17 06:52] LABS: Anion Gap 7 mmol/L; Blood Urea Nitrogen 14 mg/dL (7-17); Calcium 7.9 mg/dL (8.4-10.2); Carbon Dioxide 27 mmol/L (22-30); Chloride 108 mmol/L (98-107); Glucose 153 mg/dL (74-99); Potassium 3.7 mmol/L (3.5-5.1); Sodium 142 mmol/L (137-145)
[2017-10-17 07:10] LABS: Band Neutrophils % 3 %; Blast Cells # (M) 10.74 k/uL (0); Lymphocytes # (M) 4.91 k/uL (1.0-4.8); Monocytes # (M) 0.36 k/uL (0-1.0); Neutrophils % (M) 9 %; Nucleated Red Blood Cells 0 /100 WBC (0-0); Total Cells Counted 100
[2017-10-17] MEDS ORDERED: METOPROLOL TARTRATE 50 MG TAB PO SCH (08:00)
[2017-10-17] MEDS: PANTOPRAZOLE 40 MG/10 ML VIAL IV SCH (08:04)
[2017-10-17] MEDS ORDERED: NON-FORMULARY DRUG (Lactose-Reduced Food [Ensure Plus] 1 CAN) PO SCH (09:00)
[2017-10-17] MEDS ORDERED: DILTIAZEM CD 180 MG CAP.ER.24H PO SCH (09:00)
[2017-10-17] MEDS ORDERED: ATORVASTATIN 20 MG TAB PO SCH (09:00)
[2017-10-17] MEDS ORDERED: NON-FORMULARY DRUG (Omeprazole 40 MG) PO SCH (09:00)
[2017-10-17] MEDS ORDERED: OXYBUTYNIN 15 MG TAB.ER.24 PO SCH (09:00)
[2017-10-17] MEDS ORDERED: ISOSORBIDE MONONITRATE ER 30 MG TAB.ER.24H PO SCH (09:00)
[2017-10-17] MEDS ORDERED: FUROSEMIDE 40 MG TAB PO SCH (09:00)
[2017-10-17] MEDS: SODIUM CHLORIDE 0.9% 1,000 ML IV SCH (11:02)
--- NOTE | 2017-10-17 12:28 | P.CONS ---
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 Denies abdominal pain. No hematuria. She is well-known to the GI service over the last few months in regards to anemia recent Clostridium difficile colitis and GI bleeds. Hemoglobin 6.3. MCV 99. Platelet 14,000. White count 24.9. Previous hemoglobin range over the last few months between 7-10. INR 1.3. Stool occult blood positive. BUN 14. Creatinine 0.9. Afebrile. Endoscopic history: EGD colonoscopy evaluation of GI bleed May [address] Florez with findings small hiatal hernia LA grade B reflux esophagitis and scattered diverticulosis no evidence of colitis or colorectal neoplasia. At that time GI bleed was suspected to be diverticular in nature. Small bowel capsule endoscopy early September 2017 with no evidence of active bleeding. Review of Systems Constitutional: Denies fever, chills, sweats, weight gain, or loss. HEENT: Negative for migraines, blurred vision or loss, earaches, drainage, tinnitus, oral mucosal lesions, dysphagia, or odynophagia. CARDIAC: Atrial fibrillation and hypertension. Hyperlipidemia. AL. CABG. Negative for chest pain, arrhythmias, or palpitation. RESPIRATORY: Negative for shortness of breath, hemoptysis, cough, or sputum production. GI: See HPI for pertinent findings. : Negative for hematuria, urgency, frequency, polyuria, or dysuria. GYNc: Denies possibility of . Negative vaginal discharge. MUSCULOSKELETAL: Negative for muscle aches, swelling, arthritis, and arthralgias. NEUROLOGIC: Negative for stroke or TIA. ENDOCRINE: Negative for thyroid problems. Hematologic: CML SKIN: Negative for rash or itching. PSYCHIATRIC: Negative history for depression and anxiety Past Medical History Past Medical History: Atrial Fibrillation, Coronary Artery Disease (CAD), Cancer , Chest Pain / Angina, COPD, Diabetes Mellitus, GERD/Reflux, GI Bleed, Hyperlipidemia, Hypertension, Myocardial Infarction (non Q-wave) Additional Past Medical History / Comment(s): hiatal hernia, esophagitis, diverticulosis, hemorrhoids, leukemia- being treated with oral targeted therapy - Bosutinib, diagnosed around April 2016, PLEURAL EFFUSIONS-resolved on their own, iron deficiency anemia,past iron infusions and blood transfusions. MIs x 4 , chronic thoracic and lower back pain.uti/kidney infection. c-diff 09-26-17 and pt stated was' told not to eat any other dairy product other than yogurt for now". Last Myocardial Infarction Date:: 2008 History of Any Multi-Drug Resistant Organisms: C-DIFF Year Discovered:: 09/26/17 MDRO Source:: stool Past Surgical History: Coronary Bypass/CABG, Heart Catheterization, Heart Catheterization With Stent, Hysterectomy, Orthopedic Surgery Additional Past Surgical History / Comment(s): 05/17/17 EGD/COLONOSCOPY WITH PREVIOUS COLONOSCOPY, CONNOR CATARACT SX -LENS IMPLANTS, OOPHORECTOMY D/T OVARY TUMOR, R ACHILLES TENDON REPAIR. CABG-TRIPLE BYPASS WITH REPAIR OF HOLE IN HEART AND HEART VALVE(2008). Past Anesthesia/Blood Transfusion Reactions: No Reported Reaction Date of Last Stent Placement:: 2007 Past Psychological History: Anxiety, Depression Additional Psychological History / Comment(s): PT IS A . LIVES IN A single level home w/basement and has 2 STEPS TO ENTER HOME. 1 PET DOG. NEBULIZER. NO OUTSIDE SERVICES RECEIVED. Smoking Status: Former smoker Past Alcohol Use History: Occasional Additional Past Alcohol Use History / Comment(s): SMOKED APPROX 1 PPD. SMOKED SINCE AGE 11,( 1960) SMOKED 1 PPD, QUIT 2008 Past Drug Use History: None Reported - Past Family History Mother Family Medical History: Cancer Additional Family Medical History / Comment(s): colon cancer Father Family Medical History: Congestive Heart Failure (CHF) Brother(s) Family Medical History: Congestive Heart Failure (CHF), Diabetes Mellitus Medications and Allergies Home Medications Medication Instructions Recorded Confirmed Type Cranberry Conc/C/Bacill Coag 1 tab PO DAILY@1700 10/12/15 10/16/17 History [Cranberry Tablet] Franklin-3 Fatty Acids/Fish Oil [Fish 1 cap PO DAILY@1700 10/12/15 10/16/17 History Oil 1,000 mg Softgel] Oxybutynin Chloride [Ditropan XL] 15 mg PO DAILY 10/12/15 10/16/17 History Citalopram Hydrobromide [CeleXA] 40 mg PO HS@2100 11/24/16 10/16/17 History Diltiazem Cd [Cardizem CD] 180 mg PO DAILY #30 cap.er.24h 02/28/17 10/16/17 Rx Atorvastatin [Lipitor] 20 mg PO DAILY 05/15/17 10/16/17 History L.acidoph,Paracasei, B.lactis 1 cap PO DAILY@1700 05/15/17 10/16/17 History [Probiotic] Aspirin EC [Ecotrin Low Dose] 81 mg PO HS@2100 09/06/17 10/16/17 History Calcitriol 0.5 mcg PO MO@1700 09/06/17 10/16/17 History Folic Acid 1 mg PO DAILY@1700 09/06/17 10/16/17 History Thiamine [Vitamin B-1] 100 mg PO DAILY@1700 09/06/17 10/16/17 History Isosorbide Mononitrate ER [Imdur] 30 mg PO DAILY #30 tab.er.24h 09/07/17 Rx Cyanocobalamin (Vitamin B-12) 1,000 mcg PO DAILY@1700 09/19/17 10/16/17 History [Vitamin B-12] Nitroglycerin Sl Tabs [Nitrostat] 0.4 mg SUBLINGUAL Q5M PRN 09/19/17 10/16/17 History Furosemide [Lasix] 40 mg PO DAILY #30 tablet 09/21/17 10/16/17 Rx Omeprazole [PriLOSEC] 40 mg PO DAILY #14 capsule. 09/21/17 10/16/17 Rx Apixaban [Eliquis] 5 mg PO BID@0800,1700 10/05/17 10/16/17 History ALPRAZolam [Xanax] 0.25 mg PO BID PRN #20 tab 10/11/17 10/16/17 Rx Bisacodyl [Dulcolax] 10 mg RECTAL Q24H PRN 10/16/17 10/16/17 History Bosutinib [Bosulif] 300 mg PO DAILY@1500 10/16/17 10/16/17 History Lactose-Reduced Food [Ensure Plus] 1 can PO TID 10/16/17 10/16/17 History Magnesium Hydroxide [Milk of 2,400 mg PO DAILY PRN 10/16/17 10/16/17 History Magnesia] Metoprolol Tartrate [Lopressor] 50 mg PO BID@0800,1700 10/16/17 10/16/17 History Na Phos,M-B/Na Phos,Di-Ba [Fleet 133 ml RECTAL DAILY PRN 10/16/17 10/16/17 History Adult] Potassium Chloride ER [K-Dur 20] 20 meq PO DAILY@1700 10/16/17 10/16/17 History Zolpidem [Ambien] 5 mg PO HS PRN 10/16/17 10/16/17 History Allergies Allergy/AdvReac Type Severity Reaction Status Date / Time adhesive tape AdvReac Unknown Red , Verified 10/16/17 17:06 Irritated skin Physical Exam Vitals: Vital Signs Temp Pulse Pulse Resp BP BP Pulse Ox 10/17/17 08:08 97.6 F 62 16 175/73 96 10/17/17 05:35 97.2 F L 56 L 18 142/67 10/17/17 05:33 97.6 F 58 L 17 143/76 99 10/17/17 04:00 97.5 F L 59 L 20 147/72 99 10/17/17 03:22 97.3 F L 66 17 133/76 95 10/17/17 01:30 97.8 F 58 L 18 122/72 98 10/17/17 01:17 97.8 F 59 L 16 117/62 97 10/17/17 01:15 97.7 F 66 18 118/67 95 10/17/17 00:00 96.6 F L 72 18 149/67 95 10/16/17 23:58 97.7 F 67 18 116/74 96 10/16/17 23:10 97.5 F L 65 20 114/56 95 10/16/17 23:01 97.1 F L 63 18 115/56 98 10/16/17 21:11 97.9 F 56 L 20 135/63 96 10/16/17 21:00 97.9 F 56 L 20 135/63 96 10/16/17 20:30 98.2 F 64 16 111/53 93 L 10/16/17 20:20 98.2 F 68 18 104/62 98 10/16/17 19:00 67 18 117/51 98 10/16/17 18:03 65 16 84/54 94 L 10/16/17 17:00 98.1 F 86 16 139/62 93 L Intake and Output 10/16/17 10/17/17 10/17/17 22:59 06:59 14:59 Intake Total 300 975 Output Total 250 Balance 50 975 Intake: IV 280 Sodium Chloride 0.9% 1, 280 000 ml @ 75 mls/hr IV . [id number] [facility] Rx#:[id number] Oral 300 Blood Product 0 695 Platelet Pheresis Acda2 0 195 Unit [id number] Rc Cpda-1 Unit 250 [id number] Rc Cpda-1 Unit 250 [id number] Output: Urine 250 Other: Voiding Method Toilet Toilet Weight 72.5 kg 72.4 kg General appearance: The patient is alert, oriented, in no acute distress. HET: Head is normocephalic and atraumatic. Pupils are equal and reactive. Oropharynx is clear without lesions. Neck: Supple without lymphadenopathy. Trachea midline. Heart: S1 S2. Regular rate and rhythm. Lungs: No crackles or wheezes are heard. Abdomen: Soft, nontender, nondistended with bowel sounds. No peritoneal signs. No palpable organomegaly or masses. Extremities: Normal skin color and turgor. No cyanosis, rash, ulceration, clubbing, or edema. Radial and pedal pulses are 2/4 bilaterally. Neurological: No focal deficits. Strength and sensation are grossly intact. Results CBC & Chem 7: 10/17/17 05:41 10/17/17 05:41 Labs: Abnormal Lab Results - Last 24 Hours (Table) 10/16/17 10/16/17 10/16/17 Range/Units 17:07 17:07 17:07 WBC 27.8 H* (3.8-10.6) k/uL RBC 2.06 L (3.80-5.40) m/uL Hgb 6.3 L* (11.4-16.0) gm/dL Hct 19.6 L* (34.0-46.0) % RDW 19.5 H (11.5-15.5) % Plt Count 17 L* (150-450) k/uL Lymphocytes # (Manual) 7.78 H (1.0-4.8) k/uL Metamyelocytes # (Man) 0.28 H (0) k/uL Myelocytes # (Manual) 0.56 H (0) k/uL Blast Cells # (Man) 15.85 H (0) k/uL PT (9.0-12.0) sec INR (<1.2) Chloride 110 H (98-107) mmol/L Glucose 196 H (74-99) mg/dL Calcium 7.9 L (8.4-10.2) mg/dL AST 58 H (14-36) U/L Total Protein 5.0 L (6.3-8.2) g/dL Albumin 2.7 L (3.5-5.0) g/dL Stool Occult Blood (Negative) Crossmatch See Detail 10/16/17 10/16/17 10/17/17 Range/Units 17:07 17:58 05:41 WBC 18.2 H (3.8-10.6) k/uL RBC 2.70 L (3.80-5.40) m/uL Hgb 8.3 L D (11.4-16.0) gm/dL Hct 25.5 L (34.0-46.0) % RDW 17.2 H (11.5-15.5) % Plt Count 36 L* D (150-450) k/uL Lymphocytes # (Manual) 4.91 H (1.0-4.8) k/uL Metamyelocytes # (Man) (0) k/uL Myelocytes # (Manual) (0) k/uL Blast Cells # (Man) 10.74 H (0) k/uL PT 12.2 H (9.0-12.0) sec INR 1.3 H (<1.2) Chloride (98-107) mmol/L Glucose (74-99) mg/dL Calcium (8.4-10.2) mg/dL AST (14-36) U/L Total Protein (6.3-8.2) g/dL Albumin (3.5-5.0) g/dL Stool Occult Blood Positive H (Negative) Crossmatch 10/17/17 Range/Units 05:41 WBC (3.8-10.6) k/uL RBC (3.80-5.40) m/uL Hgb (11.4-16.0) gm/dL Hct (34.0-46.0) % RDW (11.5-15.5) % Plt Count (150-450) k/uL Lymphocytes # (Manual) (1.0-4.8) k/uL Metamyelocytes # (Man) (0) k/uL Myelocytes # (Manual) (0) k/uL Blast Cells # (Man) (0) k/uL PT (9.0-12.0) sec INR (<1.2) Chloride 108 H (98-107) mmol/L Glucose 153 H (74-99) mg/dL Calcium 7.9 L (8.4-10.2) mg/dL AST (14-36) U/L Total Protein (6.3-8.2) g/dL Albumin (3.5-5.0) g/dL Stool Occult Blood (Negative) Crossmatch Assessment and Plan (1) Symptomatic anemia Narrative/Plan: Obscure GI bleed EGD colonoscopy May 2017 as well small bowel capsule endoscopy early September 2017 with no evidence of active bleeding or colorectal neoplasia. Current Visit: Yes Status: Acute Code(s): D64.9 - ANEMIA, UNSPECIFIED SNOMED Code(s): 042837657 (2) Positive occult stool blood test Current Visit: Yes Status: Acute Code(s): R19.5 - OTHER FECAL ABNORMALITIES SNOMED Code(s): 49820874 (3) Bicytopenia Current Visit: No Status: Acute Code(s): D75.89 - OTHER SPECIFIED DISEASES OF BLOOD AND BLOOD-FORMING ORGANS SNOMED Code(s): 310211043 (4) CML (chronic myelocytic leukemia) Current Visit: No Status: Chronic Priority: Medium Code(s): C92.10 - CHRONIC MYELOID LEUK, BCR/ABL-POSITIVE, NOT ACHIEVE REMIS SNOMED Code(s): 68955142 Plan: 1. Case was discussed with oncologist nurse practitioner Tere Dent. Continue with symptomatic treatment supportive measures. Consideration for repeat inpatient endoscopy per oncology recommendations. Platelet count preferably greater than 50,000 for endoscopic exams especially if biopsies are taken will discuss with oncology. 2. Will follow closely with you. Diet as tolerated. CBC monitoring. Thank you for this kind referral and the opportunity to participate in the care of your patient. This consultation was discussed with Dr. Sanders. The impression and plan of care have been directed as dictated.
--- NOTE | 2017-10-17 14:36 | P.DS ---
Providers Date of admission: 10/16/17 19:43 Expected date of discharge: 10/17/17 Attending physician: Mickey Scott Consults: 10/16/17 19:44 Consult Physician Urgent Consulting Provider: Rodo Peñaloza Consult Reason/Comments: Oncological Do you want consulting provider notified?: Already Contacted Consult Physician Urgent Consulting Provider: Chaitanya Sanders Consult Reason/Comments: possible gi hemorrhage Do you want consulting provider notified?: Yes [facility] Course: Final Diagnoses: 1. Pancytopenia, possibly secondary to chemotherapy 2. Severe anemia, symptomatic, improved 3. CML 4. Atrial fibrillation 5. CAD, history of CABG, stent 6. History of GI bleed 7. Diabetes mellitus type 2 Hospital course: This is a 67-year-old female admitted with multiple complex medical issues including CML, with severe anemia, hemoglobin 6.2, WBC 27.2, platelets 17. Transfused with 2 units packed RBCs with current hemoglobin 8.3, now asymptomatic. No signs or symptoms of further bleeding. Evaluated by GI. Significant clinical improvement. Patient has been cleared by consults for discharge. Aspirin and Eliquis will be held for 1 week then resume. Patient to follow-up with both GI & oncology in 1 week. Close CBC monitoring with Weekly CBC - results to Dr. montanez. Patient will be discharged to [facility] subacute rehab. in a stable condition with guarded prognosis. The impression and plan of care has been dictated as directed. : I performed a history and examination of this patient, discussed the same with the dictator. I agree with the dictator's note ,documented as a scribe. Any additional findings or plans will be noted. time spent: greater than 35 minutes Patient Condition at Discharge: Stable Plan - Discharge Summary New Discharge Prescriptions: Continue Oxybutynin Chloride [Ditropan XL] 15 mg PO DAILY Romeo-3 Fatty Acids/Fish Oil [Fish Oil 1,000 mg Softgel] 1 cap PO DAILY@1700 Cranberry Conc/C/Bacill Coag [Cranberry Tablet] 1 tab PO DAILY@1700 Citalopram Hydrobromide [CeleXA] 40 mg PO HS@2100 Diltiazem Cd [Cardizem CD] 180 mg PO DAILY #30 cap.er.24h L.acidoph,Paracasei, B.lactis [Probiotic] 1 cap PO DAILY@1700 Atorvastatin [Lipitor] 20 mg PO DAILY Thiamine [Vitamin B-1] 100 mg PO DAILY@1700 Folic Acid 1 mg PO DAILY@1700 Calcitriol 0.5 mcg PO MO@1700 Isosorbide Mononitrate ER [Imdur] 30 mg PO DAILY #30 tab.er.24h Nitroglycerin Sl Tabs [Nitrostat] 0.4 mg SUBLINGUAL Q5M PRN PRN Reason: Chest Pain Cyanocobalamin (Vitamin B-12) [Vitamin B-12] 1,000 mcg PO DAILY@1700 Omeprazole [PriLOSEC] 40 mg PO DAILY #14 capsule.dr Furosemide [Lasix] 40 mg PO DAILY #30 tablet Bisacodyl [Dulcolax] 10 mg RECTAL Q24H PRN PRN Reason: Constipation Bosutinib [Bosulif] 300 mg PO DAILY@1500 Lactose-Reduced Food [Ensure Plus] 1 can PO TID Magnesium Hydroxide [Milk of Magnesia] 2,400 mg PO DAILY PRN PRN Reason: CONSTIPATION Metoprolol Tartrate [Lopressor] 50 mg PO BID@0800,1700 Na Phos,M-B/Na Phos,Di-Ba [Fleet Adult] 133 ml RECTAL DAILY PRN PRN Reason: Constipation Potassium Chloride ER [K-Dur 20] 20 meq PO DAILY@1700 Zolpidem [Ambien] 5 mg PO HS PRN PRN Reason: Insomnia ALPRAZolam [Xanax] 0.25 mg PO BID PRN #10 tab PRN Reason: Anxiety Discontinued Apixaban [Eliquis] 5 mg PO BID@0800,1700 Discharge Medication List Cranberry Conc/C/Bacill Coag [Cranberry Tablet] 1 tab PO DAILY@1700 10/12/15 [ History] Romeo-3 Fatty Acids/Fish Oil [Fish Oil 1,000 mg Softgel] 1 cap PO DAILY@1700 [History] Oxybutynin Chloride [Ditropan XL] 15 mg PO DAILY 10/12/15 [History] Citalopram Hydrobromide [CeleXA] 40 mg PO HS@2100 11/24/16 [History] Diltiazem Cd [Cardizem CD] 180 mg PO DAILY #30 cap.er.24h 02/28/17 [Rx] Atorvastatin [Lipitor] 20 mg PO DAILY 05/15/17 [History] L.acidoph,Paracasei, B.lactis [Probiotic] 1 cap PO DAILY@17005/15/17 [History] Calcitriol 0.5 mcg PO MO@169909/06/17 [History] Folic Acid 1 mg PO DAILY@17009/06/17 [History] Thiamine [Vitamin B-1] 100 mg PO DAILY@17009/06/17 [History] Isosorbide Mononitrate ER [Imdur] 30 mg PO DAILY #30 tab.er.24h 09/07/17 [Rx] Cyanocobalamin (Vitamin B-12) [Vitamin B-12] 1,000 mcg PO DAILY@169909/19/17 [ History] Nitroglycerin Sl Tabs [Nitrostat] 0.4 mg SUBLINGUAL Q5M PRN 09/19/17 [History] Furosemide [Lasix] 40 mg PO DAILY #30 tablet 09/21/17 [Rx] Omeprazole [PriLOSEC] 40 mg PO DAILY #14 capsule.dr 09/21/17 [Rx] Bisacodyl [Dulcolax] 10 mg RECTAL Q24H PRN 10/16/17 [History] Bosutinib [Bosulif] 300 mg PO DAILY@1500 10/16/17 [History] Lactose-Reduced Food [Ensure Plus] 1 can PO TID 10/16/17 [History] Magnesium Hydroxide [Milk of Magnesia] 2,400 mg PO DAILY PRN 10/16/17 [History] Metoprolol Tartrate [Lopressor] 50 mg PO BID@0800,1700 10/16/17 [History] Na Phos,M-B/Na Phos,Di-Ba [Fleet Adult] 133 ml RECTAL DAILY PRN 10/16/17 [ History] Potassium Chloride ER [K-Dur 20] 20 meq PO DAILY@169910/16/17 [History] Zolpidem [Ambien] 5 mg PO HS PRN 10/16/17 [History] ALPRAZolam [Xanax] 0.25 mg PO BID PRN #10 tab 10/17/17 [Rx] Follow up Appointment(s)/Referral(s): Kal Montanez MD [STAFF PHYSICIAN] - 1 Week Summer Florez MD [STAFF PHYSICIAN] - 1 Week Cristopher Pierre DO [Primary Care Provider] - 1 Week (after DC from subacute rehab) Geovanni Dubose MD [STAFF PHYSICIAN] - 3 Days ( while at [facility]CF) Activity/Diet/Wound Care/Special Instructions: Weekly cbc with results to Dr. Montanez cbc,bmp in 3 days with results to PCP & Tarik Arauz Diet: cardiac, consistent carb Accu-Cheks before meals and at bedtime Activity:as tolerated Aspirin and Eliquis be held 1 week then resume. Discharge Disposition: TRANSFER TO SNF/ECF
[2017-10-17] MEDS ORDERED: BOSUTINIB PO SCH (15:00)
[2017-10-17 16:26] VITALS: BP 129/60; TEMP 97.5
[2017-10-17 16:27] VITALS: PULSE 69
[2017-10-17] MEDS ORDERED: THIAMINE 100 MG TAB PO SCH (17:00)
[2017-10-17] MEDS ORDERED: CYANOCOBALAMIN 500 MCG TAB PO SCH (17:00)
[2017-10-17] MEDS ORDERED: FOLIC ACID 1 MG TAB PO SCH (17:00)
[2017-10-17] MEDS ORDERED: LACTOBACILLUS ACIDOPH & BULGAR 1 EACH PACKET PO SCH (17:00)
[2017-10-17] MEDS ORDERED: NON-FORMULARY DRUG (Cranberry Conc/C/Bacill Coag [Cranberry Tablet] 1 TAB) PO SCH (17:00)
[2017-10-17] MEDS ORDERED: POTASSIUM CHLORIDE ER 20 MEQ TAB.ER PO SCH (17:00)
--- NOTE | 2017-10-17 17:09 | P.CONS ---
History of Present Illness - Reason for Consult Consult date: 10/17/17 CML Requesting physician: Pete Serrano - Chief Complaint abn labs - History of Present Illness Please refer to medical consultation date in last week for full malignancy details. Patient was sent from rehabilitation center to the hospital due to anemia and thrombocytopenia. Patient has been transfused with 2 units of packed red blood cells and 1 unit of platelets. Patient states she felt she was doing well in rehabilitation until she started getting very tired, likely due to the anemia. Patient denied fevers, appetite fair, no nausea, vomiting, she is short of breath with activity but nothing progressive at this time, no abdominal pain, cramping, hematuria, her stool is now more formed, no black or bloody stool, she denies any other bleeding. Review of Systems 10 point ROS is as stated in HPI Past Medical History Past Medical History: Atrial Fibrillation, Coronary Artery Disease (CAD), Cancer , Chest Pain / Angina, COPD, Diabetes Mellitus, GERD/Reflux, GI Bleed, Hyperlipidemia, Hypertension, Myocardial Infarction (non Q-wave) Additional Past Medical History / Comment(s): hiatal hernia, esophagitis, diverticulosis, hemorrhoids, leukemia- being treated with oral targeted therapy - Bosutinib, diagnosed around April 2016, PLEURAL EFFUSIONS-resolved on their own, iron deficiency anemia,past iron infusions and blood transfusions. MIs x 4 , chronic thoracic and lower back pain.uti/kidney infection. c-diff 09-26-17 and pt stated was' told not to eat any other dairy product other than yogurt for now". Last Myocardial Infarction Date:: 2008 History of Any Multi-Drug Resistant Organisms: C-DIFF Year Discovered:: 09/26/17 MDRO Source:: stool Past Surgical History: Coronary Bypass/CABG, Heart Catheterization, Heart Catheterization With Stent, Hysterectomy, Orthopedic Surgery Additional Past Surgical History / Comment(s): 05/17/17 EGD/COLONOSCOPY WITH PREVIOUS COLONOSCOPY, CONNOR CATARACT SX -LENS IMPLANTS, OOPHORECTOMY D/T OVARY TUMOR, R ACHILLES TENDON REPAIR. CABG-TRIPLE BYPASS WITH REPAIR OF HOLE IN HEART AND HEART VALVE(2008). Past Anesthesia/Blood Transfusion Reactions: No Reported Reaction Date of Last Stent Placement:: 2007 Past Psychological History: Anxiety, Depression Additional Psychological History / Comment(s): PT IS A . LIVES IN A single level home w/basement and has 2 STEPS TO ENTER HOME. 1 PET DOG. NEBULIZER. NO OUTSIDE SERVICES RECEIVED. Smoking Status: Former smoker Past Alcohol Use History: Occasional Additional Past Alcohol Use History / Comment(s): SMOKED APPROX 1 PPD. SMOKED SINCE AGE 11,( 1960) SMOKED 1 PPD, QUIT 2008 Past Drug Use History: None Reported - Past Family History Mother Family Medical History: Cancer Additional Family Medical History / Comment(s): colon cancer Father Family Medical History: Congestive Heart Failure (CHF) Brother(s) Family Medical History: Congestive Heart Failure (CHF), Diabetes Mellitus Medications and Allergies Home Medications Medication Instructions Recorded Confirmed Type Cranberry Conc/C/Bacill Coag 1 tab PO DAILY@1700 10/12/15 10/16/17 History [Cranberry Tablet] [place]-3 Fatty Acids/Fish Oil [Fish 1 cap PO DAILY@1700 10/12/15 10/16/17 History Oil 1,000 mg Softgel] Oxybutynin Chloride [Ditropan XL] 15 mg PO DAILY 10/12/15 10/16/17 History Citalopram Hydrobromide [CeleXA] 40 mg PO HS@2100 11/24/16 10/16/17 History Diltiazem Cd [Cardizem CD] 180 mg PO DAILY #30 cap.er.24h 02/28/17 10/16/17 Rx Atorvastatin [Lipitor] 20 mg PO DAILY 05/15/17 10/16/17 History L.acidoph,Paracasei, B.lactis 1 cap PO DAILY@1700 05/15/17 10/16/17 History [Probiotic] Calcitriol 0.5 mcg PO MO@1700 09/06/17 10/16/17 History Folic Acid 1 mg PO DAILY@1700 09/06/17 10/16/17 History Thiamine [Vitamin B-1] 100 mg PO DAILY@1700 09/06/17 10/16/17 History Isosorbide Mononitrate ER [Imdur] 30 mg PO DAILY #30 tab.er.24h 09/07/17 Rx Cyanocobalamin (Vitamin B-12) 1,000 mcg PO DAILY@1700 09/19/17 10/16/17 History [Vitamin B-12] Nitroglycerin Sl Tabs [Nitrostat] 0.4 mg SUBLINGUAL Q5M PRN 09/19/17 10/16/17 History Furosemide [Lasix] 40 mg PO DAILY #30 tablet 09/21/17 10/16/17 Rx Omeprazole [PriLOSEC] 40 mg PO DAILY #14 capsule. 09/21/17 10/16/17 Rx Bisacodyl [Dulcolax] 10 mg RECTAL Q24H PRN 10/16/17 10/16/17 History Bosutinib [Bosulif] 300 mg PO DAILY@1500 10/16/17 10/16/17 History Lactose-Reduced Food [Ensure Plus] 1 can PO TID 10/16/17 10/16/17 History Magnesium Hydroxide [Milk of 2,400 mg PO DAILY PRN 10/16/17 10/16/17 History Magnesia] Metoprolol Tartrate [Lopressor] 50 mg PO BID@0800,1700 10/16/17 10/16/17 History Na Phos,M-B/Na Phos,Di-Ba [Fleet 133 ml RECTAL DAILY PRN 10/16/17 10/16/17 History Adult] Potassium Chloride ER [K-Dur 20] 20 meq PO DAILY@1700 10/16/17 10/16/17 History Zolpidem [Ambien] 5 mg PO HS PRN 10/16/17 10/16/17 History ALPRAZolam [Xanax] 0.25 mg PO BID PRN #10 tab 10/17/17 Rx INSULIN LISPRO (HumaLOG) [humaLOG] 0 unit SQ ACHS #1 vial 10/17/17 Rx Allergies Allergy/AdvReac Type Severity Reaction Status Date / Time adhesive tape AdvReac Unknown Red , Verified 10/16/17 17:06 Irritated skin Physical Exam Vitals: Vital Signs Temp Pulse Pulse Resp BP BP Pulse Ox 10/17/17 12:00 97.5 F L 69 16 129/60 97 10/17/17 08:08 97.6 F 62 16 175/73 96 10/17/17 05:35 97.2 F L 56 L 18 142/67 10/17/17 05:33 97.6 F 58 L 17 143/76 99 10/17/17 04:00 97.5 F L 59 L 20 147/72 99 10/17/17 03:22 97.3 F L 66 17 133/76 95 10/17/17 01:30 97.8 F 58 L 18 122/72 98 10/17/17 01:17 97.8 F 59 L 16 117/62 97 10/17/17 01:15 97.7 F 66 18 118/67 95 10/17/17 00:00 96.6 F L 72 18 149/67 95 10/16/17 23:58 97.7 F 67 18 116/74 96 10/16/17 23:10 97.5 F L 65 20 114/56 95 10/16/17 23:01 97.1 F L 63 18 115/56 98 10/16/17 21:11 97.9 F 56 L 20 135/63 96 10/16/17 21:00 97.9 F 56 L 20 135/63 96 10/16/17 20:30 98.2 F 64 16 111/53 93 L 10/16/17 20:20 98.2 F 68 18 104/62 98 10/16/17 19:00 67 18 117/51 98 10/16/17 18:03 65 16 84/54 94 L 10/16/17 17:00 98.1 F 86 16 139/62 93 L Intake and Output 10/17/17 10/17/17 10/17/17 06:59 14:59 22:59 Intake Total 975 Balance 975 Intake: IV 280 Sodium Chloride 0.9% 1, 280 000 ml @ 75 mls/hr IV . [id number] [facility] Rx#:[id number] Blood Product 695 Platelet Pheresis Acda2 195 Unit [id number] Rc Cpda-1 Unit 250 [id number] Cpda-1 Unit 250 [id number] Other: Voiding Method Toilet Toilet Weight 72.4 kg - Constitutional General appearance: average body habitus, cooperative, no acute distress - EENT Eyes: anicteric sclerae, normal appearance ENT: normal oropharynx - Neck Neck: no lymphadenopathy - Respiratory Respiratory: bilateral: diminished, rales (bases) - Cardiovascular Heart sounds: normal: S1, S2 Abnormal Heart Sounds: systolic murmur leg Peripheral Edema: bilateral: Trace - Gastrointestinal General gastrointestinal: no absent bowel sounds, no decreased bowel sounds, no distended, no hepatomegaly, no hyperactive bowel sounds, normal bowel sounds, no organomegaly, no rigid, no scaphoid, soft, no splenomegaly, no tenderness, no umbilical hernia, no ventral hernia - Integumentary Integumentary: normal turgor, pale - Neurologic Neurologic: CNII-XII intact - Musculoskeletal Musculoskeletal: generalized weakness, strength equal bilaterally - Psychiatric Psychiatric: A&O x's 3, appropriate affect, intact judgment & insight Results CBC & Chem 7: 10/17/17 05:41 10/17/17 05:41 Labs: Abnormal Lab Results - Last 24 Hours (Table) 10/16/17 10/16/17 10/16/17 Range/Units 17:07 17:07 17:07 WBC 27.8 H* (3.8-10.6) k/uL RBC 2.06 L (3.80-5.40) m/uL Hgb 6.3 L* (11.4-16.0) gm/dL Hct 19.6 L* (34.0-46.0) % RDW 19.5 H (11.5-15.5) % Plt Count 17 L* (150-450) k/uL Lymphocytes # (Manual) 7.78 H (1.0-4.8) k/uL Metamyelocytes # (Man) 0.28 H (0) k/uL Myelocytes # (Manual) 0.56 H (0) k/uL Blast Cells # (Man) 15.85 H (0) k/uL PT (9.0-12.0) sec INR (<1.2) Chloride 110 H (98-107) mmol/L Glucose 196 H (74-99) mg/dL Calcium 7.9 L (8.4-10.2) mg/dL AST 58 H (14-36) U/L Total Protein 5.0 L (6.3-8.2) g/dL Albumin 2.7 L (3.5-5.0) g/dL Stool Occult Blood (Negative) Crossmatch See Detail 10/16/17 10/16/17 10/17/17 Range/Units 17:07 17:58 05:41 WBC 18.2 H (3.8-10.6) k/uL RBC 2.70 L (3.80-5.40) m/uL Hgb 8.3 L D (11.4-16.0) gm/dL Hct 25.5 L (34.0-46.0) % RDW 17.2 H (11.5-15.5) % Plt Count 36 L* D (150-450) k/uL Lymphocytes # (Manual) 4.91 H (1.0-4.8) k/uL Metamyelocytes # (Man) (0) k/uL Myelocytes # (Manual) (0) k/uL Blast Cells # (Man) 10.74 H (0) k/uL PT 12.2 H (9.0-12.0) sec INR 1.3 H (<1.2) Chloride (98-107) mmol/L Glucose (74-99) mg/dL Calcium (8.4-10.2) mg/dL AST (14-36) U/L Total Protein (6.3-8.2) g/dL Albumin (3.5-5.0) g/dL Stool Occult Blood Positive H (Negative) Crossmatch 10/17/17 Range/Units 05:41 WBC (3.8-10.6) k/uL RBC (3.80-5.40) m/uL Hgb (11.4-16.0) gm/dL Hct (34.0-46.0) % RDW (11.5-15.5) % Plt Count (150-450) k/uL Lymphocytes # (Manual) (1.0-4.8) k/uL Metamyelocytes # (Man) (0) k/uL Myelocytes # (Manual) (0) k/uL Blast Cells # (Man) (0) k/uL PT (9.0-12.0) sec INR (<1.2) Chloride 108 H (98-107) mmol/L Glucose 153 H (74-99) mg/dL Calcium 7.9 L (8.4-10.2) mg/dL AST (14-36) U/L Total Protein (6.3-8.2) g/dL Albumin (3.5-5.0) g/dL Stool Occult Blood (Negative) Crossmatch Chest x-ray: report reviewed Assessment and Plan (1) Thrombocytopenia Narrative/Plan: Due to patient's drop in hemoglobin she was transfused with a unit of platelets , anticoagulants and aspirin have been held. Have requested a weekly CBC, possibly we can work with ECF to do blood product transfusions in the outpatient setting. Status: Acute Priority: High Code(s): D69.6 - THROMBOCYTOPENIA, UNSPECIFIED SNOMED Code(s): 443534004 (2) Anemia Narrative/Plan: Patient has been transfused with 2 units PRBCs, appropriate increase in hemoglobin. Have requested weekly CBC to be faxed to Dr. Montanez, hopefully we can work with the ECF and do supportive transfusions in the outpatient setting Status: Acute Priority: High Code(s): D64.9 - ANEMIA, UNSPECIFIED SNOMED Code(s): 960452621 (3) CML (chronic myelocytic leukemia) Narrative/Plan: patient does need to be resumed on her bosulif, she does have to wait until she is at home to resume therapy. Supportive transfusions for now Status: Chronic Priority: Medium Code(s): C92.10 - CHRONIC MYELOID LEUK, BCR /ABL-POSITIVE, NOT ACHIEVE REMIS SNOMED Code(s): 54665956 (4) Leukocytosis Narrative/Plan: leukocytosis not as severe, likely previously noted significant elevation due to infection. Her WBC is more near its baseline, this is due to her CML. Patient has not been on treatment for over a month. Dr. Montanez wants patient back on her bosulif, she will only be able to resume once she has rehabilitated as ECF will not give pt oral bosulif. Encouraged patient to work very hard in rehab so she can get home and resume her medication. Status: Chronic Priority: High Code(s): D72.829 - ELEVATED WHITE BLOOD CELL COUNT, UNSPECIFIED SNOMED Code(s): 452718339
[2017-10-17] MEDS ORDERED: ASPIRIN 81 MG PO SCH (21:00)
== END 2017-10-17 14:16 ==
LOC: EC 16:59 → 6SEL 19:43 → INTOOBSV 19:43 → 6SEL 20:18
PROVIDERS: ADMIT Hospitalist; ATTEND Hospitalist
DX: D61.818 Other pancytopenia (principal); D64.9 Anemia, unspecified; C92.10 Chronic myeloid leukemia, BCR/ABL-positive, not having achieved remission; I48.91 Unspecified atrial fibrillation; I25.10 Atherosclerotic heart disease of native coronary artery without angina pectoris; Z95.1 Presence of aortocoronary bypass graft; Z95.5 Presence of coronary angioplasty implant and graft; E11.9 Type 2 diabetes mellitus without complications; Z79.899 Other long term (current) drug therapy; Z79.82 Long term (current) use of aspirin; Z79.01 Long term (current) use of anticoagulants; Z91.048 Other nonmedicinal substance allergy status; J44.9 Chronic obstructive pulmonary disease, unspecified; E78.5 Hyperlipidemia, unspecified; I10 Essential (primary) hypertension; I25.2 Old myocardial infarction; Z16.24 Resistance to multiple antibiotics; M54.5 Low back pain; M54.6 Pain in thoracic spine; G89.29 Other chronic pain; F41.9 Anxiety disorder, unspecified; F32.9 Major depressive disorder, single episode, unspecified; Z87.891 Personal history of nicotine dependence; Z80.0 Family history of malignant neoplasm of digestive organs; Z82.49 Family history of ischemic heart disease and other diseases of the circulatory system; K21.0 Gastro-esophageal reflux disease with esophagitis; D50.9 Iron deficiency anemia, unspecified; K92.1 Melena; T50.996A Underdosing of other drugs, medicaments and biological substances, initial encounter; Y63.8 Failure in dosage during other surgical and medical care; Z92.21 Personal history of antineoplastic chemotherapy; Z79.4 Long term (current) use of insulin
CPT/HCPCS: 99285; 96376; 96374; 96375; 36415; 86900; 86901; 80053; 80048; 82550; 82553; 83735; 84484; 85025 ×2; 85610; 85730; 86850; 86920; 82272; 71046; G0378 ×3; P9016 ×2; P9035; J1940; C9113 ×2

== ENCOUNTER 2017-10-19 21:05 | Inpatient (IN) | payer BC, MEDICARE ==
--- NOTE | 2017-10-19 21:26 | ED ---
General Adult HPI - General Chief complaint: Recheck/Abnormal Lab/Rx Stated complaint: Abn Labs Time Seen by Provider: 10/19/17 21:08 Source: patient, RN/MD, EMS, RN notes reviewed, old records reviewed Mode of arrival: EMS Limitations: no limitations - History of Present Illness Initial comments: This is a 65-year-old female here for evaluation. Patient coming in for this procedure. History of CLL patient coming in feeling weak. Fatigue. Diarrhea. No nausea vomiting. No fevers. Patient has had a complicated recent clinical course. Patient is alert and [place] seceded currently going through chemotherapy. Patient did recently start taking oral chemo again after seated partially cleared. Patient's diarrhea is usually started again and she is positive. Patient states she's had episodic fevers, feels sick nauseous and weak - Related Data Home Medications Medication Instructions Recorded Confirmed Cranberry Conc/C/Bacill Coag 1 tab PO DAILY@1700 10/12/15 10/16/17 [Cranberry Tablet] [place]-3 Fatty Acids/Fish Oil [Fish 1 cap PO DAILY@169910/12/15 10/16/17 Oil 1,000 mg Softgel] Oxybutynin Chloride [Ditropan XL] 15 mg PO DAILY 10/12/15 10/16/17 Citalopram Hydrobromide [CeleXA] 40 mg PO HS@2100 11/24/16 10/16/17 Atorvastatin [Lipitor] 20 mg PO DAILY 05/15/17 10/16/17 L.acidoph,Paracasei, B.lactis 1 cap PO DAILY@0 05/15/17 10/16/17 [Probiotic] Calcitriol 0.5 mcg PO MO@169909/06/17 10/16/17 Folic Acid 1 mg PO DAILY@169909/06/17 10/16/17 Thiamine [Vitamin B-1] 100 mg PO DAILY@169909/06/17 10/16/17 Cyanocobalamin (Vitamin B-12) 1,000 mcg PO DAILY@169909/19/17 10/16/17 [Vitamin B-12] Nitroglycerin Sl Tabs [Nitrostat] 0.4 mg SUBLINGUAL Q5M PRN 09/19/17 10/16/17 Bisacodyl [Dulcolax] 10 mg RECTAL Q24H PRN 10/16/17 10/16/17 Bosutinib [Bosulif] 300 mg PO DAILY@1500 10/16/17 10/16/17 Lactose-Reduced Food [Ensure Plus] 1 can PO TID 10/16/17 10/16/17 Magnesium Hydroxide [Milk of 2,400 mg PO DAILY PRN 10/16/17 10/16/17 Magnesia] Metoprolol Tartrate [Lopressor] 50 mg PO BID@0800,1700 10/16/17 10/16/17 Na Phos,M-B/Na Phos,Di-Ba [Fleet 133 ml RECTAL DAILY PRN 10/16/17 10/16/17 Adult] Potassium Chloride ER [K-Dur 20] 20 meq PO DAILY@1700 10/16/17 10/16/17 Zolpidem [Ambien] 5 mg PO HS PRN 10/16/17 10/16/17 Previous Rx's Medication Instructions Recorded Diltiazem Cd [Cardizem CD] 180 mg PO DAILY #30 cap.er.24h 02/28/17 Isosorbide Mononitrate ER [Imdur] 30 mg PO DAILY #30 tab.er.24h 09/07/17 Furosemide [Lasix] 40 mg PO DAILY #30 tablet 09/21/17 Omeprazole [PriLOSEC] 40 mg PO DAILY #14 capsule. 09/21/17 ALPRAZolam [Xanax] 0.25 mg PO BID PRN #10 tab 10/17/17 INSULIN LISPRO (HumaLOG) [humaLOG] 0 unit SQ ACHS #1 vial 10/17/17 Allergies Allergy/AdvReac Type Severity Reaction Status Date / Time adhesive tape AdvReac Unknown Red , Verified 10/19/17 21:21 Irritated skin Review of Systems ROS Statement: Those systems with pertinent positive or pertinent negative responses have been documented in the HPI. ROS Other: All systems not noted in ROS Statement are negative. Past Medical History Past Medical History: Atrial Fibrillation, Coronary Artery Disease (CAD), Cancer , Chest Pain / Angina, COPD, Diabetes Mellitus, GERD/Reflux, GI Bleed, Hyperlipidemia, Hypertension, Myocardial Infarction (non Q-wave) Additional Past Medical History / Comment(s): hiatal hernia, esophagitis, diverticulosis, hemorrhoids, leukemia- being treated with oral targeted therapy - Bosutinib, diagnosed around April 2016, PLEURAL EFFUSIONS-resolved on their own, iron deficiency anemia,past iron infusions and blood transfusions. MIs x 4 , chronic thoracic and lower back pain.uti/kidney infection. c-diff 09-26-17 and pt stated was' told not to eat any other dairy product other than yogurt for now". Last Myocardial Infarction Date:: 2008 History of Any Multi-Drug Resistant Organisms: C-DIFF Date of last positivie culture/infection: 09/26/17 MDRO Source:: stool Past Surgical History: Coronary Bypass/CABG, Heart Catheterization, Heart Catheterization With Stent, Hysterectomy, Orthopedic Surgery Additional Past Surgical History / Comment(s): 05/17/17 EGD/COLONOSCOPY WITH PREVIOUS COLONOSCOPY, CONNOR CATARACT SX -LENS IMPLANTS, OOPHORECTOMY D/T OVARY TUMOR, R ACHILLES TENDON REPAIR. CABG-TRIPLE BYPASS WITH REPAIR OF HOLE IN HEART AND HEART VALVE(2008). Past Anesthesia/Blood Transfusion Reactions: No Reported Reaction Date of Last Stent Placement:: 2007 Past Psychological History: Anxiety, Depression Smoking Status: Former smoker Past Alcohol Use History: Occasional Past Drug Use History: None Reported - Past Family History Mother Family Medical History: Cancer Additional Family Medical History / Comment(s): colon cancer Father Family Medical History: Congestive Heart Failure (CHF) Brother(s) Family Medical History: Congestive Heart Failure (CHF), Diabetes Mellitus General Exam Limitations: no limitations General appearance: alert, in no apparent distress Head exam: Present: atraumatic, normocephalic, normal inspection Eye exam: Present: normal appearance, PERRL, EOMI. Absent: scleral icterus, conjunctival injection, periorbital swelling ENT exam: Present: normal exam, mucous membranes moist Neck exam: Present: normal inspection. Absent: tenderness, meningismus, lymphadenopathy Respiratory exam: Present: normal lung sounds bilaterally. Absent: respiratory distress, wheezes, rales, rhonchi, stridor Cardiovascular Exam: Present: regular rate, normal rhythm, normal heart sounds. Absent: systolic murmur, diastolic murmur, rubs, gallop, clicks GI/Abdominal exam: Present: soft, normal bowel sounds. Absent: distended, tenderness, guarding, rebound, rigid Extremities exam: Present: normal inspection, full ROM, normal capillary refill. Absent: tenderness, pedal edema, joint swelling, calf tenderness Back exam: Present: normal inspection Neurological exam: Present: alert, oriented X3, CN II-XII intact Psychiatric exam: Present: normal affect, normal mood Skin exam: Present: warm, dry, intact, normal color. Absent: rash Course Vital Signs 10/19/17 10/19/17 10/19/17 21:17 21:21 22:33 Temperature 97.1 F L 98.1 F Pulse Rate 78 67 Respiratory 18 20 18 Rate Blood Pressure 149/66 148/62 O2 Sat by Pulse 95 98 Oximetry 10/19/17 23:11 Temperature Pulse Rate 85 Respiratory 18 Rate Blood Pressure 138/89 O2 Sat by Pulse 98 Oximetry - Reevaluation(s) Reevaluation #1: 10/19/17 23:22 Medical records and prior hospitalizations or review EKG Findings - EKG Comments: EKG Findings:: EKG shows the sinus rhythm rate of 70, TX 122, QRS 82, QTc 424 Medical Decision Making - Medical Decision Making 67 female here for evaluation of weakness, pancytopenia, C. diff, patient will be admitted for antibiotics, transfusion, hemodynamic monitoring - Lab Data Result diagrams: 10/19/17 21:12 10/19/17 21:12 Lab Results 10/19/17 10/19/17 10/19/17 Range/Units 21:12 21:12 21:12 WBC 28.6 H* (3.8-10.6) k/uL RBC 2.17 L (3.80-5.40) m/uL Hgb 6.7 L* (11.4-16.0) gm/dL Hct 20.1 L (34.0-46.0) % MCV 92.7 (80.0-100.0) fL MCH 31.0 (25.0-35.0) pg MCHC 33.4 (31.0-37.0) g/dL RDW 18.0 H (11.5-15.5) % Plt Count 17 L* (150-450) k/uL Neutrophils % (Manual) 9 % Band Neutrophils % 1 % Lymphocytes % (Manual) 86 % Monocytes % (Manual) 2 % Myelocytes % 1 % Blast Cells % 3 % Neutrophils # (Manual) 2.80 (1.3-7.7) k/uL Lymphocytes # (Manual) 24.60 H (1.0-4.8) k/uL Monocytes # (Manual) 0.57 (0-1.0) k/uL Myelocytes # (Manual) 0.29 H (0) k/uL Blast Cells # (Man) 0.86 H (0) k/uL Nucleated RBCs 0 (0-0) /100 WBC Manual Slide Review Performed Poikilocytosis Slight Anisocytosis Slight PT (9.0-12.0) sec INR (<1.2) APTT (22.0-30.0) sec Sodium 140 (137-145) mmol/L Potassium 4.2 (3.5-5.1) mmol/L Chloride 107 (98-107) mmol/L Carbon Dioxide 26 (22-30) mmol/L Anion Gap 7 mmol/L BUN 19 H (7-17) mg/dL Creatinine 0.90 (0.52-1.04) mg/dL Est GFR (MDRD) Af Amer >60 (>60 ml/min/1.73 sqM) Est GFR (MDRD) Non-Af >60 (>60 ml/min/1.73 sqM) Glucose 174 H (74-99) mg/dL Plasma Lactic Acid [place] (0.7-2.0) mmol/L Calcium 8.0 L (8.4-10.2) mg/dL Phosphorus 2.3 L (2.5-4.5) mg/dL Magnesium 2.1 (1.6-2.3) mg/dL Total Bilirubin 0.5 (0.2-1.3) mg/dL AST 48 H (14-36) U/L ALT 39 (9-52) U/L Alkaline Phosphatase 135 H (38-126) U/L Total Creatine Kinase 46 (30-135) U/L CK-MB (CK-2) 0.4 (0.0-2.4) ng/mL CK-MB (CK-2) Rel Index 0.9 Troponin I 0.024 (0.000-0.034) ng/mL Total Protein 4.9 L (6.3-8.2) g/dL Albumin 2.8 L (3.5-5.0) g/dL 10/19/17 10/19/17 Range/Units 21:12 21:58 WBC (3.8-10.6) k/uL RBC (3.80-5.40) m/uL Hgb (11.4-16.0) gm/dL Hct (34.0-46.0) % MCV (80.0-100.0) fL MCH (25.0-35.0) pg MCHC (31.0-37.0) g/dL RDW (11.5-15.5) % Plt Count (150-450) k/uL Neutrophils % (Manual) % Band Neutrophils % % Lymphocytes % (Manual) % Monocytes % (Manual) % Myelocytes % % Blast Cells % % Neutrophils # (Manual) (1.3-7.7) k/uL Lymphocytes # (Manual) (1.0-4.8) k/uL Monocytes # (Manual) (0-1.0) k/uL Myelocytes # (Manual) (0) k/uL Blast Cells # (Man) (0) k/uL Nucleated RBCs (0-0) /100 WBC Manual Slide Review Poikilocytosis Anisocytosis PT 10.8 (9.0-12.0) sec INR 1.1 (<1.2) APTT 19.9 L (22.0-30.0) sec Sodium (137-145) mmol/L Potassium (3.5-5.1) mmol/L Chloride (98-107) mmol/L Carbon Dioxide (22-30) mmol/L Anion Gap mmol/L BUN (7-17) mg/dL Creatinine (0.52-1.04) mg/dL Est GFR (MDRD) Af Amer (>60 ml/min/1.73 sqM) Est GFR (MDRD) Non-Af (>60 ml/min/1.73 sqM) Glucose (74-99) mg/dL Plasma Lactic Acid [place] 1.5 (0.7-2.0) mmol/L Calcium (8.4-10.2) mg/dL Phosphorus (2.5-4.5) mg/dL Magnesium (1.6-2.3) mg/dL Total Bilirubin (0.2-1.3) mg/dL AST (14-36) U/L ALT (9-52) U/L Alkaline Phosphatase (38-126) U/L Total Creatine Kinase (30-135) U/L CK-MB (CK-2) (0.0-2.4) ng/mL CK-MB (CK-2) Rel Index Troponin I (0.000-0.034) ng/mL Total Protein (6.3-8.2) g/dL Albumin (3.5-5.0) g/dL Disposition Clinical Impression: CML (chronic myelocytic leukemia), Anemia, Bicytopenia, Leukocytosis, C. difficile colitis Disposition: ADMITTED IP TO THIS HOSP Condition: Fair Referrals: Geovanni Dubose MD [Primary Care Provider] - 1-2 days
[2017-10-19] MEDS ORDERED: SODIUM CHLORIDE 0.9% 1,000 ML IV STA (21:27)
[2017-10-19] MEDS ORDERED: ONDANSETRON 4 MG/2 ML VIAL IVP STA (21:27)
[2017-10-19] MEDS ORDERED: SODIUM CHLORIDE 0.9% 500 ML IV STA (21:27)
[2017-10-19 21:41] LABS: Anisocytosis Slight; HCT 20.1 % (34.0-46.0); MCHC 33.4 g/dL (31.0-37.0); MCV 92.7 fL (80.0-100.0); Mean Platelet Volume 9.7; Poikilocytosis Slight; RBC 2.17 m/uL (3.80-5.40)
[2017-10-19 21:47] LABS: WBC 28.6 k/uL (3.8-10.6)
[2017-10-19 21:48] LABS: HGB 6.7 gm/dL (11.4-16.0)
[2017-10-19 21:50] LABS: ALT 39 U/L (9-52); AST 48 U/L (14-36); Albumin 2.8 g/dL (3.5-5.0); Alkaline Phosphatase 135 U/L (38-126); Anion Gap 7 mmol/L; Blood Urea Nitrogen 19 mg/dL (7-17); Carbon Dioxide 26 mmol/L (22-30); Chloride 107 mmol/L (98-107); Glucose 174 mg/dL (74-99); Magnesium 2.1 mg/dL (1.6-2.3); Phosphorus 2.3 mg/dL (2.5-4.5); Potassium 4.2 mmol/L (3.5-5.1); Sodium 140 mmol/L (137-145); Total Bilirubin 0.5 mg/dL (0.2-1.3); Total Protein 4.9 g/dL (6.3-8.2)
[2017-10-19 21:51] LABS: INR 1.1 (<1.2); Prothrombin Time 10.8 sec (9.0-12.0)
[2017-10-19 22:05] LABS: Partial Thromboplastin Time 19.9 sec (22.0-30.0)
[2017-10-19 22:06] LABS: Creatine Kinase MB 0.4 ng/mL (0.0-2.4); Troponin I 0.024 ng/mL (0.000-0.034)
[2017-10-19 22:23] LABS: Band Neutrophils % 1 %; Blast Cells # (M) 0.86 k/uL (0); Monocytes # (M) 0.57 k/uL (0-1.0); Myelocytes # (M) 0.29 k/uL (0); Myelocytes % 1 %; Neutrophils % (M) 9 %; Nucleated Red Blood Cells 0 /100 WBC (0-0); Platelet Count 17 k/uL (150-450); Total Cells Counted 200
[2017-10-19] MEDS ORDERED: SODIUM CHLORIDE 0.9% 1,000 ML IV ONE (23:19)
--- NOTE | 2017-10-20 03:52 | ED ---
Medical Decision Making - Lab Data Result diagrams: 10/19/17 21:12 10/19/17 21:12 Lab Results 10/19/17 10/19/17 10/19/17 Range/Units 21:12 21:12 21:12 WBC 28.6 H* (3.8-10.6) k/uL RBC 2.17 L (3.80-5.40) m/uL Hgb 6.7 L* (11.4-16.0) gm/dL Hct 20.1 L (34.0-46.0) % MCV 92.7 (80.0-100.0) fL MCH 31.0 (25.0-35.0) pg MCHC 33.4 (31.0-37.0) g/dL RDW 18.0 H (11.5-15.5) % Plt Count 17 L* (150-450) k/uL Neutrophils % (Manual) 9 % Band Neutrophils % 1 % Lymphocytes % (Manual) 86 % Monocytes % (Manual) 2 % Myelocytes % 1 % Blast Cells % 3 % Neutrophils # (Manual) 2.80 (1.3-7.7) k/uL Lymphocytes # (Manual) 24.60 H (1.0-4.8) k/uL Monocytes # (Manual) 0.57 (0-1.0) k/uL Myelocytes # (Manual) 0.29 H (0) k/uL Blast Cells # (Man) 0.86 H (0) k/uL Nucleated RBCs 0 (0-0) /100 WBC Manual Slide Review Performed Poikilocytosis Slight Anisocytosis Slight PT (9.0-12.0) sec INR (<1.2) APTT (22.0-30.0) sec Sodium 140 (137-145) mmol/L Potassium 4.2 (3.5-5.1) mmol/L Chloride 107 (98-107) mmol/L Carbon Dioxide 26 (22-30) mmol/L Anion Gap 7 mmol/L BUN 19 H (7-17) mg/dL Creatinine 0.90 (0.52-1.04) mg/dL Est GFR (MDRD) Af Amer >60 (>60 ml/min/1.73 sqM) Est GFR (MDRD) Non-Af >60 (>60 ml/min/1.73 sqM) Glucose 174 H (74-99) mg/dL Plasma Lactic Acid Franklyn (0.7-2.0) mmol/L Calcium 8.0 L (8.4-10.2) mg/dL Phosphorus 2.3 L (2.5-4.5) mg/dL Magnesium 2.1 (1.6-2.3) mg/dL Total Bilirubin 0.5 (0.2-1.3) mg/dL AST 48 H (14-36) U/L ALT 39 (9-52) U/L Alkaline Phosphatase 135 H (38-126) U/L Total Creatine Kinase 46 (30-135) U/L CK-MB (CK-2) 0.4 (0.0-2.4) ng/mL CK-MB (CK-2) Rel Index 0.9 Troponin I 0.024 (0.000-0.034) ng/mL Total Protein 4.9 L (6.3-8.2) g/dL Albumin 2.8 L (3.5-5.0) g/dL Blood Type Blood Type Recheck Antibody Screen Crossmatch Spec Expiration Date 10/19/17 10/19/17 10/19/17 Range/Units 21:12 21:15 21:58 WBC (3.8-10.6) k/uL RBC (3.80-5.40) m/uL Hgb (11.4-16.0) gm/dL Hct (34.0-46.0) % MCV (80.0-100.0) fL MCH (25.0-35.0) pg MCHC (31.0-37.0) g/dL RDW (11.5-15.5) % Plt Count (150-450) k/uL Neutrophils % (Manual) % Band Neutrophils % % Lymphocytes % (Manual) % Monocytes % (Manual) % Myelocytes % % Blast Cells % % Neutrophils # (Manual) (1.3-7.7) k/uL Lymphocytes # (Manual) (1.0-4.8) k/uL Monocytes # (Manual) (0-1.0) k/uL Myelocytes # (Manual) (0) k/uL Blast Cells # (Man) (0) k/uL Nucleated RBCs (0-0) /100 WBC Manual Slide Review Poikilocytosis Anisocytosis PT 10.8 (9.0-12.0) sec INR 1.1 (<1.2) APTT 19.9 L (22.0-30.0) sec Sodium (137-145) mmol/L Potassium (3.5-5.1) mmol/L Chloride (98-107) mmol/L Carbon Dioxide (22-30) mmol/L Anion Gap mmol/L BUN (7-17) mg/dL Creatinine (0.52-1.04) mg/dL Est GFR (MDRD) Af Amer (>60 ml/min/1.73 sqM) Est GFR (MDRD) Non-Af (>60 ml/min/1.73 sqM) Glucose (74-99) mg/dL Plasma Lactic Acid Franklyn 1.5 (0.7-2.0) mmol/L Calcium (8.4-10.2) mg/dL Phosphorus (2.5-4.5) mg/dL Magnesium (1.6-2.3) mg/dL Total Bilirubin (0.2-1.3) mg/dL AST (14-36) U/L ALT (9-52) U/L Alkaline Phosphatase (38-126) U/L Total Creatine Kinase (30-135) U/L CK-MB (CK-2) (0.0-2.4) ng/mL CK-MB (CK-2) Rel Index Troponin I (0.000-0.034) ng/mL Total Protein (6.3-8.2) g/dL Albumin (3.5-5.0) g/dL Blood Type O Positive Blood Type Recheck No Antibody Screen NEGATIVE Crossmatch See Detail Spec Expiration Date 10/22/20171 Disposition Clinical Impression: CML (chronic myelocytic leukemia), Anemia, Bicytopenia, Leukocytosis, C. difficile colitis, GI bleed Disposition: ADMITTED IP TO THIS HOSP Condition: Fair
[2017-10-20] MEDS ORDERED: BISACODYL 10 MG SUPP RECTAL PRN (08:48)
[2017-10-20] MEDS ORDERED: NITROGLYCERIN SL TABS 0.4 MG TAB SUBLINGUAL PRN (08:48)
[2017-10-20] MEDS ORDERED: ACETAMINOPHEN TAB 325 MG TAB PO PRN (08:56)
[2017-10-20] MEDS ORDERED: MELATONIN 3 MG TABLET PO PRN (08:56)
[2017-10-20] MEDS ORDERED: ONDANSETRON 4 MG/2 ML VIAL IVP PRN (08:56)
[2017-10-20] MEDS ORDERED: NALOXONE 0.4 MG/ML 1 ML VIAL IV PRN (08:56)
[2017-10-20] MEDS ORDERED: NON-FORMULARY DRUG (Lactose-Reduced Food [Ensure Plus] 1 CAN) PO SCH (09:00)
[2017-10-20] MEDS: ATORVASTATIN 20 MG TAB PO SCH (09:23)
[2017-10-20] MEDS: FUROSEMIDE 40 MG TAB PO SCH (09:23)
[2017-10-20] MEDS: PANTOPRAZOLE 40 MG TABLET PO SCH (09:23)
[2017-10-20] MEDS: DILTIAZEM CD 180 MG CAP.ER.24H PO SCH (09:23)
[2017-10-20] MEDS: OXYBUTYNIN 15 MG TAB.ER.24 PO SCH (09:23)
[2017-10-20] MEDS: ISOSORBIDE MONONITRATE ER 30 MG TAB.ER.24H PO SCH (09:23)
[2017-10-20 11:00] LABS: Glucose,Whole Blood 183 mg/dL (75-99)
[2017-10-20] MEDS: INSULIN ASPART 100 UNIT/ML 1 ML 10 ML VIAL SQ SCH ×3 (13:08→21:50)
[2017-10-20] MEDS ORDERED: BOSUTINIB PO SCH (15:00)
[2017-10-20 16:12] VITALS: BMI 27.8
[2017-10-20] MEDS: THIAMINE 100 MG TAB PO SCH (16:29)
[2017-10-20] MEDS: FOLIC ACID 1 MG TAB PO SCH (16:29)
[2017-10-20] MEDS: CYANOCOBALAMIN 500 MCG TAB PO SCH (16:29)
[2017-10-20] MEDS: POTASSIUM CHLORIDE ER 20 MEQ TAB.ER PO SCH (16:30)
[2017-10-20 16:33] LABS: Bacteria,Urine Rare /hpf; Hyaline Casts,Urine 7 /lpf (0-2); Mucus,Urine Rare /hpf; RBC,Urine 11 /hpf (0-5); Squamous Epithelial Cell,Urine <1 /hpf (0-4); WBC,Urine <1 /hpf (0-5)
[2017-10-20] MEDS: LACTATED RINGERS 1,000 ML IV SCH ×2 (16:41→20:17)
[2017-10-20 16:45] LABS: Appearance,Urine Clear (Clear); Bilirubin,Urine Negative (Negative); Blood,Urine Small (Negative); Color,Urine Light Yellow; Glucose,Urine (UA) Negative (Negative); Ketones,Urine Negative (Negative); Leukocyte Esterase,Urine Negative (Negative); Nitrite,Urine Negative (Negative); Protein,Urine Negative (Negative); Specific Gravity,Urine 1.008 (1.001-1.035); Urobilinogen,Urine <2.0 mg/dL (<2.0)
[2017-10-20 17:09] LABS: Anisocytosis Slight; HCT 26.6 % (34.0-46.0); HGB 8.8 gm/dL (11.4-16.0); MCH 29.6 pg (25.0-35.0); MCV 89.7 fL (80.0-100.0); Mean Platelet Volume 8.2; Poikilocytosis Slight; RBC 2.97 m/uL (3.80-5.40); RDW 18.5 % (11.5-15.5)
[2017-10-20 17:11] LABS: Platelet Count 8 k/uL (150-450)
[2017-10-20] MEDS: ALPRAZolam 0.25 MG TAB PO PRN (17:16)
[2017-10-20 17:29] LABS: Glucose,Whole Blood 177 mg/dL (75-99)
[2017-10-20 17:34] LABS: Band Neutrophils % 8 %; Blast Cells # (M) 0.18 k/uL (0); Lymphocytes # (M) 14.51 k/uL (1.0-4.8); Metamyelocytes # (M) 0.18 k/uL (0); Metamyelocytes % 1 %; Monocytes # (M) 0.18 k/uL (0-1.0); Neutrophils % (M) 8 %; Nucleated Red Blood Cells 1 /100 WBC (0-0); Total Cells Counted 200; WBC 17.7 k/uL (3.8-10.6)
[2017-10-20 17:35] LABS: Reactive Lymphocytes Present
[2017-10-20] MEDS: LACTOBACILLUS ACIDOPH & BULGAR 1 EACH PACKET PO SCH (18:10)
[2017-10-20] MEDS: METOPROLOL TARTRATE 50 MG TAB PO SCH (18:10)
[2017-10-20] MEDS: CHERRY FLAVOR 60 ML BOTTLE PO PRN (18:55)
[2017-10-20] MEDS: VANCOMYCIN ORAL SOLUTION 250 MG/5 ML BOTTLE PO SCH ×2 (18:55→23:19)
[2017-10-20 20:07] LABS: Hemoglobin A1C 6.8 % (4.0-6.0)
[2017-10-20] MEDS: CITALOPRAM HYDROBROMIDE 20 MG TAB PO SCH (20:16)
[2017-10-20 21:36] LABS: Glucose,Whole Blood 179 mg/dL (75-99)
[2017-10-20] MEDS ORDERED: FUROSEMIDE 10 MG/ML 2 ML VIAL IV ONE (21:39)
[2017-10-20] MEDS: ZOLPIDEM 5 MG TAB PO PRN (21:50)
--- NOTE | 2017-10-20 22:06 | XR ---
EXAMINATION TYPE: XR chest 1V portable DATE OF EXAM: 10/20/2017 CLINICAL HISTORY: Difficulty breathing progress study. History of COPD. TECHNIQUE: Single AP portable upright view of the chest is obtained. COMPARISON: Chest x-ray from 4 days earlier. FINDINGS: Sternal wires and mediastinal clips are redemonstrated. There is persistent cardiomegaly. There is felt interval improvement in central vascular congestion. No large pleural effusion or pneu mothorax is seen. Osseous structures are intact. IMPRESSION: Still suspect CHF exacerbation. There is cardiomegaly with central vascular congestion th ough the degree of congestion is felt to be improving versus prior.
[2017-10-21] MEDS: VANCOMYCIN ORAL SOLUTION 250 MG/5 ML BOTTLE PO SCH ×4 (06:25→23:38)
[2017-10-21] MEDS: CHERRY FLAVOR 60 ML BOTTLE PO PRN ×3 (06:25→23:38)
[2017-10-21 07:35] LABS: Glucose,Whole Blood 206 mg/dL (75-99)
[2017-10-21] MEDS: PANTOPRAZOLE 40 MG TABLET PO SCH (08:59)
[2017-10-21] MEDS: DILTIAZEM CD 180 MG CAP.ER.24H PO SCH (08:59)
[2017-10-21] MEDS: OXYBUTYNIN 15 MG TAB.ER.24 PO SCH (08:59)
[2017-10-21] MEDS: ATORVASTATIN 20 MG TAB PO SCH (08:59)
[2017-10-21] MEDS: ISOSORBIDE MONONITRATE ER 30 MG TAB.ER.24H PO SCH (08:59)
[2017-10-21] MEDS: METOPROLOL TARTRATE 50 MG TAB PO SCH ×2 (08:59→18:04)
[2017-10-21] MEDS: FUROSEMIDE 40 MG TAB PO SCH (08:59)
[2017-10-21 09:00] LABS: Anisocytosis Slight; HCT 25.2 % (34.0-46.0); HGB 7.9 gm/dL (11.4-16.0); Hypochromasia Slight; MCH 29.6 pg (25.0-35.0); MCHC 31.5 g/dL (31.0-37.0); MCV 93.9 fL (80.0-100.0); Macrocytosis Slight; Mean Platelet Volume 9.4; Poikilocytosis Slight; RBC 2.68 m/uL (3.80-5.40); RDW 18.9 % (11.5-15.5); WBC 13.2 k/uL (3.8-10.6)
[2017-10-21] MEDS: INSULIN ASPART 100 UNIT/ML 1 ML 10 ML VIAL SQ SCH ×4 (09:00→21:04)
[2017-10-21] MEDS: LACTATED RINGERS 1,000 ML IV SCH (09:04)
[2017-10-21 09:26] LABS: Anion Gap 10 mmol/L; Blood Urea Nitrogen 19 mg/dL (7-17); Carbon Dioxide 22 mmol/L (22-30); Chloride 111 mmol/L (98-107); Glucose 176 mg/dL (74-99); Sodium 143 mmol/L (137-145)
[2017-10-21 09:37] LABS: Platelet Count 37 k/uL (150-450)
[2017-10-21 09:53] LABS: Calcium 7.6 mg/dL (8.4-10.2); Potassium 3.6 mmol/L (3.5-5.1)
[2017-10-21 11:03] LABS: Band Neutrophils % 2 %; Blast Cells # (M) 7.79 k/uL (0); Lymphocytes # (M) 2.64 k/uL (1.0-4.8); Metamyelocytes # (M) 0.13 k/uL (0); Metamyelocytes % 1 %; Monocytes # (M) 0.79 k/uL (0-1.0); Myelocytes # (M) 0.13 k/uL (0); Myelocytes % 1 %; Neutrophils % (M) 13 %; Nucleated Red Blood Cells 0 /100 WBC (0-0); Total Cells Counted 200
[2017-10-21 11:40] LABS: Glucose,Whole Blood 201 mg/dL (75-99)
--- NOTE | 2017-10-21 11:55 | HP ---
HISTORY AND PHYSICAL DATE OF SERVICE: 10/20/2017. CHIEF COMPLAINT: Diarrhea, weak and fatigued. HISTORY OF PRESENT ILLNESS: This 67-year-old woman with a past medical history of multiple medical problems including history of atrial fibrillation with CAD, COPD, diabetes, GERD, CVA, history of chronic myeloid leukemia, CAD with CABG with stent, being followed by Dr. Pierre in the outpatient setting, recently admitted with anemia which is secondary to leukemia and chemotherapy. The patient was given transfusion. Patient was sent to for continued rehab. At the rehab the patient complained of generalized weakness and tiredness. Patient had some diarrhea. The patient also had a previous GI bleed. The patient was taken to [facility] and was admitted for further evaluation and treatment. The patient was found to have a hemoglobin of 6.8, white count is 28.6, and after transfusion the hemoglobin improved to 8.8. The platelets actually went up from 17 to 18. No history of fevers or rigors. No history of headache, loss of conscious or seizures. C-diff was found to be positive. PAST MEDICAL HISTORY: History of atrial ablation, CAD, COPD, history of diabetes type 2, history of GI bleed, hypertension, hyperlipidemia, myocardial infarction, history of C diff, history of coronary artery disease with CABG and stent, history of anxiety. MEDICATIONS: Prior to admission, home medications are: 1. Ambien 5 mg p.o. at bedtime p.r.n. 2. Vitamin B 100 mg daily q.i.d. 3. K-Dur 20 mEq p.r.n. 4. Topamax 50 mg. 5. Zofran 4 mg every 8 h p.r.n. 6. Prilosec 22 40 mg. 7. Jewett-3 fatty acid 1 daily. 8. Nitrostat 0.4 mg p.r.n. 9. Fleets enema daily p.r.n. 10.Lopressor 50 mg p.o. b.i.d. 11.Milk of magnesia 2.4 g daily p.r.n. 12.Ensure 1 can p.o. t.i.d. 13.Probiotic 1 daily. 14.Imdur 30 mg daily. 15.NovoLog with meals and at bedtime. 16.Lasix 40 mg. 17.Folic acid 1 mg p.o. 18.Cardizem CD 180 mg daily. 19.Vitamin B12, 1000 mcg daily. 20.Cranberry 1 tab daily. 21.Celexa 40 mg daily. 22.Cholecalciferol 0.5 p.o. Saturday. 23.Bosutinib 300 mg. 24.Dulcolax 10 mg daily. 25.Lipitor 20 mg b.i.d. 26.Ecotrin 81 mg. 27.Eliquis 2.5 mg p.o. b.i.d. 28.Xanax 0.5 b.i.d. p.r.n. ALLERGIES: ADHESIVE TAPES. FAMILY HISTORY: History of colon cancer in the family. SOCIAL HISTORY: History of smoking. No history of current smoking alcohol. REVIEW OF SYSTEMS: ENT: No diminished hearing or vision. CARDIOVASCULAR: As mentioned earlier. RESPIRATORY: As mentioned earlier. : No dysuria. NERVOUS SYSTEM: No numbness or weakness. ALLERGY: No asthma. MUSCULOSKELETAL: As mentioned earlier. RHEUMATOLOGY/ONCOLOGY: As mentioned. ENDOCRINE: As mentioned. PSYCHIATRY: As mentioned. PHYSICAL EXAMINATION: Alert, oriented x3. Pulse 74, blood pressure 129/60, respirations 16, temperature 97.9, pulse ox 96%. HEENT: Conjunctivae pale. Oral mucosa is dry. NECK: No jugular venous distention. No lymph node enlargement. CARDIOVASCULAR: S1 and S2 muffled. RESPIRATORY: Breath sounds diminished at the bases. Scattered rhonchi and crackles. ABDOMEN: Soft. Mild diffuse tenderness present. No guarding. No mass palpable. EXTREMITIES: Legs no edema, no swelling. NERVOUS SYSTEM: Higher functions as mentioned earlier, moves all 4 limbs, no focal motor or sensory deficits. LYMPHATICS: No lymph nodes palpable in the neck or axillae. SKIN: No ulcers or rashes. LABS: WBC 17.7, hemoglobin is 8.8, and platelets 8, lymphocytes of 14.1. Other labs noted. C difficile positive. ASSESSMENT: 1. Anemia, possibly, rule out acute blood loss anemia. 2. History of recent pancytopenia as well as transfusion. 3. Severe thrombocytopenia. 4. Increased WBC. 5. Acute C difficile colitis and diarrhea. 6. Dehydration, weakness. 7. Generalized gait dysfunction. 8. Atrial fibrillation. 9. History of chronic obstructive pulmonary disease. 10.Diabetes mellitus. 11.History gastroesophageal reflux disease. 12.History of GI bleed. 13.Hypertension. 14.Hyperlipidemia. 15.History of myocardial infarction. 16.History of coronary artery disease, coronary artery bypass grafting with stent. 17.History of pleural effusions. 18.History of anxiety and depression. RECOMMENDATIONS AND DISCUSSION: In this 67-year-old woman who presented with multiple medical problems, we will monitor the patient closely, continue the current management and symptomatic treatment. At this time I recommend cautiously hydrate the patient. Otherwise repeat labs. I would also recommend vancomycin and consult Dr. Montanez for platelet transfusion. Otherwise, PT/OT evaluation. Dr. Sanders for any possibility of any GI bleed. Resume the home medications. Prognosis guarded because of multiple complex medical issues. Further recommendations to follow. Copies for Dr. Pierre's this of this now from. MMNICOLE / NOREENN: [id number] / MTDD
--- NOTE | 2017-10-21 12:39 | P.CONS ---
History of Present Illness - Reason for Consult Consult date: 10/20/17 GI bleed/blood in stools - History of Present Illness The patient is a 67-year-old female who presented to the emergency room with the complaints of feeling weak, fatigued and diarrhea. The patient tested positive for C. difficile toxin and is noted to have a white cell count of 13.2 , hemoglobin 7.9 and low platelets Concept 37. The patient has history history of CML previously maintained on bosulif diagnosed early 2015 and had multiple treatments. The patient is well known to our service. She was recently hospitalized and evaluated. Prior endoscopies include: EGD colonoscopy evaluation of GI bleed May [address] Florez with findings small hiatal hernia LA grade B reflux esophagitis and scattered diverticulosis no evidence of colitis or colorectal neoplasia. At that time GI bleed was suspected to be diverticular in nature. Small bowel capsule endoscopy early September 2017 with no evidence of active bleeding. Review of Systems 12 point review of systems is, otherwise, not revealing. Past Medical History Past Medical History: Atrial Fibrillation, Coronary Artery Disease (CAD), Cancer , Chest Pain / Angina, COPD, Diabetes Mellitus, GERD/Reflux, GI Bleed, Hyperlipidemia, Hypertension, Myocardial Infarction (non Q-wave) Additional Past Medical History / Comment(s): hiatal hernia, esophagitis, diverticulosis, hemorrhoids, leukemia- being treated with oral targeted therapy - Bosutinib, diagnosed around April 2016, PLEURAL EFFUSIONS-resolved on their own, iron deficiency anemia,past iron infusions and blood transfusions. MIs x 4 , chronic thoracic and lower back pain.uti/kidney infection. c-diff 09-26-17 and pt stated was' told not to eat any other dairy product other than yogurt for now". Last Myocardial Infarction Date:: 2008 History of Any Multi-Drug Resistant Organisms: C-DIFF Year Discovered:: 09/26/17 MDRO Source:: stool Past Surgical History: Coronary Bypass/CABG, Heart Catheterization, Heart Catheterization With Stent, Hysterectomy, Orthopedic Surgery Additional Past Surgical History / Comment(s): 05/17/17 EGD/COLONOSCOPY WITH PREVIOUS COLONOSCOPY, CONNOR CATARACT SX -LENS IMPLANTS, OOPHORECTOMY D/T OVARY TUMOR, R ACHILLES TENDON REPAIR. CABG-TRIPLE BYPASS WITH REPAIR OF HOLE IN HEART AND HEART VALVE(2008). Past Anesthesia/Blood Transfusion Reactions: No Reported Reaction Date of Last Stent Placement:: 2007 Past Psychological History: Anxiety, Depression Smoking Status: Former smoker Past Alcohol Use History: Occasional Past Drug Use History: None Reported - Past Family History Mother Family Medical History: Cancer Additional Family Medical History / Comment(s): colon cancer Father Family Medical History: Congestive Heart Failure (CHF) Brother(s) Family Medical History: Congestive Heart Failure (CHF), Diabetes Mellitus Medications and Allergies Home Medications Medication Instructions Recorded Confirmed Type Cranberry Conc/C/Bacill Coag 1 tab PO DAILY@1700 10/12/15 10/20/17 History [Cranberry Tablet] Boston-3 Fatty Acids/Fish Oil [Fish 1 cap PO DAILY@1700 10/12/15 10/20/17 History Oil 1,000 mg Softgel] Oxybutynin Chloride [Ditropan XL] 15 mg PO DAILY 10/12/15 10/20/17 History Citalopram Hydrobromide [CeleXA] 40 mg PO HS@2100 11/24/16 10/20/17 History Diltiazem Cd [Cardizem CD] 180 mg PO DAILY #30 cap.er.24h 02/28/17 10/20/17 Rx Atorvastatin [Lipitor] 20 mg PO DAILY 05/15/17 10/20/17 History L.acidoph,Paracasei, B.lactis 1 cap PO DAILY@1700 05/15/17 10/20/17 History [Probiotic] Calcitriol 0.5 mcg PO MO@1700 09/06/17 10/20/17 History Folic Acid 1 mg PO DAILY@1700 09/06/17 10/20/17 History Thiamine [Vitamin B-1] 100 mg PO DAILY@1700 09/06/17 10/20/17 History Isosorbide Mononitrate ER [Imdur] 30 mg PO DAILY #30 tab.er.24h 09/07/17 Rx Cyanocobalamin (Vitamin B-12) 1,000 mcg PO DAILY@1700 09/19/17 10/20/17 History [Vitamin B-12] Nitroglycerin Sl Tabs [Nitrostat] 0.4 mg SUBLINGUAL Q5M PRN 09/19/17 10/20/17 History Furosemide [Lasix] 40 mg PO DAILY #30 tablet 09/21/17 10/20/17 Rx Omeprazole [PriLOSEC] 40 mg PO DAILY #14 capsule. 09/21/17 10/20/17 Rx Bisacodyl [Dulcolax] 10 mg RECTAL Q24H PRN 10/16/17 10/20/17 History Bosutinib [Bosulif] 300 mg PO DAILY@1500 10/16/17 10/20/17 History Lactose-Reduced Food [Ensure Plus] 1 can PO TID 10/16/17 10/20/17 History Magnesium Hydroxide [Milk of 2,400 mg PO DAILY PRN 10/16/17 10/20/17 History Magnesia] Metoprolol Tartrate [Lopressor] 50 mg PO BID@0800,1700 10/16/17 10/20/17 History Na Phos,M-B/Na Phos,Di-Ba [Fleet 133 ml RECTAL DAILY PRN 10/16/17 10/20/17 History Adult] Potassium Chloride ER [K-Dur 20] 20 meq PO DAILY@1700 10/16/17 10/20/17 History Zolpidem [Ambien] 5 mg PO HS PRN 10/16/17 10/20/17 History ALPRAZolam [Xanax] 0.25 mg PO BID PRN #10 tab 10/17/17 10/20/17 Rx Apixaban [Eliquis] 5 mg PO BID 10/20/17 10/20/17 History Aspirin EC [Ecotrin Low Dose] 81 mg PO DAILY@2100 10/20/17 10/20/17 History Insulin Aspart [NovoLOG See Protocol SQ ACHS 10/20/17 10/20/17 History (formulary)] Ondansetron [Zofran] 4 mg PO Q8H PRN 10/20/17 10/20/17 History Allergies Allergy/AdvReac Type Severity Reaction Status Date / Time adhesive tape AdvReac Unknown Red , Verified 10/20/17 07:17 Irritated skin Physical Exam Vitals: Vital Signs Temp Pulse Resp BP Pulse Ox 10/20/17 08:00 78 16 159/71 99 10/20/17 07:12 77 18 134/76 98 10/20/17 05:26 98.1 F 69 18 130/60 10/20/17 04:55 98.1 F 79 16 132/63 97 10/20/17 04:31 98.2 F 78 16 140/64 10/20/17 04:03 97.9 F 76 17 149/66 98 10/20/17 04:01 97.9 F 77 16 136/64 99 10/20/17 03:51 97.8 F 68 17 136/69 100 10/20/17 03:39 97.7 F 83 17 136/60 99 10/20/17 03:35 70 17 156/65 100 10/20/17 03:21 98.8 F 79 18 140/59 100 10/20/17 03:06 68 17 122/59 99 10/20/17 02:56 80 18 135/62 99 10/20/17 02:16 98.5 F 77 16 127/58 99 10/20/17 02:07 79 18 129/57 98 10/20/17 01:55 78 18 117/57 98 10/20/17 01:46 97.8 F 80 17 121/58 99 10/20/17 01:36 98.5 F 79 18 122/59 99 10/20/17 01:07 78 18 130/66 99 10/19/17 23:11 85 18 138/89 98 10/19/17 22:33 98.1 F 67 18 148/62 98 10/19/17 21:21 20 10/19/17 21:17 97.1 F L 78 18 149/66 95 Intake and Output 10/19/17 10/20/17 10/20/17 22:59 06:59 14:59 Intake Total 620 Balance 620 Intake: Blood Product 620 As-1 Unit 310 [id number] As-1 Unit 310 [id number] Other: Weight 68.946 kg General: Appeared stated age, very pleasant, in no acute distress Head and neck: Normocephalic and atraumatic. Conjunctivae pink and sclerae not icteric. Mucous membranes moist and pink. No masses in the neck or tracheal shifts Lungs: Clear to auscultation with no dullness to percussion Heart: Regular, no abnormal sounds, murmurs, gallops or friction rubs Abdomen: Soft, no masses, organomegalies or tenderness, bowel sounds present Extremities: No clubbing, cyanosis or edema Neurologic: Alert and oriented 3. Cranial nerves grossly intact. No gross sensory or motor abnormalities Results CBC & Chem 7: 10/21/17 08:01 10/21/17 08:01 Labs: Abnormal Lab Results - Last 24 Hours (Table) 10/19/17 10/19/17 10/19/17 Range/Units 21:12 21:12 21:12 WBC 28.6 H* (3.8-10.6) k/uL RBC 2.17 L (3.80-5.40) m/uL Hgb 6.7 L* (11.4-16.0) gm/dL Hct 20.1 L (34.0-46.0) % RDW 18.0 H (11.5-15.5) % Plt Count 17 L* (150-450) k/uL Lymphocytes # (Manual) 24.60 H (1.0-4.8) k/uL Myelocytes # (Manual) 0.29 H (0) k/uL Blast Cells # (Man) 0.86 H (0) k/uL APTT 19.9 L (22.0-30.0) sec BUN 19 H (7-17) mg/dL Glucose 174 H (74-99) mg/dL POC Glucose (mg/dL) (75-99) mg/dL Calcium 8.0 L (8.4-10.2) mg/dL Phosphorus 2.3 L (2.5-4.5) mg/dL AST 48 H (14-36) U/L Alkaline Phosphatase 135 H (38-126) U/L Total Protein 4.9 L (6.3-8.2) g/dL Albumin 2.8 L (3.5-5.0) g/dL C. difficile (EIA) Intrp (Negative) Crossmatch 10/19/17 10/19/17 10/20/17 Range/Units 21:15 21:58 10:56 WBC (3.8-10.6) k/uL RBC (3.80-5.40) m/uL Hgb (11.4-16.0) gm/dL Hct (34.0-46.0) % RDW (11.5-15.5) % Plt Count (150-450) k/uL Lymphocytes # (Manual) (1.0-4.8) k/uL Myelocytes # (Manual) (0) k/uL Blast Cells # (Man) (0) k/uL APTT (22.0-30.0) sec BUN (7-17) mg/dL Glucose (74-99) mg/dL POC Glucose (mg/dL) 183 H (75-99) mg/dL Calcium (8.4-10.2) mg/dL Phosphorus (2.5-4.5) mg/dL AST (14-36) U/L Alkaline Phosphatase (38-126) U/L Total Protein (6.3-8.2) g/dL Albumin (3.5-5.0) g/dL C. difficile (EIA) Intrp Positive A (Negative) Crossmatch See Detail Assessment and Plan Assessment: Diarrhea, fatigue and weakness with positive C. difficile toxin. Plan: Agree with plan to proceed with vancomycin and fluid and electrolyte management and symptomatic treatment. We will follow with you with interest. I did not schedule any endoscopy at this point.
[2017-10-21] MEDS ORDERED: BOSUTINIB 100 MG PO SCH (15:00)
[2017-10-21] MEDS: ALPRAZolam 0.25 MG TAB PO PRN (15:19)
[2017-10-21] MEDS ORDERED: CALCITRIOL 0.25 MCG CAP PO SCH (17:00)
[2017-10-21 17:13] LABS: Glucose,Whole Blood 214 mg/dL (75-99)
--- NOTE | 2017-10-21 17:30 | P.PN ---
Subjective Progress Note Date: 10/21/17 Progress note being dictated for Dr. Scott. Interval history: This is a 67-year-old female admitted with acute blood loss anemia, recent pancytopenia, severe thrombocytopenia, acute C. diff colitis and diarrhea, dehydration and multiple other medical issues. Complaining of constipation but actually continuing to have loose bowel movements, nonbloody 3. Yesterday platelets 8, received platelets last night, currently up to 37. Hemoglobin 7.9. Evaluated by GI with recommendations noted .Denies nausea or vomiting. Diet advanced to clear liquids with yogurt. Denies chest pain, palpitations or increasing shortness of breath. Denies abdominal tenderness. Objective - Vital Signs Vital signs: Vital Signs Temp 97.9 F 10/21/17 15:00 Pulse 60 10/21/17 15:00 Resp 16 10/21/17 15:00 BP 135/84 10/21/17 15:00 Pulse Ox 96 10/21/17 15:00 Intake & Output 10/20/17 10/21/17 10/21/17 18:59 06:59 18:59 Intake Total 217 240 Balance 217 240 Weight 68.946 kg Intake: Oral 240 Blood Product 217 Platelet Pheresis Acda1 217 Unit [id number] Other: Voiding Method Toilet Toilet # Voids 3 4 # Bowel Movements 2 4 - Exam PHYSICAL EXAM: VITAL SIGNS: As above GENERAL: Sitting up in bed, no acute distress HEENT: Conjunctivae normal. eyes normal. NECK: No JVD. No thyroid enlargement. No LNs CARDIOVASCULAR: S1, S2 muffled. No murmur RESPIRATION: Breath sounds diminished in the bases. No rhonchi or crackles. No bronchial breathing. ABDOMEN: Soft, mild diffuse tenderness . No guarding. no masses palpable. .Bowel sounds heard. No guarding, no rigidity. LEGS: No edema. no swelling PSYCHIATRY: Alert and oriented -3, mood and affect normal. NERVOUS SYSTEM: Cranial N 2-12 grossly normal. Moves all 4 limbs. Diffuse weakness No focal deficits. No sensory deficit. Skin: no ulcer no rash. Joints: No active swelling. No inflammation. Lymphatic system. No LN neck axilla or groin. - Labs CBC & Chem 7: 10/21/17 08:01 10/21/17 08:01 Labs: Abnormal Lab Results - Last 24 Hours (Table) 10/19/17 10/20/17 10/20/17 Range/Units 21:12 16:59 17:25 WBC 17.7 H (3.8-10.6) k/uL RBC 2.97 L (3.80-5.40) m/uL Hgb 8.8 L D (11.4-16.0) gm/dL Hct 26.6 L (34.0-46.0) % RDW 18.5 H (11.5-15.5) % Plt Count 8 L* D (150-450) k/uL Lymphocytes # (Manual) 14.51 H (1.0-4.8) k/uL Metamyelocytes # (Man) 0.18 H (0) k/uL Myelocytes # (Manual) (0) k/uL Blast Cells # (Man) 0.18 H (0) k/uL Nucleated RBCs 1 H (0-0) /100 WBC Chloride (98-107) mmol/L BUN (7-17) mg/dL Glucose (74-99) mg/dL POC Glucose (mg/dL) 177 H (75-99) mg/dL Hemoglobin A1c 6.8 H (4.0-6.0) % Calcium (8.4-10.2) mg/dL 10/20/17 10/21/17 10/21/17 Range/Units 21:35 07:31 08:01 WBC 13.2 H (3.8-10.6) k/uL RBC 2.68 L (3.80-5.40) m/uL Hgb 7.9 L (11.4-16.0) gm/dL Hct 25.2 L (34.0-46.0) % RDW 18.9 H (11.5-15.5) % Plt Count 37 L* D (150-450) k/uL Lymphocytes # (Manual) (1.0-4.8) k/uL Metamyelocytes # (Man) 0.13 H (0) k/uL Myelocytes # (Manual) 0.13 H (0) k/uL Blast Cells # (Man) 7.79 H (0) k/uL Nucleated RBCs (0-0) /100 WBC Chloride (98-107) mmol/L BUN (7-17) mg/dL Glucose (74-99) mg/dL POC Glucose (mg/dL) 179 H 206 H (75-99) mg/dL Hemoglobin A1c (4.0-6.0) % Calcium (8.4-10.2) mg/dL 10/21/17 10/21/17 Range/Units 08:01 11:39 WBC (3.8-10.6) k/uL RBC (3.80-5.40) m/uL Hgb (11.4-16.0) gm/dL Hct (34.0-46.0) % RDW (11.5-15.5) % Plt Count (150-450) k/uL Lymphocytes # (Manual) (1.0-4.8) k/uL Metamyelocytes # (Man) (0) k/uL Myelocytes # (Manual) (0) k/uL Blast Cells # (Man) (0) k/uL Nucleated RBCs (0-0) /100 WBC Chloride 111 H (98-107) mmol/L BUN 19 H (7-17) mg/dL Glucose 176 H (74-99) mg/dL POC Glucose (mg/dL) 201 H (75-99) mg/dL Hemoglobin A1c (4.0-6.0) % Calcium 7.6 L (8.4-10.2) mg/dL Microbiology - Last 24 Hours (Table) 10/19/17 21:58 Blood Culture - Preliminary Blood No Growth after 24 hours 10/20/17 16:18 Urine Culture - Preliminary Urine,Clean Catch Assessment and Plan Assessment: 1. Anemia, ruling out acute blood loss anemia, in a patient with history of GI bleed 2. Recent pancytopenia as well as transfusions 3. Severe thrombocytopenia, status post transfusion of platelets 4. Leukocytosis related to C. diff colitis 5. Acute C. difficile colitis 6. Generalized gait dysfunction 7. CAD with history of CABG, stent Plan: Continue on current medication regime ,monitoring and symptomatic treatment. Close monitoring of hemoglobin and platelets, with repeat labs ordered for a.m. Follow closely with hematology and GI. Gentle IV fluid hydration. PT/OT. The impression and plan of care has been dictated as directed. : I performed a history and examination of this patient, discussed the same with the dictator. I agree with the dictator's note ,documented as a scribe. Any additional findings or plans will be noted.
[2017-10-21 17:50] LABS: Anisocytosis Slight; HCT 22.8 % (34.0-46.0); HGB 7.4 gm/dL (11.4-16.0); MCH 29.8 pg (25.0-35.0); MCHC 32.3 g/dL (31.0-37.0); MCV 92.3 fL (80.0-100.0); Mean Platelet Volume 8.7; Poikilocytosis Slight; RBC 2.47 m/uL (3.80-5.40); RDW 18.6 % (11.5-15.5); WBC 16.3 k/uL (3.8-10.6)
[2017-10-21 17:55] LABS: Platelet Count 33 k/uL (150-450)
[2017-10-21] MEDS: THIAMINE 100 MG TAB PO SCH (18:04)
[2017-10-21] MEDS: FOLIC ACID 1 MG TAB PO SCH (18:04)
[2017-10-21] MEDS: POTASSIUM CHLORIDE ER 20 MEQ TAB.ER PO SCH (18:04)
[2017-10-21] MEDS: LACTOBACILLUS ACIDOPH & BULGAR 1 EACH PACKET PO SCH (18:04)
[2017-10-21] MEDS: CYANOCOBALAMIN 500 MCG TAB PO SCH (18:04)
[2017-10-21] MEDS ORDERED: PANTOPRAZOLE 40 MG TABLET PO ONE (19:02)
--- NOTE | 2017-10-21 20:48 | P.CONS ---
History of Present Illness - Reason for Consult Consult date: 10/21/17 Treatment for CML Requesting physician: Holden Gonzalez - Chief Complaint pancytopenia - History of Present Illness This is another admission for Mrs. Early, coming from [facility] with abnormal lab values, patient has been transfused with platelets with appropriate increase in her count. Patient was taking her CML medication while at [facility] 300mg PO QD. Patient has not been out of the hospital long enough into be seen and evaluated by her primary oncologist in the outpatient setting. We have been Consulted for her hospital admissions. Patient has required holding of her Bosulif when she was treated for Clostridium difficile infection in September, she has taken it intermittently, usually being held during hospitalizations for low Hgb and platelet. Patient is having ongoing gastrostinal distress, GI bleeding, abdominal pain. sshe tolerates some oral intake without nausea or vomiting,, appetite is poor, she does have shortness of breath on exertion, denies new cough or wheezing, no fevers, chills, oral irritation, dysuria, hematuria, she does not recall seeing blood in the stool or black stools, she feels the pressure of needing to have a bowel movement, she does strain at times, some slight swelling in the legs, no rashes or other pain to report Past Medical History Past Medical History: Atrial Fibrillation, Coronary Artery Disease (CAD), Cancer , Chest Pain / Angina, COPD, Diabetes Mellitus, GERD/Reflux, GI Bleed, Hyperlipidemia, Hypertension, Myocardial Infarction (non Q-wave) Additional Past Medical History / Comment(s): hiatal hernia, esophagitis, diverticulosis, hemorrhoids, leukemia- being treated with oral targeted therapy - Bosutinib, diagnosed around April 2016, PLEURAL EFFUSIONS-resolved on their own, iron deficiency anemia,past iron infusions and blood transfusions. MIs x 4 , chronic thoracic and lower back pain.uti/kidney infection. c-diff 09-26-17 and pt stated was' told not to eat any other dairy product other than yogurt for now". Last Myocardial Infarction Date:: 2008 History of Any Multi-Drug Resistant Organisms: C-DIFF Year Discovered:: 09/26/17 MDRO Source:: stool Past Surgical History: Coronary Bypass/CABG, Heart Catheterization, Heart Catheterization With Stent, Hysterectomy, Orthopedic Surgery Additional Past Surgical History / Comment(s): 05/17/17 EGD/COLONOSCOPY WITH PREVIOUS COLONOSCOPY, CONNOR CATARACT SX -LENS IMPLANTS, OOPHORECTOMY D/T OVARY TUMOR, R ACHILLES TENDON REPAIR. CABG-TRIPLE BYPASS WITH REPAIR OF HOLE IN HEART AND HEART VALVE(2008). Past Anesthesia/Blood Transfusion Reactions: No Reported Reaction Date of Last Stent Placement:: 2007 Past Psychological History: Anxiety, Depression Smoking Status: Former smoker Past Alcohol Use History: Occasional Past Drug Use History: None Reported - Past Family History Mother Family Medical History: Cancer Additional Family Medical History / Comment(s): colon cancer Father Family Medical History: Congestive Heart Failure (CHF) Brother(s) Family Medical History: Congestive Heart Failure (CHF), Diabetes Mellitus Medications and Allergies Home Medications Medication Instructions Recorded Confirmed Type Cranberry Conc/C/Bacill Coag 1 tab PO DAILY@0 10/12/15 10/20/17 History [Cranberry Tablet] [place]-3 Fatty Acids/Fish Oil [Fish 1 cap PO DAILY@0 10/12/15 10/20/17 History Oil 1,000 mg Softgel] Oxybutynin Chloride [Ditropan XL] 15 mg PO DAILY 10/12/15 10/20/17 History Citalopram Hydrobromide [CeleXA] 40 mg PO HS@2100 11/24/16 10/20/17 History Diltiazem Cd [Cardizem CD] 180 mg PO DAILY #30 cap.er.24h 02/28/17 10/20/17 Rx Atorvastatin [Lipitor] 20 mg PO DAILY 05/15/17 10/20/17 History L.acidoph,Paracasei, B.lactis 1 cap PO DAILY@1700 05/15/17 10/20/17 History [Probiotic] Calcitriol 0.5 mcg PO MO@1700 09/06/17 10/20/17 History Folic Acid 1 mg PO DAILY@0 09/06/17 10/20/17 History Thiamine [Vitamin B-1] 100 mg PO DAILY@0 09/06/17 10/20/17 History Isosorbide Mononitrate ER [Imdur] 30 mg PO DAILY #30 tab.er.24h 09/07/17 Rx Cyanocobalamin (Vitamin B-12) 1,000 mcg PO DAILY@1700 09/19/17 10/20/17 History [Vitamin B-12] Nitroglycerin Sl Tabs [Nitrostat] 0.4 mg SUBLINGUAL Q5M PRN 09/19/17 10/20/17 History Furosemide [Lasix] 40 mg PO DAILY #30 tablet 09/21/17 10/20/17 Rx Omeprazole [PriLOSEC] 40 mg PO DAILY #14 capsule. 09/21/17 10/20/17 Rx Bisacodyl [Dulcolax] 10 mg RECTAL Q24H PRN 10/16/17 10/20/17 History Bosutinib [Bosulif] 300 mg PO DAILY@1500 10/16/17 10/20/17 History Lactose-Reduced Food [Ensure Plus] 1 can PO TID 10/16/17 10/20/17 History Magnesium Hydroxide [Milk of 2,400 mg PO DAILY PRN 10/16/17 10/20/17 History Magnesia] Metoprolol Tartrate [Lopressor] 50 mg PO BID@0800,1700 10/16/17 10/20/17 History Na Phos,M-B/Na Phos,Di-Ba [Fleet 133 ml RECTAL DAILY PRN 10/16/17 10/20/17 History Adult] Potassium Chloride ER [K-Dur 20] 20 meq PO DAILY@1700 10/16/17 10/20/17 History Zolpidem [Ambien] 5 mg PO HS PRN 10/16/17 10/20/17 History ALPRAZolam [Xanax] 0.25 mg PO BID PRN #10 tab 10/17/17 10/20/17 Rx Apixaban [Eliquis] 5 mg PO BID 10/20/17 10/20/17 History Aspirin EC [Ecotrin Low Dose] 81 mg PO DAILY@2100 10/20/17 10/20/17 History Insulin Aspart [NovoLOG See Protocol SQ ACHS 10/20/17 10/20/17 History (formulary)] Ondansetron [Zofran] 4 mg PO Q8H PRN 10/20/17 10/20/17 History Allergies Allergy/AdvReac Type Severity Reaction Status Date / Time adhesive tape AdvReac Unknown Red , Verified 10/20/17 07:17 Irritated skin Physical Exam Vitals: Vital Signs Temp Pulse Pulse Resp BP BP Pulse Ox 10/21/17 15:00 97.9 F 60 16 135/84 96 10/21/17 07:00 99.4 F 94 18 168/70 96 10/21/17 03:02 97.0 F L 100 20 158/67 10/21/17 02:45 97.8 F 95 18 148/78 95 10/21/17 02:15 97.8 F 105 H 20 150/78 94 L 10/21/17 01:38 97.2 F L 86 16 140/65 10/21/17 01:35 97.0 F L 87 18 139/63 10/20/17 23:00 97.2 F L 99 16 133/58 94 L Intake and Output 10/21/17 10/21/17 10/21/17 06:59 14:59 22:59 Intake Total 217 240 Balance 217 240 Intake: Oral 240 Blood Product 217 Platelet Pheresis Acda1 217 Unit [id number] Other: # Voids 3 4 # Bowel Movements 2 4 - Constitutional General appearance: average body habitus, cooperative, no acute distress - EENT Eyes: anicteric sclerae, EOMI ENT: normal oropharynx - Neck Neck: no lymphadenopathy - Respiratory Respiratory: bilateral: CTA, rales (in bases bilaterally) - Cardiovascular Heart sounds: normal: S1, S2 leg Peripheral Edema: bilateral: Trace - Gastrointestinal General gastrointestinal: no absent bowel sounds, no decreased bowel sounds, no distended, no hepatomegaly, no hyperactive bowel sounds, normal bowel sounds, no organomegaly, no rigid, no scaphoid, soft, no splenomegaly, tenderness, no umbilical hernia, no ventral hernia Localized gastrointestinal: tender: diffuse - Integumentary Integumentary: pale - Neurologic Neurologic: CNII-XII intact - Musculoskeletal Musculoskeletal: generalized weakness - Psychiatric patient had some difficulty recalling recent events, she was confused when I first entered the room as she did not answer the first 2 questions appropriately Psychiatric: A&O x's 3, appropriate affect Results CBC & Chem 7: 10/21/17 17:33 10/21/17 08:01 Labs: Abnormal Lab Results - Last 24 Hours (Table) 10/19/17 10/20/17 10/21/17 Range/Units 21:12 21:35 07:31 WBC (3.8-10.6) k/uL RBC (3.80-5.40) m/uL Hgb (11.4-16.0) gm/dL Hct (34.0-46.0) % RDW (11.5-15.5) % Plt Count (150-450) k/uL Metamyelocytes # (Man) (0) k/uL Myelocytes # (Manual) (0) k/uL Blast Cells # (Man) (0) k/uL Chloride (98-107) mmol/L BUN (7-17) mg/dL Glucose (74-99) mg/dL POC Glucose (mg/dL) 179 H 206 H (75-99) mg/dL Hemoglobin A1c 6.8 H (4.0-6.0) % Calcium (8.4-10.2) mg/dL 10/21/17 10/21/17 10/21/17 Range/Units 08:01 08:01 11:39 WBC 13.2 H (3.8-10.6) k/uL RBC 2.68 L (3.80-5.40) m/uL Hgb 7.9 L (11.4-16.0) gm/dL Hct 25.2 L (34.0-46.0) % RDW 18.9 H (11.5-15.5) % Plt Count 37 L* D (150-450) k/uL Metamyelocytes # (Man) 0.13 H (0) k/uL Myelocytes # (Manual) 0.13 H (0) k/uL Blast Cells # (Man) 7.79 H (0) k/uL Chloride 111 H (98-107) mmol/L BUN 19 H (7-17) mg/dL Glucose 176 H (74-99) mg/dL POC Glucose (mg/dL) 201 H (75-99) mg/dL Hemoglobin A1c (4.0-6.0) % Calcium 7.6 L (8.4-10.2) mg/dL 10/21/17 10/21/17 Range/Units 17:01 17:33 WBC 16.3 H (3.8-10.6) k/uL RBC 2.47 L (3.80-5.40) m/uL Hgb 7.4 L (11.4-16.0) gm/dL Hct 22.8 L (34.0-46.0) % RDW 18.6 H (11.5-15.5) % Plt Count 33 L* (150-450) k/uL Metamyelocytes # (Man) (0) k/uL Myelocytes # (Manual) (0) k/uL Blast Cells # (Man) (0) k/uL Chloride (98-107) mmol/L BUN (7-17) mg/dL Glucose (74-99) mg/dL POC Glucose (mg/dL) 214 H (75-99) mg/dL Hemoglobin A1c (4.0-6.0) % Calcium (8.4-10.2) mg/dL Microbiology - Last 24 Hours (Table) 10/20/17 16:18 Urine Culture - Preliminary Urine,Clean Catch Group D Enterococcus 10/19/17 21:58 Blood Culture - Preliminary Blood No Growth after 24 hours Chest x-ray: report reviewed Assessment and Plan (1) Bicytopenia Narrative/Plan: Patient is status post platelet transfusion, appropriate increase in platelets. Anemia is currently stable, no transfusion at this time. CBC daily continue with supportive transfusions as needed. Current Visit: Yes Status: Acute Priority: High Code(s): D75.89 - OTHER SPECIFIED DISEASES OF BLOOD AND BLOOD-FORMING ORGANS SNOMED Code(s): 039130602 (2) Leukocytosis Narrative/Plan: secondary to chronic myeloid leukemia. Current Visit: Yes Status: Chronic Priority: Medium Code(s): D72.829 - ELEVATED WHITE BLOOD CELL COUNT, UNSPECIFIED SNOMED Code(s): 049047279 (3) CML (chronic myelocytic leukemia) Narrative/Plan: Did confirm with Carleen, patient has been taking 300 mg of Bosulif while pt been admitted. the improvement in patient's WBC is likely related to her restarting her treatment. Due to significant drop in platelets Bosulif will be held for now. Current Visit: Yes Status: Chronic Priority: Medium Code(s): C92.10 - CHRONIC MYELOID LEUK, BCR/ABL-POSITIVE, NOT ACHIEVE REMIS SNOMED Code(s): 20271481 (4) C. difficile colitis Narrative/Plan: Patient is receiving antibiotics. Due to patient's gastrointestinal complaints and GI bleeding Dr. Sanders has been consulted, await his recommendations Current Visit: Yes Status: Chronic Priority: Medium Code(s): A04.72 - ENTEROCOLITIS D/T CLOSTRIDIUM DIFFICILE, NOT SPCF RECUR SNOMED Code(s): 678789073 Plan: Patient's C. diff is positive and she has a group D streptococcus UTI. She is being treated with antibiotics, will have to await completion of treatment for bacterial infections before resuming chronic leukemia treatment. Dr. Montanez had mentioned in the past possibly doing a bone marrow biopsy to evaluate patient disease, will review case with him, his plan for treatment/ evaluation will be communicated.
[2017-10-21] MEDS: CITALOPRAM HYDROBROMIDE 20 MG TAB PO SCH (21:04)
[2017-10-21 21:19] LABS: Glucose,Whole Blood 160 mg/dL (75-99)
[2017-10-22] MEDS: VANCOMYCIN ORAL SOLUTION 250 MG/5 ML BOTTLE PO SCH ×3 (06:22→17:55)
[2017-10-22] MEDS: CHERRY FLAVOR 60 ML BOTTLE PO PRN ×3 (06:22→17:55)
[2017-10-22 07:30] LABS: Glucose,Whole Blood 164 mg/dL (75-99)
[2017-10-22] MEDS: PANTOPRAZOLE 40 MG TABLET PO SCH (07:55)
[2017-10-22] MEDS: ATORVASTATIN 20 MG TAB PO SCH (07:55)
[2017-10-22] MEDS: FUROSEMIDE 40 MG TAB PO SCH (07:56)
[2017-10-22] MEDS: ISOSORBIDE MONONITRATE ER 30 MG TAB.ER.24H PO SCH (07:56)
[2017-10-22] MEDS: OXYBUTYNIN 15 MG TAB.ER.24 PO SCH (07:56)
[2017-10-22] MEDS: METOPROLOL TARTRATE 50 MG TAB PO SCH ×2 (07:56→17:21)
[2017-10-22] MEDS: DILTIAZEM CD 180 MG CAP.ER.24H PO SCH (07:56)
[2017-10-22] MEDS: INSULIN ASPART 100 UNIT/ML 1 ML 10 ML VIAL SQ SCH ×4 (08:04→21:57)
[2017-10-22 09:23] LABS: Anion Gap 5 mmol/L; Blood Urea Nitrogen 16 mg/dL (7-17); Carbon Dioxide 27 mmol/L (22-30); Chloride 111 mmol/L (98-107); Glucose 156 mg/dL (74-99); Potassium 3.3 mmol/L (3.5-5.1); Sodium 143 mmol/L (137-145)
[2017-10-22 09:33] LABS: Anisocytosis Slight; HCT 22.1 % (34.0-46.0); HGB 7.2 gm/dL (11.4-16.0); MCH 29.8 pg (25.0-35.0); MCHC 32.6 g/dL (31.0-37.0); MCV 91.4 fL (80.0-100.0); Mean Platelet Volume 8.3; Poikilocytosis Slight; RBC 2.42 m/uL (3.80-5.40); RDW 17.5 % (11.5-15.5)
[2017-10-22 09:39] LABS: Platelet Count 28 k/uL (150-450)
--- NOTE | 2017-10-22 10:41 | P.PN ---
Subjective Progress Note Date: 10/22/17 Principal diagnosis: Clostridium difficile colitis history of CML Feels better today. Requesting diet advancement. Hemoglobin 7.2. Platelet 28, 000. Minimal diarrhea. No bleeding. Objective - Vital Signs Vital signs: Vital Signs Temp 97.4 F L 10/22/17 07:00 Pulse 83 10/22/17 07:00 Resp 18 10/22/17 07:00 BP 152/66 10/22/17 07:00 Pulse Ox 91 L 10/22/17 07:00 Intake & Output 10/21/17 10/22/17 10/22/17 18:59 06:59 18:59 Intake Total 240 480 Balance 240 480 Intake: Oral 240 480 Other: Voiding Method Toilet # Voids 4 2 # Bowel Movements 4 2 - Exam General appearance: The patient is alert, oriented, in no acute distress. HET: Head is normocephalic and atraumatic. Pupils are equal and reactive. Oropharynx is clear without lesions. Neck: Supple without lymphadenopathy. Trachea midline. Heart: S1 S2. Regular rate and rhythm. Lungs: No crackles or wheezes are heard. Abdomen: Soft, nontender, nondistended with bowel sounds. No peritoneal signs. No palpable organomegaly or masses. Extremities: Normal skin color and turgor. No cyanosis, rash, ulceration, clubbing, or edema. Radial and pedal pulses are 2/4 bilaterally. Neurological: No focal deficits. Strength and sensation are grossly intact. - Labs CBC & Chem 7: 10/22/17 08:33 10/22/17 08:33 Labs: Abnormal Lab Results - Last 24 Hours (Table) 10/21/17 10/21/17 10/21/17 Range/Units 08:01 11:39 17:01 WBC (3.8-10.6) k/uL RBC (3.80-5.40) m/uL Hgb (11.4-16.0) gm/dL Hct (34.0-46.0) % RDW (11.5-15.5) % Plt Count (150-450) k/uL Metamyelocytes # (Man) 0.13 H (0) k/uL Myelocytes # (Manual) 0.13 H (0) k/uL Blast Cells # (Man) 7.79 H (0) k/uL Potassium (3.5-5.1) mmol/L Chloride (98-107) mmol/L Glucose (74-99) mg/dL POC Glucose (mg/dL) 201 H 214 H (75-99) mg/dL Calcium (8.4-10.2) mg/dL 10/21/17 10/21/17 10/22/17 Range/Units 17:33 20:59 07:16 WBC 16.3 H (3.8-10.6) k/uL RBC 2.47 L (3.80-5.40) m/uL Hgb 7.4 L (11.4-16.0) gm/dL Hct 22.8 L (34.0-46.0) % RDW 18.6 H (11.5-15.5) % Plt Count 33 L* (150-450) k/uL Metamyelocytes # (Man) (0) k/uL Myelocytes # (Manual) (0) k/uL Blast Cells # (Man) (0) k/uL Potassium (3.5-5.1) mmol/L Chloride (98-107) mmol/L Glucose (74-99) mg/dL POC Glucose (mg/dL) 160 H 164 H (75-99) mg/dL Calcium (8.4-10.2) mg/dL 10/22/17 10/22/17 Range/Units 08:33 08:33 WBC 13.0 H (3.8-10.6) k/uL RBC 2.42 L (3.80-5.40) m/uL Hgb 7.2 L (11.4-16.0) gm/dL Hct 22.1 L (34.0-46.0) % RDW 17.5 H (11.5-15.5) % Plt Count 28 L* (150-450) k/uL Metamyelocytes # (Man) (0) k/uL Myelocytes # (Manual) (0) k/uL Blast Cells # (Man) (0) k/uL Potassium 3.3 L (3.5-5.1) mmol/L Chloride 111 H (98-107) mmol/L Glucose 156 H (74-99) mg/dL POC Glucose (mg/dL) (75-99) mg/dL Calcium 8.0 L (8.4-10.2) mg/dL Microbiology - Last 24 Hours (Table) 10/19/17 21:58 Blood Culture - Preliminary Blood No Growth after 48 hours 10/20/17 16:18 Urine Culture - Preliminary Urine,Clean Catch Group D Enterococcus Assessment and Plan (1) C. difficile colitis Current Visit: Yes Status: Chronic Priority: Medium Code(s): A04.72 - ENTEROCOLITIS D/T CLOSTRIDIUM DIFFICILE, NOT SPCF RECUR SNOMED Code(s): 991452279 (2) Bicytopenia Current Visit: Yes Status: Chronic Priority: High Code(s): D75.89 - OTHER SPECIFIED DISEASES OF BLOOD AND BLOOD-FORMING ORGANS SNOMED Code(s): 976613098 (3) CML (chronic myelocytic leukemia) Current Visit: Yes Status: Chronic Priority: Medium Code(s): C92.10 - CHRONIC MYELOID LEUK, BCR/ABL-POSITIVE, NOT ACHIEVE REMIS SNOMED Code(s): 19068989 Plan: 1. Continue antibiotics. CML therapy presently on hold secondary to colitis. 2. Will advance diet slowly. Continue to observe. Assessment and plan a care discussed with Dr. Florez
[2017-10-22] MEDS: LACTATED RINGERS 1,000 ML IV SCH (10:46)
[2017-10-22] MEDS ORDERED: Potassium Replacement Protocol 1 EACH MISC MISCELLANE PRN (10:47)
[2017-10-22] MEDS ORDERED: Magnesium Replacement Protocol 1 EACH MISC MISCELLANE PRN (10:48)
[2017-10-22 11:29] LABS: Blast Cells # (M) 9.88 k/uL (0); Lymphocytes # (M) 1.82 k/uL (1.0-4.8); Monocytes # (M) 0.13 k/uL (0-1.0); Neutrophils % (M) 10 %; Nucleated Red Blood Cells 0 /100 WBC (0-0); Total Cells Counted 200
[2017-10-22 11:30] LABS: RBC Fragments Present
[2017-10-22] MEDS: POTASSIUM CHLORIDE ER 20 MEQ TAB.ER PO SCH ×3 (12:28→17:21)
[2017-10-22 13:03] LABS: Glucose,Whole Blood 170 mg/dL (75-99)
[2017-10-22] MEDS: LACTOBACILLUS ACIDOPH & BULGAR 1 EACH PACKET PO SCH (17:20)
[2017-10-22] MEDS: FOLIC ACID 1 MG TAB PO SCH (17:20)
[2017-10-22] MEDS: CYANOCOBALAMIN 500 MCG TAB PO SCH (17:21)
[2017-10-22] MEDS: THIAMINE 100 MG TAB PO SCH (17:21)
[2017-10-22 17:22] LABS: Glucose,Whole Blood 155 mg/dL (75-99)
[2017-10-22 21:07] LABS: Glucose,Whole Blood 181 mg/dL (75-99)
[2017-10-22] MEDS: CITALOPRAM HYDROBROMIDE 20 MG TAB PO SCH (21:57)
[2017-10-22] MEDS: ALPRAZolam 0.25 MG TAB PO PRN (21:57)
[2017-10-23] MEDS: ZOLPIDEM 5 MG TAB PO PRN (00:01)
[2017-10-23] MEDS: CHERRY FLAVOR 60 ML BOTTLE PO PRN ×3 (00:01→17:08)
[2017-10-23] MEDS: VANCOMYCIN ORAL SOLUTION 250 MG/5 ML BOTTLE PO SCH ×5 (00:01→23:33)
[2017-10-23 07:19] LABS: Glucose,Whole Blood 148 mg/dL (75-99)
[2017-10-23 08:23] LABS: Anisocytosis Slight; HCT 22.4 % (34.0-46.0); HGB 7.3 gm/dL (11.4-16.0); Hypochromasia Slight; MCH 30.5 pg (25.0-35.0); MCHC 32.7 g/dL (31.0-37.0); MCV 93.3 fL (80.0-100.0); Mean Platelet Volume 9.5; Poikilocytosis Slight; RBC 2.41 m/uL (3.80-5.40); RDW 18.5 % (11.5-15.5)
[2017-10-23 08:35] LABS: Anion Gap 4 mmol/L; Blood Urea Nitrogen 12 mg/dL (7-17); Calcium 8.1 mg/dL (8.4-10.2); Carbon Dioxide 27 mmol/L (22-30); Chloride 110 mmol/L (98-107); Glucose 121 mg/dL (74-99); Potassium 3.8 mmol/L (3.5-5.1); Sodium 141 mmol/L (137-145)
[2017-10-23 08:45] LABS: Platelet Count 20 k/uL (150-450)
[2017-10-23] MEDS ORDERED: POTASSIUM CHLORIDE 20 MEQ in WATER FOR INJECTION 1 100ML.BAG IVPB STA (08:59)
[2017-10-23] MEDS: INSULIN ASPART 100 UNIT/ML 1 ML 10 ML VIAL SQ SCH ×4 (09:16→21:00)
[2017-10-23] MEDS: METOPROLOL TARTRATE 50 MG TAB PO SCH ×2 (09:17→16:58)
[2017-10-23] MEDS: PANTOPRAZOLE 40 MG TABLET PO SCH (09:17)
[2017-10-23] MEDS: LACTATED RINGERS 1,000 ML IV SCH (09:18)
[2017-10-23] MEDS: ATORVASTATIN 20 MG TAB PO SCH (09:18)
[2017-10-23] MEDS: ISOSORBIDE MONONITRATE ER 30 MG TAB.ER.24H PO SCH (09:18)
[2017-10-23] MEDS: OXYBUTYNIN 15 MG TAB.ER.24 PO SCH (09:18)
[2017-10-23] MEDS: FUROSEMIDE 40 MG TAB PO SCH (09:18)
[2017-10-23] MEDS: DILTIAZEM CD 180 MG CAP.ER.24H PO SCH (09:18)
[2017-10-23 09:21] LABS: Band Neutrophils % 3 %; Blast Cells # (M) 5.67 k/uL (0); Eosinophils # (M) 0.11 k/uL (0-0.7); Lymphocytes # (M) 2.94 k/uL (1.0-4.8); Metamyelocytes # (M) 0.32 k/uL (0); Metamyelocytes % 3 %; Monocytes # (M) 0.21 k/uL (0-1.0); Myelocytes # (M) 0.11 k/uL (0); Myelocytes % 1 %; Neutrophils % (M) 9 %; Nucleated Red Blood Cells 1 /100 WBC (0-0); Total Cells Counted 200; WBC 10.5 k/uL (3.8-10.6)
[2017-10-23 12:34] LABS: Glucose,Whole Blood 135 mg/dL (75-99)
[2017-10-23] MEDS: POTASSIUM CHLORIDE ER 20 MEQ TAB.ER PO SCH (16:58)
[2017-10-23] MEDS: LACTOBACILLUS ACIDOPH & BULGAR 1 EACH PACKET PO SCH (16:58)
[2017-10-23] MEDS: FOLIC ACID 1 MG TAB PO SCH (16:58)
[2017-10-23] MEDS: THIAMINE 100 MG TAB PO SCH (16:58)
[2017-10-23] MEDS: CYANOCOBALAMIN 500 MCG TAB PO SCH (16:58)
[2017-10-23 17:09] LABS: Glucose,Whole Blood 165 mg/dL (75-99)
--- NOTE | 2017-10-23 19:09 | P.PN ---
Subjective Progress Note Date: 10/22/17 Progress note being dictated for Dr. Rodriguez Interval history: This is a 67-year-old female admitted with acute blood loss anemia, recent pancytopenia, severe thrombocytopenia, acute C. diff colitis and diarrhea, dehydration and multiple other medical issues. Complaining of constipation but actually continuing to have loose bowel movements, nonbloody 3. Yesterday platelets 8, received platelets last night, currently up to 37. Hemoglobin 7.9. Evaluated by GI with recommendations noted .Denies nausea or vomiting. Diet advanced to clear liquids with yogurt. Denies chest pain, palpitations or increasing shortness of breath. Denies abdominal tenderness. 10/22/2017 no overnight events. Maintained on oral vancomycin, diarrhea improving with no reports of bleeding. Hemoglobin 7.2, platelets 28, status post transfusion yesterday. Feels better, diet advanced to full liquids. Denies chest pain, palpitations or increasing shortness of breath. Objective - Vital Signs Vital signs: Vital Signs Temp 97.3 F L 10/22/17 15:00 Pulse 69 10/22/17 15:00 Resp 18 10/22/17 15:00 BP 130/67 10/22/17 15:00 Pulse Ox 99 10/22/17 15:00 Intake & Output 10/22/17 10/22/17 10/23/17 06:59 18:59 06:59 Intake Total 480 Balance 480 Intake: Oral 480 Other: Voiding Method Toilet Toilet # Voids 2 2 # Bowel Movements 2 2 - Exam PHYSICAL EXAM: VITAL SIGNS: As above GENERAL: Sitting up in bed, no acute distress HEENT: Conjunctivae normal. eyes normal. NECK: No JVD. No thyroid enlargement. No LNs CARDIOVASCULAR: S1, S2 muffled. No murmur RESPIRATION: Breath sounds diminished in the bases. No rhonchi or crackles. No bronchial breathing. ABDOMEN: Soft, mild diffuse tenderness . No guarding. no masses palpable. .Bowel sounds heard. No guarding, no rigidity. LEGS: No edema. no swelling PSYCHIATRY: Alert and oriented -3, mood and affect normal. NERVOUS SYSTEM: Cranial N 2-12 grossly normal. Moves all 4 limbs. Diffuse weakness No focal deficits. No sensory deficit. Skin: no ulcer no rash. Joints: No active swelling. No inflammation. Lymphatic system. No LN neck axilla or groin. - Labs CBC & Chem 7: 10/23/17 08:04 10/23/17 16:13 Labs: Abnormal Lab Results - Last 24 Hours (Table) 10/21/17 10/22/17 10/22/17 Range/Units 20:59 07:16 08:33 WBC 13.0 H (3.8-10.6) k/uL RBC 2.42 L (3.80-5.40) m/uL Hgb 7.2 L (11.4-16.0) gm/dL Hct 22.1 L (34.0-46.0) % RDW 17.5 H (11.5-15.5) % Plt Count 28 L* (150-450) k/uL Blast Cells # (Man) 9.88 H (0) k/uL Potassium (3.5-5.1) mmol/L Chloride (98-107) mmol/L Glucose (74-99) mg/dL POC Glucose (mg/dL) 160 H 164 H (75-99) mg/dL Calcium (8.4-10.2) mg/dL 10/22/17 10/22/17 10/22/17 Range/Units 08:33 13:01 17:14 WBC (3.8-10.6) k/uL RBC (3.80-5.40) m/uL Hgb (11.4-16.0) gm/dL Hct (34.0-46.0) % RDW (11.5-15.5) % Plt Count (150-450) k/uL Blast Cells # (Man) (0) k/uL Potassium 3.3 L (3.5-5.1) mmol/L Chloride 111 H (98-107) mmol/L Glucose 156 H (74-99) mg/dL POC Glucose (mg/dL) 170 H 155 H (75-99) mg/dL Calcium 8.0 L (8.4-10.2) mg/dL Microbiology - Last 24 Hours (Table) 10/19/17 21:58 Blood Culture - Preliminary Blood No Growth after 48 hours 10/20/17 16:18 Urine Culture - Preliminary Urine,Clean Catch Group D Enterococcus Assessment and Plan Assessment: 1. Anemia, ruling out acute blood loss anemia, in a patient with history of GI bleed 2. Recent pancytopenia as well as transfusions 3. Severe thrombocytopenia, status post transfusion of platelets 4. Leukocytosis related to C. diff colitis 5. Acute C. difficile colitis 6. Generalized gait dysfunction 7. CAD with history of CABG, stent Plan: Continue on current medication regime , antibiotics, monitoring. Urine culture in progress .Close monitoring of hemoglobin and platelets, with repeat labs ordered for a.m. diet advancement as per GI Gentle IV fluid hydration. PT/OT. Discharge planning in progress for return to [facility]. The impression and plan of care has been dictated as directed. : I performed a history and examination of this patient, discussed the same with the dictator. I agree with the dictator's note ,documented as a scribe. Any additional findings or plans will be noted.
--- NOTE | 2017-10-23 19:13 | P.PN ---
Subjective Progress Note Date: 10/23/17 Progress note being dictated for Dr. Rodriguez Interval history: This is a 67-year-old female admitted with acute blood loss anemia, recent pancytopenia, severe thrombocytopenia, acute C. diff colitis and diarrhea, dehydration and multiple other medical issues. Complaining of constipation but actually continuing to have loose bowel movements, nonbloody 3. Yesterday platelets 8, received platelets last night, currently up to 37. Hemoglobin 7.9. Evaluated by GI with recommendations noted .Denies nausea or vomiting. Diet advanced to clear liquids with yogurt. Denies chest pain, palpitations or increasing shortness of breath. Denies abdominal tenderness. 10/22/2017 no overnight events. Maintained on oral vancomycin, diarrhea improving with no reports of bleeding. Hemoglobin 7.2, platelets 28, status post transfusion yesterday. Feels better, diet advanced to full liquids. Denies chest pain, palpitations or increasing shortness of breath. 10/23/2017, minimal diarrhea, tolerating diet, requesting further advancement. Afebrile. Normal WBC. Urine culture positive for enterococcus faecalis. Objective - Vital Signs Vital signs: Vital Signs Temp 97.4 F L 10/23/17 15:00 Pulse 66 10/23/17 16:00 Resp 16 10/23/17 16:00 BP 117/63 10/23/17 15:00 Pulse Ox 98 10/23/17 15:00 Intake & Output 10/23/17 10/23/17 10/24/17 06:59 18:59 06:59 Intake Total 680 Balance 680 Intake: Oral 680 Other: Voiding Method Toilet Toilet # Voids 2 4 # Bowel Movements 2 1 - Exam PHYSICAL EXAM: VITAL SIGNS: As above GENERAL: Sitting up in bed, no acute distress HEENT: Conjunctivae normal. eyes normal. NECK: No JVD. No thyroid enlargement. No LNs CARDIOVASCULAR: S1, S2 muffled. No murmur RESPIRATION: Breath sounds diminished in the bases. No rhonchi or crackles. No bronchial breathing. ABDOMEN: Soft, mild diffuse tenderness . No guarding. no masses palpable. .Bowel sounds heard. No guarding, no rigidity. LEGS: No edema. no swelling PSYCHIATRY: Alert and oriented -3, mood and affect normal. NERVOUS SYSTEM: Cranial N 2-12 grossly normal. Moves all 4 limbs. Diffuse weakness No focal deficits. No sensory deficit. Skin: no ulcer no rash. Joints: No active swelling. No inflammation. Lymphatic system. No LN neck axilla or groin. - Labs CBC & Chem 7: 10/23/17 08:04 10/23/17 16:13 Labs: Abnormal Lab Results - Last 24 Hours (Table) 10/22/17 10/23/17 10/23/17 Range/Units 21:04 07:02 08:04 RBC 2.41 L (3.80-5.40) m/uL Hgb 7.3 L (11.4-16.0) gm/dL Hct 22.4 L (34.0-46.0) % RDW 18.5 H (11.5-15.5) % Plt Count 20 L* (150-450) k/uL Neutrophils # (Manual) 1.20 L (1.3-7.7) k/uL Metamyelocytes # (Man) 0.32 H (0) k/uL Myelocytes # (Manual) 0.11 H (0) k/uL Blast Cells # (Man) 5.67 H (0) k/uL Nucleated RBCs 1 H (0-0) /100 WBC Chloride (98-107) mmol/L Glucose (74-99) mg/dL POC Glucose (mg/dL) 181 H 148 H (75-99) mg/dL Calcium (8.4-10.2) mg/dL 10/23/17 10/23/17 10/23/17 Range/Units 08:04 12:31 17:07 RBC (3.80-5.40) m/uL Hgb (11.4-16.0) gm/dL Hct (34.0-46.0) % RDW (11.5-15.5) % Plt Count (150-450) k/uL Neutrophils # (Manual) (1.3-7.7) k/uL Metamyelocytes # (Man) (0) k/uL Myelocytes # (Manual) (0) k/uL Blast Cells # (Man) (0) k/uL Nucleated RBCs (0-0) /100 WBC Chloride 110 H (98-107) mmol/L Glucose 121 H (74-99) mg/dL POC Glucose (mg/dL) 135 H 165 H (75-99) mg/dL Calcium 8.1 L (8.4-10.2) mg/dL Microbiology - Last 24 Hours (Table) 10/19/17 21:58 Blood Culture - Preliminary Blood No Growth after 72 hours 10/20/17 16:18 Urine Culture - Final Urine,Clean Catch Enterococcus faecalis Assessment and Plan Assessment: 1. Anemia, ruling out acute blood loss anemia, in a patient with history of GI bleed 2. Recent pancytopenia as well as transfusions 3. Severe thrombocytopenia, status post transfusion of platelets 4. Leukocytosis related to C. diff colitis 5. Acute C. difficile colitis 6. Generalized gait dysfunction 7. CAD with history of CABG, stent 8. Acute UTI with enterococcus faecalis. Plan: Continue on current medication regime , antibiotics, monitoring. Infectious disease consulted .Close monitoring of hemoglobin and platelets, with repeat labs ordered for a.m. diet advancement as per GI Gentle IV fluid hydration. PT/OT. Discharge planning in progress for return to [facility], tomorrow. The impression and plan of care has been dictated as directed. : I performed a history and examination of this patient, discussed the same with the dictator. I agree with the dictator's note ,documented as a scribe. Any additional findings or plans will be noted.
[2017-10-23 20:46] LABS: Glucose,Whole Blood 145 mg/dL (75-99)
[2017-10-23] MEDS: CITALOPRAM HYDROBROMIDE 20 MG TAB PO SCH (21:00)
[2017-10-24] MEDS: VANCOMYCIN ORAL SOLUTION 250 MG/5 ML BOTTLE PO SCH ×3 (05:22→17:48)
[2017-10-24 07:01] LABS: Glucose,Whole Blood 183 mg/dL (75-99)
[2017-10-24] MEDS: INSULIN ASPART 100 UNIT/ML 1 ML 10 ML VIAL SQ SCH ×4 (08:36→21:22)
[2017-10-24 09:12] LABS: Anisocytosis Slight; HCT 22.9 % (34.0-46.0); HGB 7.5 gm/dL (11.4-16.0); MCH 30.1 pg (25.0-35.0); MCHC 32.8 g/dL (31.0-37.0); MCV 91.7 fL (80.0-100.0); Mean Platelet Volume 9.9; Poikilocytosis Slight; RDW 17.5 % (11.5-15.5)
[2017-10-24 09:15] LABS: Platelet Count 17 k/uL (150-450)
[2017-10-24] MEDS: OXYBUTYNIN 15 MG TAB.ER.24 PO SCH (09:20)
[2017-10-24] MEDS: POTASSIUM CHLORIDE ER 20 MEQ TAB.ER PO SCH (09:20)
[2017-10-24] MEDS: ATORVASTATIN 20 MG TAB PO SCH (09:21)
[2017-10-24] MEDS: METOPROLOL TARTRATE 50 MG TAB PO SCH ×2 (09:21→17:45)
[2017-10-24] MEDS: FUROSEMIDE 40 MG TAB PO SCH (09:21)
[2017-10-24] MEDS: PANTOPRAZOLE 40 MG TABLET PO SCH (09:21)
[2017-10-24] MEDS: ISOSORBIDE MONONITRATE ER 30 MG TAB.ER.24H PO SCH (09:21)
[2017-10-24] MEDS: CYANOCOBALAMIN 500 MCG TAB PO SCH (09:21)
[2017-10-24] MEDS: LACTATED RINGERS 1,000 ML IV SCH (09:21)
[2017-10-24] MEDS: THIAMINE 100 MG TAB PO SCH (09:21)
[2017-10-24] MEDS: DILTIAZEM CD 180 MG CAP.ER.24H PO SCH (09:21)
[2017-10-24] MEDS: ALPRAZolam 0.25 MG TAB PO PRN ×2 (09:33→21:22)
[2017-10-24 09:46] LABS: Anion Gap 7 mmol/L; Blood Urea Nitrogen 10 mg/dL (7-17); Calcium 8.4 mg/dL (8.4-10.2); Carbon Dioxide 25 mmol/L (22-30); Chloride 108 mmol/L (98-107); Glucose 159 mg/dL (74-99); Potassium 3.8 mmol/L (3.5-5.1); Sodium 140 mmol/L (137-145)
[2017-10-24] MEDS: CHERRY FLAVOR 60 ML BOTTLE PO PRN ×2 (11:24→17:48)
[2017-10-24 11:35] LABS: Band Neutrophils % 1 %; Blast Cells # (M) 4.48 k/uL (0); Eosinophils # (M) 0.35 k/uL (0-0.7); Lymphocytes # (M) 3.78 k/uL (1.0-4.8); Metamyelocytes # (M) 0.24 k/uL (0); Metamyelocytes % 2 %; Monocytes # (M) 0.12 k/uL (0-1.0); Myelocytes # (M) 0.24 k/uL (0); Myelocytes % 2 %; Neutrophils % (M) 23 %; Nucleated Red Blood Cells 3 /100 WBC (0-0); Total Cells Counted 200; WBC 11.8 k/uL (3.8-10.6)
[2017-10-24 11:36] LABS: Ovalocytes Present
[2017-10-24 11:59] LABS: Glucose,Whole Blood 168 mg/dL (75-99)
[2017-10-24] MEDS ORDERED: MD COMMUNICATION TO PHARMACY 1 EACH MISC PO PRN (15:00)
[2017-10-24] MEDS: BOSUTINIB 100 MG PO SCH (15:37)
[2017-10-24 16:46] LABS: Glucose,Whole Blood 188 mg/dL (75-99)
--- NOTE | 2017-10-24 17:19 | CONS ---
CONSULTATION DATE OF SERVICE: 10/24/2017. REASON FOR CONSULTATION: 1. Enterococcus urinary tract infection. 2. C difficile colitis. 3. Antibiotic recommendation. HISTORY OF PRESENT ILLNESS: The patient is a 67-year-old female, who presented to the ER at [facility] on 10/19/2017, about 5 days ago. She complained of generalized weakness, no energy and diarrhea. The patient that she had diarrhea going on for more than 3 weeks now and was recently diagnosed in outpatient setting with C difficile and was treated with oral Flagyl. However, the patient continued to have loose stool. The patient had about 3 loose stools since yesterday and did wake up at night to go to the bathroom. Still having runny loose stool but no blood or mucus in it. Denies significant abdominal pain. Some nausea, but no vomiting. Denies any high-grade fever or chills. No significant urinary symptoms with burning or frequency. The patient has been evaluated. She did have stool for Clostridium difficile, which came back positive. Her UA was negative. A urine culture now showing Enterococcus faecalis, 49,000 colonies. Hence ID was consulted for further recommendation regarding antibiotic therapy. REVIEW OF SYSTEMS: Constitutional: Positive for weakness. No fever. Eyes no complaint. ENT no complaint. Respiratory no complaint. Cardiovascular no complaint. Genitourinary as per HPI. Gastrointestinal: As per HPI. MUSCULOSKELETAL: No complaint. INTEGUMENTARY: No complaint. Psychological: No complaint. Endocrine: No complaint. Neurologic no complaint. PAST MEDICAL HISTORY: Coronary artery disease, COPD, atrial fibrillation, type 2 diabetes mellitus, GI bleed, hypertension, hyperlipidemia, AK, history of C. dif colitis. PAST SURGICAL HISTORY: Coronary artery bypass grafting, PTCA and stenting. SOCIAL HISTORY: No history of smoking, drinking, or drug use. FAMILY HISTORY: Positive for colon cancer in the family. ALLERGIES: No known drug allergies. MEDICATION: The patient is currently on Tylenol, Xanax, Lipitor, Dulcolax, Rocaltrol, snyder syrup, Celexa, vitamin B12, Cardizem CD, folic acid, Lasix, NovoLog, Imdur, lactated Ringer's, Lactinex, melatonin, Lopressor, Marcaine, Nitrostat, Zofran, Ditropan XL, vancomycin 250 q.6 hours and Ambien. EXAMINATION: Blood pressure is 147/54, pulse of 83, temperature 97.8. She is 96% on 2 L nasal cannula. General description is an elderly female up in the bed, up in the bed in no distress. No tachypnea or accessory muscles of respiration use. HEENT: Shows pallor. No scleral icterus. Oral mucosal membranes dry. No pharyngeal erythema or thrush Neck: Trachea central. No thyromegaly. Lungs unlabored breathing. Clear to auscultation anteriorly. No wheeze or crackles. Heart S1, S2. Regular rate and rhythm. No murmur ABDOMEN: Soft. No tenderness. No guarding. No rigidity. No organomegaly EXTREMITIES: No edema of the feet. Skin examination: No rash or mass palpable. Neurological: The patient is awake, alert, oriented x3. Mood and affect normal. LABS: Hemoglobin 7.4, white count of 9.8, admission white count 17.7 with normal as of yesterday. Urine was negative with less than 1 WBC. Stool for C diff is positive. Urine culture with an E coli, 24,000 colonies. Blood cultures negative. DIAGNOSTIC IMPRESSION AND PLAN: 1. Patient with positive urine cultures. The patient with no urinary symptoms. UA was not significantly positive. Could be likely contamination colonized and not a true infection. Hence no need for antibiotic therapy. 2. Patient with C difficile colitis. Still having diarrhea despite being on vancomycin for almost 5 days now. PLAN: 1. We will keep the patient on vancomycin 250 p.o. q.6 hours for at least 2 more weeks. 2. We will add Questran 4 mg twice a day for symptomatic relief and toxin binding. 3. No need for any systemic antibiotic further positive urine culture. To prevent any worsening of her C. diff colitis 4. Follow up on the clinical condition and further adjust medication if needed. Thank you for this consultation. We will follow the patient along with you. MMODL / IJN: [id number] / SIDNEY
[2017-10-24] MEDS: CHOLESTYRAMINE (WITH SUGAR) 4 GM PACKET PO SCH (17:45)
[2017-10-24] MEDS: LACTOBACILLUS ACIDOPH & BULGAR 1 EACH PACKET PO SCH (17:45)
[2017-10-24] MEDS: FOLIC ACID 1 MG TAB PO SCH (17:46)
--- NOTE | 2017-10-24 17:49 | P.PN ---
Subjective Progress Note Date: 10/23/17 Progress note being dictated for Dr. Rodriguez Interval history: This is a 67-year-old female admitted with acute blood loss anemia, recent pancytopenia, severe thrombocytopenia, acute C. diff colitis and diarrhea, dehydration and multiple other medical issues. Complaining of constipation but actually continuing to have loose bowel movements, nonbloody 3. Yesterday platelets 8, received platelets last night, currently up to 37. Hemoglobin 7.9. Evaluated by GI with recommendations noted .Denies nausea or vomiting. Diet advanced to clear liquids with yogurt. Denies chest pain, palpitations or increasing shortness of breath. Denies abdominal tenderness. 10/22/2017 no overnight events. Maintained on oral vancomycin, diarrhea improving with no reports of bleeding. Hemoglobin 7.2, platelets 28, status post transfusion yesterday. Feels better, diet advanced to full liquids. Denies chest pain, palpitations or increasing shortness of breath. 10/23/2017, minimal diarrhea, tolerating diet, requesting further advancement. Afebrile. Normal WBC. Urine culture positive for enterococcus faecalis. Objective - Vital Signs Vital signs: Vital Signs Temp 97.4 F L 10/23/17 15:00 Pulse 66 10/23/17 16:00 Resp 16 10/23/17 16:00 BP 117/63 10/23/17 15:00 Pulse Ox 98 10/23/17 15:00 Intake & Output 10/23/17 10/23/17 10/24/17 06:59 18:59 06:59 Intake Total 680 Balance 680 Intake: Oral 680 Other: Voiding Method Toilet Toilet # Voids 2 4 # Bowel Movements 2 1 - Labs CBC & Chem 7: 10/24/17 08:42 10/24/17 08:42 Labs: Abnormal Lab Results - Last 24 Hours (Table) 10/22/17 10/23/17 10/23/17 Range/Units 21:04 07:02 08:04 RBC 2.41 L (3.80-5.40) m/uL Hgb 7.3 L (11.4-16.0) gm/dL Hct 22.4 L (34.0-46.0) % RDW 18.5 H (11.5-15.5) % Plt Count 20 L* (150-450) k/uL Neutrophils # (Manual) 1.20 L (1.3-7.7) k/uL Metamyelocytes # (Man) 0.32 H (0) k/uL Myelocytes # (Manual) 0.11 H (0) k/uL Blast Cells # (Man) 5.67 H (0) k/uL Nucleated RBCs 1 H (0-0) /100 WBC Chloride (98-107) mmol/L Glucose (74-99) mg/dL POC Glucose (mg/dL) 181 H 148 H (75-99) mg/dL Calcium (8.4-10.2) mg/dL 10/23/17 10/23/17 10/23/17 Range/Units 08:04 12:31 17:07 RBC (3.80-5.40) m/uL Hgb (11.4-16.0) gm/dL Hct (34.0-46.0) % RDW (11.5-15.5) % Plt Count (150-450) k/uL Neutrophils # (Manual) (1.3-7.7) k/uL Metamyelocytes # (Man) (0) k/uL Myelocytes # (Manual) (0) k/uL Blast Cells # (Man) (0) k/uL Nucleated RBCs (0-0) /100 WBC Chloride 110 H (98-107) mmol/L Glucose 121 H (74-99) mg/dL POC Glucose (mg/dL) 135 H 165 H (75-99) mg/dL Calcium 8.1 L (8.4-10.2) mg/dL Microbiology - Last 24 Hours (Table) 10/19/17 21:58 Blood Culture - Preliminary Blood No Growth after 72 hours 10/20/17 16:18 Urine Culture - Final Urine,Clean Catch Enterococcus faecalis Assessment and Plan Assessment: 1. Anemia, ruling out acute blood loss anemia, in a patient with history of GI bleed 2. Recent pancytopenia as well as transfusions 3. Severe thrombocytopenia, status post transfusion of platelets 4. Leukocytosis related to C. diff colitis 5. Acute C. difficile colitis 6. Generalized gait dysfunction 7. CAD with history of CABG, stent 8. Acute UTI with enterococcus faecalis. Plan: Continue on current medication regime , antibiotics, monitoring. antibiotics as per infectious disease. Questran to be added to med regime.diet advanced. PT/OT. Discharge planning in progress for return to [facility] pending preauth. The impression and plan of care has been dictated as directed. : I performed a history and examination of this patient, discussed the same with the dictator. I agree with the dictator's note ,documented as a scribe. Any additional findings or plans will be noted.
--- NOTE | 2017-10-24 17:55 | P.PN ---
Subjective Progress Note Date: 10/24/17 Progress note being dictated for Dr. Rodriguez Interval history: This is a 67-year-old female admitted with acute blood loss anemia, recent pancytopenia, severe thrombocytopenia, acute C. diff colitis and diarrhea, dehydration and multiple other medical issues. Complaining of constipation but actually continuing to have loose bowel movements, nonbloody 3. Yesterday platelets 8, received platelets last night, currently up to 37. Hemoglobin 7.9. Evaluated by GI with recommendations noted .Denies nausea or vomiting. Diet advanced to clear liquids with yogurt. Denies chest pain, palpitations or increasing shortness of breath. Denies abdominal tenderness. 10/22/2017 no overnight events. Maintained on oral vancomycin, diarrhea improving with no reports of bleeding. Hemoglobin 7.2, platelets 28, status post transfusion yesterday. Feels better, diet advanced to full liquids. Denies chest pain, palpitations or increasing shortness of breath. 10/23/2017, minimal diarrhea, tolerating diet, requesting further advancement. Afebrile. Normal WBC. Urine culture positive for enterococcus faecalis. 10/24/2017 maintained on oral vancomycin as per ID. evaluated byInfectious disease, no UTI,treating C-diff. Continuing to have 2-3 diarrhea episodes today.denies chest pain, palpitations or shortness of breath.afebrile. Objective - Vital Signs Vital signs: Vital Signs Temp 97.1 F L 10/24/17 15:00 Pulse 97 10/24/17 15:47 Resp 16 10/24/17 15:47 BP 112/52 10/24/17 15:00 Pulse Ox 94 L 10/24/17 15:00 Intake & Output 10/23/17 10/24/17 10/24/17 18:59 06:59 18:59 Intake Total 680 1260 Balance 680 1260 Weight 68.946 kg Intake: Oral 680 1260 Other: Voiding Method Toilet Toilet Toilet # Voids 4 2 2 # Bowel Movements 1 2 2 - Exam PHYSICAL EXAM: VITAL SIGNS: As above GENERAL: Sitting up in bed, no acute distress HEENT: Conjunctivae normal. eyes normal. NECK: No JVD. No thyroid enlargement. No LNs CARDIOVASCULAR: S1, S2 muffled. No murmur RESPIRATION: Breath sounds diminished in the bases. No rhonchi or crackles. ABDOMEN: Soft, mild diffuse tenderness . No guarding. no masses palpable. .Bowel sounds heard. No guarding, no rigidity. LEGS: No edema. no swelling PSYCHIATRY: Alert and oriented -3, mood and affect normal. NERVOUS SYSTEM: Cranial N 2-12 grossly normal. Moves all 4 limbs. Diffuse weakness No focal deficits. No sensory deficit. Skin: no ulcer no rash. Joints: No active swelling. No inflammation. Lymphatic system. No LN neck axilla or groin. - Labs CBC & Chem 7: 10/24/17 08:42 10/24/17 08:42 Labs: Abnormal Lab Results - Last 24 Hours (Table) 10/23/17 10/24/17 10/24/17 Range/Units 20:43 06:50 08:42 WBC 11.8 H (3.8-10.6) k/uL RBC 2.50 L (3.80-5.40) m/uL Hgb 7.5 L (11.4-16.0) gm/dL Hct 22.9 L (34.0-46.0) % RDW 17.5 H (11.5-15.5) % Plt Count 17 L* (150-450) k/uL Metamyelocytes # (Man) 0.24 H (0) k/uL Myelocytes # (Manual) 0.24 H (0) k/uL Blast Cells # (Man) 4.48 H (0) k/uL Nucleated RBCs 3 H (0-0) /100 WBC Chloride (98-107) mmol/L Glucose (74-99) mg/dL POC Glucose (mg/dL) 145 H 183 H (75-99) mg/dL 10/24/17 10/24/17 10/24/17 Range/Units 08:42 11:55 16:41 WBC (3.8-10.6) k/uL RBC (3.80-5.40) m/uL Hgb (11.4-16.0) gm/dL Hct (34.0-46.0) % RDW (11.5-15.5) % Plt Count (150-450) k/uL Metamyelocytes # (Man) (0) k/uL Myelocytes # (Manual) (0) k/uL Blast Cells # (Man) (0) k/uL Nucleated RBCs (0-0) /100 WBC Chloride 108 H (98-107) mmol/L Glucose 159 H (74-99) mg/dL POC Glucose (mg/dL) 168 H 188 H (75-99) mg/dL Microbiology - Last 24 Hours (Table) 10/19/17 21:58 Blood Culture - Preliminary Blood No Growth after 96 hours Assessment and Plan Assessment: 1. Anemia, ruling out acute blood loss anemia, in a patient with history of GI bleed 2. Recent pancytopenia as well as transfusions 3. Severe thrombocytopenia, status post transfusion of platelets 4. Leukocytosis related to C. diff colitis 5. Acute C. difficile colitis 6. Generalized gait dysfunction 7. CAD with history of CABG, stent Plan: Continue on current medication regime , Questran,antibiotics, monitoring. antibiotics as per infectious disease. PT/OT. Discharge planning in progress for return to [facility] pending preauth. The impression and plan of care has been dictated as directed. : I performed a history and examination of this patient, discussed the same with the dictator. I agree with the dictator's note ,documented as a scribe. Any additional findings or plans will be noted.
[2017-10-24 21:17] LABS: Glucose,Whole Blood 153 mg/dL (75-99)
[2017-10-24] MEDS: CITALOPRAM HYDROBROMIDE 20 MG TAB PO SCH (21:22)
[2017-10-25] MEDS: VANCOMYCIN ORAL SOLUTION 250 MG/5 ML BOTTLE PO SCH ×3 (00:12→13:13)
[2017-10-25] MEDS: CHERRY FLAVOR 60 ML BOTTLE PO PRN ×3 (00:12→13:13)
[2017-10-25 07:34] LABS: Glucose,Whole Blood 144 mg/dL (75-99)
[2017-10-25] MEDS: INSULIN ASPART 100 UNIT/ML 1 ML 10 ML VIAL SQ SCH ×2 (08:34→13:12)
[2017-10-25] MEDS: PANTOPRAZOLE 40 MG TABLET PO SCH (08:36)
[2017-10-25] MEDS: CHOLESTYRAMINE (WITH SUGAR) 4 GM PACKET PO SCH (08:36)
[2017-10-25] MEDS: OXYBUTYNIN 15 MG TAB.ER.24 PO SCH (08:37)
[2017-10-25] MEDS: ISOSORBIDE MONONITRATE ER 30 MG TAB.ER.24H PO SCH (08:37)
[2017-10-25] MEDS: DILTIAZEM CD 180 MG CAP.ER.24H PO SCH (08:37)
[2017-10-25] MEDS: ATORVASTATIN 20 MG TAB PO SCH (08:37)
[2017-10-25] MEDS: METOPROLOL TARTRATE 50 MG TAB PO SCH (08:37)
[2017-10-25] MEDS: LACTATED RINGERS 1,000 ML IV SCH (08:38)
[2017-10-25] MEDS: FUROSEMIDE 40 MG TAB PO SCH (08:38)
[2017-10-25 09:10] LABS: Anisocytosis Slight; HCT 21.4 % (34.0-46.0); MCH 29.9 pg (25.0-35.0); MCHC 32.9 g/dL (31.0-37.0); MCV 90.9 fL (80.0-100.0); Poikilocytosis Slight; RBC 2.35 m/uL (3.80-5.40); RDW 17.2 % (11.5-15.5); WBC 14.4 k/uL (3.8-10.6)
[2017-10-25 09:13] LABS: Platelet Count 17 k/uL (150-450)
[2017-10-25 09:21] LABS: Anion Gap 8 mmol/L; Blood Urea Nitrogen 9 mg/dL (7-17); Calcium 8.4 mg/dL (8.4-10.2); Carbon Dioxide 24 mmol/L (22-30); Chloride 107 mmol/L (98-107); Glucose 128 mg/dL (74-99); Potassium 3.7 mmol/L (3.5-5.1); Sodium 139 mmol/L (137-145)
[2017-10-25 10:19] LABS: Band Neutrophils % 1 %; Blast Cells # (M) 11.38 k/uL (0); Lymphocytes # (M) 1.15 k/uL (1.0-4.8); Monocytes # (M) 0.29 k/uL (0-1.0); Myelocytes # (M) 0.29 k/uL (0); Myelocytes % 2 %; Neutrophils % (M) 9 %; Nucleated Red Blood Cells 0 /100 WBC (0-0); Total Cells Counted 200
[2017-10-25 12:03] LABS: Glucose,Whole Blood 225 mg/dL (75-99)
--- NOTE | 2017-10-25 12:04 | P.DS ---
Providers Date of admission: 10/19/17 23:19 Expected date of discharge: 10/25/17 Attending physician: Mickey Rodriguez Final Diagnoses 1. Anemia, ruling out acute blood loss anemia, in a patient with history of GI bleed 2. Recent pancytopenia as well as transfusions 3. Severe thrombocytopenia, status post transfusion of platelets 4. Leukocytosis related to C. diff colitis 5. Acute C. difficile colitis 6. Generalized gait dysfunction 7. CAD with history of CABG, stent 8. Positive urine culture, UA not significantly positive, suspect contamination , no significant urinary sx, no burning, no frequency, with no antibx rec. as per ID Hospital course:This is a 67-year-old female admitted with acute blood loss anemia, recent pancytopenia, severe thrombocytopenia, acute C. diff colitis and diarrhea, dehydration and multiple other medical issues. Evaluated by GI , oncology and ID. Maintained on Oral Vancomycin.Diarrhea improved with addition of Questran. Significant clinical improvement . Cleared by consults for discharge. Oral chemo resumed as per oncology. Eliquis and aspirin to be resumed as per Oncology. Patient is being discharged to [facility] in a stable condition with guarded prognosis. Physical exam:VSS, cardiovascular: S1 and S2 regular, no edema, respiratory: bilateral bases diminished with no rhonchi or crackles, abdomen soft nontender positive bowel sounds, psychiatry alert and oriented times treatment and affect normal, no focal deficits. Microbiology 10/19/17 21:58 Blood Blood Culture - Preliminary No Growth after 72 hours 10/20/17 16:18 Urine,Clean Catch Urine Culture - Final Enterococcus faecalis Consults: 10/19/17 23:19 Consult Physician Routine Consulting Provider: Kal Montanez Consult Reason/Comments: known Do you want consulting provider notified?: Yes Primary care physician: Geovanni Dubose Patient Condition at Discharge: Stable Plan - Discharge Summary New Discharge Prescriptions: New Acetaminophen Tab [Tylenol] 650 mg PO Q6HR PRN tab PRN Reason: Mild Pain Or Fever > 100.5 Vancomycin HCl [Vancomycin HCl Oral Soln] 250 mg PO Q6H 14 Days #280 ml Cholestyramine (with Sugar) [Questran Packet] 4 gm PO BID@1000,1800 #14 packet Continue Oxybutynin Chloride [Ditropan XL] 15 mg PO DAILY Rowe-3 Fatty Acids/Fish Oil [Fish Oil 1,000 mg Softgel] 1 cap PO DAILY@1700 Cranberry Conc/C/Bacill Coag [Cranberry Tablet] 1 tab PO DAILY@1700 Citalopram Hydrobromide [CeleXA] 40 mg PO HS@2100 Diltiazem Cd [Cardizem CD] 180 mg PO DAILY #30 cap.er.24h L.acidoph,Paracasei, B.lactis [Probiotic] 1 cap PO DAILY@1700 Atorvastatin [Lipitor] 20 mg PO DAILY Thiamine [Vitamin B-1] 100 mg PO DAILY@1700 Folic Acid 1 mg PO DAILY@1700 Calcitriol 0.5 mcg PO MO@1700 Isosorbide Mononitrate ER [Imdur] 30 mg PO DAILY #30 tab.er.24h Nitroglycerin Sl Tabs [Nitrostat] 0.4 mg SUBLINGUAL Q5M PRN PRN Reason: Chest Pain Cyanocobalamin (Vitamin B-12) [Vitamin B-12] 1,000 mcg PO DAILY@1700 Omeprazole [PriLOSEC] 40 mg PO DAILY #14 capsule.dr Furosemide [Lasix] 40 mg PO DAILY #30 tablet Bisacodyl [Dulcolax] 10 mg RECTAL Q24H PRN PRN Reason: Constipation Bosutinib [Bosulif] 300 mg PO DAILY@1500 Lactose-Reduced Food [Ensure Plus] 1 can PO TID Metoprolol Tartrate [Lopressor] 50 mg PO BID@0800,1700 Potassium Chloride ER [K-Dur 20] 20 meq PO DAILY@1700 Ondansetron [Zofran] 4 mg PO Q8H PRN PRN Reason: Nausea And Vomiting Insulin Aspart [NovoLOG (formulary)] See Protocol SQ ACHS ALPRAZolam [Xanax] 0.25 mg PO BID PRN #10 tab PRN Reason: Anxiety Zolpidem [Ambien] 5 mg PO HS PRN #5 tab PRN Reason: Insomnia Discontinued Magnesium Hydroxide [Milk of Magnesia] 2,400 mg PO DAILY PRN PRN Reason: CONSTIPATION Na Phos,M-B/Na Phos,Di-Ba [Fleet Adult] 133 ml RECTAL DAILY PRN PRN Reason: Constipation Discharge Medication List Cranberry Conc/C/Bacill Coag [Cranberry Tablet] 1 tab PO DAILY@1700 10/12/15 [ History] Rowe-3 Fatty Acids/Fish Oil [Fish Oil 1,000 mg Softgel] 1 cap PO DAILY@1700 [History] Oxybutynin Chloride [Ditropan XL] 15 mg PO DAILY 10/12/15 [History] Citalopram Hydrobromide [CeleXA] 40 mg PO HS@2100 11/24/16 [History] Diltiazem Cd [Cardizem CD] 180 mg PO DAILY #30 cap.er.24h 02/28/17 [Rx] Atorvastatin [Lipitor] 20 mg PO DAILY 05/15/17 [History] L.acidoph,Paracasei, B.lactis [Probiotic] 1 cap PO DAILY@1700 05/15/17 [History] Calcitriol 0.5 mcg PO MO@1700 09/06/17 [History] Folic Acid 1 mg PO DAILY@1700 09/06/17 [History] Thiamine [Vitamin B-1] 100 mg PO DAILY@1700 09/06/17 [History] Isosorbide Mononitrate ER [Imdur] 30 mg PO DAILY #30 tab.er.24h 09/07/17 [Rx] Cyanocobalamin (Vitamin B-12) [Vitamin B-12] 1,000 mcg PO DAILY@1700 09/19/17 [ History] Nitroglycerin Sl Tabs [Nitrostat] 0.4 mg SUBLINGUAL Q5M PRN 09/19/17 [History] Furosemide [Lasix] 40 mg PO DAILY #30 tablet 09/21/17 [Rx] Omeprazole [PriLOSEC] 40 mg PO DAILY #14 capsule.dr 09/21/17 [Rx] Bisacodyl [Dulcolax] 10 mg RECTAL Q24H PRN 10/16/17 [History] Bosutinib [Bosulif] 300 mg PO DAILY@1500 10/16/17 [History] Lactose-Reduced Food [Ensure Plus] 1 can PO TID 10/16/17 [History] Metoprolol Tartrate [Lopressor] 50 mg PO BID@0800,1700 10/16/17 [History] Potassium Chloride ER [K-Dur 20] 20 meq PO DAILY@1700 10/16/17 [History] Insulin Aspart [NovoLOG (formulary)] See Protocol SQ ACHS 10/20/17 [History] Ondansetron [Zofran] 4 mg PO Q8H PRN 10/20/17 [History] ALPRAZolam [Xanax] 0.25 mg PO BID PRN #10 tab 10/23/17 [Rx] Acetaminophen Tab [Tylenol] 650 mg PO Q6HR PRN tab 10/23/17 [Rx] Zolpidem [Ambien] 5 mg PO HS PRN #5 tab 10/23/17 [Rx] Vancomycin HCl [Vancomycin HCl Oral Soln] 250 mg PO Q6H 14 Days #280 ml [Rx] Cholestyramine (with Sugar) [Questran Packet] 4 gm PO BID@1000,1800 #14 packet 10/25/17 [Rx] Follow up Appointment(s)/Referral(s): Kal Montanez MD [STAFF PHYSICIAN] - 3 Weeks Ge[facility] Dubose [facility] [Primary Care Provider[facility] Hannah De Los Santos MD [STAFF PHYSICIAN] - 1 Week Patient Instructions/Handouts: Heart Failure (DC), Type 2 Diabetes in Adults ( DC), Clostridium Difficile Infection (DC) Activity/Diet/Wound Care/Special Instructions: 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 PT NOT TO RESUME ANTIOCOGULANTS UNTIL OKAYED BY DR. MONTANEZ WITH FOLLOW UP CBCS AT [facility]. CBC in 3 days & weekly x3 weeks with results sent to Dr. Montanez. & Dr. Dubose Cardiac, diabetic SOFT diet. Diabetic folder given. Activity as tolerated. FULL code. CHF booklet given. C difficile precautions, FAQ sheet given. Discharge Disposition: TRANSFER TO SNF/ECF
[2017-10-25 12:58] VITALS: RESP 16
[2017-10-25 14:57] VITALS: BP 135/56; TEMP 98.6
[2017-10-25] MEDS: BOSUTINIB 100 MG PO SCH (15:16)
[2017-10-25 15:48] VITALS: PULSE 64
--- NOTE | 2017-10-25 16:20 | PN ---
PROGRESS NOTE DATE OF SERVICE: 10/25/2017. REASON FOR FOLLOWUP VISIT: C difficile colitis. INTERVAL HISTORY: The patient is afebrile. She is feeling better. Her diarrhea has improved. She had only one bowel movement this morning and currently slightly forming up. No chest pain. No abdominal pain. EXAMINATION: Her blood pressure is 135/56 with a pulse of 54, temperature of 98.6. She is 95% on room air. General description is an elderly female lying in bed in no distress. Respiratory system: Unlabored breathing. Clear to auscultation anteriorly. Heart S1, S2. Regular rate and rhythm. Abdomen soft, no tenderness. LABS: Hemoglobin is 7, white count 14.4. DIAGNOSTIC IMPRESSION AND PLAN: Patient with C difficile colitis clinically responding to p.o. vancomycin and Questran. Will continue to finish a 2-week course of therapy. The patient did have slight jump in white count could be secondary to anemia for which the patient currently being monitored by the Gastroenterology Services. Continue supportive care. MMODL / IJN: [id number] /
--- NOTE | 2017-10-25 18:18 | P.PN ---
Subjective Progress Note Date: 10/23/17 The patient's diarrhea and abdominal discomfort have diminished. She denies recurrent bleeding. She states that she is starting to feel somewhat better and notes mild improvement in appetite Objective - Vital Signs Vital signs: Vital Signs Temp 98.6 F 10/25/17 14:55 Pulse 64 10/25/17 15:48 Resp 16 10/25/17 14:55 BP 135/56 10/25/17 14:55 Pulse Ox 95 10/25/17 14:55 Intake & Output 10/24/17 10/25/17 10/25/17 18:59 06:59 18:59 Intake Total 1260 710 Balance 1260 710 Weight 68.946 kg Intake: Oral 1260 400 Blood Product 310 Rc As-1 Unit 310 [id number] Other: Voiding Method Toilet Toilet # Voids 2 2 2 # Bowel Movements 2 1 - Constitutional General appearance: Present: no acute distress - EENT Eyes: Present: EOMI, PERRLA ENT: Present: hearing grossly normal, normal oropharynx - Respiratory Respiratory: bilateral: CTA - Cardiovascular Rhythm: irregularly irregular Heart sounds: normal: S1, S2 - Gastrointestinal General gastrointestinal: Present: normal bowel sounds, soft Localized gastrointestinal: tender: diffuse (Mild) - Integumentary Integumentary: Present: normal - Neurologic Neurologic: Present: CNII-XII intact - Musculoskeletal Musculoskeletal: Present: generalized weakness - Psychiatric Psychiatric: Present: A&O x's 3, appropriate affect - Labs CBC & Chem 7: 10/25/17 08:12 10/25/17 08:12 Labs: Abnormal Lab Results - Last 24 Hours (Table) 10/24/17 10/25/17 10/25/17 Range/Units 21:16 07:23 08:12 WBC 14.4 H (3.8-10.6) k/uL RBC 2.35 L (3.80-5.40) m/uL Hgb 7.0 L* (11.4-16.0) gm/dL Hct 21.4 L (34.0-46.0) % RDW 17.2 H (11.5-15.5) % Plt Count 17 L* (150-450) k/uL Myelocytes # (Manual) 0.29 H (0) k/uL Blast Cells # (Man) 11.38 H (0) k/uL Glucose (74-99) mg/dL POC Glucose (mg/dL) 153 H 144 H (75-99) mg/dL Crossmatch 10/25/17 10/25/17 10/25/17 Range/Units 08:12 10:36 11:56 WBC (3.8-10.6) k/uL RBC (3.80-5.40) m/uL Hgb (11.4-16.0) gm/dL Hct (34.0-46.0) % RDW (11.5-15.5) % Plt Count (150-450) k/uL Myelocytes # (Manual) (0) k/uL Blast Cells # (Man) (0) k/uL Glucose 128 H (74-99) mg/dL POC Glucose (mg/dL) 225 H (75-99) mg/dL Crossmatch See Detail Microbiology - Last 24 Hours (Table) 10/19/17 21:58 Blood Culture - Preliminary Blood No Growth after 120 hours Assessment and Plan (1) 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 However reactive changes, due to her not being able to take her medication regularly, and ongoing bleeding and inflammation are also possibility. Again discussed with her that progression and transformation to AML cannot be ruled out. However even if that were the case, the patient is not a candidate based on her comorbidities and performance status, for aggressive AML type induction chemotherapy. It was also explained to her, that in general AML evolving from CML tends to respond comparatively poorly to AML type aggressive chemo regimens. The patient actually may respond well and go back into remission with CML type therapies which are also better tolerated. As noted previously, the patient has not been able to take her Bosulif consistently. She actually had been taking it daily for about a week prior to this admission. Even during that period of time, improvement in her WBC has been noted. Therefore I would recommend that she resume her medication and continue on the same. It is expected that , due to medication effect, as well as her ongoing acute illnesses, she can have more pronounced cytopenias. This will need to be monitored and treated with supportive transfusions. Hopefully, as the CML responds her counts should improve, assuming that she does not have recurrent bleeding or infection Status: Acute Code(s): C92.12 - CHRONIC MYELOID LEUKEMIA, BCR/ABL-POSITIVE, IN RELAPSE SNOMED Code(s): 243384106 (2) C. difficile colitis Narrative/Plan: The case was discussed with gastroenterology. The patient has clinically responded. They're considering keeping her on chronic suppressive therapy to prevent recurrence and thus unable her to continue CML treatment more consistent Status: Chronic Priority: Medium Code(s): A04.72 - ENTEROCOLITIS D/T CLOSTRIDIUM DIFFICILE, NOT SPCF RECUR SNOMED Code(s): 291570577
== END 2017-10-25 17:10 | DRG 372 ==
LOC: EC 21:05 → 4MS4W 23:19
PROVIDERS: ADMIT Hospitalist; ATTEND Hospitalist
PROC: 30233N1 Transfusion of Nonautologous Red Blood Cells into Peripheral Vein, Percutaneous Approach (ICD-10-PCS; principal; 2017-10-20)
PROC: 30233R1 Transfusion of Nonautologous Platelets into Peripheral Vein, Percutaneous Approach (ICD-10-PCS; 2017-10-21)
DX: A04.72 Enterocolitis due to Clostridium difficile, not specified as recurrent (principal); C92.12 Chronic myeloid leukemia, BCR/ABL-positive, in relapse; D62 Acute posthemorrhagic anemia; J44.9 Chronic obstructive pulmonary disease, unspecified; B95.2 Enterococcus as the cause of diseases classified elsewhere; E11.9 Type 2 diabetes mellitus without complications; E78.5 Hyperlipidemia, unspecified; N39.0 Urinary tract infection, site not specified; E86.0 Dehydration; I10 Essential (primary) hypertension; I25.10 Atherosclerotic heart disease of native coronary artery without angina pectoris; I25.2 Old myocardial infarction; K21.9 Gastro-esophageal reflux disease without esophagitis; F32.9 Major depressive disorder, single episode, unspecified; F41.9 Anxiety disorder, unspecified; K21.0 Gastro-esophageal reflux disease with esophagitis; K44.9 Diaphragmatic hernia without obstruction or gangrene; K57.90 Diverticulosis of intestine, part unspecified, without perforation or abscess without bleeding; K64.9 Unspecified hemorrhoids; R26.9 Unspecified abnormalities of gait and mobility; G89.29 Other chronic pain; M54.5 Low back pain; M54.6 Pain in thoracic spine; Z79.01 Long term (current) use of anticoagulants; Z79.899 Other long term (current) drug therapy; Z79.82 Long term (current) use of aspirin; Z79.4 Long term (current) use of insulin; Z95.5 Presence of coronary angioplasty implant and graft; Z95.1 Presence of aortocoronary bypass graft; Z91.048 Other nonmedicinal substance allergy status; Z87.891 Personal history of nicotine dependence; Z90.710 Acquired absence of both cervix and uterus; Z86.73 Personal history of transient ischemic attack (TIA), and cerebral infarction without residual deficits; Z82.49 Family history of ischemic heart disease and other diseases of the circulatory system; Z80.0 Family history of malignant neoplasm of digestive organs
CPT/HCPCS: 36415; 71045; 80048; 80053; 81001; 82550; 82553; 83036; 83605; 83735; 84100; 84132; 84484; 85025; 85027; 85610; 85730; 86850; 86900; 86901; 86920; 87040; 87077; 87086; 87186; 87324; 93005; 94760; 96361; 96374; 99285

== ENCOUNTER 2017-10-26 17:26 | Emergency (ER) | payer MEDICARE ==
--- NOTE | 2017-10-26 17:56 | ED ---
General Adult HPI - General Chief complaint: Recheck/Abnormal Lab/Rx Stated complaint: Abnormal Labs Time Seen by Provider: 10/26/17 17:28 Source: patient, RN/MD, EMS, RN notes reviewed, old records reviewed Mode of arrival: EMS Limitations: physical limitation - History of Present Illness Initial comments: 67-year-old female presents for evaluation of thrombocytopenia and altered mental status. Patient is currently residing at a long-term, she had routine labs drawn that showed a platelet count of 15,000. According to long-term documentation was also a change in her mental status. Patient is alert and oriented at the time my evaluation. She has no complaints. She states she has been dealing with C. difficile infection for some time now. She has been in the long-term and Hospital for the past several months. She denies any complaints of fever, no chest pain, no abdominal pain. Patient is not certain why she is here - Related Data Home Medications Medication Instructions Recorded Confirmed Cranberry Conc/C/Bacill Coag 1 tab PO DAILY@1700 10/12/15 10/26/17 [Cranberry Tablet] Elmore-3 Fatty Acids/Fish Oil [Fish 1 cap PO DAILY@1700 10/12/15 10/26/17 Oil 1,000 mg Softgel] Oxybutynin Chloride [Ditropan XL] 15 mg PO DAILY@0800 10/12/15 10/26/17 Citalopram Hydrobromide [CeleXA] 40 mg PO HS@2100 11/24/16 10/26/17 Atorvastatin [Lipitor] 20 mg PO DAILY@0800 05/15/17 10/26/17 L.acidoph,Paracasei, B.lactis 1 cap PO DAILY@1700 05/15/17 10/26/17 [Probiotic] Calcitriol 0.5 mcg PO MO@1700 09/06/17 10/26/17 Folic Acid 1 mg PO DAILY@1700 09/06/17 10/26/17 Thiamine [Vitamin B-1] 100 mg PO DAILY@0 09/06/17 10/26/17 Nitroglycerin Sl Tabs [Nitrostat] 0.4 mg SUBLINGUAL Q5M PRN 09/19/17 10/26/17 Bisacodyl [Dulcolax] 10 mg RECTAL Q24H PRN 10/16/17 10/26/17 Bosutinib [Bosulif] 300 mg PO DAILY@1500 10/16/17 10/26/17 Lactose-Reduced Food [Ensure Plus] 1 can PO TID@0800,1200,1700 10/16/17 10/26/17 Metoprolol Tartrate [Lopressor] 50 mg PO BID@0800,1700 10/16/17 10/26/17 Potassium Chloride ER [K-Dur 20] 20 meq PO DAILY@1700 10/16/17 10/26/17 Insulin Aspart [NovoLOG See Protocol SQ ACHS 10/20/17 10/26/17 (formulary)] Ondansetron [Zofran] 4 mg PO Q8H PRN 10/20/17 10/26/17 Cyanocobalamin [Vitamin B-12] 1,000 mcg PO DAILY@17010/26/17 10/26/17 Diltiazem Cd [Cardizem CD] 180 mg PO DAILY@0800 10/26/17 10/26/17 Furosemide [Lasix] 40 mg PO DAILY@0810/26/17 10/26/17 Isosorbide Mononitrate ER [Imdur] 30 mg PO DAILY@0810/26/17 10/26/17 Magnesium Hydroxide [Milk of 2,400 mg PO DAILY PRN 10/26/17 10/26/17 Magnesia] Na Phos,M-B/Na Phos,Di-Ba [Fleet 133 ml RECTAL ONCE PRN 10/26/17 10/26/17 Adult] Omeprazole [PriLOSEC] 40 mg PO DAILY@0600 10/26/17 10/26/17 Vancomycin HCl [Vancomycin HCl 250 mg PO Q6H 10/26/17 10/26/17 Oral Soln] Previous Rx's Medication Instructions Recorded ALPRAZolam [Xanax] 0.25 mg PO BID PRN #10 tab 10/23/17 Acetaminophen Tab [Tylenol] 650 mg PO Q6HR PRN tab 10/23/17 Zolpidem [Ambien] 5 mg PO HS PRN #5 tab 10/23/17 Cholestyramine (with Sugar) 4 gm PO BID@1000,1800 #14 packet 10/25/17 [Questran Packet] Allergies Allergy/AdvReac Type Severity Reaction Status Date / Time adhesive tape AdvReac Unknown Red , Verified 10/26/17 17:29 Irritated skin Review of Systems ROS Statement: Those systems with pertinent positive or pertinent negative responses have been documented in the HPI. ROS Other: All systems not noted in ROS Statement are negative. Past Medical History Past Medical History: Atrial Fibrillation, Coronary Artery Disease (CAD), Cancer , Chest Pain / Angina, Heart Failure, COPD, Diabetes Mellitus, GERD/Reflux, GI Bleed, Hyperlipidemia, Hypertension, Myocardial Infarction (non Q-wave) Additional Past Medical History / Comment(s): hiatal hernia, esophagitis, diverticulosis, hemorrhoids, leukemia- being treated with oral targeted therapy - Bosutinib, diagnosed around April 2016, PLEURAL EFFUSIONS-resolved on their own, iron deficiency anemia,past iron infusions and blood transfusions. MIs x 4 , chronic thoracic and lower back pain.uti/kidney infection. c-diff 09-26-17 and pt stated was' told not to eat any other dairy product other than yogurt for now". Last Myocardial Infarction Date:: 2008 History of Any Multi-Drug Resistant Organisms: C-DIFF Date of last positivie culture/infection: 10/19/17 MDRO Source:: stool Past Surgical History: Coronary Bypass/CABG, Heart Catheterization, Heart Catheterization With Stent, Hysterectomy, Orthopedic Surgery Additional Past Surgical History / Comment(s): 05/17/17 EGD/COLONOSCOPY WITH PREVIOUS COLONOSCOPY, CONNOR CATARACT SX -LENS IMPLANTS, OOPHORECTOMY D/T OVARY TUMOR, R ACHILLES TENDON REPAIR. CABG-TRIPLE BYPASS WITH REPAIR OF HOLE IN HEART AND HEART VALVE(2008). Past Anesthesia/Blood Transfusion Reactions: No Reported Reaction Date of Last Stent Placement:: 2007 Past Psychological History: Anxiety, Depression Smoking Status: Former smoker Past Alcohol Use History: Occasional Past Drug Use History: None Reported - Past Family History Mother Family Medical History: Cancer Additional Family Medical History / Comment(s): colon cancer Father Family Medical History: Congestive Heart Failure (CHF) Brother(s) Family Medical History: Congestive Heart Failure (CHF), Diabetes Mellitus General Exam Limitations: physical limitation General appearance: alert, in no apparent distress Head exam: Present: atraumatic, normocephalic Eye exam: Present: normal appearance, PERRL ENT exam: Present: normal exam Neck exam: Present: normal inspection. Absent: tenderness, meningismus Respiratory exam: Present: normal lung sounds bilaterally. Absent: respiratory distress Cardiovascular Exam: Present: regular rate, irregular rhythm GI/Abdominal exam: Present: soft. Absent: distended, tenderness Extremities exam: Present: normal inspection, normal capillary refill. Absent: pedal edema Neurological exam: Present: alert, oriented X3, CN II-XII intact. Absent: motor sensory deficit Psychiatric exam: Present: normal affect, normal mood Skin exam: Present: warm, dry, intact. Absent: cyanosis, diaphoretic Course Vital Signs 10/26/17 10/26/17 17:29 20:31 Temperature 99.4 F 98.2 F Pulse Rate 75 64 Respiratory 16 18 Rate Blood Pressure 161/80 168/71 O2 Sat by Pulse 93 L 98 Oximetry - Reevaluation(s) Reevaluation #1: 10/26/17 21:28 Additional history obtained from the patient's family, she did have an episode of confusion, which is resolved. Patient is currently being treated for C. difficile with oral vancomycin. She had some rectal bleeding, this has resolved. EKG Findings - EKG Comments: EKG Findings:: EKG shows sinus rhythm with frequent PVC, prolonged QT, ventricular rate 79, TX interval 126, castration 86, QTC 452, no ST segment elevation Medical Decision Making - Medical Decision Making 67-year-old female with history of CML presents for evaluation of confusion and thrombocytopenia. Laboratory studies are obtained, white blood cell count is 13.8, hemoglobin 8.2 which appears stabilized, however patient did receive transfusion yesterday. Platelets are 15. No active signs of bleeding externally. CT is obtained, does show hypodense and hyperdense layering consistent with possible subdural, other etiologies not excluded. Platelets are ordered. Potassium 3.3 which is replaced. Chest x-ray shows mild pulmonary vascular congestion, and left lower airspace opacity, either heart failure versus mass versus pneumonia. Patient is able to ambulate in the emergency department. Diagnosis: Thrombocytopenia, CML, concern for subdural, altered mental status Disposition: Patient transferred to [facility] - Lab Data Result diagrams: 10/26/17 18:10 10/26/17 18:10 Lab Results 10/26/17 10/26/17 10/26/17 Range/Units 18:10 18:10 18:10 WBC 13.8 H (3.8-10.6) k/uL RBC 2.76 L (3.80-5.40) m/uL Hgb 8.2 L (11.4-16.0) gm/dL Hct 24.7 L (34.0-46.0) % MCV 89.3 (80.0-100.0) fL MCH 29.9 (25.0-35.0) pg MCHC 33.4 (31.0-37.0) g/dL RDW 16.9 H (11.5-15.5) % Plt Count 15 L* (150-450) k/uL Neutrophils % (Manual) 17 % Band Neutrophils % 3 % Lymphocytes % (Manual) 46 % Monocytes % (Manual) 10 % Metamyelocytes % 1 % Myelocytes % 2 % Promyelocytes % 4 % Blast Cells % 19 % Neutrophils # (Manual) 2.70 (1.3-7.7) k/uL Lymphocytes # (Manual) 6.35 H (1.0-4.8) k/uL Monocytes # (Manual) 1.38 H (0-1.0) k/uL Metamyelocytes # (Man) 0.14 H (0) k/uL Myelocytes # (Manual) 0.28 H (0) k/uL Promyelocytes # (Man) 0.55 H (0) k/uL Blast Cells # (Man) 2.62 H (0) k/uL Plasma Cell # (Manual) 0.14 H (0) k/uL Nucleated RBCs 3 H (0-0) /100 WBC Manual Slide Review Performed Plasma Cells % 1 % Poikilocytosis Slight Anisocytosis Slight PT (9.0-12.0) sec INR (<1.2) APTT (22.0-30.0) sec Sodium 139 (137-145) mmol/L Potassium 3.3 L (3.5-5.1) mmol/L Chloride 105 (98-107) mmol/L Carbon Dioxide 27 (22-30) mmol/L Anion Gap 7 mmol/L BUN 7 (7-17) mg/dL Creatinine 0.90 (0.52-1.04) mg/dL Est GFR (MDRD) Af Amer >60 (>60 ml/min/1.73 sqM) Est GFR (MDRD) Non-Af >60 (>60 ml/min/1.73 sqM) Glucose 121 H (74-99) mg/dL Plasma Lactic Acid Franklyn (0.7-2.0) mmol/L Calcium 8.2 L (8.4-10.2) mg/dL Magnesium 2.0 (1.6-2.3) mg/dL Total Bilirubin 0.5 (0.2-1.3) mg/dL AST 55 H (14-36) U/L ALT 43 (9-52) U/L Alkaline Phosphatase 122 (38-126) U/L Total Creatine Kinase 37 (30-135) U/L CK-MB (CK-2) 0.5 (0.0-2.4) ng/mL CK-MB (CK-2) Rel Index 1.4 Troponin I 0.014 (0.000-0.034) ng/mL Total Protein 4.8 L (6.3-8.2) g/dL Albumin 2.6 L (3.5-5.0) g/dL Urine Color Urine Appearance (Clear) Urine pH (5.0-8.0) Ur Specific [place] (1.001-1.035) Urine Protein (Negative) Urine Glucose (UA) (Negative) Urine Ketones (Negative) Urine Blood (Negative) Urine Nitrite (Negative) Urine Bilirubin (Negative) Urine Urobilinogen (<2.0) mg/dL Ur Leukocyte Esterase (Negative) Urine RBC (0-5) /hpf Urine WBC (0-5) /hpf Amorphous Sediment (None) /hpf Hyaline Casts (0-2) /lpf Urine Mucus (None) /hpf 10/26/17 10/26/17 10/26/17 Range/Units 18:10 18:10 18:10 WBC (3.8-10.6) k/uL RBC (3.80-5.40) m/uL Hgb (11.4-16.0) gm/dL Hct (34.0-46.0) % MCV (80.0-100.0) fL MCH (25.0-35.0) pg MCHC (31.0-37.0) g/dL RDW (11.5-15.5) % Plt Count (150-450) k/uL Neutrophils % (Manual) % Band Neutrophils % % Lymphocytes % (Manual) % Monocytes % (Manual) % Metamyelocytes % % Myelocytes % % Promyelocytes % % Blast Cells % % Neutrophils # (Manual) (1.3-7.7) k/uL Lymphocytes # (Manual) (1.0-4.8) k/uL Monocytes # (Manual) (0-1.0) k/uL Metamyelocytes # (Man) (0) k/uL Myelocytes # (Manual) (0) k/uL Promyelocytes # (Man) (0) k/uL Blast Cells # (Man) (0) k/uL Plasma Cell # (Manual) (0) k/uL Nucleated RBCs (0-0) /100 WBC Manual Slide Review Plasma Cells % % Poikilocytosis Anisocytosis PT 10.7 (9.0-12.0) sec INR 1.1 (<1.2) APTT 22.3 (22.0-30.0) sec Sodium (137-145) mmol/L Potassium (3.5-5.1) mmol/L Chloride (98-107) mmol/L Carbon Dioxide (22-30) mmol/L Anion Gap mmol/L BUN (7-17) mg/dL Creatinine (0.52-1.04) mg/dL Est GFR (MDRD) Af Amer (>60 ml/min/1.73 sqM) Est GFR (MDRD) Non-Af (>60 ml/min/1.73 sqM) Glucose (74-99) mg/dL Plasma Lactic Acid Franklyn 1.0 (0.7-2.0) mmol/L Calcium (8.4-10.2) mg/dL Magnesium (1.6-2.3) mg/dL Total Bilirubin (0.2-1.3) mg/dL AST (14-36) U/L ALT (9-52) U/L Alkaline Phosphatase (38-126) U/L Total Creatine Kinase (30-135) U/L CK-MB (CK-2) (0.0-2.4) ng/mL CK-MB (CK-2) Rel Index Troponin I (0.000-0.034) ng/mL Total Protein (6.3-8.2) g/dL Albumin (3.5-5.0) g/dL Urine Color Yellow Urine Appearance Clear (Clear) Urine pH 5.0 (5.0-8.0) Ur Specific [place] 1.008 (1.001-1.035) Urine Protein Negative (Negative) Urine Glucose (UA) Negative (Negative) Urine Ketones Negative (Negative) Urine Blood Trace H (Negative) Urine Nitrite Negative (Negative) Urine Bilirubin Negative (Negative) Urine Urobilinogen <2.0 (<2.0) mg/dL Ur Leukocyte Esterase Negative (Negative) Urine RBC 1 (0-5) /hpf Urine WBC 1 (0-5) /hpf Amorphous Sediment Rare H (None) /hpf Hyaline Casts 4 H (0-2) /lpf Urine Mucus Few H (None) /hpf Critical Care Time Critical Care Time: Yes Total Critical Care Time: 45 Disposition Clinical Impression: Subdural hematoma, Thrombocytopenia Disposition: OTHER INSTITUTION NOT DEFINED Condition: Serious Referrals: Cristopher Pierre DO [Primary Care Provider] - 1-2 days - Out of Hospital Transfer - Req. Specs Out of Hospital Transfer - Requested Specifics: Other Emergency Center ([facility], accepting physician Dr. Canales)
[2017-10-26 18:38] LABS: ALT 43 U/L (9-52); AST 55 U/L (14-36); Albumin 2.6 g/dL (3.5-5.0); Alkaline Phosphatase 122 U/L (38-126); Anion Gap 7 mmol/L; Blood Urea Nitrogen 7 mg/dL (7-17); Calcium 8.2 mg/dL (8.4-10.2); Carbon Dioxide 27 mmol/L (22-30); Chloride 105 mmol/L (98-107); Glucose 121 mg/dL (74-99); Potassium 3.3 mmol/L (3.5-5.1); Sodium 139 mmol/L (137-145); Total Bilirubin 0.5 mg/dL (0.2-1.3); Total Protein 4.8 g/dL (6.3-8.2)
[2017-10-26 18:49] LABS: Amorphous Sediment,Urine Rare /hpf; Anisocytosis Slight; Appearance,Urine Clear (Clear); Bilirubin,Urine Negative (Negative); Blood,Urine Trace (Negative); Color,Urine Yellow; Glucose,Urine (UA) Negative (Negative); HCT 24.7 % (34.0-46.0); HGB 8.2 gm/dL (11.4-16.0); Hyaline Casts,Urine 4 /lpf (0-2); Ketones,Urine Negative (Negative); Leukocyte Esterase,Urine Negative (Negative); MCH 29.9 pg (25.0-35.0); MCHC 33.4 g/dL (31.0-37.0); MCV 89.3 fL (80.0-100.0); Mean Platelet Volume 8.9; Mucus,Urine Few /hpf; Nitrite,Urine Negative (Negative); Poikilocytosis Slight; Protein,Urine Negative (Negative); RBC 2.76 m/uL (3.80-5.40); RBC,Urine 1 /hpf (0-5); RDW 16.9 % (11.5-15.5); Specific Gravity,Urine 1.008 (1.001-1.035); Urobilinogen,Urine <2.0 mg/dL (<2.0); WBC,Urine 1 /hpf (0-5)
[2017-10-26 18:53] LABS: Platelet Count 15 k/uL (150-450)
[2017-10-26 19:00] LABS: Creatine Kinase MB 0.5 ng/mL (0.0-2.4); Troponin I 0.014 ng/mL (0.000-0.034)
[2017-10-26 19:15] LABS: INR 1.1 (<1.2); Partial Thromboplastin Time 22.3 sec (22.0-30.0); Prothrombin Time 10.7 sec (9.0-12.0)
--- NOTE | 2017-10-26 19:18 | XR ---
EXAMINATION TYPE: XR chest 1V portable DATE OF EXAM: 10/26/2017 COMPARISON: October 20, 2017 HISTORY: Chest pain TECHNIQUE: Single frontal view of the chest is obtained. FINDINGS: There is mild increased cephalization of pulmonary vasculature. There is an opacity at the left lung base which is slightly increased in size when compared to the previous study. There is bee n a sternotomy. Cardiac silhouette is unchanged. No pneumothorax is identified. IMPRESSION: Mild to moderate congestive heart failure is identified. Opacity at the left lung base i s felt to be pleural effusion. Underlying airspace disease and/or atelectasis and/or a neoplasm is no t excluded.
[2017-10-26 19:33] LABS: Neutrophils % (M) 17 %
[2017-10-26 19:34] LABS: Band Neutrophils % 3 %; Blast Cells # (M) 2.62 k/uL (0); Lymphocytes # (M) 6.35 k/uL (1.0-4.8); Metamyelocytes # (M) 0.14 k/uL (0); Metamyelocytes % 1 %; Myelocytes # (M) 0.28 k/uL (0); Myelocytes % 2 %; Nucleated Red Blood Cells 3 /100 WBC (0-0); Plasma Cells # (M) 0.14 k/uL (0); Plasma Cells % 1 %; Promyelocytes % 4 %; Total Cells Counted 200; WBC 13.8 k/uL (3.8-10.6)
--- NOTE | 2017-10-26 19:34 | CT ---
EXAMINATION TYPE: CT brain wo con DATE OF EXAM: 10/26/2017 COMPARISON: February 21, 2017 HISTORY: Weakness CT DLP: 885.40 mGycm Automated exposure control for dose reduction was used. FINDINGS: Hypodense areas noted posterior to the left parietal lobe. There is also an area of increased density identified adjacent to the left parietal lobe which measures 1.5 x 0.5 cm. There is also increased d ensity identified within the lesion near the convexity surrounding the left parietal lobe. Hypodense areas also noted adjacent to the left frontal lobe within the inner table of the skull. These finding s are new since the previous study. There is no midline shift. There is no significant mass effect fr om these foci. Fourth ventricle is midline. Mild chronic white matter ischemic changes and mild corti edison atrophy are noted. The paranasal sinuses and mastoid air cells are well aerated. IMPRESSION: New abnormal areas of hypodensity with several foci of hyperdense areas. Findings could be related to subdural hematomas with layering of blood products. Other etiologies are certainly possible. An MRI of the brain with contrast is required.
[2017-10-26 19:35] LABS: Monocytes # (M) 1.38 k/uL (0-1.0); Promyelocytes # (M) 0.55 k/uL (0)
[2017-10-26] MEDS ORDERED: HYDROmorphone 0.5 MG/0.5 ML SYRINGE IVP PRN (21:25)
[2017-10-26] MEDS ORDERED: NALOXONE 0.4 MG/ML 1 ML VIAL IV PRN (21:25)
[2017-10-26] MEDS ORDERED: POTASSIUM CHLORIDE ER 20 MEQ TAB.ER PO STA (21:28)
[2017-10-26 21:56] LABS: Mean Platelet Volume 9.1
[2017-10-26 21:57] LABS: Platelet Count 16 k/uL (150-450)
[2017-10-26 22:40] VITALS: PULSE 82
[2017-10-26 22:49] VITALS: BP 176/74; RESP 16; TEMP 98.1
== END 2017-10-26 22:55 | disposition short-term general hospital (02) ==
LOC: SUPCPDRO 17:26 → EC 17:26 → UNDOADMIN 21:28 → 5ONC 21:28 → EC 22:55
DX: I62.00 Nontraumatic subdural hemorrhage, unspecified (principal); D69.6 Thrombocytopenia, unspecified; C92.10 Chronic myeloid leukemia, BCR/ABL-positive, not having achieved remission; R91.8 Other nonspecific abnormal finding of lung field; R09.89 Other specified symptoms and signs involving the circulatory and respiratory systems; B96.89 Other specified bacterial agents as the cause of diseases classified elsewhere; I49.9 Cardiac arrhythmia, unspecified; R41.82 Altered mental status, unspecified; E78.5 Hyperlipidemia, unspecified; I11.0 Hypertensive heart disease with heart failure; I50.9 Heart failure, unspecified; I25.10 Atherosclerotic heart disease of native coronary artery without angina pectoris; E11.9 Type 2 diabetes mellitus without complications; K21.9 Gastro-esophageal reflux disease without esophagitis; D50.9 Iron deficiency anemia, unspecified; F32.9 Major depressive disorder, single episode, unspecified; I25.2 Old myocardial infarction; Z87.891 Personal history of nicotine dependence; Z79.4 Long term (current) use of insulin; Z79.899 Other long term (current) drug therapy; Z91.09 Other allergy status, other than to drugs and biological substances; Z87.440 Personal history of urinary (tract) infections; Z86.79 Personal history of other diseases of the circulatory system; Z95.818 Presence of other cardiac implants and grafts; Z82.49 Family history of ischemic heart disease and other diseases of the circulatory system
CPT/HCPCS: 36415; 93005; 86900; 86901; 80053; 82550; 82553; 83605; 83735; 84484; 85025; 85049; 85610; 85730; 86850; 81001; 71045; 70450; 99291; P9035